=== PATIENT | male | born 1955 | race Caucasian/White ===

== ENCOUNTER → 2016-11-03 | Outpatient (CLI) | payer OTHER ==
--- NOTE | 2016-11-03 10:38 | DIAGNOSTIC IMAGING REPORT ---
MRI OF THE LUMBAR SPINE WITHOUT CONTRAST CLINICAL HISTORY: SPINAL STENOSIS COMPARISON STUDY: MRI of the lumbar spine September 18, 2014. TECHNIQUE: Utilizing a 1.5 Abeba magnet and dedicated coil, multiplanar, multiecho imaging of the lumbar spine was performed without IV contrast. FINDINGS: For purposes of numbering on this exam, the L5-S1 disc space is assigned to axial image 27 of 30. Alignment of the lumbar spine is anatomic. Vertebral body heights are maintained. There is no marrow replacement. There is no intracanalicular mass or fluid collection. Conus terminates at the mid L1 level. The paravertebral soft tissues are unremarkable. L1-2: Central canal and neural foramen are patent. L2-3: The central canal and neural foramen are patent. L3-4: The central canal and neural foramen are patent. L4-5: There is mild facet arthrosis. The central canal and neural foramen are patent. L5-S1: There is mild facet arthrosis. There is minimal disc bulge. Central canal and neural foramen are patent. IMPRESSION: 1. Unremarkable MRI of the lumbar spine for age. 2. Minimal multilevel degenerative disc disease and facet arthrosis. No disc herniation. Patent central canal and neural foramen. Electronically signed by: Pedro Kahn M.D. 11/03/2016 10:37 AM Dictated Date/Time: 11/03/2016 10:33 AM
== END | disposition home or self-care (01) ==
LOC: C.MRI 08:48
PROVIDERS: ATTEND Orthopaedic Surgery Orthopaedic Surgery of the Spine
DX: M48.06 Spinal stenosis, lumbar region (principal)

== ENCOUNTER → 2016-11-17 | Outpatient (CLI) | payer OTHER ==
--- NOTE | 2016-11-17 14:17 | DIAGNOSTIC IMAGING REPORT ---
ANKLE BRACHIAL INDEX COMPLETE CLINICAL HISTORY: BILATERAL CLAUDICATION COMPARISON STUDY: None. FINDINGS: The right ankle-brachial index measured with the posterior tibial artery was 1.4 and the dorsalis pedis artery was 1.29. The left ankle-brachial index measured with the posterior tibial artery was 1.35 and the dorsalis pedis artery was 1.14. IMPRESSION: Normal bilateral ankle brachial indices. Electronically signed by: Kike Freeman M.D. 11/17/2016 2:16 PM Dictated Date/Time: 11/17/2016 2:15 PM
== END | disposition home or self-care (01) ==
LOC: C.ULTR 12:50
PROVIDERS: ATTEND Physician Assistant
DX: I70.213 Atherosclerosis of native arteries of extremities with intermittent claudication, bilateral legs (principal)

== ENCOUNTER 2021-02-15 12:59 | Inpatient (IN) ==
[2021-02-15] MEDS ORDERED: ONDANSETRON INJ 2 MG/ML 2 ML VIAL IV STA (14:04)
[2021-02-15] MEDS ORDERED: SODIUM CHLORIDE 0.9% 1000ML 1,000 ML IV STA (14:04)
[2021-02-15] MEDS ORDERED: OPTIRAY 320 100ml IV ONE (14:11)
[2021-02-15] MEDS: MoRPHine SULFATE 4 MG/ML 1 ML CARP\\VIAL IV PRN ×4 (14:16→17:22)
--- NOTE | 2021-02-15 14:24 | Emergency Department Note ---
Impression & Plan Mesenteric vein thrombosis, Esophageal cancer, Ascites, Abdominal pain ED Provider Note NAME: MAXIMUS AGUILAR AGE: 65 SEX: M : 1955 ARRIVES VIA: Walk-In INFORMANT: Patient, ED PROVIDER(S): Isaiah Weldon DO CHIEF COMPLAINT: Abdominal pain HPI: The patient is a 65-year-old male who presented to the emergency department for an evaluation of abdominal pain. The patient has had abdominal pain ongoing for approximately 1 week. He states his symptoms have slowly been worsening. He was recently diagnosed with esophageal cancer. He does have a history of an esophageal stent. He is never had a bowel obstruction. He called his primary oncologist today and was referred to the emergency department for the possibility of a bowel obstruction. The patient has had nausea but no vomiting. He is noticed abdominal distention. He denies having any fever. He denies having any cough or chest pain. The patient has not had any recent traveling. The patient presented to the emergency department with his significant other. He denies having any black or bloody bowel movements. He tried an enema without relief. He has noticed some decreased urine output. He tried an enema because he thought he was just constipated without relief. He is also been trying [id number] stool softeners. ROS: See above HPI for pertinent positives & negatives. A total of 10 systems reviewed and were otherwise negative. PAST MEDICAL HISTORY: See Below PAST SURGICAL HISTORY: See Below FAMILY HISTORY: See Below SOCIAL HISTORY: See Below HOME MEDICATIONS: See Below ALLERGIES: See Below VITALS: See Below PHYSICAL EXAMINATION: GENERAL: Patient is awake and alert. The patient is somewhat anxious appearing. EYES: The conjunctivae are clear. The pupils are round and reactive. EARS, NOSE, MOUTH AND THROAT: The nose is without any evidence of any deformity. NECK: The neck is nontender and supple. RESPIRATORY: Normal respiratory effort is noted there is no evidence of wheezing rhonchi or rales CARDIOVASCULAR: Regular rate and rhythm noted there no murmurs rubs or gallops normal S1 normal S2. GASTROINTESTINAL: The abdomen was moderately distended and diffusely tender. There is guarding in the left side of the abdomen. MUSCULOSKELETAL/EXTREMITIES: There is no evidence of gross deformity full range of motion is noted in the hips and shoulders. SKIN: There is no obvious evidence of any rash. Pedal edema was noted bilaterally. NEUROLOGIC: Patient is awake alert and oriented x3. MEDICAL DECISION MAKING: The patient is a 65-year-old male who presented to the emergency department for an evaluation of abdominal pain. The patient has a history of esophageal cancer. He has a recent esophageal stent and recently started chemotherapy. The patient presented to the emergency department with abdominal pain abdominal distention and decreased bowel movements. It was felt that he may be in small bowel obstruction but CT revealed signs of ascites metastatic disease as well as mesenteric vein thrombosis. I discussed the patient's laboratory and r adiographic studies with him. He was treated with IV pain medication IV fluids and IV antiemetics. He was also given IV antibiotics and IV heparin. He was reevaluated multiple times. His symptoms significantly improved. I discussed his case with the on-call [facility] hospitalist. They have agreed to evaluate the patient in the emergency department for further management and disposition. Triage Nursing notes reviewed. Prior medical records reviewed Vital Signs: reviewed and remarkable for hypertension and tachycardia. Differential diagnosis: Etiologies such as appendicitis, diverticulitis, obstruction, inflammatory bowel disease, renal colic, PUD, biliary pathology, pancreatitis, mesenteric ischemia, aortic pathology, infections, genitourinary, UTI, perforated viscus, as well as others were entertained. ER treatment provided: See below Diagnostics interpreted by me: ECG: none Cardiac Monitoring: An order was placed for continuous cardiac monitoring. The monitor shows a rate of 96 bpm with sinus rhythm. Laboratory studies: As stated above and show below. Imaging studies: See below Consultation(s): I discussed this case with Dr. Carlin. He is agreed to evaluate the patient in the emergency department for further management and disposition. ED COURSE: Procedures: none PDMP:reviewed and no issues Critical Care: I have personally spent greater than 45 minutes of critical care time in the direct management of this patient. This includes bedside care, interpretation of diagnostic studies, and testing, discussion with consultants, patient, and family members, and other required patient management activities. This 45 minutes is in excess of all separately billable procedures. Past Med/Surg History Medical History (Updated 02/15/21 @ 19:52 by Isaiah Weldon DO) BPH (benign prostatic hyperplasia) Degenerative disc disease Depression Esophageal cancer (~12/2020) GERD (gastroesophageal reflux disease) Surgical History H/O hand surgery FINGER TENDON REPAIR History of esophagogastroduodenoscopy (EGD) History of esophagogastroduodenoscopy (EGD) (~12/2020) Upper Endoscopic Ultrasonography + esophageal stent [place] teeth removed Family History Mother Breast cancer Family history of diabetes mellitus Other Cancer Diabetes No family history of adverse response to anesthesia Parkinson disease TIA (transient ischemic attack) Social History Smoking Status: Never smoker Second Hand Exposure: Yes (hx); Hx Alcohol Use: Yes Alcohol type: beer Hx Substance Use: No Preferred Language: Chinese Communication Ability: Effective [employer] Required: No Beliefs That Will Affect Care: None Current Living Situation: Family Feels Safe at Home: Yes Assistive Devices: Glasses Allergies Allergies Allergy/AdvReac Type Severity Reaction Status Date / Time No Known Allergies Allergy Verified 02/15/21 15:15 Home Meds Home Medications Medication Instructions Recorded Confirmed bupropion HCl 150 mg 24 hr tablet, 150 mg PO QAM 12/23/20 02/15/21 extended release esomeprazole magnesium 40 mg 40 mg PO BID 02/06/21 02/15/21 capsule,delayed release (Nexium) famotidine 20 mg tablet (Pepcid AC) 20 mg PO HS 02/06/21 02/15/21 finasteride 5 mg tablet 5 mg PO HS 02/06/21 02/15/21 docusate sodium 100 mg capsule 200 mg PO BID PRN 02/15/21 02/15/21 (Dulcolax Stool Softener (docusate)) fluorouracil 50 mg/mL intravenous 0 mg IV Q14D 02/15/21 02/15/21 solution magnesium citrate 75 ml PO DAILY PRN 02/15/21 02/15/21 nivolumab 100 mg/10 mL intravenous 0 mg IV Q14D 02/15/21 02/15/21 solution (Opdivo) ondansetron HCl 8 mg tablet 8 mg PO Q8H 02/15/21 02/15/21 oxaliplatin 200 mg/40 mL 0 mg IV Q14D 02/15/21 02/15/21 intravenous solution prochlorperazine maleate 10 mg 10 mg PO Q6 PRN 02/15/21 02/15/21 tablet Previous Rx's Medication Instructions Recorded oxycodone-acetaminophen 5 mg-325 1 tab PO Q6H PRN #14 tab 02/10/21 mg tablet (Percocet) Results & Data (ED) Vital Signs Vital Signs - 24 hr 02/15/21 13:18 02/15/21 14:54 02/15/21 14:55 Temperature 35.7 C L Temperature Source Temporal Artery Scan Pulse Rate 97 H 85 97 H Pulse Rate from SpO2 Sensor 86 Pulse Rhythm Regular Respiratory Rate 22 21 22 Respiratory Effort / Characteristics Non-Labored Spontaneous Respiratory Depth Normal Respiratory Pattern Regular Blood Pressure 144/88 H 134/73 Blood Pressure Mean 106 93 Pulse Oximetry 97 97 97 Oxygen Delivery Method Room Air Room Air Sepsis Recent Fever Within 48 Hours No Sepsis New/Unexplained Change in Mental Status No Sepsis Action Taken by Nursing No Action Required 02/15/21 15:00 02/15/21 15:30 02/15/21 16:00 Temperature Temperature Source Pulse Rate 83 87 92 H Pulse Rate from SpO2 Sensor 84 87 93 H Pulse Rhythm Respiratory Rate 26 H 11 L 34 H Respiratory Effort / Characteristics Respiratory Depth Respiratory Pattern Blood Pressure 142/90 H 121/77 156/94 H Blood Pressure Mean 107 91 114 Pulse Oximetry 97 91 93 Oxygen Delivery Method Sepsis Recent Fever Within 48 Hours Sepsis New/Unexplained Change in Mental Status Sepsis Action Taken by Nursing 02/15/21 16:30 Temperature Temperature Source Pulse Rate 94 H Pulse Rate from SpO2 Sensor Pulse Rhythm Respiratory Rate 23 Respiratory Effort / Characteristics Respiratory Depth Respiratory Pattern Blood Pressure 119/79 Blood Pressure Mean 92 Pulse Oximetry Oxygen Delivery Method Sepsis Recent Fever Within 48 Hours Sepsis New/Unexplained Change in Mental Status Sepsis Action Taken by [place] Medications Current Medication List: was personally reviewed by me Laboratory Data Attestation: I reviewed the patient's lab results. Result diagrams: 02/15/21 14:00 02/15/21 14:00 Lab Results 02/15/21 02/15/21 02/15/21 Range/Units 14:00 14:00 14:00 WBC 11.09 H (4.8-10.8) K/uL RBC 4.60 L (4.7-6.1) M/uL Hgb 14.4 (14.0-18.0) g/dL POC Hgb (14.0-18.0) g/dl Hct 42.6 (42-52) % POC Hct (42-52) % MCV 92.6 (80-100) fL MCH 31.3 (25-34) pg MCHC 33.8 (32-36) g/dL RDW Std Deviation 49.7 H (36.4-46.3) fL RDW Coeff of Macario 14.7 H (11.5-14.5) % Plt Count 152 (130-400) K/uL MPV 11.3 H (7.4-10.4) fL Immature Gran % (Auto) 0.3 % Neut % (Auto) 90.9 % Lymph % (Auto) 7.1 % Brown % (Auto) 1.1 % Eos % (Auto) 0.5 % Baso % (Auto) 0.1 % Neut # (Auto) 10.08 H (1.4-6.5) K/uL Lymph # (Auto) 0.79 L (1.2-3.4) K/uL Brown # (Auto) 0.12 (0.11-0.59) K/uL Eos # (Auto) 0.06 (0-0.5) K/uL Baso # (Auto) 0.01 (0-0.2) K/uL Immature Gran # (Auto) 0.03 H (0.00-0.02) K/uL PT 13.1 H (9.0-12.0) Seconds INR 1.3 H (0.9-1.1) APTT 27.8 (21.0-31.0) Seconds PTT Ratio 1.1 POC Sodium (135-144) mmol/L Sodium 136 (136-145) mmol/L POC Potassium (3.3-5.0) mmol/L Potassium 3.9 (3.5-5.1) mmol/L POC Chloride (101-112) mmol/L Chloride 103 (98-107) mmol/L Carbon Dioxide 25 (21-32) mmol/L POC Total CO2 (24-31) mmol/L Anion Gap 8.0 (3-11) POC Anion Gap (16-25) mmol/L POC BUN (7-18) mg/dl BUN 26 H (7-18) mg/dl Creatinine 0.94 (0.6-1.4) mg/dl POC Creatinine (0.6-1.3) mg/dl Est Cr Clr Drug Dosing 96.2 ml/min Est GFR ( Amer) 98.9 ml/min Est GFR (Non-Af Amer) 85.3 ml/min BUN/Creatinine Ratio 27.6 H (10-20) Glucose 111 H (70-99) mg/dl POC Glucose (other) (70-99) mg/dl Calcium 7.7 L (8.5-10.1) mg/dl POC Ioniz Calcium Anabel (1.12-1.32) mmol/l Total Bilirubin 1.4 H (0.2-1) mg/dl AST 48 H (15-37) U/L ALT 56 (12-78) U/L Alkaline Phosphatase 131 H (45-117) U/L Total Protein 7.6 (6.4-8.2) gm/dl Albumin 2.2 L (3.4-5.0) gm/dl Globulin 5.4 H (2.5-4.0) gm/dl Albumin/Globulin Ratio 0.4 L (0.9-2) Lipase 234 (73-393) U/L COVID-19 Eval Order SARS-CoV-2 (PCR) (Negative) 02/15/21 02/15/21 02/15/21 Range/Units 14:13 15:14 15:14 WBC (4.8-10.8) K/uL RBC (4.7-6.1) M/uL Hgb (14.0-18.0) g/dL POC Hgb 14.6 (14.0-18.0) g/dl Hct (42-52) % POC Hct 43 (42-52) % MCV (80-100) fL MCH (25-34) pg MCHC (32-36) g/dL RDW Std Deviation (36.4-46.3) fL RDW Coeff of Macario (11.5-14.5) % Plt Count (130-400) K/uL MPV (7.4-10.4) fL Immature Gran % (Auto) % Neut % (Auto) % Lymph % (Auto) % Brown % (Auto) % Eos % (Auto) % Baso % (Auto) % Neut # (Auto) (1.4-6.5) K/uL Lymph # (Auto) (1.2-3.4) K/uL Brown # (Auto) (0.11-0.59) K/uL Eos # (Auto) (0-0.5) K/uL Baso # (Auto) (0-0.2) K/uL Immature Gran # (Auto) (0.00-0.02) K/uL PT (9.0-12.0) Seconds INR (0.9-1.1) APTT (21.0-31.0) Seconds PTT Ratio POC Sodium 137 (135-144) mmol/L Sodium (136-145) mmol/L POC Potassium 4.0 (3.3-5.0) mmol/L Potassium (3.5-5.1) mmol/L POC Chloride 98 L (101-112) mmol/L Chloride (98-107) mmol/L Carbon Dioxide (21-32) mmol/L POC Total CO2 21 L (24-31) mmol/L Anion Gap (3-11) POC Anion Gap 23.0 (16-25) mmol/L POC BUN 27 H (7-18) mg/dl BUN (7-18) mg/dl Creatinine (0.6-1.4) mg/dl POC Creatinine 0.8 (0.6-1.3) mg/dl Est Cr Clr Drug Dosing ml/min Est GFR ( Amer) ml/min Est GFR (Non-Af Amer) ml/min BUN/Creatinine Ratio (10-20) Glucose (70-99) mg/dl POC Glucose (other) 118 H (70-99) mg/dl Calcium (8.5-10.1) mg/dl POC Ioniz Calcium Anabel 1.10 L (1.12-1.32) mmol/l Total Bilirubin (0.2-1) mg/dl AST (15-37) U/L ALT (12-78) U/L Alkaline Phosphatase (45-117) U/L Total Protein (6.4-8.2) gm/dl Albumin (3.4-5.0) gm/dl Globulin (2.5-4.0) gm/dl Albumin/Globulin Ratio (0.9-2) Lipase (73-393) U/L COVID-19 Eval Order Covid19 at [facility] SARS-CoV-2 (PCR) NEGATIVE (Negative) Administered Medications Heparin Sodium/Dextrose (Heparin Sodium/Dextrose) 25,000 units in 500 mls @ 31 mls/hr IV .Q16H8M SISSY; Protocol Stop: 03/17/21 16:14 Last Titration: 02/15/21 18:53 Dose: 1,550 units/hr, 31 mls/hr Documented by: [id number] Cosigned by: [id number] Admin: 02/15/21 16:37 Dose: 1,550 units/hr, 31 mls/hr Documented by: [id number] Cosigned by: [id number] Lactated Ringer's (Lr) 1,000 mls @ 90 mls/hr IV .Q11H7M SISSY Stop: 03/17/21 16:59 Last Admin: 02/15/21 19:23 Dose: 90 mls/hr Documented by: [id number] Morphine Sulfate (Morphine Sulfate 2 Mg/Ml Carp) 2 mg IV Q4 PRN PRN Reason: severe Pain Stop: 03/01/21 18:54 Last Admin: 02/15/21 19:29 Dose: 2 mg Documented by: [id number] Discontinued Medications Furosemide (Furosemide 40 Mg/4 Ml Vial) 20 mg IV NOW STA Stop: 02/15/21 16:52 Last Admin: 02/15/21 17:48 Dose: 20 mg Documented by: [id number] Sodium Chloride (Nss 1000ml) 1,000 mls @ 999 mls/hr IV .Q1H1M STA Stop: 02/15/21 15:04 Last Infusion: 02/15/21 15:21 Dose: 0 mls/hr Documented by: [id number] Admin: 02/15/21 14:16 Dose: 999 mls/hr Documented by: [id number] Ceftriaxone Sodium (Rocephin) 1,000 mg in 50 mls @ 100 mls/hr IV NOW STA Stop: 02/15/21 16:32 Last Infusion: 02/15/21 16:59 Dose: 0 mls/hr Documented by: [id number] Admin: 02/15/21 16:37 Dose: 100 mls/hr Documented by: [id number] Piperacillin Sod/Tazobactam (Sod 3.375 gm/ Dextrose) 115 mls @ 230 mls/hr IV NOW ONE; Protocol Stop: 02/15/21 16:47 Last Infusion: 02/15/21 19:07 Dose: 0 mls/hr Documented by: [id number] Admin: 02/15/21 17:48 Dose: 230 mls/hr Documented by: [id number] Calcium Gluconate () 1,000 mg in 60 mls @ 240 mls/hr IV ONE STA Stop: 02/15/21 17:22 Last Infusion: 02/15/21 17:40 Dose: 0 mls/hr Documented by: [id number] Admin: 02/15/21 17:15 Dose: 240 mls/hr Documented by: [id number] Ioversol (Optiray 320 100ml) 93 ml IV ONCE ONE Stop: 02/15/21 14:12 Last Admin: 02/15/21 14:11 Dose: 93 ml Documented by: [id number] Morphine Sulfate (Morphine Sulfate 4 Mg/Ml 1 Ml Carp\Vial) 4 mg IV Q15M PRN PRN Reason: Pain Stop: 03/01/21 14:03 Last Admin: 02/15/21 17:22 Dose: 4 mg Documented by: [id number] Admin: 02/15/21 15:21 Dose: 4 mg Documented by: [id number] Admin: 02/15/21 14:50 Dose: 4 mg Documented by: [id number] Admin: 02/15/21 14:16 Dose: 4 mg Documented by: [id number] Ondansetron HCl (Ondansetron Inj 2 Mg/Ml 2 Ml Vial) 4 mg IV NOW STA Stop: 02/15/21 14:05 Last Admin: 02/15/21 14:16 Dose: 4 mg Documented by: [id number] Imaging Data Radiologist's Impression: Abdomen/Pelvis CT 02/15/21 14:[address] WITH IV CONTRAST CT DOSE: 1659.06 mGy.cm HISTORY: Left lower quadrant abdominal pain. TECHNIQUE: Multiaxial CT images of the abdomen and pelvis were performed following the use of intravenous contrast. A dose lowering technique was utilized adhering to the principles of ALARA. COMPARISON STUDY: Abdomen and pelvis CT 12/24/2020. FINDINGS: Mild dependent changes seen at the lung bases. Trace bilateral pleural effusions. Circumferential thickening at the distal esophagus with an indwelling stent. The stent appears in good position. Retrocrural, distal paraesophageal, and upper abdominal lymphadenopathy persists. Dominant periportal lymph node continues to measure 4.2 x 3.0 cm. Near occlusive thrombus at the portosplenic confluence and extending into the superior mesenteric vein. This is new compared the prior study. There is a punctate stone within the left kidney. Normal right kidney. No hydronephrosis. Numerous ill-defined low-attenuation nodules again seen throughout the liver. Mild nodular contour to the liver consistent with cirrhosis. Adrenal glands are unremarkable. The pancreas enhances normally. Small to moderate amount of ascites has developed in the interval. The bladder is unremarkable. The spleen is mildly enlarged measuring 13 cm in length. Normal caliber abdominal aorta. There are a few thickened loops of small bowel within the mid to lower abdomen. IMPRESSION: 1. Circumferential thickening of the distal esophagus with an indwelling distal esophageal stent. This appears in good position. The thickened esophagus likely corresponds the patient's known esophageal mass. 2. Interval development of trace bilateral pleural effusions and a small to moderate amount of ascites. 3. There is near occlusive thrombus within the portosplenic confluence and extending to the superior mesenteric vein. This is also new compared to the prior study. 4. A few mildly thickened loops of small bowel within the mid to lower abdomen. This may be reactive to the ascites or represent a nonspecific enteritis. This could be due to an infectious, inflammatory, or ischemic process. 5. Small to moderate amount of ascites. 6. Cirrhotic liver containing multiple ill-defined low-attenuation small nodules. Metastatic disease would be the diagnosis of exclusion. 7. No significant change in the lymphadenopathy within the upper abdomen and lower chest likely representing metastatic disease. ACT 112: Negative or not required by law. Electronically signed by: Kike Freeman M.D. 02/15/2021 2:52 PM Discharge Plan Visit Data Chief Complaint: Abdominal Pain Stated Complaint: ABDOMINAL PAIN, CONSTIPATION ED Provider: Isaiah Weldon Discharge Problem: Mesenteric vein thrombosis, Esophageal cancer, Ascites, Abdominal pain Patient Disposition: Admitted As Inpatient Condition: Good Discharge Instructions Interventions: ED Discharge Assessment Last Done: 02/15/21 18:08 Discharge Problem: Esophageal cancer Qualifiers: Malignant neoplasm of esophagus location: unspecified location Qualified Code(s): C15.9 - Malignant neoplasm of esophagus, unspecified Ascites Qualifiers: Ascites type: other type Qualified Code(s): R18.8 - Other ascites Abdominal pain Qualifiers: Abdominal location: generalized Qualified Code(s): R10.84 - Generalized abdominal pain
[2021-02-15 14:26] LABS: iSTAT Creatinine 0.8 mg/dl (0.6-1.3); iSTAT Hemoglobin 14.6 g/dl (14.0-18.0); iSTAT Ionized Calcium 1.1 mmol/l (1.12-1.32)
[2021-02-15 14:26] LABS: Basophils # (auto) 0.01 K/uL (0-0.2); Basophils % (auto) 0.1 %; Eosinophils # (auto) 0.06 K/uL (0-0.5); Eosinophils % (auto) 0.5 %; Hematocrit (blood only) 42.6 % (42-52); Hemoglobin 14.4 g/dL (14.0-18.0); Immature Granulocytes # (auto) 0.03 K/uL (0.00-0.02); Immature Granulocytes % (auto) 0.3 %; Lymphocytes # (auto) 0.79 K/uL (1.2-3.4); Lymphocytes % (auto) 7.1 %; Mean Corpuscular Hemoglobin 31.3 pg (25-34); Mean Corpuscular Hgb Conc 33.8 g/dL (32-36); Mean Corpuscular Volume 92.6 fL (80-100); Mean Platelet Volume 11.3 fL (7.4-10.4); Monocytes # (auto) 0.12 K/uL (0.11-0.59); Monocytes % (auto) 1.1 %; Neutrophils # (auto) 10.08 K/uL (1.4-6.5); Neutrophils % (auto) 90.9 %; Platelet Count 152 K/uL (130-400); RDW Coefficient of Variation 14.7 % (11.5-14.5); RDW Standard Deviation 49.7 fL (36.4-46.3); White Blood Count 11.09 K/uL (4.8-10.8)
[2021-02-15 14:49] LABS: Albumin Level 2.2 gm/dl (3.4-5.0); BUN Creatinine Ratio 27.6 (10-20); Calcium 7.7 mg/dl (8.5-10.1); Creatinine Clr Calc Pharmacy 96.2 ml/min; Est GFR (African American) 98.9 ml/min; Est GFR (Non-African American) 85.3 ml/min; Potassium 3.9 mmol/L (3.5-5.1)
[2021-02-15 14:52] LABS: Albumin Globulin Ratio 0.4 (0.9-2); Bilirubin,Total 1.4 mg/dl (0.2-1); Globulin 5.4 gm/dl (2.5-4.0); Total Protein 7.6 gm/dl (6.4-8.2)
--- NOTE | 2021-02-15 14:53 | CT Scan Report ---
ABDOMEN AND PELVIS CT WITH IV CONTRAST CT DOSE: 1659.06 mGy.cm HISTORY: Left lower quadrant abdominal pain. TECHNIQUE: Multiaxial CT images of the abdomen and pelvis were performed following the use of intrave nous contrast. A dose lowering technique was utilized adhering to the principles of ALARA. COMPARISON STUDY: Abdomen and pelvis CT 12/24/2020. FINDINGS: Mild dependent changes seen at the lung bases. Trace bilateral pleural effusions. Circumfer ential thickening at the distal esophagus with an indwelling stent. The stent appears in good positio n. Retrocrural, distal paraesophageal, and upper abdominal lymphadenopathy persists. Dominant peripor annalise lymph node continues to measure 4.2 x 3.0 cm. Near occlusive thrombus at the portosplenic conflue nce and extending into the superior mesenteric vein. This is new compared the prior study. There is a punctate stone within the left kidney. Normal right kidney. No hydronephrosis. Numerous ill-defined low-attenuation nodules again seen throughout the liver. Mild nodular contour to the liver consistent with cirrhosis. Adrenal glands are unremarkable. The pancreas enhances normally. Small to moderate a mount of ascites has developed in the interval. The bladder is unremarkable. The spleen is mildly enl arged measuring 13 cm in length. Normal caliber abdominal aorta. There are a few thickened loops of s mall bowel within the mid to lower abdomen. IMPRESSION: 1. Circumferential thickening of the distal esophagus with an indwelling distal esophageal stent. Thi s appears in good position. The thickened esophagus likely corresponds the patient's known esophageal mass. 2. Interval development of trace bilateral pleural effusions and a small to moderate amount of ascite s. 3. There is near occlusive thrombus within the portosplenic confluence and extending to the superior mesenteric vein. This is also new compared to the prior study. 4. A few mildly thickened loops of small bowel within the mid to lower abdomen. This may be reactive to the ascites or represent a nonspecific enteritis. This could be due to an infectious, inflammatory , or ischemic process. 5. Small to moderate amount of ascites. 6. Cirrhotic liver containing multiple ill-defined low-attenuation small nodules. Metastatic disease would be the diagnosis of exclusion. 7. No significant change in the lymphadenopathy within the upper abdomen and lower chest likely repre senting metastatic disease. ACT 112: Negative or not required by law. Electronically signed by: Kike Freeman M.D. 02/15/2021 2:52 PM
[2021-02-15 15:57] LABS: INR 1.3 (0.9-1.1); Partial Thromboplastin Ratio 1.1; Partial Thromboplastin Time 27.8 Seconds (21.0-31.0); Prothrombin Time 13.1 Seconds (9.0-12.0)
[2021-02-15] MEDS ORDERED: Heparin IV Adult Wt-Based Standard *NO* Bolus Protocol ONE (16:00)
[2021-02-15] MEDS ORDERED: cefTRIAXone SODIUM 1,000 MG/50 ML BAG IV STA (16:03)
[2021-02-15] MEDS ORDERED: PIPERACILL/TAZOBAC CONSULT ACTIVE PRN ×2 (16:18→18:55)
[2021-02-15] MEDS ORDERED: PIPERACILLIN/TAZOBACTAM 3.375 GM in DEXTROSE 5% 100 ML IV ONE (16:18)
[2021-02-15] MEDS: HEPARIN SODIUM/DEXTROSE 25,000 UNITS/500 ML BAG IV SCH (16:37)
[2021-02-15] MEDS ORDERED: FUROSEMIDE 40 MG/4 ML VIAL IV STA (16:51)
[2021-02-15] MEDS ORDERED: CALCIUM GLUCONATE 10% 1,000 MG in SODIUM CHLORIDE 0.9% 50 ML IV ONE (16:54)
[2021-02-15] MEDS ORDERED: CALCIUM GLUCONATE 1,000 MG/60 ML BAG IV STA (17:08)
--- NOTE | 2021-02-15 17:24 | History & Physical Report ---
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 metastatic disease - GI consult appreciated (3) Ascites: Plan: Likely secondary to acute thrombus - 20 mg IV lasix now (4) GERD (gastroesophageal reflux disease): Plan: Continue Nexium 40 mg PO BID or equivalent (5) Esophageal cancer: Plan: Patient undergoing fluorouracil, Oxaliplatin and Opdivo every 14 days- received 1 treatment - Oxycondone and Morphine for moderate to severe pain (6) BPH (benign prostatic hyperplasia): Plan: Continue finasteride (7) Enteritis: Plan: Reactive vs. non-specific finding associated with dilated loops of bowel - Zosyn 3.375 gm IV q 8 empiric coverage as well with mesenteric thrombus History of Present Illness Primary Care Provider: Bandar Carrion 65 YOM with past medical history: HOFFMAN, GERD, Esophageal cancer with stent placed, BPH. Patient was recently diagnosed with esophageal cancer and recently started chemotherapy. He came in today for complaints of sharp stabbing abdominal pain yesterday that progressively gotten worse. The pain is in the center of his abdomen and waxes and wanes, it was associated with a sense of fullness and nausea without vomiting. He has also noticed that his abdomen has been getting more swollen and his weight at his last visit prior to chemotherapy was increased 20lbs(this was a different scale than he used at home though). In the EMD the patient had routine labs drawn and CT scan of the abdomen and pelvis. His abdomen and pelvis scan reviewed Near occlusive thrombus of the portosplenic confluence extending to the superior mesenteric vein. Also noting c irrhotic liver and small lymph nodes, as well as mildly thickened loops of small bowels and new evolvement of ascites. Patient will be admitted and started on a Heparin drip for his thrombus, will place empirically on Zosyn, keep NPO, IVF and pain control. Will give 20 mg of Lasix now for ascites. Patient has reveived his COVID vaccine and his COVID test is NEGATIVE on admission. Allergies Allergy/AdvReac Type Severity Reaction Status Date / Time No Known Allergies Allergy Verified 02/15/21 15:15 Home Medications Medication Instructions Recorded Confirmed Type bupropion HCl 150 mg 24 hr tablet, 150 mg PO QAM 12/23/20 02/15/21 History extended release esomeprazole magnesium 40 mg 40 mg PO BID 02/06/21 02/15/21 History capsule,delayed release (Nexium) famotidine 20 mg tablet (Pepcid AC) 20 mg PO HS 02/06/21 02/15/21 History finasteride 5 mg tablet 5 mg PO HS 02/06/21 02/15/21 History oxycodone-acetaminophen 5 mg-325 1 tab PO Q6H PRN #14 tab 02/10/21 02/15/21 Rx mg tablet (Percocet) docusate sodium 100 mg capsule 200 mg PO BID PRN 02/15/21 02/15/21 History (Dulcolax Stool Softener (docusate)) fluorouracil 50 mg/mL intravenous 0 mg IV Q14D 02/15/21 02/15/21 History solution magnesium citrate 75 ml PO DAILY PRN 02/15/21 02/15/21 History nivolumab 100 mg/10 mL intravenous 0 mg IV Q14D 02/15/21 02/15/21 History solution (Opdivo) ondansetron HCl 8 mg tablet 8 mg PO Q8H 02/15/21 02/15/21 History oxaliplatin 200 mg/40 mL 0 mg IV Q14D 02/15/21 02/15/21 History intravenous solution prochlorperazine maleate 10 mg 10 mg PO Q6 PRN 02/15/21 02/15/21 History tablet Past Med/Surg History Medical History BPH (benign prostatic hyperplasia) Degenerative disc disease Depression Esophageal cancer (~12/2020) GERD (gastroesophageal reflux disease) Surgical History H/O hand surgery FINGER TENDON REPAIR History of esophagogastroduodenoscopy (EGD) History of esophagogastroduodenoscopy (EGD) (~12/2020) Upper Endoscopic Ultrasonography + esophageal stent [place] teeth removed Family History Mother Breast cancer Family history of diabetes mellitus Other Cancer Diabetes No family history of adverse response to anesthesia Parkinson disease TIA (transient ischemic attack) Social History Smoking Status: Former smoker Second Hand Exposure: No; Do You Dip or Chew Tobacco: No; Tobacco Cessation Education Requested by Patient: No Hx Alcohol Use: No Hx Substance Use: No Preferred Language: Telugu Communication Ability: Effective Er Manager Required: No Beliefs That Will Affect Care: None Current Living Situation: Spouse Feels Safe at Home: Yes Safety Concerns: Feels Safe At This Time Assistive Devices: Glasses Review of Systems Review of Systems: REVIEW OF SYSTEMS: Constitutional: No fever, sweats or chills Eyes: No diplopia, no worsening or blurred vision ENT: normal hearing, no trouble swallowing Respiratory: No cough, sputum, dyspnea at rest or on exertion Cardiovascular: No chest pain, tightness or palpitations Abdomen: (+) pain, nausea, loss of appetitie, NO vomiting, diarrhea or constipation Musculoskeletal: No joint pain, calf pain, swelling Neurologic: No weakness, numbness/tingling, or balance problems Psychiatric: No anxiety or depression Skin: No rash or itch Physical Exam Physical Exam: PHYSICAL EXAM: General: awake, alert, no apparent distress Head: Normocephalic, atraumatic ENT: PERRL, EOMI, no pharyngeal exudate, mucous membranes moist Neuro: AAO x 3, speech clear and appropriate, strength intact bilaterally 5/5, sensation intact and equal all extremities and dermatomes, no pronator drift Chest: equal rise and fall of the chest, no accessory muscle use, no heaves or thrills, Clear to auscultation, on room air, Cardiac: Regular rate and rhythm, telemetry reviewed-NSR no ectopy, skin warm dry, cap refill <3 seconds, peripheral pulses +2 no JVD, no murmur, no edema in upper or lower extremities GI: NABS x 4 quadrants, softly distended, tender with deep palpation, no rebound, guarding : Spontaneously voiding, no pain, no CVA tenderness, Extremities: Normal inspection, no peripheral edema or erythema, calfs nontender to palpation Psych: Normal mood and affect Skin: no rash or erythema Results & Data Results & Data ([facility]) Vital Signs (Past 12 Hours) Vital Signs Temp Pulse Resp BP Pulse Ox 02/15/21 16:30 94 H 23 119/79 02/15/21 16:00 92 H 34 H 156/94 H 93 02/15/21 15:30 87 11 L 121/77 91 02/15/21 15:00 83 26 H 142/90 H 97 02/15/21 14:55 97 H 22 97 02/15/21 14:54 85 21 134/73 97 02/15/21 13:18 35.7 C L 97 H 22 144/88 H 97 Laboratory Results Abnormal lab results 02/15/21 02/15/21 02/15/21 Range/Units 14:00 14:00 14:00 WBC 11.09 H (4.8-10.8) K/uL RBC 4.60 L (4.7-6.1) M/uL RDW Std Deviation 49.7 H (36.4-46.3) fL RDW Coeff of Macario 14.7 H (11.5-14.5) % MPV 11.3 H (7.4-10.4) fL Neut # (Auto) 10.08 H (1.4-6.5) K/uL Lymph # (Auto) 0.79 L (1.2-3.4) K/uL Immature Gran # (Auto) 0.03 H (0.00-0.02) K/uL PT 13.1 H (9.0-12.0) Seconds INR 1.3 H (0.9-1.1) POC Chloride (101-112) mmol/L POC Total CO2 (24-31) mmol/L POC BUN (7-18) mg/dl BUN 26 H (7-18) mg/dl BUN/Creatinine Ratio 27.6 H (10-20) Glucose 111 H (70-99) mg/dl POC Glucose (other) (70-99) mg/dl Calcium 7.7 L (8.5-10.1) mg/dl POC Ioniz Calcium Anabel (1.12-1.32) mmol/l Total Bilirubin 1.4 H (0.2-1) mg/dl AST 48 H (15-37) U/L Alkaline Phosphatase 131 H (45-117) U/L Albumin 2.2 L (3.4-5.0) gm/dl Globulin 5.4 H (2.5-4.0) gm/dl Albumin/Globulin Ratio 0.4 L (0.9-2) 02/15/21 Range/Units 14:13 WBC (4.8-10.8) K/uL RBC (4.7-6.1) M/uL RDW Std Deviation (36.4-46.3) fL RDW Coeff of Macario (11.5-14.5) % MPV (7.4-10.4) fL Neut # (Auto) (1.4-6.5) K/uL Lymph # (Auto) (1.2-3.4) K/uL Immature Gran # (Auto) (0.00-0.02) K/uL PT (9.0-12.0) Seconds INR (0.9-1.1) POC Chloride 98 L (101-112) mmol/L POC Total CO2 21 L (24-31) mmol/L POC BUN 27 H (7-18) mg/dl BUN (7-18) mg/dl BUN/Creatinine Ratio (10-20) Glucose (70-99) mg/dl POC Glucose (other) 118 H (70-99) mg/dl Calcium (8.5-10.1) mg/dl POC Ioniz Calcium Anabel 1.10 L (1.12-1.32) mmol/l Total Bilirubin (0.2-1) mg/dl AST (15-37) U/L Alkaline Phosphatase (45-117) U/L Albumin (3.4-5.0) gm/dl Globulin (2.5-4.0) gm/dl Albumin/Globulin Ratio (0.9-2) Diagnostic Findings Abdomen/Pelvis CT 02/15/21 14:[address] WITH IV CONTRAST CT DOSE: 1659.06 mGy.cm HISTORY: Left lower quadrant abdominal pain. TECHNIQUE: Multiaxial CT images of the abdomen and pelvis were performed following the use of intravenous contrast. A dose lowering technique was utilized adhering to the principles of ALARA. COMPARISON STUDY: Abdomen and pelvis CT 12/24/2020. FINDINGS: Mild dependent changes seen at the lung bases. Trace bilateral pleural effusions. Circumferential thickening at the distal esophagus with an indwelling stent. The stent appears in good position. Retrocrural, distal paraesophageal, and upper abdominal lymphadenopathy persists. Dominant periportal lymph node continues to measure 4.2 x 3.0 cm. Near occlusive thrombus at the portosplenic confluence and extending into the superior mesenteric vein. This is new compared the prior study. There is a punctate stone within the left kidney. Normal right kidney. No hydronephrosis. Numerous ill-defined low-attenuation nodules again seen throughout the liver. Mild nodular contour to the liver consistent with cirrhosis. Adrenal glands are unremarkable. The pancreas enhances normally. Small to moderate amount of ascites has developed in the interval. The bladder is unremarkable. The spleen is mildly enlarged measuring 13 cm in length. Normal caliber abdominal aorta. There are a few thickened loops of small bowel within the mid to lower abdomen. IMPRESSION: 1. Circumferential thickening of the distal esophagus with an indwelling distal esophageal stent. This appears in good position. The thickened esophagus likely corresponds the patient's known esophageal mass. 2. Interval development of trace bilateral pleural effusions and a small to moderate amount of ascites. 3. There is near occlusive thrombus within the portosplenic confluence and extending to the superior mesenteric vein. This is also new compared to the prior study. 4. A few mildly thickened loops of small bowel within the mid to lower abdomen. This may be reactive to the ascites or represent a nonspecific enteritis. This could be due to an infectious, inflammatory, or ischemic process. 5. Small to moderate amount of ascites. 6. Cirrhotic liver containing multiple ill-defined low-attenuation small nodules. Metastatic disease would be the diagnosis of exclusion. 7. No significant change in the lymphadenopathy within the upper abdomen and lower chest likely representing metastatic disease. ACT 112: Negative or not required by law. Electronically signed by: Kike Freeman M.D. 02/15/2021 2:52 PM Medications Administered Home Medications bupropion HCl 150 mg 24 hr tablet, extended release 150 mg PO QAM 12/23/20 [History Confirmed 02/15/21] esomeprazole magnesium 40 mg capsule,delayed release (Nexium) 40 mg PO BID 02/06/21 [History Confirmed 02/15/21] famotidine 20 mg tablet (Pepcid AC) 20 mg PO HS 02/06/21 [History Confirmed 02/15/21] finasteride 5 mg tablet 5 mg PO HS 02/06/21 [History Confirmed 02/15/21] oxycodone-acetaminophen 5 mg-325 mg tablet (Percocet) 1 tab PO Q6H PRN #14 tab 02/10/21 [Rx Confirmed 02/15/21] docusate sodium 100 mg capsule (Dulcolax Stool Softener (docusate)) 200 mg PO BID PRN 02/15/21 [History Confirmed 02/15/21] fluorouracil 50 mg/mL intravenous solution 0 mg IV Q14D 02/15/21 [History Confirmed 02/15/21] magnesium citrate 75 ml PO DAILY PRN 02/15/21 [History Confirmed 02/15/21] nivolumab 100 mg/10 mL intravenous solution (Opdivo) 0 mg IV Q14D 02/15/21 [History Confirmed 02/15/21] ondansetron HCl 8 mg tablet 8 mg PO Q8H 02/15/21 [History Confirmed 02/15/21] oxaliplatin 200 mg/40 mL intravenous solution 0 mg IV Q14D 02/15/21 [History Confirmed 02/15/21] prochlorperazine maleate 10 mg tablet 10 mg PO Q6 PRN 02/15/21 [History Confirmed 02/15/21] Active Medications Heparin Sodium/Dextrose (Heparin Sodium/Dextrose) 25,000 units in 500 mls @ 31 mls/hr IV .Q16H8M SISSY; Protocol Stop: 03/17/21 16:14 Last Admin: 02/15/21 16:37 Dose: 1,550 units/hr, 31 mls/hr Documented by: Lactated Ringer's (Lr) 1,000 mls @ 90 mls/hr IV .Q11H7M SISSY Stop: 03/17/21 16:59 Calcium Gluconate () 1,000 mg in 60 mls @ 240 mls/hr IV ONE STA Stop: 02/15/21 17:22 Miscellaneous Information (Piperacill/Tazobac Consult Active) 1 ea N/A UD PRN PRN Reason: Consult Stop: 03/17/21 16:17 Morphine Sulfate (Morphine Sulfate 4 Mg/Ml 1 Ml Carp\Vial) 4 mg IV Q15M PRN PRN Reason: Pain Stop: 03/01/21 14:03 Last Admin: 02/15/21 15:21 Dose: 4 mg Documented by: Heparin Sodium/Dextrose (Heparin Sodium/Dextrose) 25,000 units in 500 mls @ 31 mls/hr IV .Q16H8M [facility]; Protocol Stop: 03/17/21 16:14 Last Admin: 02/15/21 16:37 Dose: 1,550 units/hr, 31 mls/hr Documented by: [id number] Cosigned by: [id number] Morphine Sulfate (Morphine Sulfate 4 Mg/Ml 1 Ml Carp\Vial) 4 mg IV Q15M PRN PRN Reason: Pain Stop: 03/01/21 14:03 Last Admin: 02/15/21 15:21 Dose: 4 mg Documented by: [id number] Admin: 02/15/21 14:50 Dose: 4 mg Documented by: [id number] Admin: 02/15/21 14:16 Dose: 4 mg Documented by: [id number] Discontinued Medications Sodium Chloride (Nss 1000ml) 1,000 mls @ 999 mls/hr IV .Q1H1M STA Stop: 02/15/21 15:04 Last Infusion: 02/15/21 15:21 Dose: 0 mls/hr Documented by: [id number] Admin: 02/15/21 14:16 Dose: 999 mls/hr Documented by: [id number] Ceftriaxone Sodium (Rocephin) 1,000 mg in 50 mls @ 100 mls/hr IV NOW STA Stop: 02/15/21 16:32 Last Infusion: 02/15/21 16:59 Dose: 0 mls/hr Documented by: [id number] Admin: 02/15/21 16:37 Dose: 100 mls/hr Documented by: [id number] Ioversol (Optiray 320 100ml) 93 ml IV ONCE ONE Stop: 02/15/21 14:12 Last Admin: 02/15/21 14:11 Dose: 93 ml Documented by: [id number] Ondansetron HCl (Ondansetron Inj 2 Mg/Ml 2 Ml Vial) 4 mg IV NOW STA Stop: 02/15/21 14:05 Last Admin: 02/15/21 14:16 Dose: 4 mg Documented by: [id number] ECG Additional Comments: Pending on admisson Code Status & VTE Plan Code Status CODE: FULL VTE: SCDs, Heparin GTT VTE Prophylaxis Plan VTE Prophylaxis will be ordered: Yes Supervising Physician Co-Signing Physician Notes Attending addendum: I have physically seen this patient, have supervised the DAVID's activities, and agree with the H&P unless as otherwise noted. Assessment and Plan: Mesenteric vein thrombosis/ascites- Start heparin drip low-dose without bolus Due to history of cancer, may best be treated with Lovenox subcu therapeutically, but will leave to oncology Trial of Lasix 20 mg IV x1 now Esophageal cancer/abdominal lymphadenopathy/GERD- Nexium/pantoprazole 40 mg p.o. twice daily Presently receiving IV fluorouracil, oxaliplatin and Opdivo Pain control with oxycodone and morphine as noted Enteritis- Antibiotic coverage with Zosyn IV as noted, and for mesenteric thrombus Remaining orders and notations as noted PG Care Time/CCT Total # of Minutes Spent Total Time Spent with Patient: Total time spent is greater than 50% in coordination of care (as documented) at patient's floor/unit and/or counseling patient: Coding Level of Care Code 66114 Initial Inpt Care Lvl 3 Diagnoses Mesenteric vein thrombosis K55.069 Abdominal lymphadenopathy R59.0 Ascites R18.8 GERD (gastroesophageal reflux disease) K21.9 Esophageal cancer C15.9 BPH (benign prostatic hyperplasia) N40.0 Enteritis K52.9
[2021-02-15] MEDS ORDERED: MAGNESIUM CITRATE 296 ML/BTL PO PRN (18:55)
[2021-02-15] MEDS ORDERED: PIPERACILLIN/TAZOBACTAM 3.375 GM in DEXTROSE 5% 100 ML IV SCH (18:55)
[2021-02-15] MEDS ORDERED: POLYETHYLENE (MIRALAX) 17 GM PACK PO PRN (18:55)
[2021-02-15] MEDS ORDERED: PROCHLORPERAZINE MALEATE 10 MG TAB PO PRN (18:55)
[2021-02-15] MEDS ORDERED: DOCUSATE SODIUM 100 MG CAP PO PRN (18:55)
[2021-02-15] MEDS ORDERED: ACETAMINOPHEN 325 MG TAB PO PRN (18:55)
[2021-02-15] MEDS: LACTATED RINGER'S 1,000 ML IV SCH (19:23)
[2021-02-15] MEDS: MoRPHine SULFATE 2 MG/ML CARP IV PRN (19:29)
[2021-02-15] MEDS: FINASTERIDE 5 MG TAB PO SCH (20:31)
[2021-02-15] MEDS: PANTOprazole 40 MG TAB PO SCH (20:31)
[2021-02-15] MEDS: FAMOTIDINE 20 MG TAB PO SCH (20:31)
[2021-02-15] MEDS: oxyCODONE/ACETAMINOPHEN 5mg/325mg TAB PO PRN (21:19)
[2021-02-15] MEDS ORDERED: ONDANSETRON 8MG OD TAB PO SCH (22:00)
[2021-02-15] MEDS: PIPERACILLIN/TAZOBACTAM 4.5 GM in DEXTROSE 5% 100 ML IV SCH (23:17)
[2021-02-15 23:26] LABS: Partial Thromboplastin Ratio 3.5
[2021-02-15 23:45] LABS: Partial Thromboplastin Time 91.2 Seconds (21.0-31.0)
[2021-02-16] MEDS: MoRPHine SULFATE 2 MG/ML CARP IV PRN (02:22)
[2021-02-16] MEDS: LACTATED RINGER'S 1,000 ML IV SCH ×2 (05:26→16:15)
[2021-02-16 07:04] LABS: Basophils # (auto) 0.02 K/uL (0-0.2); Basophils % (auto) 0.2 %; Eosinophils # (auto) 0.09 K/uL (0-0.5); Eosinophils % (auto) 0.9 %; Hematocrit (blood only) 40.1 % (42-52); Hemoglobin 13.6 g/dL (14.0-18.0); Immature Granulocytes # (auto) 0.01 K/uL (0.00-0.02); Immature Granulocytes % (auto) 0.1 %; Lymphocytes # (auto) 0.96 K/uL (1.2-3.4); Lymphocytes % (auto) 9.9 %; Mean Corpuscular Hemoglobin 31.6 pg (25-34); Mean Corpuscular Hgb Conc 33.9 g/dL (32-36); Mean Platelet Volume 10.7 fL (7.4-10.4); Monocytes # (auto) 0.21 K/uL (0.11-0.59); Monocytes % (auto) 2.2 %; Neutrophils # (auto) 8.45 K/uL (1.4-6.5); Neutrophils % (auto) 86.7 %; Platelet Count 135 K/uL (130-400); RDW Coefficient of Variation 14.8 % (11.5-14.5); RDW Standard Deviation 50.3 fL (36.4-46.3); Red Blood Count 4.31 M/uL (4.7-6.1); White Blood Count 9.74 K/uL (4.8-10.8)
[2021-02-16] MEDS: oxyCODONE/ACETAMINOPHEN 5mg/325mg TAB PO PRN ×3 (07:05→19:47)
[2021-02-16 07:24] LABS: Partial Thromboplastin Ratio 3.5
[2021-02-16 07:39] LABS: Partial Thromboplastin Time 90.8 Seconds (21.0-31.0)
[2021-02-16 07:40] LABS: Albumin Level 1.8 gm/dl (3.4-5.0); Calcium 7.2 mg/dl (8.5-10.1); Creatinine Clr Calc Pharmacy 101.5 ml/min; Est GFR (African American) 104.7 ml/min; Est GFR (Non-African American) 90.4 ml/min; Magnesium 2.1 mg/dl (1.8-2.4)
[2021-02-16 07:43] LABS: Albumin Globulin Ratio 0.4 (0.9-2); Bilirubin,Total 1.3 mg/dl (0.2-1); Globulin 4.7 gm/dl (2.5-4.0); Total Protein 6.5 gm/dl (6.4-8.2)
[2021-02-16] MEDS: PIPERACILLIN/TAZOBACTAM 4.5 GM in DEXTROSE 5% 100 ML IV SCH ×3 (08:36→23:56)
[2021-02-16] MEDS: buPROPion XL 150 MG TABCR PO SCH (08:36)
[2021-02-16] MEDS: PANTOprazole 40 MG TAB PO SCH ×2 (08:36→19:48)
--- NOTE | 2021-02-16 10:10 | Hospitalist Progress Note ---
Date of Service February 16, 2021 Assessment & Plan (1) Mesenteric vein thrombosis: Plan: - Appears acute likely in the setting of oncological history - CT - circumferential thickening of the distal esophagus with stent; small/moderate amount of ascites; occlusive thrombus within portosplenic confluence and extending to superior mesenteric vein; reactive vs non-specific enteritis; cirrhotic liver with small nodules - Continue heparin gtt - likely can convert to NOAC on D/C - will need to coordinate with his oncologist given esophageal CA/bleeding risk -- Will likely need 3-6 months coverage of AC - may need longer given underlying oncological process - Pain is improving - LFTs acceptable at this time; monitor coags and Hgb - NPO for bowel rest - LR at 90 mL/hr - GI consultation - appreciate input (2) Abdominal lymphadenopathy: Plan: - Reactive vs. metastatic disease (3) Ascites: Plan: - Likely secondary to acute thrombus - Lasix x 1 given on admission - will monitor for any additional needs (4) GERD (gastroesophageal reflux disease): Plan: - Continue Pantoprazole 40 mg PO BID (5) Esophageal cancer: Plan: - Patient undergoing Fluorouracil, Oxaliplatin and Opdivo Q2W - received one treatment so far - Oxycondone and Morphine for moderate to severe pain - Follows with [facility] Onc (6) BPH (benign prostatic hyperplasia): Plan: - Continue finasteride (7) Enteritis: Plan: - Reactive vs. non-specific finding associated with dilated loops of bowel - Zosyn 3.375 gm IV q 8 empiric coverage as well with mesenteric thrombus given risk of infectious translocation Plan: - Maintain anticoagulation with oral conversion; appreciate GI consultation Admission and Anticipated Discharge Date Admission Date: February 15, 2021 Subjective Reports his abdominal pain is much better today. He has just a vague ache in the abdomen. He maintains on a heparin gtt. Having some hematuria currently. He follows with [facility] oncology. He verbalizes no other complaints at this time. Review of Systems Review of Systems: REVIEW OF SYSTEMS General/Constitutional: Denies fever/chills ENT: Denies nasal drainage, sore throat, trouble swallowing Cardiovascular: Denies chest pain, palpitations, edema Respiratory: Denies cough, sputum, SOB, wheezing, orthopnea GI: + minimal achy abdominal pain (much improved since arrival); Denies nausea, vomiting, constipation, diarrhea, melena/hematochezia : + hematuria; Denies dysuria Musculoskeletal: Denies joint/muscle aches Neurologic: Denies dizziness/lightheadedness Skin: Denies rash, itch, new skin changes, easy bruising Physical Exam Physical Exam: PHYSICAL EXAM General Appearance: WDWN in NAD who is A&O x 3 HEENT: Head is normocephalic/atraumatic; Hearing grossly intact; Mucous membranes dry Neck: Supple; Trachea midline; Neg JVD Heart: RRR with no M/G/R Lungs: CTA in all lung whitehead bilaterally; Respirations unlabored; Neg accessory muscle use Abdomen: +Distended but Soft, non-tender; Positive BS x 4 quadrants Extremities: Capillary refill < 2 seconds; Neg cyanosis or edema Neurological: Speech clear; Gross motor/sensory function intact; Neg focal neurologic deficits Psychiatric: Appropriate mood/affect Skin: Normal Color; Warm/Dry Results & Data Results & Data ([facility]) Vital Signs (Past 12 Hours) Vital Signs Temp Pulse Resp BP Pulse Ox 02/16/21 07:33 36.9 C 86 16 108/71 93 02/15/21 23:21 36.7 C 100 H 16 125/86 92 PG Care Time/CCT Total # of Minutes Spent Total Time Spent with Patient: Total time spent is greater than 50% in coordination of care (as documented) at patient's floor/unit and/or counseling patient: Coding Level of Care Code 91408 Subseq Hosp Care Lvl 3 Diagnoses Mesenteric vein thrombosis K55.069 Abdominal lymphadenopathy R59.0 Ascites R18.8 Ascites type: other type GERD (gastroesophageal reflux disease) K21.9 Esophageal cancer C15.9 Malignant neoplasm of esophagus location: unspecified location BPH (benign prostatic hyperplasia) N40.0 Enteritis K52.9 (1) Ascites Ascites type: other type Qualified Code(s): R18.8 - Other ascites (2) Esophageal cancer Malignant neoplasm of esophagus location: unspecified location Qualified Code(s): C15.9 - Malignant neoplasm of esophagus, unspecified
--- NOTE | 2021-02-16 10:43 | Gastrointestinal Consultation ---
Date of Consultation February 16, 2021 Assessment & Plan (1) Ascites: (2) Mesenteric vein thrombosis: (3) Esophageal cancer: (4) Mesenteric vein thrombosis: (5) Abdominal pain: Patient is a 65 y.o. male with recently diagnosed esophageal CA s/p therapeutic stent placement and recently started on chemotherapy by Dr. Carrasquillo admitted with abdominal pain and imaging findings of acute mesenteric vein thrombosis, ascites, lymphadenopathy and hepatic nodularity consistent with metastatic disease. Suspect ascites related to both hepatic tumor burden and mesenteric vein thrombosis. 1. Abdominal pain and distention has reduced with initiation of both Heparin ggt and IV diuretics. 2. Continue heparin ggt. 3. Could consider diagnostic/therapeutic paracentesis if abdominal distention worsens. 4. Recommend consultation of oncology for further recommendations. 5. Can continue IV antibiotics as prescribed to cover for enteric pathogens given questionable enteritis. 6. Continue supportive care. Thank you for allowing us to participate in the care of this patient. If you have any questions or concerns, please do not hesitate to contact us. Supervising Physician Co-Signing Physician Notes I personally evaluated the patient and agree with the findings as documented by DIXON Jarrett Exam: abd: soft, nt, obese History of Present Illness Reason for Consultation: Ascites, lymphadenopathy Requesting Physician: DIXON Giles Attending Physician: Simba Armas DO History of Present Illness Patient is a 65 y.o. male with a history of esophageal cancer diagnosed by Dr. Guzman in December of this year. He did undergo a second EGD by Dr. Flores for placement of esophageal stent. Pathology was sent for expert evaluation and returned poorly differentiated squamous cell carcinoma. Since placement of the stent, he reports tolerating his diet. No chest pain. He has received one chemotherapy treatment. He was admitted to the hospital with severe abdominal pain and distention. He was found to have a mesenteric vein thrombus as well as mild to moderate ascites. CT imaging also suggestive of nodularity felt reflective of mets as well as lymphadenopathy. GI has been consulted in this regard. Today, the patient reports improved abdominal pain since being initiated on a Heparin ggt and given IV Lasix. States his abdomen has "gone down quite a bit". No jaundice, pruritus, or acholic stools. Urine is dark. Other than slight TB elevation of 1.3, liver panel is unremarkable. States he is following with Dr. Carrasquillo for his oncology care. Allergies Allergy/AdvReac Type Severity Reaction Status Date / Time No Known Allergies Allergy Verified 02/15/21 15:15 Home Medications Medication Instructions Recorded Confirmed Type bupropion HCl 150 mg 24 hr tablet, 150 mg PO QAM 12/23/20 02/15/21 History extended release esomeprazole magnesium 40 mg 40 mg PO BID 02/06/21 02/15/21 History capsule,delayed release (Nexium) famotidine 20 mg tablet (Pepcid AC) 20 mg PO HS 02/06/21 02/15/21 History finasteride 5 mg tablet 5 mg PO HS 02/06/21 02/15/21 History oxycodone-acetaminophen 5 mg-325 1 tab PO Q6H PRN #14 tab 02/10/21 02/15/21 Rx mg tablet (Percocet) docusate sodium 100 mg capsule 200 mg PO BID PRN 02/15/21 02/15/21 History (Dulcolax Stool Softener (docusate)) fluorouracil 50 mg/mL intravenous 0 mg IV Q14D 02/15/21 02/15/21 History solution magnesium citrate 75 ml PO DAILY PRN 02/15/21 02/15/21 History nivolumab 100 mg/10 mL intravenous 0 mg IV Q14D 02/15/21 02/15/21 History solution (Opdivo) ondansetron HCl 8 mg tablet 8 mg PO Q8H 02/15/21 02/15/21 History oxaliplatin 200 mg/40 mL 0 mg IV Q14D 02/15/21 02/15/21 History intravenous solution prochlorperazine maleate 10 mg 10 mg PO Q6 PRN 02/15/21 02/15/21 History tablet Patient History Medical History BPH (benign prostatic hyperplasia) Degenerative disc disease Depression Esophageal cancer (~12/2020) GERD (gastroesophageal reflux disease) Surgical History H/O hand surgery FINGER TENDON REPAIR History of esophagogastroduodenoscopy (EGD) History of esophagogastroduodenoscopy (EGD) (~12/2020) Upper Endoscopic Ultrasonography + esophageal stent [place] teeth removed Family History Mother Breast cancer Family history of diabetes mellitus Other Cancer Diabetes No family history of adverse response to anesthesia Parkinson disease TIA (transient ischemic attack) Social History Smoking Status: Former smoker Second Hand Exposure: No; Do You Dip or Chew Tobacco: No; Tobacco Cessation Education Requested by Patient: No Hx Alcohol Use: No Hx Substance Use: No Preferred Language: Kinyarwanda Communication Ability: Effective Fire Lieutenant Required: No Beliefs That Will Affect Care: None Current Living Situation: Spouse Feels Safe at Home: Yes Safety Concerns: Feels Safe At This Time Assistive Devices: Glasses Review of Systems Constitutional: + weight gain; no fever and no chills Respiratory: no cough and no dyspnea Cardiovascular: no chest pain and no palpitations Gastrointestinal: as per Subjective / HPI; no nausea, no vomiting, no diarrhea/loose stools, no blood in stools and no melena Neurologic: no confusion Physical Exam Constitutional: WD/WN, vitals as above Eyes: EOM intact bilaterally Neck: normal visual inspection Respiratory: normal respiratory effort, lungs clear to auscultation Cardiovascular: Rate/Rhythm: regular rate and regular rhythm Gastrointestinal (Abdomen): Inspection/Auscultation: + abdomen distended and normal bowel sounds Percussion/Palpation: abdomen nontender Skin: no jaundice Psychiatric: A+Ox3, euthymic affect Results & Data ([facility]) Vital Signs (Past 12 Hours) Vital Signs Temp Pulse Resp BP Pulse Ox 02/16/21 07:33 36.9 C 86 16 108/71 93 02/15/21 23:21 36.7 C 100 H 16 125/86 92 Laboratory Results Abnormal lab results 02/15/21 02/15/21 02/15/21 Range/Units 14:00 14:00 14:00 WBC 11.09 H (4.8-10.8) K/uL RBC 4.60 L (4.7-6.1) M/uL Hgb (14.0-18.0) g/dL Hct (42-52) % RDW Std Deviation 49.7 H (36.4-46.3) fL RDW Coeff of Macario 14.7 H (11.5-14.5) % MPV 11.3 H (7.4-10.4) fL Neut # (Auto) 10.08 H (1.4-6.5) K/uL Lymph # (Auto) 0.79 L (1.2-3.4) K/uL Immature Gran # (Auto) 0.03 H (0.00-0.02) K/uL PT 13.1 H (9.0-12.0) Seconds INR 1.3 H (0.9-1.1) APTT (21.0-31.0) Seconds POC Chloride (101-112) mmol/L POC Total CO2 (24-31) mmol/L POC BUN (7-18) mg/dl BUN 26 H (7-18) mg/dl BUN/Creatinine Ratio 27.6 H (10-20) Glucose 111 H (70-99) mg/dl POC Glucose (other) (70-99) mg/dl Calcium 7.7 L (8.5-10.1) mg/dl POC Ioniz Calcium Anabel (1.12-1.32) mmol/l Ionized Calcium (1.12-1.32) mmol/L Total Bilirubin 1.4 H (0.2-1) mg/dl AST 48 H (15-37) U/L Alkaline Phosphatase 131 H (45-117) U/L Albumin 2.2 L (3.4-5.0) gm/dl Globulin 5.4 H (2.5-4.0) gm/dl Albumin/Globulin Ratio 0.4 L (0.9-2) 02/15/21 02/15/21 02/16/21 Range/Units 14:13 22:45 06:49 WBC (4.8-10.8) K/uL RBC 4.31 L (4.7-6.1) M/uL Hgb 13.6 L (14.0-18.0) g/dL Hct 40.1 L (42-52) % RDW Std Deviation 50.3 H (36.4-46.3) fL RDW Coeff of Macario 14.8 H (11.5-14.5) % MPV 10.7 H (7.4-10.4) fL Neut # (Auto) 8.45 H (1.4-6.5) K/uL Lymph # (Auto) 0.96 L (1.2-3.4) K/uL Immature Gran # (Auto) (0.00-0.02) K/uL PT (9.0-12.0) Seconds INR (0.9-1.1) APTT 91.2 H* (21.0-31.0) Seconds POC Chloride 98 L (101-112) mmol/L POC Total CO2 21 L (24-31) mmol/L POC BUN 27 H (7-18) mg/dl BUN (7-18) mg/dl BUN/Creatinine Ratio (10-20) Glucose (70-99) mg/dl POC Glucose (other) 118 H (70-99) mg/dl Calcium (8.5-10.1) mg/dl POC Ioniz Calcium Anabel 1.10 L (1.12-1.32) mmol/l Ionized Calcium (1.12-1.32) mmol/L Total Bilirubin (0.2-1) mg/dl AST (15-37) U/L Alkaline Phosphatase (45-117) U/L Albumin (3.4-5.0) gm/dl Globulin (2.5-4.0) gm/dl Albumin/Globulin Ratio (0.9-2) 02/16/21 02/16/21 02/16/21 Range/Units 06:49 06:49 06:49 WBC (4.8-10.8) K/uL RBC (4.7-6.1) M/uL Hgb (14.0-18.0) g/dL Hct (42-52) % RDW Std Deviation (36.4-46.3) fL RDW Coeff of Macario (11.5-14.5) % MPV (7.4-10.4) fL Neut # (Auto) (1.4-6.5) K/uL Lymph # (Auto) (1.2-3.4) K/uL Immature Gran # (Auto) (0.00-0.02) K/uL PT (9.0-12.0) Seconds INR (0.9-1.1) APTT 90.8 H* (21.0-31.0) Seconds POC Chloride (101-112) mmol/L POC Total CO2 (24-31) mmol/L POC BUN (7-18) mg/dl BUN 23 H (7-18) mg/dl BUN/Creatinine Ratio 26.0 H (10-20) Glucose 110 H (70-99) mg/dl POC Glucose (other) (70-99) mg/dl Calcium 7.2 L (8.5-10.1) mg/dl POC Ioniz Calcium Anabel (1.12-1.32) mmol/l Ionized Calcium 1.07 L (1.12-1.32) mmol/L Total Bilirubin 1.3 H (0.2-1) mg/dl AST (15-37) U/L Alkaline Phosphatase (45-117) U/L Albumin 1.8 L (3.4-5.0) gm/dl Globulin 4.7 H (2.5-4.0) gm/dl Albumin/Globulin Ratio 0.4 L (0.9-2) PG Care Time/CCT Total # of Minutes Spent Total Time Spent with Patient: Total time spent is greater than 50% in coordination of care (as documented) at patient's floor/unit and/or counseling patient: Coding Level of Care Code 39388 Inpt Consult Level 4 Diagnoses Ascites R18.8 Ascites type: other type Mesenteric vein thrombosis K55.069 Esophageal cancer C15.9 Malignant neoplasm of esophagus location: unspecified location Mesenteric vein thrombosis K55.069 Abdominal pain R10.84 Abdominal location: generalized (1) Ascites Ascites type: other type Qualified Code(s): R18.8 - Other ascites (2) Esophageal cancer Malignant neoplasm of esophagus location: unspecified location Qualified Code(s): C15.9 - Malignant neoplasm of esophagus, unspecified (3) Abdominal pain Abdominal location: generalized Qualified Code(s): R10.84 - Generalized abdominal pain
[2021-02-16] MEDS: HEPARIN SODIUM/DEXTROSE 25,000 UNITS/500 ML BAG IV SCH ×2 (12:01→16:18)
[2021-02-16 12:41] LABS: Appearance Urine Clear (Clear); Bacteria Urine Automated Negative (Negative); Blood Urine Negative (Negative); Color Urine Orange; Glucose Urine UA Negative (Negative); Ketones Urine Negative (Negative); Leukocyte Esterase Urine Negative (Negative); Nitrite Urine Positive (Negative); Protein Urine Negative (Negative); Specific Gravity Urine 1.044 (1.000-1.030); Urobilinogen Urine Negative (Negative); pH Urine 5.5 (4.5-7.5)
[2021-02-16 12:42] LABS: Bilirubin Urine 1+ (Negative)
[2021-02-16 14:22] LABS: Partial Thromboplastin Ratio 2.9
--- NOTE | 2021-02-16 15:31 | Electrocardiogram Report ---
Test Reason : Blood Pressure : / mmHG Vent. Rate : 088 BPM Atrial Rate : 088 BPM P-R Int : 162 ms QRS Dur : 088 ms QT Int : 410 ms P-R-T Axes : -06 -03 -01 degrees QTc Int : 496 ms Normal sinus rhythm Prolonged QT Abnormal ECG When compared with ECG of 25-DEC-2020 08:25, No significant change was found Confirmed by Isaiah Dewitt ([id number]) on 02/16/2021 3:30:55 PM Referred By: REFERRED SELF Confirmed By:Isaiah Dewitt
[2021-02-16] MEDS: FINASTERIDE 5 MG TAB PO SCH (19:48)
[2021-02-16] MEDS: FAMOTIDINE 20 MG TAB PO SCH (19:48)
[2021-02-16 21:06] LABS: Partial Thromboplastin Ratio 2.7
[2021-02-17] MEDS: oxyCODONE/ACETAMINOPHEN 5mg/325mg TAB PO PRN ×4 (02:11→23:55)
[2021-02-17] MEDS: ONDANSETRON INJ 2 MG/ML 2 ML VIAL IV PRN ×3 (02:12→18:21)
[2021-02-17] MEDS: LACTATED RINGER'S 1,000 ML IV SCH ×3 (02:17→23:55)
[2021-02-17 03:41] LABS: Basophils # (auto) 0.03 K/uL (0-0.2); Basophils % (auto) 0.5 %; Eosinophils # (auto) 0.11 K/uL (0-0.5); Eosinophils % (auto) 1.9 %; Hematocrit (blood only) 36.2 % (42-52); Immature Granulocytes # (auto) 0.01 K/uL (0.00-0.02); Immature Granulocytes % (auto) 0.2 %; Lymphocytes # (auto) 0.92 K/uL (1.2-3.4); Lymphocytes % (auto) 16.1 %; Mean Corpuscular Hemoglobin 31.2 pg (25-34); Mean Corpuscular Hgb Conc 33.1 g/dL (32-36); Mean Platelet Volume 10.7 fL (7.4-10.4); Monocytes % (auto) 5.2 %; Neutrophils # (auto) 4.36 K/uL (1.4-6.5); Neutrophils % (auto) 76.1 %; Platelet Count 106 K/uL (130-400); RDW Standard Deviation 51.2 fL (36.4-46.3); Red Blood Count 3.85 M/uL (4.7-6.1); White Blood Count 5.73 K/uL (4.8-10.8)
[2021-02-17 04:07] LABS: Albumin Level 1.6 gm/dl (3.4-5.0); BUN Creatinine Ratio 25.8 (10-20); Calcium 7.1 mg/dl (8.5-10.1); Creatinine Clr Calc Pharmacy 99.3 ml/min; Est GFR (African American) 102.9 ml/min; Est GFR (Non-African American) 88.8 ml/min; Magnesium 2.1 mg/dl (1.8-2.4); Potassium 3.7 mmol/L (3.5-5.1)
[2021-02-17 04:09] LABS: Albumin Globulin Ratio 0.4 (0.9-2); Bilirubin,Total 1.4 mg/dl (0.2-1); Globulin 4.2 gm/dl (2.5-4.0); Total Protein 5.8 gm/dl (6.4-8.2)
[2021-02-17 04:15] LABS: Partial Thromboplastin Ratio 2.8
[2021-02-17 04:42] LABS: Partial Thromboplastin Time 74.7 Seconds (21.0-31.0)
[2021-02-17] MEDS: PIPERACILLIN/TAZOBACTAM 4.5 GM in DEXTROSE 5% 100 ML IV SCH ×3 (08:17→23:56)
[2021-02-17] MEDS: PANTOprazole 40 MG TAB PO SCH ×2 (08:17→20:19)
[2021-02-17] MEDS: buPROPion XL 150 MG TABCR PO SCH (09:33)
[2021-02-17] MEDS: HEPARIN SODIUM/DEXTROSE 25,000 UNITS/500 ML BAG IV SCH (11:07)
[2021-02-17 12:11] LABS: Partial Thromboplastin Time 53.8 Seconds (21.0-31.0)
--- NOTE | 2021-02-17 14:27 | Hospitalist Progress Note ---
Date of Service February 17, 2021 Assessment & Plan (1) Mesenteric vein thrombosis: Plan: Acute likley secondary to oncological history - heparin drip low dose no bolus - Transition to oral agent when appropriate, likely tomorrow will reach out to Keith Carrasquillo, his oncologist with [facility] - Follow LFTs - clear liquids, advance to low fiber, told him to eat small amounts - LR at 90ml/hour for now, if eating better then stop (2) Abdominal lymphadenopathy: Plan: Reactive vs. metastatic disease - GI consult appreciated (3) Ascites: Plan: Likely secondary to acute thrombus abdomen is not tense at all monitor for increased pain, distension and would perform paracentesis if this happens hold on oral anticoagulation until sure he won't need paracentesis (4) GERD (gastroesophageal reflux disease): Plan: Continue Nexium 40 mg PO BID or equivalent (5) Esophageal cancer: Plan: Patient undergoing fluorouracil, Oxaliplatin and Opdivo every 14 days- received 1 treatment - Oxycondone and Morphine for moderate to severe pain (6) BPH (benign prostatic hyperplasia): Plan: Continue finasteride (7) Enteritis: Plan: Reactive vs. non-specific finding associated with dilated loops of bowel - Zosyn 3.375 gm IV q 8 empiric coverage as well with mesenteric thrombus Admission and Anticipated Discharge Date Admission Date: February 15, 2021 Subjective overall patient feeling better, main complaint is that the liquids don't agree with him he says the beef broth makes him feel nauseated, mild discomfort no BM today, no vomiting, no fever his abdomen is mildly distended but no where close to being tense he says that his oncologist is Dr. Keith Carrasquillo with [facility] reviewed labs and chart Review of Systems Review of Systems: All systems reviewed & are unremarkable except as noted in Subjective Constitutional: no fever, no chills, no sweats, no fatigue and no weakness Respiratory: no cough and no dyspnea Cardiovascular: no chest pain and no edema Gastrointestinal: + abdominal pain, + early satiety, + heartburn and + nausea; no vomiting, no constipation and no diarrhea/loose stools Physical Exam Physical Exam: General: well developed, well nourished, no acute distress, comfortable Neck: supple, trachea midline, normal thyroid Lungs: clear to auscultation bilaterally, normal respiratory effort, no accessory muscle use, no distress Heart: regular S1 and S2, no murmur, peripheral pulses normal, capillary refill normal, no edema Abdomen: distended, dull to percussion, mild tenderness epigastric region, + bowel sounds, no fluid wave Extremities: normal in appearance, no cyanosis, no petechiae, strength is 5/5 bilaterally Neuro: awake, cooperative, moves all extremities, no focal motor deficits, CN II-XII intact, sensation in extremities intact, normal speech Skin: warm, dry, no rash, normal turgor Psych: Awake, alert oriented x 3, euthymic affect Results & Data Results & Data ([facility]) Vital Signs (Past 12 Hours) Vital Signs Temp Pulse Resp BP Pulse Ox 02/17/21 07:30 36.3 C L 78 16 118/75 97 Laboratory Results Laboratory Results - last 24 hr 02/16/21 02/17/21 02/17/21 20:26 03:27 03:27 WBC 5.73 RBC 3.85 L Hgb 12.0 L Hct 36.2 L MCV 94.0 MCH 31.2 MCHC 33.1 RDW Std Deviation 51.2 H RDW Coeff of Macario 15.0 H Plt Count 106 L MPV 10.7 H Immature Gran % (Auto) 0.2 Neut % (Auto) 76.1 Lymph % (Auto) 16.1 [place] % (Auto) 5.2 Eos % (Auto) 1.9 Baso % (Auto) 0.5 Neut # (Auto) 4.36 Lymph # (Auto) 0.92 L [place] # (Auto) 0.30 Eos # (Auto) 0.11 Baso # (Auto) 0.03 Immature Gran # (Auto) 0.01 APTT 71.0 H* PTT Ratio 2.7 Sodium 135 L Potassium 3.7 Chloride 104 Carbon Dioxide 30 Anion Gap 1.0 L BUN 24 H Creatinine 0.91 Est Cr Clr Drug Dosing 99.3 Est GFR ( Amer) 102.9 Est GFR (Non-Af Amer) 88.8 BUN/Creatinine Ratio 25.8 H Glucose 101 H Calcium 7.1 L Magnesium 2.1 Total Bilirubin 1.4 H AST 38 H ALT 42 Alkaline Phosphatase 92 Total Protein 5.8 L Albumin 1.6 L Globulin 4.2 H Albumin/Globulin Ratio 0.4 L 02/17/21 02/17/21 03:27 11:19 WBC RBC Hgb Hct MCV MCH MCHC RDW Std Deviation RDW Coeff of Macario Plt Count MPV Immature Gran % (Auto) Neut % (Auto) Lymph % (Auto) [place] % (Auto) Eos % (Auto) Baso % (Auto) Neut # (Auto) Lymph # (Auto) [place] # (Auto) Eos # (Auto) Baso # (Auto) Immature Gran # (Auto) APTT 74.7 H* 53.8 H* PTT Ratio 2.8 2.0 Sodium Potassium Chloride Carbon Dioxide Anion Gap BUN Creatinine Est Cr Clr Drug Dosing Est GFR ( Amer) Est GFR (Non-Af Amer) BUN/Creatinine Ratio Glucose Calcium Magnesium Total Bilirubin AST ALT Alkaline Phosphatase Total Protein Albumin Globulin Albumin/Globulin Ratio Medications Administered Current Inpatient Medications Acetaminophen (Acetaminophen 325 Mg Tab) 650 mg PO Q4H PRN PRN Reason: pain/fever Stop: 03/17/21 18:54 Bupropion HCl (Bupropion Xl 150 Mg Tabcr) 150 mg PO QAM [facility] Stop: 03/18/21 08:59 Last Admin: 02/17/21 09:33 Dose: 150 mg Documented by: Docusate Sodium (Docusate Sodium 100 Mg Cap) 200 mg PO BID PRN PRN Reason: Constipation Stop: 03/17/21 18:54 Famotidine (Famotidine 20 Mg Tab) 20 mg PO HS [facility] Stop: 03/17/21 20:59 Last Admin: 02/16/21 19:48 Dose: 20 mg Documented by: Finasteride (Finasteride 5 Mg Tab) 5 mg PO HS [facility] Stop: 03/17/21 20:59 Last Admin: 02/16/21 19:48 Dose: 5 mg Documented by: Heparin Sodium/Dextrose (Heparin Sodium/Dextrose) 25,000 units in 500 mls @ 19 mls/hr IV .Q24H SISSY; Protocol Stop: 03/17/21 16:14 Last Admin: 02/17/21 11:07 Dose: 950 units/hr, 19 mls/hr Documented by: Lactated Ringer's (Lr) 1,000 mls @ 90 mls/hr IV .Q11H7M SISSY Stop: 03/17/21 16:59 Last Admin: 02/17/21 12:36 Dose: 90 mls/hr Documented by: Piperacillin Sod/Tazobactam (Sod 4.5 gm/ Dextrose) 120 mls @ 30 mls/hr IV Q8H SISSY; Protocol Stop: 02/26/21 00:00 Last Infusion: 02/17/21 12:10 Dose: Infused Documented by: Magnesium Citrate (Magnesium Citrate 296 Ml/Btl) 75 ml PO DAILY PRN PRN Reason: Constipation Stop: 03/17/21 18:54 Miscellaneous Information (Piperacill/Tazobac Consult Active) 1 ea N/A UD PRN PRN Reason: Consult Stop: 03/17/21 18:54 Morphine Sulfate (Morphine Sulfate 2 Mg/Ml Carp) 2 mg IV Q4 PRN PRN Reason: severe Pain Stop: 03/01/21 18:54 Last Admin: 02/16/21 02:22 Dose: 2 mg Documented by: Ondansetron HCl (Ondansetron Inj 2 Mg/Ml 2 Ml Vial) 4 mg IV Q6H PRN PRN Reason: Nausea Stop: 03/17/21 18:54 Last Admin: 02/17/21 10:34 Dose: 4 mg Documented by: Oxycodone/Acetaminophen (Oxycodone/Acetaminophen 5mg/325mg Tab) 1 tab PO Q6H PRN PRN Reason: pain Stop: 03/01/21 18:54 Last Admin: 02/17/21 10:34 Dose: 1 tab Documented by: Pantoprazole Sodium (Pantoprazole 40 Mg Tab) 40 mg PO BID SISSY Stop: 03/17/21 20:59 Last Admin: 02/17/21 08:17 Dose: 40 mg Documented by: Polyethylene Glycol (Polyethylene (Miralax) 17 Gm Pack) 17 gm PO DAILY PRN PRN Reason: Constipation Stop: 03/17/21 18:54 Prochlorperazine (Prochlorperazine Maleate 10 Mg Tab) 10 mg PO Q6 PRN PRN Reason: Nausea Stop: 03/17/21 18:54 PG Care Time/CCT Total # of Minutes Spent Total Time Spent with Patient: Total time spent is greater than 50% in coordination of care (as documented) at patient's floor/unit and/or counseling patient: Coding Level of Care Code 72576 Subseq Hosp Care Lvl 2 Diagnoses Mesenteric vein thrombosis K55.069 Abdominal lymphadenopathy R59.0 Ascites R18.8 Ascites type: other type GERD (gastroesophageal reflux disease) K21.9 Esophageal cancer C15.9 Malignant neoplasm of esophagus location: unspecified location BPH (benign prostatic hyperplasia) N40.0 Enteritis K52.9 (1) Ascites Ascites type: other type Qualified Code(s): R18.8 - Other ascites (2) Esophageal cancer Malignant neoplasm of esophagus location: unspecified location Qualified Code(s): C15.9 - Malignant neoplasm of esophagus, unspecified
[2021-02-17] MEDS: MoRPHine SULFATE 2 MG/ML CARP IV PRN (20:18)
[2021-02-17] MEDS: FINASTERIDE 5 MG TAB PO SCH (20:19)
[2021-02-17] MEDS: FAMOTIDINE 20 MG TAB PO SCH (20:19)
[2021-02-18] MEDS: oxyCODONE/ACETAMINOPHEN 5mg/325mg TAB PO PRN ×3 (05:55→19:25)
[2021-02-18 06:57] LABS: Basophils # (auto) 0.03 K/uL (0-0.2); Basophils % (auto) 0.5 %; Eosinophils # (auto) 0.16 K/uL (0-0.5); Eosinophils % (auto) 2.5 %; Hematocrit (blood only) 36.3 % (42-52); Hemoglobin 12.1 g/dL (14.0-18.0); Immature Granulocytes # (auto) 0.03 K/uL (0.00-0.02); Immature Granulocytes % (auto) 0.5 %; Lymphocytes # (auto) 0.94 K/uL (1.2-3.4); Lymphocytes % (auto) 14.9 %; Mean Corpuscular Hemoglobin 30.7 pg (25-34); Mean Corpuscular Hgb Conc 33.3 g/dL (32-36); Mean Corpuscular Volume 92.1 fL (80-100); Mean Platelet Volume 11.1 fL (7.4-10.4); Monocytes % (auto) 7.9 %; Neutrophils # (auto) 4.65 K/uL (1.4-6.5); Neutrophils % (auto) 73.7 %; Platelet Count 141 K/uL (130-400); RDW Coefficient of Variation 14.7 % (11.5-14.5); RDW Standard Deviation 49.9 fL (36.4-46.3); Red Blood Count 3.94 M/uL (4.7-6.1); White Blood Count 6.31 K/uL (4.8-10.8)
[2021-02-18 07:14] LABS: Partial Thromboplastin Ratio 2.1
[2021-02-18 07:18] LABS: Partial Thromboplastin Time 55.5 Seconds (21.0-31.0)
[2021-02-18 07:25] LABS: Albumin Level 1.7 gm/dl (3.4-5.0); BUN Creatinine Ratio 20.6 (10-20); Calcium 7.4 mg/dl (8.5-10.1); Creatinine Clr Calc Pharmacy 89.5 ml/min; Est GFR (African American) 90.7 ml/min; Est GFR (Non-African American) 78.2 ml/min; Magnesium 2.1 mg/dl (1.8-2.4); Potassium 3.7 mmol/L (3.5-5.1)
[2021-02-18 07:27] LABS: Albumin Globulin Ratio 0.4 (0.9-2); Bilirubin,Total 1.4 mg/dl (0.2-1); Globulin 4.3 gm/dl (2.5-4.0)
[2021-02-18] MEDS: buPROPion XL 150 MG TABCR PO SCH (08:24)
[2021-02-18] MEDS: PIPERACILLIN/TAZOBACTAM 4.5 GM in DEXTROSE 5% 100 ML IV SCH ×2 (08:24→15:45)
[2021-02-18] MEDS: PANTOprazole 40 MG TAB PO SCH ×2 (08:24→21:04)
[2021-02-18] MEDS: ONDANSETRON INJ 2 MG/ML 2 ML VIAL IV PRN ×2 (09:33→17:31)
[2021-02-18] MEDS: LACTATED RINGER'S 1,000 ML IV SCH (10:59)
[2021-02-18] MEDS: HEPARIN SODIUM/DEXTROSE 25,000 UNITS/500 ML BAG IV SCH (13:22)
--- NOTE | 2021-02-18 17:09 | Hospitalist Progress Note ---
Date of Service February 18, 2021 Assessment & Plan (1) Mesenteric vein thrombosis: Plan: - Acute likely secondary to oncological history - heparin drip low dose no bolus - Transition to oral agent - discussed with Dr. Carrasquillo (pt's oncologist) -- Recommendation would be for Lovenox with consideration for Xarelto pending patient preference; patient does not like needles but did discuss with his with patient's permission who is a nurse and can administer it and will discuss with patient - Follow LFTs; add Lactic in AM and repeat labs -- Low threshold for repeat imaging however currently afebrile, no leukocytosis, and pain is improved from initial presentation - will have to be cognizant of ischemic bowel - Had some increased pain with advanced diet - will use full liquid diet and monitor - Will stop further IVF at this time as he is tolerating liquids (2) Abdominal lymphadenopathy: Plan: Reactive vs. metastatic disease vs both - GI consult appreciated (3) Ascites: Plan: - Likely secondary to acute thrombus but can also be due to tumor - Abdomen is not tense at all but distended - discussed paracentesis with patient but he would like to hold off at this time but will think about it - Will keep on Heparin gtt while considering paracentesis (4) GERD (gastroesophageal reflux disease): Plan: Continue Nexium 40 mg PO BID or equivalent (5) Esophageal cancer: Plan: - Patient undergoing fluorouracil, Oxaliplatin and Opdivo -- every 14 days- received 1 treatment - Oxycondone and Morphine for moderate to severe pain (6) BPH (benign prostatic hyperplasia): Plan: - Continue finasteride (7) Enteritis: Plan: Reactive vs. non-specific finding associated with dilated loops of bowel - Zosyn 3.375 gm IV q 8 empiric coverage as well with mesenteric thrombus risk for translocation of infection - As mentioned above - low threshold for reimaging given enteritis findings - any fever, elevated WBC, or worsening pain for concern of ischemia Plan: - Reduced diet today - would expect some abdominal pain with eating for a bit of time; will try to advance diet tomorrow - Consider paracentesis; to talk with about Lovenox vs Xarelto Admission and Anticipated Discharge Date Admission Date: February 15, 2021 Subjective Had some increased pain this AM with solid foods but tolerated a full liquid diet for lung. Pain and nausea is better controlled this afternoon. Review of Systems Review of Systems: REVIEW OF SYSTEMS General/Constitutional: Denies fever/chills ENT: Denies nasal drainage, sore throat, trouble swallowing Cardiovascular: Denies chest pain, palpitations, edema Respiratory: Denies cough, sputum, SOB, wheezing, orthopnea GI: + minimal achy abdominal pain (much improved since arrival but intermittent with meals); Denies nausea, vomiting, constipation, diarrhea, melena/hematochezia : Denies dysuria Musculoskeletal: Denies joint/muscle aches Neurologic: Denies dizziness/lightheadedness Skin: Denies rash, itch, new skin changes, easy bruising Physical Exam Physical Exam: PHYSICAL EXAM General Appearance: WDWN in NAD who is A&O x 3 HEENT: Head is normocephalic/atraumatic; Hearing grossly intact; Mucous membranes dry Neck: Supple; Trachea midline; Neg JVD Heart: RRR with no M/G/R Lungs: CTA in all lung whitehead bilaterally; Respirations unlabored; Neg accessory muscle use Abdomen: +Distended but Soft, non-tender; Positive BS x 4 quadrants Extremities: Capillary refill < 2 seconds; Neg cyanosis or edema Neurological: Speech clear; Gross motor/sensory function intact; Neg focal neurologic deficits Psychiatric: Appropriate mood/affect Skin: Normal Color; Warm/Dry Results & Data Results & Data ([facility]) Vital Signs (Past 12 Hours) Vital Signs Temp Pulse Resp BP Pulse Ox 02/18/21 15:06 36.6 C 89 16 123/85 94 02/18/21 07:37 36.4 C L 83 16 98/62 L 95 PG Care Time/CCT Total # of Minutes Spent Total Time Spent with Patient: Total time spent is greater than 50% in coordination of care (as documented) at patient's floor/unit and/or counseling patient: Coding Level of Care Code 03158 Subseq Hosp Care Lvl 3 Diagnoses Mesenteric vein thrombosis K55.069 Abdominal lymphadenopathy R59.0 Ascites R18.8 Ascites type: other type GERD (gastroesophageal reflux disease) K21.9 Esophageal cancer C15.9 Malignant neoplasm of esophagus location: unspecified location BPH (benign prostatic hyperplasia) N40.0 Enteritis K52.9 (1) Ascites Ascites type: other type Qualified Code(s): R18.8 - Other ascites (2) Esophageal cancer Malignant neoplasm of esophagus location: unspecified location Qualified Code(s): C15.9 - Malignant neoplasm of esophagus, unspecified
[2021-02-18] MEDS: MoRPHine SULFATE 2 MG/ML CARP IV PRN (17:31)
[2021-02-18] MEDS ORDERED: DOCUSATE SODIUM/SENNA 50/8.6MG TAB PO STA (20:02)
[2021-02-18] MEDS: FINASTERIDE 5 MG TAB PO SCH (21:04)
[2021-02-18] MEDS: FAMOTIDINE 20 MG TAB PO SCH (21:04)
[2021-02-19] MEDS: PIPERACILLIN/TAZOBACTAM 4.5 GM in DEXTROSE 5% 100 ML IV SCH ×3 (00:07→16:32)
[2021-02-19] MEDS: oxyCODONE/ACETAMINOPHEN 5mg/325mg TAB PO PRN ×3 (00:07→11:59)
[2021-02-19] MEDS: ONDANSETRON INJ 2 MG/ML 2 ML VIAL IV PRN ×2 (00:09→06:01)
[2021-02-19 06:50] LABS: Hematocrit (blood only) 37.3 % (42-52); Hemoglobin 12.6 g/dL (14.0-18.0); Mean Corpuscular Hemoglobin 30.9 pg (25-34); Mean Corpuscular Hgb Conc 33.8 g/dL (32-36); Mean Corpuscular Volume 91.4 fL (80-100); Mean Platelet Volume 10.7 fL (7.4-10.4); Platelet Count 153 K/uL (130-400); RDW Coefficient of Variation 14.8 % (11.5-14.5); RDW Standard Deviation 49.1 fL (36.4-46.3); Red Blood Count 4.08 M/uL (4.7-6.1)
[2021-02-19 07:16] LABS: Partial Thromboplastin Ratio 2.2
[2021-02-19 07:17] LABS: Albumin Level 1.7 gm/dl (3.4-5.0); BUN Creatinine Ratio 17.7 (10-20); Calcium 7.5 mg/dl (8.5-10.1); Creatinine Clr Calc Pharmacy 92.2 ml/min; Est GFR (African American) 94.1 ml/min; Est GFR (Non-African American) 81.2 ml/min; Potassium 3.5 mmol/L (3.5-5.1)
[2021-02-19 07:20] LABS: Albumin Globulin Ratio 0.4 (0.9-2); Bilirubin,Total 1.1 mg/dl (0.2-1); Globulin 4.5 gm/dl (2.5-4.0); Total Protein 6.2 gm/dl (6.4-8.2)
[2021-02-19 07:21] LABS: Partial Thromboplastin Time 58.9 Seconds (21.0-31.0)
[2021-02-19] MEDS: PANTOprazole 40 MG TAB PO SCH (09:22)
[2021-02-19] MEDS: buPROPion XL 150 MG TABCR PO SCH (09:22)
[2021-02-19] MEDS ORDERED: FUROSEMIDE 20 MG in SYRINGE 0 ML IV ONE (13:30)
[2021-02-19] MEDS: HEPARIN SODIUM/DEXTROSE 25,000 UNITS/500 ML BAG IV SCH (15:25)
[2021-02-19] MEDS ORDERED: RIVAROXABAN 15 MG TAB PO SCH ×2 (16:00→18:00)
--- NOTE | 2021-02-19 18:49 | Discharge Summary ---
Date of Service February 19, 2021 Admission HPI Per Admitting Provider 65 YOM with past medical history: HOFFMAN, GERD, Esophageal cancer with stent placed, BPH. Patient was recently diagnosed with esophageal cancer and recently started chemotherapy. He came in today for complaints of sharp stabbing abdominal pain yesterday that progressively gotten worse. The pain is in the center of his abdomen and waxes and wanes, it was associated with a sense of fullness and nausea without vomiting. He has also noticed that his abdomen has been getting more swollen and his weight at his last visit prior to chemotherapy was increased 20lbs(this was a different scale than he used at home though). In the EMD the patient had routine labs drawn and CT scan of the abdomen and pelvis. His abdomen and pelvis scan reviewed Near occlusive thrombus of the portosplenic confluence extending to the superior mesenteric vein. Also noting cirrhotic liver and small lymph nodes, as well as mildly thickened loops of small bowels and new evolvement of ascites. Patient will be admitted and started on a Heparin drip for his thrombus, will place empirically on Zosyn, keep NPO, IVF and pain control. Will give 20 mg of Lasix now for ascites. Patient has reveived his COVID vaccine and his COVID test is NEGATIVE on admission. Principal Diagnosis Mesenteric Vein Thrombosis Discharge Exam PHYSICAL EXAM General Appearance: WDWN in NAD who is A&O x 3 HEENT: Head is normocephalic/atraumatic; Hearing grossly intact; Mucous membranes moist Neck: Supple; Trachea midline; Neg JVD Heart: RRR with no M/G/R Lungs: CTA in all lung whitehead bilaterally; Respirations unlabored; Neg accessory muscle use Abdomen: Distended but softer at the top of the abdomen; No tenderness to palp; Positive BS x 4 quadrants Extremities: Capillary refill < 2 seconds; Neg cyanosis or edema Neurological: Speech clear; Gross motor/sensory function intact; Neg focal neurologic deficits Psychiatric: Appropriate mood/affect Skin: Normal Color; Warm/Dry; Neg rashes, ecchymosis, lacerations/ulcerations Discharge Data Allergies Allergy/AdvReac Type Severity Reaction Status Date / Time No Known Allergies Allergy Verified 02/15/21 15:15 Consultations 02/15/21 18:55 Consult Gastroenterology Routine Ordered Studies Abdomen/Pelvis CT 02/15/21 14:[address] WITH IV CONTRAST CT DOSE: 1659.06 mGy.cm HISTORY: Left lower quadrant abdominal pain. TECHNIQUE: Multiaxial CT images of the abdomen and pelvis were performed following the use of intravenous contrast. A dose lowering technique was utilized adhering to the principles of ALARA. COMPARISON STUDY: Abdomen and pelvis CT 12/24/2020. FINDINGS: Mild dependent changes seen at the lung bases. Trace bilateral pleural effusions. Circumferential thickening at the distal esophagus with an indwelling stent. The stent appears in good position. Retrocrural, distal paraesophageal, and upper abdominal lymphadenopathy persists. Dominant periportal lymph node continues to measure 4.2 x 3.0 cm. Near occlusive thrombus at the portosplenic confluence and extending into the superior mesenteric vein. This is new compared the prior study. There is a punctate stone within the left kidney. Normal right kidney. No hydronephrosis. Numerous ill-defined low-attenuation nodules again seen throughout the liver. Mild nodular contour to the liver consistent with cirrhosis. Adrenal glands are unremarkable. The pancreas enhances normally. Small to moderate amount of ascites has developed in the interval. The bladder is unremarkable. The spleen is mildly enlarged measuring 13 cm in length. Normal caliber abdominal aorta. There are a few thickened loops of small bowel within the mid to lower abdomen. IMPRESSION: 1. Circumferential thickening of the distal esophagus with an indwelling distal esophageal stent. This appears in good position. The thickened esophagus likely corresponds the patient's known esophageal mass. 2. Interval development of trace bilateral pleural effusions and a small to moderate amount of ascites. 3. There is near occlusive thrombus within the portosplenic confluence and extending to the superior mesenteric vein. This is also new compared to the prior study. 4. A few mildly thickened loops of small bowel within the mid to lower abdomen. This may be reactive to the ascites or represent a nonspecific enteritis. This could be due to an infectious, inflammatory, or ischemic process. 5. Small to moderate amount of ascites. 6. Cirrhotic liver containing multiple ill-defined low-attenuation small nodules. Metastatic disease would be the diagnosis of exclusion. 7. No significant change in the lymphadenopathy within the upper abdomen and lower chest likely representing metastatic disease. ACT 112: Negative or not required by law. Electronically signed by: Kike Freeman M.D. 02/15/2021 2:52 PM Hospital Course (1) Mesenteric vein thrombosis: - Acute likely secondary to oncological history - heparin drip initiated during admission - Transition to oral agent - discussed with Dr. Carrasquillo (pt's oncologist) -- Recommendation would be for Lovenox with consideration for Xarelto pending patient preference; patient does not like needles and would like to avoid Lovenox at this time - Lactic acid obtained and negative -- Low threshold for repeat imaging should he become febrile, pain worsening, or general illness - was discussed with patient and - Recommend a low fiber bland diet for a couple weeks (2) Abdominal lymphadenopathy: Reactive vs. metastatic disease vs both - GI consult appreciated (3) Ascites: - Likely secondary to acute thrombus but can also be due to tumor - Abdomen is not tense at all but distended - discussed paracentesis with patient but he would like to hold off at this time but may benefit from this in the future - Did respond positvely to Lasix - will do Lasix 20 mg daily x 7 days and recommend BMP with PCP for electrolyte monitoring -- May help some with the ascites but does have some lower extremity edema (4) GERD (gastroesophageal reflux disease): Continue Nexium 40 mg (5) Esophageal cancer: - Patient undergoing fluorouracil, Oxaliplatin and Opdivo -- every 14 days- received 1 treatment - Pt to F/U with oncologist (6) BPH (benign prostatic hyperplasia): - Continue finasteride (7) Enteritis: Reactive vs. non-specific finding associated with dilated loops of bowel; lactic acid normal - Zosyn 3.375 gm IV q 8 empiric coverage as well with mesenteric thrombus risk for translocation of infection - will complete course with Augmentin - As mentioned above - low threshold for reimaging given enteritis findings however clinically seems to be doing well - Start on Xarelto - F/U with PCP and Oncologist - Recommend repeat BMP in one week given Lasix Total Time Total Time Spent Total Time Spent (In Minutes): Spent greater than 30 minutes preparing patient for discharge. This includes discussion with patient/family, assessment, intervention, medication reconciliation, and coordination of care. Discharge Plan Discharge Items Patient Disposition: Home - Self-Care Reason For Visit: ABDOMINAL PAIN, MESSENTERIC THROMBUS Discharge Diagnosis: Mesenteric Vein Thrombus Condition on Discharge: Good Activity: Resume your previous activity Non-emergency contact: Primary Care Provider Call non-emergency contact if: you have any medication questions, your symptoms worsen and you have a fever Follow-up/Referrals: Bandar Carrion [Primary Care Provider] - (Please make a follow up appointment with your PCP in 7-10 days. (Patient wishes to schedule his follow up appt on his own.)) Diet: Low Fiber Addtl Attending Provider Instructions: Mesenteric Vein Thrombosis: - Your CAT scan shows a clot in the portosplenic confluence that extends to the superior mesenteric vein - The treatment for this is using anticoagulants to thin the blood to get past the clot that is in there. Anticoagulants do not dissolve the clot just allows better blood flow around it - You may experience ongoing pain for some time but should get better. It seems like it has improved each day. - You will be given pain medication and nausea medicine to take as needed - Your oncologist does recommend Lovenox which is an injectable blood thinner but since you do not like needles the option will be to use Xarelto -- A starter pack was sent to the pharmacy which will lay out how you dose this medication -- You will take Xarelto 15 mg twice a day for 21 days then you will use 20 mg daily -- Since your pharmacy wont have the starter pack until tomorrow after 1100. We will send a dose of Xarelto to take home. -- Take one dose (15 mg) this evening - you will get this before leaving here. Then take one dose tomorrow morning then follow the dose pack from your pharmacy - You will need to be on blood thinners at least 3 months but possibly longer and you should talk with your oncologist. Given your cancer, it does put you at risk for future blood clots and may have been a contributing factor for this current clot. Enteritis (Inflammation of the Intestine) - This may have been reactive due to the clot as well. Did place on antibiotics in case of any bacterial cause. Will complete a course with Augmentin twice a day for 2 more days. Start this tomorrow on 02/20. Ascites (Fluid in the Abdomen): - There is some ascites on CAT scan. This could be from the clot vs the cancer causing some accumulation of fluid - If this continues you may need a paracentesis which is where a needle is put into the abdomen and the fluid is drained out. - We can use some Lasix (water pills) to help pull some fluid. Take Lasix 20 mg daily x 7 days. Recommend seeing your family doctor and having your labs checked to make sure your electrolytes and kidneys look good as they can be affected by water pills Esophageal Cancer: - Please follow-up with your oncologist to see when he would like to resume your treatment REASONS TO SEEK CARE: - IF YOU DEVELOP WORSENING ABDOMINAL PAIN OR DEVELOP A FEVER. GET EVALUATED IMMEDIATELY. -- WITH CLOTS IN THE ABDOMINAL VESSELS IT CAN IMPACT ADEQUATE BLOOD FLOW TO THE INTESTINES WHICH CAN RESULT IN ISCHEMIA (LACK OF BLOOD SUPPLY) THAT CAN CAUSE THE BOWELS TO GET NECROTIC - SINCE YOU ARE ON A BLOOD THINNER - BE MINDFUL OF FALLS AND RECOMMEND TO USE ELECTRIC RAZORS TO AVOID CUTS IN THE SKIN -- IF YOU HAVE A BLEED, APPLY FIRM PRESSURE FOR AT LEAST 5 MINUTES - YOU STILL CLOT WITH BLOOD THINNERS IT JUST MAY TAKE A LITTLE LONGER THAN NORMAL - WITH ESOPHAGEAL CANCER, WE MUST ALWAYS BE MINDFUL OF BLEEDING FROM GI CANCERS AND BLOOD THINNERS. -- IF YOU COUGH OR SPIT UP BLOOD GET CHECKED OUT -- IF YOU FEEL VERY TIRED, DIZZY, OR FEEL LIKE YOUR HEART IS RACING GET CHECKED OUT IT COULD BE A SIGN OF ANEMIA (LOW BLOOD COUNTS) -- KEEP AN EYE ON YOUR STOOL, IF YOU DEVELOP BLACK TARRY STOOLS GET CHECKED OUT Pending Studies at Discharge: No Stand-Alone Forms: My [employer], Opioid Pain Management, Smoking Cessation Medications and DC Order Prescriptions: New oxycodone 5 mg tablet 5 - 10 mg PO Q6H PRN (Reason: pain) Qty: 40 RF: 0 Xarelto DVT-PE Treat 30d Start 15 mg (42)- 20 mg (9) tablets,dose pack See Rx Instructions .ROUTE .COMPLEX Qty: 51 RF: 0 furosemide [Lasix] 20 mg tablet 20 mg PO DAILY 7 Days Qty: 7 RF: 0 amoxicillin-pot clavulanate [Augmentin] 875-125 mg tablet 1 tab PO BID Qty: 4 RF: 0 Continued bupropion HCl 150 mg Tablet Extended Release 24 Hr 150 mg PO QAM RF: 0 prochlorperazine maleate 10 mg tablet 10 mg PO Q6 PRN (Reason: Nausea) RF: 0 fluorouracil 50 mg/mL Solution 0 mg IV Q14D RF: 0 docusate sodium [Dulcolax Stool Softener (dss)] 100 mg Capsule 200 mg PO BID PRN (Reason: Constipation) RF: 0 magnesium citrate Solution 75 ml PO DAILY PRN (Reason: Constipation) RF: 0 oxaliplatin 200 mg/40 mL Solution 0 mg IV Q14D RF: 0 Opdivo 100 mg/10 mL Solution 0 mg IV Q14D RF: 0 famotidine [Pepcid AC] 20 mg Tablet 20 mg PO HS RF: 0 esomeprazole magnesium [Nexium] 40 mg Capsule,Delayed Release(Dr/Ec) 40 mg PO BID RF: 0 finasteride 5 mg Tablet 5 mg PO HS RF: 0 Changed ondansetron HCl 8 mg tablet 8 mg PO Q8H PRN (Reason: Nausea) 14 Days Qty: 42 RF: 0 Discontinued oxycodone-acetaminophen [Percocet] 5-325 mg tablet 1 tab PO Q6H PRN (Reason: pain) Qty: 14 RF: 0 Discharge Orders: Discharge Order (Routine); Ordered 02/19/21 Ordered By: Tayler Martin/Other Patient Handouts: ED Ascites Admission Data Admit Date/Time: 02/15/21 16:54 Attending Provider: Simba Armas Admit Provider: Miquel Rebolledo Primary Care Provider: Bandar Carrion Other Providers: Alek Guzman ; Rain Blanco ; Izabela Argueta ; Fracisco Prajapati Other Interventions: Discharge Summary Assessment (RN) Last Done: 02/19/21 17:07 Coding Level of Care Code D/C DAY MANAGEMENT >30 MINS Diagnoses Mesenteric vein thrombosis K55.069 Abdominal lymphadenopathy R59.0 Ascites R18.8 Ascites type: other type GERD (gastroesophageal reflux disease) K21.9 Esophageal cancer C15.9 Malignant neoplasm of esophagus location: unspecified location BPH (benign prostatic hyperplasia) N40.0 Enteritis K52.9
[2021-02-20] MEDS ORDERED: RIVAROXABAN 15 MG TAB PO SCH (09:00)
== END 2021-02-19 18:00 | disposition home or self-care (01) | DRG 394 ==
LOC: ED 12:59 → 3N 16:54 → SUATTDRO 16:54 → 3N 18:08
DX: N40.0 Benign prostatic hyperplasia without lower urinary tract symptoms; F32.9 Major depressive disorder, single episode, unspecified; K74.60 Unspecified cirrhosis of liver; R18.8 Other ascites; R59.0 Localized enlarged lymph nodes; K21.9 Gastro-esophageal reflux disease without esophagitis; K75.81 Nonalcoholic steatohepatitis (NASH); Z87.891 Personal history of nicotine dependence; Z98.890 Other specified postprocedural states; Z80.3 Family history of malignant neoplasm of breast; Z79.899 Other long term (current) drug therapy; C15.9 Malignant neoplasm of esophagus, unspecified; K52.9 Noninfective gastroenteritis and colitis, unspecified; K55.069 Acute infarction of intestine, part and extent unspecified; Z96.89 Presence of other specified functional implants

== ENCOUNTER 2021-06-26 10:23 | Inpatient (IN) ==
[2021-06-26 11:43] LABS: Basophils # (auto) 0.02 K/uL (0-0.2); Basophils % (auto) 0.1 %; Eosinophils # (auto) 0.03 K/uL (0-0.5); Eosinophils % (auto) 0.2 %; Hematocrit (blood only) 41.2 % (42-52); Hemoglobin 13.9 g/dL (14.0-18.0); Immature Granulocytes # (auto) 0.07 K/uL (0.00-0.02); Immature Granulocytes % (auto) 0.5 %; Lymphocytes # (auto) 0.83 K/uL (1.2-3.4); Lymphocytes % (auto) 5.8 %; Mean Corpuscular Hemoglobin 33.6 pg (25-34); Mean Corpuscular Hgb Conc 33.7 g/dL (32-36); Mean Corpuscular Volume 99.5 fL (80-100); Mean Platelet Volume 10.7 fL (7.4-10.4); Monocytes # (auto) 1.76 K/uL (0.11-0.59); Monocytes % (auto) 12.4 %; Neutrophils # (auto) 11.53 K/uL (1.4-6.5); Platelet Count 171 K/uL (130-400); RDW Coefficient of Variation 19.1 % (11.5-14.5); RDW Standard Deviation 68.5 fL (36.4-46.3); Red Blood Count 4.14 M/uL (4.7-6.1); White Blood Count 14.24 K/uL (4.8-10.8)
[2021-06-26 12:04] LABS: Alanine Aminotransferase 15 U/L (7-52); Albumin Globulin Ratio 0.5 (0.9-2); Albumin Level 2.1 gm/dl (3.4-5.0); Alkaline Phosphatase 86 U/L (34-104); Anion Gap 7 (3-11); Aspartate Aminotransferase 19 U/L (13-39); BUN Creatinine Ratio 23.8 (10-20); Blood Urea Nitrogen 41 mg/dl (6-23); Calcium 7.7 mg/dl (8.5-10.1); Carbon Dioxide 24 mmol/L (21-32); Chloride 99 mmol/L (98-107); Est GFR (African American) 47.3 ml/min; Est GFR (Non-African American) 40.8 ml/min; Globulin 4.1 gm/dl (2.5-4.0); Glucose 86 mg/dl (70-99(Fasting)); Potassium 4.5 mmol/L (3.5-5.1); Sodium 130 mmol/L (136-145); Total Protein 6.2 gm/dl (6.0-8.3)
--- NOTE | 2021-06-26 13:56 | XRay Report ---
XR chest 1V not portable CLINICAL HISTORY: SOB. Nonsmoker COMPARISON STUDY: 06/22/2021 TECHNIQUE: 1 view of the chest FINDINGS: Single frontal view of the chest demonstrates the cardiomediastinal silhouette to be within normal li mits. A Port-A-Cath is in place. Compared to previous examination, the patient is in a more upright p osition with layering of pleural fluid at both lung bases, left greater than right. The lungs are randy ar of confluent alveolar opacities. There is no evidence for vascular congestion. There is no acute o sseous pathology. IMPRESSION: Bilateral pleural effusions, left greater than right. No definite vascular congestion on the current study. ACT 112: Negative or not required by law. Electronically signed by: Alfred Simons M.D. 06/26/2021 1:54 PM
--- NOTE | 2021-06-26 14:40 | Emergency Department Note ---
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 States over the past approximately month he has gained 30 to 35 pounds. Has been increased on diuretics recently and used a week of 40 mg of Lasix and 100 mg of spironolactone doubled his dose. Seen here several days ago in the ER and given some IV fluid and decreased his diuretics at that time and increase his fluid intake as was advised this. Followed up with a GI 2 days ago and was in discussion with possible further outpatient GI paracentesis but the patient was questioning this. He denies any fevers but states he is always cold. Last chemotherapy about 2 weeks ago. States a little bit of lower abdominal and lower back pain developing over the last several hours waiting in the waiting room. Denies significant chest pain. Patient reports he has had ongoing prostate issues at times. No recent steroids reported. Was on antibiotics for possible UTI several weeks ago. REVIEW OF SYSTEMS: A total of 10 review of systems was obtained and negative except as stated above in the HPI. PAST MEDICAL HISTORY: As noted above MEDICATIONS: Reviewed home medication list, last took Xarelto at 8 PM last night SOCIAL HISTORY: Lives at home with PHYSICAL EXAM: GENERAL: alert and oriented in no acute distress on stretcher but fatigued appearing Head: normocephalic and atraumatic EYES: No injection, discharge or icterus. NECK: Trachea midline LUNGS: Airway patent. No retractions. Breath sounds clear with good air entry bilaterally. HEART: Regular rate and rhythm. No chest wall tenderness with right upper chest port ABDOMEN: Moderately distended without significant tenderness. Not peritoneal. SKIN: Acyanotic, warm, dry EXTREMITIES: Without significant obvious deformity with 2-3+ lower extremity edema. NEUROLOGICAL: No focal deficits. No aphasia. No facial droop or slurred speech. EK bpm normal sinus rhythm. No PVC or PAC. No acute ST segment elevation or depression with a QTC of 456. CONTINUOUS CARDIAC MONITORING: was ordered and showed a heart rate of 70s-80s bpm in NSR Patient's laboratory studies and imaging reviewed. Differential includes Infection, dehydration, metabolic abnormality, hypo /hyperglycemia, electrolyte disturbance, anemia, hypoxia, cardiac sources, intracerebral event, toxicologic, neurologic, as well as other pathologies. IMPRESSION/MEDICAL DECISION MAKING: Patient's known esophageal cancer on therapy with worsening pedal as well as abdominal swelling. Is on Xarelto, lower suspicion for VTE/PE. No fevers reported but a slight leukocytosis today. Procalcitonin was sent. Not febrile here however cultures and lactate will be ordered. We will send for diagnosti c/therapeutic abdominal paracentesis and discussion with the patient and at bedside as well as Dr. Kahn from radiology. Patient does have some evidence on labs today also some slightly worsened renal function. Question for this from hepatorenal syndrome from the ascites. Patient has some mild hyponatremia and very minimal anemia. We will give a dose of albumin with hypoalbuminemia noted to help with fluid shifting. 5 L of fluid removed by radiology on the abdominal paracentesis. Patient tolerated this well. Sent for cytology, culture, and cell counts. Patient on return was having significant improvement and states he no longer had any abdominal pain or back pain. Was feeling much better. Blood work without significant lactate elevation or severe procalcitonin elevation. Negative COVID test. To have some concerns for possible SBP given his chemotherapy and leukocytosis today. Although his pain is improved at this point cell count and cultures were sent. Empirically given dose of ceftriaxone. Cell count returns not severely elevated. Discussed with the patient and his at bedside findings including the ADELSO today. Hopefully this was related to the abdominal ascites as he has decreased his diuretics for the last several days. DIAGNOSIS: Abdominal ascites, shortness of breath, hypoalbuminemia, ADELSO DISPOSITION: Hospitalist will evaluate Patient was agreeable with this plan. Past Med/Surg History Medical History BPH (benign prostatic hyperplasia) Degenerative disc disease Depression Esophageal cancer (~12/2020) GERD (gastroesophageal reflux disease) Surgical History H/O hand surgery FINGER TENDON REPAIR History of esophagogastroduodenoscopy (EGD) History of esophagogastroduodenoscopy (EGD) (~12/2020) Upper Endoscopic Ultrasonography + esophageal stent Rillito teeth removed Family History Mother Breast cancer Family history of diabetes mellitus Other Cancer Diabetes No family history of adverse response to anesthesia Parkinson disease TIA (transient ischemic attack) Social History Smoking Status: Former smoker Cigarettes Per Day: 20; Second Hand Exposure: No; Do You Dip or Chew Tobacco: Yes (Quit at 1997.); Tobacco Cessation Education Requested by Patient: No Hx Alcohol Use: No Hx Substance Use: No Preferred Language: Amharic Communication Ability: Effective Linux System Engineer Required: No Beliefs That Will Affect Care: None Current Living Situation: Spouse and Family Current Living Situation Comment: 2 Grandsons live with patient. Other Information That Helps Us Care for You: No Feels Safe at Home: Yes Safety Concerns: Feels Safe At This Time Assistive Devices: Glasses Assistive Devices Comment: Reading glasses. Allergies Allergies Allergy/AdvReac Type Severity Reaction Status Date / Time No Known Allergies Allergy Verified 06/26/21 15:19 Home Meds Home Medications Medication Instructions Recorded Confirmed bupropion HCl 150 mg 24 hr tablet, 150 mg PO QAM 12/23/20 06/26/21 extended release esomeprazole magnesium 40 mg 40 mg PO BID 02/06/21 06/26/21 capsule,delayed release (Nexium) famotidine 20 mg tablet (Pepcid AC) 40 mg PO HS 02/06/21 06/26/21 docusate sodium 100 mg capsule 100 mg PO DAILY 02/15/21 06/26/21 (Dulcolax Stool Softener (docusate)) fluorouracil 50 mg/mL intravenous 0 mg IV Q14D 02/15/21 06/26/21 solution nivolumab 100 mg/10 mL intravenous 0 mg IV Q14D 02/15/21 06/26/21 solution (Opdivo) prochlorperazine maleate 10 mg 10 mg PO Q6 PRN 02/15/21 06/26/21 tablet Leucovorin Chemo 1 dose IV .Q14 DAYS 06/22/21 06/26/21 Lidoc/Child/Antac 15 ml QID PRN 06/22/21 06/26/21 codeine 10 mg-guaifenesin 100 mg/5 5 ml PO TID PRN 06/22/21 06/26/21 mL oral liquid dutasteride 0.5 mg capsule 0.5 mg PO DAILY 06/22/21 06/26/21 ferrous sulfate 325 mg (65 mg 325 mg PO DAILY 06/22/21 06/26/21 iron) tablet (iron) furosemide 20 mg tablet 20 - 40 mg PO DAILY 06/22/21 06/26/21 rivaroxaban 20 mg tablet (Xarelto) 20 mg PO DAILY 06/22/21 06/26/21 spironolactone 50 mg tablet 50 - 100 mg PO DAILY 06/22/21 06/26/21 tamsulosin 0.4 mg capsule (Flomax) 0.8 mg PO DAILY 06/22/21 06/26/21 Previous Rx's Medication Instructions Recorded ondansetron HCl 8 mg tablet 8 mg PO Q8H PRN 14 Days #42 tab 02/19/21 oxycodone 5 mg tablet 5 - 10 mg PO Q6H PRN #40 tab 02/19/21 Results & Data (ED) Vital Signs Vital Signs - 24 hr 06/26/21 10:41 06/26/21 10:46 06/26/21 14:29 Temperature 36.6 C Temperature Source Temporal Artery Scan Pulse Rate 84 Pulse Rate [Apical] 85 Pulse Rhythm Regular Pulse Rhythm [Apical] Pulse Strength Normal Respiratory Rate 20 24 Respiratory Effort / Characteristics Non-Labored Spontaneous Non-Labored Spontaneous SOB on Exertion Respiratory Depth Normal Normal Respiratory Pattern Regular Blood Pressure 99/72 L Blood Pressure [Right Arm] 114/78 Blood Pressure Mean 81 Blood Pressure Mean [Right Arm] 90 Blood Pressure Position Sitting Pulse Oximetry 98 97 Oxygen Delivery Method Room Air Room Air Room Air Sepsis Recent Fever Within 48 Hours No Sepsis New/Unexplained Change in Mental Status N/A Sepsis Action Taken by Nursing No Action Required 06/26/21 16:00 06/26/21 17:47 06/26/21 18:04 Temperature Temperature Source Pulse Rate Pulse Rate [Apical] 85 84 82 Pulse Rhythm Pulse Rhythm [Apical] Regular Pulse Strength Respiratory Rate 17 15 17 Respiratory Effort / Characteristics Non-Labored Non-Labored Respiratory Depth Respiratory Pattern Blood Pressure Blood Pressure [Right Arm] 112/63 99/64 L 96/55 L Blood Pressure Mean Blood Pressure Mean [Right Arm] 79 75 68 Blood Pressure Position Pulse Oximetry 97 96 96 Oxygen Delivery Method Room Air Room Air Room Air Sepsis Recent Fever Within 48 Hours Sepsis New/Unexplained Change in Mental Status Sepsis Action Taken by Nursing Laboratory Data Result diagrams: 06/26/21 11:32 06/26/21 11:32 Lab Results 06/26/21 06/26/21 06/26/21 Range/Units 11:32 11:32 11:32 WBC 14.24 H (4.8-10.8) K/uL RBC 4.14 L (4.7-6.1) M/uL Hgb 13.9 L (14.0-18.0) g/dL Hct 41.2 L (42-52) % MCV 99.5 (80-100) fL MCH 33.6 (25-34) pg MCHC 33.7 (32-36) g/dL RDW Std Deviation 68.5 H (36.4-46.3) fL RDW Coeff of Macario 19.1 H (11.5-14.5) % Plt Count 171 (130-400) K/uL MPV 10.7 H (7.4-10.4) fL Immature Gran % (Auto) 0.5 % Neut % (Auto) 81.0 % Lymph % (Auto) 5.8 % Gordon % (Auto) 12.4 % Eos % (Auto) 0.2 % Baso % (Auto) 0.1 % Neut # (Auto) 11.53 H (1.4-6.5) K/uL Lymph # (Auto) 0.83 L (1.2-3.4) K/uL Gordon # (Auto) 1.76 H (0.11-0.59) K/uL Eos # (Auto) 0.03 (0-0.5) K/uL Baso # (Auto) 0.02 (0-0.2) K/uL Immature Gran # (Auto) 0.07 H (0.00-0.02) K/uL PT (9.0-12.0) Seconds INR (0.9-1.1) APTT (21.0-31.0) Seconds PTT Ratio Sodium 130 L (136-145) mmol/L Potassium 4.5 (3.5-5.1) mmol/L Chloride 99 (98-107) mmol/L Carbon Dioxide 24 (21-32) mmol/L Anion Gap 7 (3-11) BUN 41 H (6-23) mg/dl Creatinine 1.72 H (0.6-1.4) mg/dl Est Cr Clr Drug Dosing Not Reportable Est GFR ( Amer) 47.3 ml/min Est GFR (Non-Af Amer) 40.8 ml/min BUN/Creatinine Ratio 23.8 H (10-20) Glucose 86 (70-99(Fasting)) mg/dl Lactate (0.4-2.0) mmol/L Calcium 7.7 L (8.5-10.1) mg/dl Magnesium (1.7-2.4) mg/dl Total Bilirubin 1.0 (0.2-1.0) mg/dl AST 19 (13-39) U/L ALT 15 (7-52) U/L Alkaline Phosphatase 86 (34-104) U/L Troponin I < 0.03 (0-0.04) ng/ml Total Protein 6.2 (6.0-8.3) gm/dl Albumin 2.1 L (3.4-5.0) gm/dl Globulin 4.1 H (2.5-4.0) gm/dl Albumin/Globulin Ratio 0.5 L (0.9-2) Lipase (11-82) U/L Procalcitonin (0-0.5) ng/ml Fluid Neutrophils % % Fluid Lymphocytes % % Fluid Eosinophils % % Fluid Basophils % % Fluid Meso/Macro/Gordon % % Fluid Comment Peritoneal Color Peritoneal Appearance Peritoneal WBC (0-300) /ul Peritoneal RBC /uL Peritoneal Other Cells % Peritoneal Tot Protein g/dl Peritoneal Albumin g/dl Peritoneal LDH U/L Peritoneal Glucose mg/dl SARS-CoV-2, RNA, NAAT (NEGATIVE) 06/26/21 06/26/21 06/26/21 Range/Units 11:32 11:32 11:32 WBC (4.8-10.8) K/uL RBC (4.7-6.1) M/uL Hgb (14.0-18.0) g/dL Hct (42-52) % MCV (80-100) fL MCH (25-34) pg MCHC (32-36) g/dL RDW Std Deviation (36.4-46.3) fL RDW Coeff of Macario (11.5-14.5) % Plt Count (130-400) K/uL MPV (7.4-10.4) fL Immature Gran % (Auto) % Neut % (Auto) % Lymph % (Auto) % Gordon % (Auto) % Eos % (Auto) % Baso % (Auto) % Neut # (Auto) (1.4-6.5) K/uL Lymph # (Auto) (1.2-3.4) K/uL Gordon # (Auto) (0.11-0.59) K/uL Eos # (Auto) (0-0.5) K/uL Baso # (Auto) (0-0.2) K/uL Immature Gran # (Auto) (0.00-0.02) K/uL PT 14.3 H (9.0-12.0) Seconds INR 1.5 H (0.9-1.1) APTT 44.1 H (21.0-31.0) Seconds PTT Ratio 1.7 Sodium (136-145) mmol/L Potassium (3.5-5.1) mmol/L Chloride (98-107) mmol/L Carbon Dioxide (21-32) mmol/L Anion Gap (3-11) BUN (6-23) mg/dl Creatinine (0.6-1.4) mg/dl Est Cr Clr Drug Dosing Est GFR ( Amer) ml/min Est GFR (Non-Af Amer) ml/min BUN/Creatinine Ratio (10-20) Glucose (70-99(Fasting)) mg/dl Lactate (0.4-2.0) mmol/L Calcium (8.5-10.1) mg/dl Magnesium 2.1 (1.7-2.4) mg/dl Total Bilirubin (0.2-1.0) mg/dl AST (13-39) U/L ALT (7-52) U/L Alkaline Phosphatase (34-104) U/L Troponin I (0-0.04) ng/ml Total Protein (6.0-8.3) gm/dl Albumin (3.4-5.0) gm/dl Globulin (2.5-4.0) gm/dl Albumin/Globulin Ratio (0.9-2) Lipase 81 (11-82) U/L Procalcitonin 0.43 (0-0.5) ng/ml Fluid Neutrophils % % Fluid Lymphocytes % % Fluid Eosinophils % % Fluid Basophils % % Fluid Meso/Macro/Gordon % % Fluid Comment Peritoneal Color Peritoneal Appearance Peritoneal WBC (0-300) /ul Peritoneal RBC /uL Peritoneal Other Cells % Peritoneal Tot Protein g/dl Peritoneal Albumin g/dl Peritoneal LDH U/L Peritoneal Glucose mg/dl SARS-CoV-2, RNA, NAAT (NEGATIVE) 06/26/21 06/26/21 06/26/21 Range/Units 14:40 14:45 15:45 WBC (4.8-10.8) K/uL RBC (4.7-6.1) M/uL Hgb (14.0-18.0) g/dL Hct (42-52) % MCV (80-100) fL MCH (25-34) pg MCHC (32-36) g/dL RDW Std Deviation (36.4-46.3) fL RDW Coeff of Macario (11.5-14.5) % Plt Count (130-400) K/uL MPV (7.4-10.4) fL Immature Gran % (Auto) % Neut % (Auto) % Lymph % (Auto) % Gordon % (Auto) % Eos % (Auto) % Baso % (Auto) % Neut # (Auto) (1.4-6.5) K/uL Lymph # (Auto) (1.2-3.4) K/uL Gordon # (Auto) (0.11-0.59) K/uL Eos # (Auto) (0-0.5) K/uL Baso # (Auto) (0-0.2) K/uL Immature Gran # (Auto) (0.00-0.02) K/uL PT (9.0-12.0) Seconds INR (0.9-1.1) APTT (21.0-31.0) Seconds PTT Ratio Sodium (136-145) mmol/L Potassium (3.5-5.1) mmol/L Chloride (98-107) mmol/L Carbon Dioxide (21-32) mmol/L Anion Gap (3-11) BUN (6-23) mg/dl Creatinine (0.6-1.4) mg/dl Est Cr Clr Drug Dosing Est GFR ( Amer) ml/min Est GFR (Non-Af Amer) ml/min BUN/Creatinine Ratio (10-20) Glucose (70-99(Fasting)) mg/dl Lactate 1.3 (0.4-2.0) mmol/L Calcium (8.5-10.1) mg/dl Magnesium (1.7-2.4) mg/dl Total Bilirubin (0.2-1.0) mg/dl AST (13-39) U/L ALT (7-52) U/L Alkaline Phosphatase (34-104) U/L Troponin I (0-0.04) ng/ml Total Protein (6.0-8.3) gm/dl Albumin (3.4-5.0) gm/dl Globulin (2.5-4.0) gm/dl Albumin/Globulin Ratio (0.9-2) Lipase (11-82) U/L Procalcitonin (0-0.5) ng/ml Fluid Neutrophils % 13 % Fluid Lymphocytes % 53 % Fluid Eosinophils % 12 % Fluid Basophils % 0 % Fluid Meso/Macro/Gordon % 22 % Fluid Comment Peritoneal Color PALE YELLOW Peritoneal Appearance CLOUDY Peritoneal WBC 212 (0-300) /ul Peritoneal RBC < 3000 /uL Peritoneal Other Cells 0.0 % Peritoneal Tot Protein g/dl Peritoneal Albumin g/dl Peritoneal LDH U/L Peritoneal Glucose mg/dl SARS-CoV-2, RNA, NAAT NEGATIVE (NEGATIVE) 06/26/21 06/26/21 Range/Units 15:45 15:45 WBC (4.8-10.8) K/uL RBC (4.7-6.1) M/uL Hgb (14.0-18.0) g/dL Hct (42-52) % MCV (80-100) fL MCH (25-34) pg MCHC (32-36) g/dL RDW Std Deviation (36.4-46.3) fL RDW Coeff of Macario (11.5-14.5) % Plt Count (130-400) K/uL MPV (7.4-10.4) fL Immature Gran % (Auto) % Neut % (Auto) % Lymph % (Auto) % Gordon % (Auto) % Eos % (Auto) % Baso % (Auto) % Neut # (Auto) (1.4-6.5) K/uL Lymph # (Auto) (1.2-3.4) K/uL Gordon # (Auto) (0.11-0.59) K/uL Eos # (Auto) (0-0.5) K/uL Baso # (Auto) (0-0.2) K/uL Immature Gran # (Auto) (0.00-0.02) K/uL PT (9.0-12.0) Seconds INR (0.9-1.1) APTT (21.0-31.0) Seconds PTT Ratio Sodium (136-145) mmol/L Potassium (3.5-5.1) mmol/L Chloride (98-107) mmol/L Carbon Dioxide (21-32) mmol/L Anion Gap (3-11) BUN (6-23) mg/dl Creatinine (0.6-1.4) mg/dl Est Cr Clr Drug Dosing Est GFR ( Amer) ml/min Est GFR (Non-Af Amer) ml/min BUN/Creatinine Ratio (10-20) Glucose (70-99(Fasting)) mg/dl Lactate (0.4-2.0) mmol/L Calcium (8.5-10.1) mg/dl Magnesium (1.7-2.4) mg/dl Total Bilirubin (0.2-1.0) mg/dl AST (13-39) U/L ALT (7-52) U/L Alkaline Phosphatase (34-104) U/L Troponin I (0-0.04) ng/ml Total Protein (6.0-8.3) gm/dl Albumin (3.4-5.0) gm/dl Globulin (2.5-4.0) gm/dl Albumin/Globulin Ratio (0.9-2) Lipase (11-82) U/L Procalcitonin (0-0.5) ng/ml Fluid Neutrophils % % Fluid Lymphocytes % % Fluid Eosinophils % % Fluid Basophils % % Fluid Meso/Macro/Gordon % % Fluid Comment Peritoneal Color Peritoneal Appearance Peritoneal WBC (0-300) /ul Peritoneal RBC /uL Peritoneal Other Cells % Peritoneal Tot Protein 1.0 g/dl Peritoneal Albumin < 0.6 g/dl Peritoneal LDH 65 U/L Peritoneal Glucose 103 mg/dl SARS-CoV-2, RNA, NAAT (NEGATIVE) Administered Medications Famotidine (Famotidine 40 Mg Tablet) 40 mg PO HS SISSY Stop: 07/26/21 20:59 Last Admin: 06/26/21 22:17 Dose: 40 mg Documented by: [id number] Pantoprazole Sodium (Pantoprazole 40 Mg Tab) 40 mg PO BID SISSY Stop: 07/26/21 20:59 Last Admin: 06/26/21 22:17 Dose: 40 mg Documented by: [id number] Discontinued Medications Albumin Human (Albumin 25% 100 Ml) 25 gm in 100 mls @ 50 mls/hr IV ONE ONE Stop: 06/26/21 16:42 Last Infusion: 06/26/21 18:20 Dose: 0 mls/hr Documented by: [id number] Admin: 06/26/21 16:18 Dose: 50 mls/hr Documented by: [id number] Ceftriaxone Sodium (Rocephin) 2,000 mg in 70 mls @ 140 mls/hr IV NOW STA Stop: 06/26/21 17:37 Last Infusion: 06/26/21 19:01 Dose: 0 mls/hr Documented by: [id number] Admin: 06/26/21 18:19 Dose: 140 mls/hr Documented by: [id number] Imaging Data Radiologist's Impression: Chest X-Ray 06/26/21 12:53 XR chest 1V not portable CLINICAL HISTORY: SOB. Nonsmoker COMPARISON STUDY: 06/22/2021 TECHNIQUE: 1 view of the chest FINDINGS: Single frontal view of the chest demonstrates the cardiomediastinal silhouette to be within normal limits. A Port-A-Cath is in place. Compared to previous examination, the patient is in a more upright position with layering of pleural fluid at both lung bases, left greater than right. The lungs are clear of confluent alveolar opacities. There is no evidence for vascular congestion. There is no acute osseous pathology. IMPRESSION: Bilateral pleural effusions, left greater than right. No definite vascular congestion on the current study. ACT 112: Negative or not required by law. Electronically signed by: Alfred Simons M.D. 06/26/2021 1:54 PM Paracentesis Ultrasound 06/26/21 14:43 ULTRASOUND GUIDED DIAGNOSTIC AND THERAPEUTIC PARACENTESIS CLINICAL HISTORY: Abdominal distention COMPARISON STUDY: CT of the abdomen pelvis April 28, 2021. PROCEDURE: The risks, benefits, and alternatives to the procedure were discussed with the patient including the risk of bleeding, infection and injury to adjacent structures. The patient agreed to the procedure and informed written consent was obtained. Following real-time ultrasound localization, the skin of the left lower quadrant was prepped and draped. Following local anesthesia with Xylocaine, the sheath paracentesis needle was inserted and approximately 5 liters of straw-colored fluid was removed by vacuum suction. The patient tolerated the procedure well and no immediate complications were evident. IMPRESSION: Ultrasound-guided paracentesis with removal of 5 liters of ascites. 1 L of ascites was sent to the laboratory for analysis as ordered. ACT 112: Negative or not required by law. Electronically signed by: Pedro Kahn M.D. 06/26/2021 3:56 PM Discharge Plan Visit Data Chief Complaint: Shortness of Breath/Dyspnea Stated Complaint: SOB,DIZZINESS,HERE 06-22-21,FEELS LIKE ABD BLOATED ED Provider: Neri Garg Discharge Problem: Ascites, Esophageal cancer, ADELSO (acute kidney injury), Hypoalbuminemia Patient Disposition: Admitted As Inpatient Discharge Instructions Interventions: ED Discharge Assessment Last Done: 06/26/21 20:20 Discharge Problem: Ascites Qualifiers: Ascites type: other type Qualified Code(s): R18.8 - Other ascites Esophageal cancer Qualifiers: Malignant neoplasm of esophagus location: unspecified location Qualified Code(s): C15.9 - Malignant neoplasm of esophagus, unspecified
[2021-06-26] MEDS ORDERED: ALBUMIN 25% 100 mL 25 GM/100 ML VIAL IV ONE (14:43)
[2021-06-26 15:48] LABS: INR 1.5 (0.9-1.1); Partial Thromboplastin Ratio 1.7; Partial Thromboplastin Time 44.1 Seconds (21.0-31.0); Prothrombin Time 14.3 Seconds (9.0-12.0)
--- NOTE | 2021-06-26 15:57 | Ultrasound Report ---
ULTRASOUND GUIDED DIAGNOSTIC AND THERAPEUTIC PARACENTESIS CLINICAL HISTORY: Abdominal distention COMPARISON STUDY: CT of the abdomen pelvis April 28, 2021. PROCEDURE: The risks, benefits, and alternatives to the procedure were discussed with the patient inc luding the risk of bleeding, infection and injury to adjacent structures. The patient agreed to the procedure and informed written consent was obtained. Following real-time ultrasound localization, the skin of the left lower quadrant was prepped and draped. Following local anesthesia with Xylocaine, t he sheath paracentesis needle was inserted and approximately 5 liters of straw-colored fluid was filiberto irving by vacuum suction. The patient tolerated the procedure well and no immediate complications were evident. IMPRESSION: Ultrasound-guided paracentesis with removal of 5 liters of ascites. 1 L of ascites was s ent to the laboratory for analysis as ordered. ACT 112: Negative or not required by law. Electronically signed by: Pedro Kahn M.D. 06/26/2021 3:56 PM
[2021-06-26 16:05] LABS: Magnesium 2.1 mg/dl (1.7-2.4)
[2021-06-26 16:31] LABS: Albumin Peritoneal Fluid < 0.6 g/dl; Glucose Peritoneal Fluid 103 mg/dl
[2021-06-26] MEDS ORDERED: cefTRIAXone SODIUM 2,000 MG/70 ML BAG IV STA (17:08)
[2021-06-26 17:34] LABS: Basophils, Fluid 0 %; Eosinophils, Fluid 12 %; Lymphocytes, Fluid 53 %; Mono,Macrophage,Mesothelial 22 %; Neutrophils, Fluid 13 %
[2021-06-26 17:37] LABS: Appearance Peritoneal Fluid CLOUDY; Color Peritoneal Fluid PALE YELLOW; RBC Peritoneal Fluid (A) < 3000 /uL; WBC Peritoneal Fluid (A) 212 /ul (0-300)
--- NOTE | 2021-06-26 18:21 | History & Physical Report ---
Date of Service June 26, 2021 Assessment & Plan (1) Abdominal ascites: Plan: 5L from paracentesis does not appear infected therefore will discontinue further antibiotics Goal would be to maximize diuretics as much as possible while avoiding ADELSO and dizziness. Despite overal hypervolemia he appears intravascular deplete currently therefore will continue lower dose of spironolactone 50mg PO daily and Lasix 20mg PO daily to avoid intravascular depletion and dizziness. Will likely need recurrent paracentesis (2) Acute dehydration: Plan: No IV fluids. Use albumin for hypotension overnight. Continue on reduced dose of diuretics as above Low Na fluid restricted diet (3) Leucocytosis: Plan: No symptoms signs of infective etiology at the present time. Discontinue further antibiotics. Repeat CBC in AM (4) Elevated serum creatinine: Plan: Appears intravascularly dry. Continue on reduced dose of diuretics as above. 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 daily (7) BPH (benign prostatic hyperplasia): Plan: Continue dutasteride 0.5mg PO daily (8) GERD (gastroesophageal reflux disease): Plan: Continue esomeprazole or hospital formulary equivalent (9) Esophageal cancer: Plan: Minced and moist diet Plan: VTE Prophylaxis - given likely discharge tomorrow will defer chemical prophylaxis on admission Diet - Low Na, fluid restrict 1500ml, minced and moist diet Disposition - observation status to med/surg Admission and Anticipated Discharge Date Admission Date: June 26, 2021 History of Present Illness Chief Complaint: Abdominal ascites Primary Care Provider: Bandar Carrion Everardo Muse is a 66 year old male with esophageal cancer on chemotherapy, mesenteric vein 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 ER provider arranged to have 5L fluid removed from abdomen today via radiology US guided paracentesis. The patient is doing well however the patient has been dizzy with low normal blood pressure, mild increase in Cr and WBC and this is the patient's first paracentesis therefore he was referred to medicine for admission and ongoing management of his ascites mainly for observation overnight. Spontaneous bacterial peritonitis is not suspected at this time. Allergies Allergy/AdvReac Type Severity Reaction Status Date / Time No Known Allergies Allergy Verified 06/26/21 15:19 Home Medications Medication Instructions Recorded Confirmed Type bupropion HCl 150 mg 24 hr tablet, 150 mg PO QAM 12/23/20 06/26/21 History extended release esomeprazole magnesium 40 mg 40 mg PO BID 02/06/21 06/26/21 History capsule,delayed release (Nexium) famotidine 20 mg tablet (Pepcid AC) 40 mg PO HS 02/06/21 06/26/21 History docusate sodium 100 mg capsule 100 mg PO DAILY 02/15/21 06/26/21 History (Dulcolax Stool Softener (docusate)) fluorouracil 50 mg/mL intravenous 0 mg IV Q14D 02/15/21 06/26/21 History solution nivolumab 100 mg/10 mL intravenous 0 mg IV Q14D 02/15/21 06/26/21 History solution (Opdivo) prochlorperazine maleate 10 mg 10 mg PO Q6 PRN 02/15/21 06/26/21 History tablet ondansetron HCl 8 mg tablet 8 mg PO Q8H PRN 14 Days #42 tab 02/19/21 06/26/21 Rx oxycodone 5 mg tablet 5 - 10 mg PO Q6H PRN #40 tab 02/19/21 06/26/21 Rx Leucovorin Chemo 1 dose IV .Q14 DAYS 06/22/21 06/26/21 History Lidoc/Child/Antac 15 ml QID PRN 06/22/21 06/26/21 History codeine 10 mg-guaifenesin 100 mg/5 5 ml PO TID PRN 06/22/21 06/26/21 History mL oral liquid dutasteride 0.5 mg capsule 0.5 mg PO DAILY 06/22/21 06/26/21 History ferrous sulfate 325 mg (65 mg 325 mg PO DAILY 06/22/21 06/26/21 History iron) tablet (iron) furosemide 20 mg tablet 20 - 40 mg PO DAILY 06/22/21 06/26/21 History rivaroxaban 20 mg tablet (Xarelto) 20 mg PO DAILY 06/22/21 06/26/21 History spironolactone 50 mg tablet 50 - 100 mg PO DAILY 06/22/21 06/26/21 History tamsulosin 0.4 mg capsule (Flomax) 0.8 mg PO DAILY 06/22/21 06/26/21 History Past Med/Surg History Medical History BPH (benign prostatic hyperplasia) Degenerative disc disease Depression Esophageal cancer (~12/2020) GERD (gastroesophageal reflux disease) Surgical History H/O hand surgery FINGER TENDON REPAIR History of esophagogastroduodenoscopy (EGD) History of esophagogastroduodenoscopy (EGD) (~12/2020) Upper Endoscopic Ultrasonography + esophageal stent [place] teeth removed Family History Mother Breast cancer Family history of diabetes mellitus Other Cancer Diabetes No family history of adverse response to anesthesia Parkinson disease TIA (transient ischemic attack) Social History Smoking Status: Former smoker Cigarettes Per Day: 20; Second Hand Exposure: No; Do You Dip or Chew Tobacco: Yes (Quit at 1997.); Tobacco Cessation Education Requested by Patient: No Hx Alcohol Use: No Hx Substance Use: No Preferred Language: Wolof Communication Ability: Effective Access Rep Required: No Beliefs That Will Affect Care: None Current Living Situation: Spouse and Family Current Living Situation Comment: 2 Grandsons live with patient. Other Information That Helps Us Care for You: No Feels Safe at Home: Yes Safety Concerns: Feels Safe At This Time Assistive Devices: Glasses Assistive Devices Comment: Reading glasses. Review of Systems Review of Systems: All systems reviewed & are unremarkable except as noted in HPI & below Physical Exam 2 Constitutional: WD/WN, vitals as above Eyes: + anicteric sclerae; normal pupil size ENMT: Mouth: + dry oral mucous membranes Respiratory: Auscultation: + diminished lung sounds Cardiovascular: Rate/Rhythm: regular rate and regular rhythm Extremities: normal capillary refill and + pedal edema (3+) Gastrointestinal (Abdomen): Inspection/Auscultation: + abdomen distended (improved since pre-paracentesis per patient) Percussion/Palpation: abdomen soft Skin: no rashes, warm and dry Neurologic: moves all extremities and awake; not confused Psychiatric: A+Ox3, euthymic affect Results & Data Results & Data ([facility]) Vital Signs (Past 12 Hours) Vital Signs Temp Pulse Pulse Resp BP BP Pulse Ox 06/26/21 17:47 84 15 99/64 L 96 06/26/21 16:00 85 17 112/63 97 06/26/21 14:29 85 24 114/78 97 06/26/21 10:41 36.6 C 84 20 99/72 L 98 Laboratory Results Abnormal lab results 06/26/21 06/26/21 06/26/21 Range/Units 11:32 11:32 11:32 WBC 14.24 H (4.8-10.8) K/uL RBC 4.14 L (4.7-6.1) M/uL Hgb 13.9 L (14.0-18.0) g/dL Hct 41.2 L (42-52) % RDW Std Deviation 68.5 H (36.4-46.3) fL RDW Coeff of Macario 19.1 H (11.5-14.5) % MPV 10.7 H (7.4-10.4) fL Neut # (Auto) 11.53 H (1.4-6.5) K/uL Lymph # (Auto) 0.83 L (1.2-3.4) K/uL Gove # (Auto) 1.76 H (0.11-0.59) K/uL Immature Gran # (Auto) 0.07 H (0.00-0.02) K/uL PT 14.3 H (9.0-12.0) Seconds INR 1.5 H (0.9-1.1) APTT 44.1 H (21.0-31.0) Seconds Sodium 130 L (136-145) mmol/L BUN 41 H (6-23) mg/dl Creatinine 1.72 H (0.6-1.4) mg/dl BUN/Creatinine Ratio 23.8 H (10-20) Calcium 7.7 L (8.5-10.1) mg/dl Albumin 2.1 L (3.4-5.0) gm/dl Globulin 4.1 H (2.5-4.0) gm/dl Albumin/Globulin Ratio 0.5 L (0.9-2) Diagnostic Findings XR chest 1V not portable CLINICAL HISTORY: SOB. Nonsmoker COMPARISON STUDY: 06/22/2021 TECHNIQUE: 1 view of the chest FINDINGS: Single frontal view of the chest demonstrates the cardiomediastinal silhouette to be within normal limits. A Port-A-Cath is in place. Compared to previous examination, the patient is in a more upright position with layering of pleural fluid at both lung bases, left greater than right. The lungs are clear of confluent alveolar opacities. There is no evidence for vascular congestion. There is no acute osseous pathology. IMPRESSION: Bilateral pleural effusions, left greater than right. No definite vascular congestion on the current study. ULTRASOUND GUIDED DIAGNOSTIC AND THERAPEUTIC PARACENTESIS CLINICAL HISTORY: Abdominal distention COMPARISON STUDY: CT of the abdomen pelvis April 28, 2021. PROCEDURE: The risks, benefits, and alternatives to the procedure were discussed with the patient including the risk of bleeding, infection and injury to adjacent structures. The patient agreed to the procedure and informed written consent was obtained. Following real-time ultrasound localization, the skin of the left lower quadrant was prepped and draped. Following local anesthesia with Xylocaine, the sheath paracentesis needle was inserted and approximately 5 liters of straw-colored fluid was removed by vacuum suction. The patient tolerated the procedure well and no immediate complications were evident. IMPRESSION: Ultrasound-guided paracentesis with removal of 5 liters of ascites. 1 L of ascites was sent to the laboratory for analysis as ordered. Medications Administered ER Medications Given: Albumin 25% 25g Ceftriaxone 2000mg IV Code Status & VTE Plan Code Status Full - discussed with patient and his at bedside VTE Prophylaxis Plan VTE Prophylaxis will be ordered: No PG Care Time/CCT Total # of Minutes Spent Total Time Spent with Patient: Total time spent is greater than 50% in coordination of care (as documented) at patient's floor/unit and/or counseling patient: Coding Level of Care Code INT OBSERVATION CARE 50M LVL 2 Diagnoses Abdominal ascites R18.8 Ascites type: other type Acute dehydration E86.0 Edema R60.9 Mesenteric vein thrombosis K55.069 BPH (benign prostatic hyperplasia) N40.0 GERD (gastroesophageal reflux disease) K21.9 Esophageal cancer C15.9 Malignant neoplasm of esophagus location: unspecified location Elevated serum creatinine R79.89 Leucocytosis D72.829 (1) Abdominal ascites Ascites type: other type Qualified Code(s): R18.8 - Other ascites (2) Esophageal cancer Malignant neoplasm of esophagus location: unspecified location Qualified Code(s): C15.9 - Malignant neoplasm of esophagus, unspecified
[2021-06-26 19:16] LABS: Appearance Urine Clear (Clear); Bilirubin Urine Negative (Negative); Blood Urine Negative (Negative); Color Urine Dark Yellow; Glucose Urine UA Negative (Negative); Ketones Urine Trace (Negative); Leukocyte Esterase Urine Negative (Negative); Nitrite Urine Negative (Negative); Protein Urine Negative (Negative); Specific Gravity Urine 1.029 (1.000-1.030); Urobilinogen Urine Negative (Negative)
[2021-06-26] MEDS ORDERED: NIVOLUMAB 100 MG/10 ML IV SCH (20:39)
[2021-06-26] MEDS ORDERED: LEUCOVORIN IV SCH (20:39)
[2021-06-26] MEDS ORDERED: PROCHLORPERAZINE MALEATE 10 MG TAB PO PRN (20:39)
[2021-06-26] MEDS ORDERED: FLUOROURACIL IV SCH (20:39)
[2021-06-26] MEDS ORDERED: ONDANSETRON 4 MG OD TAB PO PRN (20:54)
--- NOTE | 2021-06-26 21:34 | Electrocardiogram Report ---
Test Reason : Blood Pressure : / mmHG Vent. Rate : 084 BPM Atrial Rate : 084 BPM P-R Int : 168 ms QRS Dur : 066 ms QT Int : 386 ms P-R-T Axes : 060 -06 028 degrees QTc Int : 456 ms Normal sinus rhythm Low voltage QRS Possible Septal infarct (cited on or before 22-JUN-2021) Abnormal ECG When compared with ECG of 22-JUN-2021 14:52, QRS duration has decreased Questionable change in initial forces of Anterior leads QT has shortened Confirmed by Femi Wise ([id number]) on 06/26/2021 9:33:54 PM Referred By: Confirmed By:Femi Wise
[2021-06-26] MEDS: FAMOTIDINE 40 MG TABLET PO SCH (22:17)
[2021-06-26] MEDS: PANTOprazole 40 MG TAB PO SCH (22:17)
[2021-06-27 08:54] LABS: Basophils # (auto) 0.01 K/uL (0-0.2); Basophils % (auto) 0.1 %; Eosinophils # (auto) 0.05 K/uL (0-0.5); Eosinophils % (auto) 0.6 %; Hematocrit (blood only) 36.8 % (42-52); Hemoglobin 12.3 g/dL (14.0-18.0); Immature Granulocytes # (auto) 0.04 K/uL (0.00-0.02); Immature Granulocytes % (auto) 0.5 %; Lymphocytes # (auto) 0.64 K/uL (1.2-3.4); Lymphocytes % (auto) 7.4 %; Mean Corpuscular Hemoglobin 33.2 pg (25-34); Mean Corpuscular Hgb Conc 33.4 g/dL (32-36); Mean Corpuscular Volume 99.2 fL (80-100); Mean Platelet Volume 10.8 fL (7.4-10.4); Monocytes # (auto) 1.26 K/uL (0.11-0.59); Monocytes % (auto) 14.5 %; Neutrophils # (auto) 6.66 K/uL (1.4-6.5); Neutrophils % (auto) 76.9 %; Platelet Count 132 K/uL (130-400); RDW Coefficient of Variation 19.2 % (11.5-14.5); RDW Standard Deviation 68.7 fL (36.4-46.3); Red Blood Count 3.71 M/uL (4.7-6.1); White Blood Count 8.66 K/uL (4.8-10.8)
[2021-06-27 09:24] LABS: Albumin Globulin Ratio 0.6 (0.9-2); Albumin Level 1.9 gm/dl (3.4-5.0); BUN Creatinine Ratio 24.7 (10-20); Bilirubin,Total 0.9 mg/dl (0.2-1.0); Calcium 7.2 mg/dl (8.5-10.1); Creatinine Clr Calc Pharmacy 56.2 ml/min; Est GFR (African American) 52.4 ml/min; Est GFR (Non-African American) 45.2 ml/min; Globulin 3.3 gm/dl (2.5-4.0); Potassium 4.3 mmol/L (3.5-5.1); Total Protein 5.2 gm/dl (6.0-8.3)
[2021-06-27] MEDS: SPIRONOLACTONE 25 MG TAB PO SCH (10:02)
[2021-06-27] MEDS: FUROSEMIDE 20 MG TAB PO SCH (10:02)
[2021-06-27] MEDS: PANTOprazole 40 MG TAB PO SCH ×2 (10:03→22:01)
[2021-06-27] MEDS: FERROUS SULFATE 325 MG TAB PO SCH (10:03)
[2021-06-27] MEDS: TAMSULOSIN HCL 0.4 MG CAP PO SCH (10:04)
[2021-06-27] MEDS: buPROPion XL 150 MG TABCR PO SCH (10:05)
[2021-06-27] MEDS: DOCUSATE SODIUM 100 MG CAP PO SCH (10:05)
[2021-06-27] MEDS: RIVAROXABAN 20 MG TAB PO SCH (10:05)
[2021-06-27] MEDS ORDERED: LIDOCAINE 1% MPF 5 ML VIAL IV ONE (13:30)
[2021-06-27] MEDS: guaiFENesin/CODEINE 100MG/10MG 5ML UDC PO PRN (14:27)
--- NOTE | 2021-06-27 15:23 | Hospitalist Progress Note ---
Date of Service June 27, 2021 Assessment & Plan (1) Abdominal ascites: Plan: Has known fatty liver, suspect based on recent CT abd/pelvis ? metastatic disease from esophageal ca to liver - 5L from paracentesis does not appear infected therefore will discontinue fur ther antibiotics, 1L of fluid sent for analysis - Goal would be to maximize diuretics as much as possible while avoiding ADELSO and dizziness. Despite overall hypervolemia he appears intravascular deplete currently therefore will continue lower dose of spironolactone 50mg PO daily and Lasix 20mg PO daily to avoid intravascular depletion and dizziness. - Will require additional fluid to be taken off this week - Continuous leaking at paracentesis at site, spoke with radiology who advised placement of either a stitch or dermabond and monitoring - I performed placement of single interrupted stitch at bedside, still with scant leaking of fluid. Numbed with 1mL 1% Lidocaine, cleaned with alcohol. 5-0 nylon used. - Dressing placed by RN - Advised pt will continue to monitor to ensure that leaking stops prior to discharging pt (2) Acute dehydration: Plan: - No IV fluids. Use albumin for hypotension overnight. - Continue on reduced dose of diuretics as above - Low Na fluid restricted diet (3) Leucocytosis: Plan: - No symptoms signs of infective etiology at the present time. - Discontinue further antibiotics (no concern for SBP) - Repeat CBC this morning WNL (4) Elevated serum creatinine: Plan: - Appears intravascularly dry. Continue on reduced dose of diuretics as above. - Repeat BMP noted slightly improvement in renal function - Diuretics held this AM due to marginal BP (5) Edema: Plan: - DOUG freeman (6) Mesenteric vein thrombosis: Plan: - Continue Xarelto 20mg PO daily (7) BPH (benign prostatic hyperplasia): Plan: - Continue dutasteride 0.5mg PO daily (8) GERD (gastroesophageal reflux disease): Plan: - Continue esomeprazole or hospital formulary equivalent (9) Esophageal cancer: Plan: - Minced and moist diet - For chemo this week - with known mets to nodes, ?metastatic disease to liver (10) Hypoalbuminemia: Plan: - Has known fatty liver - ?secondary to metastatic cancer - Ultimately resulting in hypervolemia/third spacing (11) Hyponatremia: Plan: - Hypervolemic - Fluid restrict - Monitor Plan: VTE Prophylaxis - given likely discharge tomorrow will defer chemical prophylaxis on admission Diet - Low Na, fluid restrict 1500ml, minced and moist diet Disposition - home when peritoneal fluid leaking stops Admission and Anticipated Discharge Date Admission Date: June 26, 2021 Subjective Mr. Muse seen on rounds today. He is resting comfortably. Offers no complaints/concerns at this time. He denies abd pain, n/v/d, f/c, headache, or gu symptoms. He is eating/drinking without issue. Pt underwent first paracentesis yesterday with 5L taken off. 1L of fluid sent for analysis. Plans for additional fluid extraction this coming week. RN has reported that pt has had leaking of peritoneal fluid at paracentesis site. He was kept overnight for monitoring d/t complaints of dizziness following the procedure and marginal BP. Pt has had no complaints of dizziness or lightheadedness today. Review of Systems Review of Systems: CONSTITUTIONAL: Denies weight loss/gain, fever and chills, fatigue, malaise, generalized weakness. HEENT: Denies changes in vision and hearing. RESPIRATORY: +Chronic cough. Denies SOB, wheezing. CV: Denies palpitations, CP, lower extremity edema, orthopnea, PND. GI: +Belly distended. Denies abdominal pain, nausea, vomiting and diarrhea. : Denies dysuria and urinary frequency, urgency, hesitancy. MUSCULOSKELETAL: Denies myalgia and joint pain. SKIN: Denies rash and pruritus. NEUROLOGICAL: Denies headache, syncope, focal weakness, numbness, tingling. PSYCHIATRIC: Denies recent changes in mood. Denies anxiety and depression. Physical Exam Physical Exam: GENERAL: 66 yo well-developed, well-nourished WM. NAD. LUNGS: Clear to auscultation bilaterally. No W/R/R. CARDIOVASCULAR: Regular rate and rhythm. No M/G/R. No JVD. ABDOMEN: Soft, moderately distended, nontender, continuous leaking at paracentesis site noted. Still w/ + fluid wave. BS normal x 4 quad. EXTREMITIES: No edema. Non-tender. Peripheral pulses +2/4. NEUROLOGIC: A&O x3. PSYCHIATRIC: Cooperative. Appropriate mood and affect. SKIN: Warm, dry, intact. No rashes or lesions. Results & Data Results & Data ([facility]) Vital Signs (Past 12 Hours) Vital Signs Temp Pulse Resp BP BP Pulse Ox 06/27/21 11:53 36.6 C 69 20 107/77 97 06/27/21 10:08 99/65 L 06/27/21 09:58 92/59 L 06/27/21 07:15 36.5 C 73 14 94/61 L 96 Laboratory Results 06/27/21 08:12 06/27/21 08:12 PG Care Time/CCT Total # of Minutes Spent Total Time Spent with Patient: Total time spent is greater than 50% in coordination of care (as documented) at patient's floor/unit and/or counseling patient: Coding Level of Care Code 76686 Subseq Hosp Care Lvl 3 Diagnoses Abdominal ascites R18.8 Ascites type: other type Acute dehydration E86.0 Leucocytosis D72.829 Elevated serum creatinine R79.89 Edema R60.9 Mesenteric vein thrombosis K55.069 BPH (benign prostatic hyperplasia) N40.0 GERD (gastroesophageal reflux disease) K21.9 Esophageal cancer C15.9 Malignant neoplasm of esophagus location: unspecified location Hypoalbuminemia E88.09 Hyponatremia E87.1 (1) Abdominal ascites Ascites type: other type Qualified Code(s): R18.8 - Other ascites (2) Esophageal cancer Malignant neoplasm of esophagus location: unspecified location Qualified Code(s): C15.9 - Malignant neoplasm of esophagus, unspecified
[2021-06-27] MEDS: oxyCODONE HCL IR 5 MG TAB (IMMEDIATE RELEASE) PO PRN (17:03)
[2021-06-27] MEDS: FAMOTIDINE 40 MG TABLET PO SCH (22:01)
[2021-06-28] MEDS: oxyCODONE HCL IR 5 MG TAB (IMMEDIATE RELEASE) PO PRN ×3 (07:55→20:24)
[2021-06-28] MEDS: DOCUSATE SODIUM 100 MG CAP PO SCH ×2 (09:04→20:25)
[2021-06-28] MEDS: buPROPion XL 150 MG TABCR PO SCH (09:04)
[2021-06-28] MEDS: PANTOprazole 40 MG TAB PO SCH ×2 (09:04→20:26)
[2021-06-28] MEDS: TAMSULOSIN HCL 0.4 MG CAP PO SCH (09:05)
[2021-06-28] MEDS: FUROSEMIDE 20 MG TAB PO SCH ×2 (09:05→15:08)
[2021-06-28] MEDS: RIVAROXABAN 20 MG TAB PO SCH (09:05)
[2021-06-28] MEDS: SPIRONOLACTONE 25 MG TAB PO SCH ×2 (09:05→15:07)
[2021-06-28] MEDS: FERROUS SULFATE 325 MG TAB PO SCH (09:05)
--- NOTE | 2021-06-28 11:14 | Hospitalist Progress Note ---
Date of Service June 28, 2021 Assessment & Plan (1) Abdominal ascites: Plan: Has known fatty liver, suspect based on recent CT abd/pelvis ? metastatic disease from esophageal ca to liver - 5L from paracentesis did not appear infected therefore will discontinue furt her antibiotics, 1L of fluid sent for analysis - Goal would be to maximize diuretics as much as possible while avoiding ADELSO and dizziness. Despite overall hypervolemia he appears intravascularly depleted therefore adjusted doses of spironolactone to 50mg PO daily and Lasix 20mg PO daily. - Will require additional fluid to be taken off this week - Continuous leaking at paracentesis at site, spoke with radiology who advised placement of either a stitch or dermabond and monitoring - I performed placement of single interrupted stitch at bedside on 06/27, still with scant leaking of fluid. Numbed with 1mL 1% Lidocaine, cleaned with alcohol. 5-0 nylon used. - Pressure dressing applied, still having leaking, dressing saturated this AM by RN requiring change - D/w radiologist, Dr. Roberts, will drain remaining fluid (or as much as able) while pt is in house and in safe/controlled environment (rather than outpatient) - U/S guided therapeutic paracentesis ordered, hold Xarelto in AM, obtain PT/INR w/ AM labs - Make full admit (2) Acute dehydration: Plan: - No IV fluids. Use albumin for hypotension overnight. - Continue on reduced dose of diuretics as above - Low Na fluid restricted diet (3) Leucocytosis: Plan: - No symptoms signs of infective etiology at the present time. - Discontinue further antibiotics (no concern for SBP) - Repeat CBC this morning WNL (4) Acute kidney injury: Plan: - Appears intravascularly dry (dehydrated). Continue on reduced dose of diuretics as above. - Repeat chemistry today notes stable creatinine of 1.5 (5) Edema: Plan: - DOUG hose (6) Mesenteric vein thrombosis: Plan: - Continue Xarelto 20mg PO daily - Place on hold for planned procedure tomorrow (7) BPH (benign prostatic hyperplasia): Plan: - Continue dutasteride 0.5mg PO daily (8) GERD (gastroesophageal reflux disease): Plan: - Continue esomeprazole or hospital formulary equivalent (9) Esophageal cancer: Plan: - Minced and moist diet - For chemo this week - with known mets to nodes, ?metastatic disease to liver (10) Hypoalbuminemia: Plan: - Has known fatty liver - ?secondary to metastatic cancer - Ultimately resulting in hypervolemia/third spacing (11) Hyponatremia: Plan: - Hypervolemic - Fluid restrict - Monitor Plan: VTE Prophylaxis - on Xarelto (held tomorrow AM for planned procedure) Diet - Low Na, fluid restrict 1500ml, minced and moist diet Disposition - full admit, for procedure tomorrow Admission and Anticipated Discharge Date Admission Date: June 26, 2021 Subjective Mr. Muse seen on rounds today. He is resting comfortably. Pt underwent first paracentesis 06/26 with 5L taken off. Since procedure, has had issues with peritoneal fluid leaking from site. Stitch placed by me at bedside yesterday and pressure dressing applied by RN. Per RN, dressing stayed dry overnight but was saturated again this morning. Pt denies dizziness, chest pain, n/v/d, abd pain, gu symptoms, or headache. BP has remained 90s to low 100s systolic. Diuretics held yesterday and this morning. Nursing notes that he is c/o having some R shoulder pain from having to lay continuously on his right side. Review of Systems Review of Systems: CONSTITUTIONAL: Denies weight loss/gain, fever and chills, fatigue, malaise, generalized weakness. HEENT: Denies changes in vision and hearing. RESPIRATORY: +Chronic cough. Denies SOB, wheezing. CV: Denies palpitations, CP, lower extremity edema, orthopnea, PND. GI: +Belly distended. Denies abdominal pain, nausea, vomiting and diarrhea. : Denies dysuria and urinary frequency, urgency, hesitancy. MUSCULOSKELETAL: Denies myalgia and joint pain. SKIN: Denies rash and pruritus. NEUROLOGICAL: Denies headache, syncope, focal weakness, numbness, tingling. PSYCHIATRIC: Denies recent changes in mood. Denies anxiety and depression. Physical Exam Physical Exam: GENERAL: 66 yo well-developed, well-nourished WM. NAD. LUNGS: Clear to auscultation bilaterally. No W/R/R. CARDIOVASCULAR: Regular rate and rhythm. No M/G/R. No JVD. ABDOMEN: Soft, moderately distended, nontender, continuous leaking at paracentesis site noted. Still w/ + fluid wave. BS normal x 4 quad. EXTREMITIES: 2+ pitting edema in b/l LE. Non-tender. Peripheral pulses +2/4. NEUROLOGIC: A&O x3. PSYCHIATRIC: Cooperative. Appropriate mood and affect. SKIN: Warm, dry, intact. No rashes or lesions. Results & Data Results & Data ([facility]) Vital Signs (Past 12 Hours) Vital Signs Temp Pulse Resp BP Pulse Ox 06/28/21 07:40 36.3 C L 73 18 99/69 L 95 Laboratory Results 06/27/21 08:12 06/28/21 11:38 Albumin=1.9 PG Care Time/CCT Total # of Minutes Spent Total Time Spent with Patient: Total time spent is greater than 50% in coordination of care (as documented) at patient's floor/unit and/or counseling patient: Coding Level of Care Code 43691 Subseq Hosp Care Lvl 2 Diagnoses Abdominal ascites R18.8 Ascites type: other type Acute dehydration E86.0 Leucocytosis D72.829 Edema R60.9 Mesenteric vein thrombosis K55.069 BPH (benign prostatic hyperplasia) N40.0 GERD (gastroesophageal reflux disease) K21.9 Esophageal cancer C15.9 Malignant neoplasm of esophagus location: unspecified location Hypoalbuminemia E88.09 Hyponatremia E87.1 Acute kidney injury N17.9 (1) Abdominal ascites Ascites type: other type Qualified Code(s): R18.8 - Other ascites (2) Esophageal cancer Malignant neoplasm of esophagus location: unspecified location Qualified Code(s): C15.9 - Malignant neoplasm of esophagus, unspecified
[2021-06-28] MEDS: HEPARIN 100 UNIT/ML 5ML FLUSH FLUSH PRN (11:49)
[2021-06-28 12:17] LABS: Albumin Globulin Ratio 0.5 (0.9-2); Albumin Level 1.9 gm/dl (3.4-5.0); BUN Creatinine Ratio 23.9 (10-20); Bilirubin,Total 0.7 mg/dl (0.2-1.0); Calcium 7.4 mg/dl (8.5-10.1); Creatinine Clr Calc Pharmacy 55.8 ml/min; Est GFR (Non-African American) 44.9 ml/min; Globulin 3.6 gm/dl (2.5-4.0); Potassium 4.3 mmol/L (3.5-5.1); Total Protein 5.5 gm/dl (6.0-8.3)
[2021-06-28] MEDS: FAMOTIDINE 40 MG TABLET PO SCH (20:25)
[2021-06-28] MEDS: guaiFENesin/CODEINE 100MG/10MG 5ML UDC PO PRN (21:44)
[2021-06-29 06:33] LABS: Basophils # (auto) 0.01 K/uL (0-0.2); Basophils % (auto) 0.1 %; Eosinophils # (auto) 0.09 K/uL (0-0.5); Eosinophils % (auto) 0.8 %; Hematocrit (blood only) 40.4 % (42-52); Hemoglobin 13.3 g/dL (14.0-18.0); Immature Granulocytes # (auto) 0.06 K/uL (0.00-0.02); Immature Granulocytes % (auto) 0.5 %; Lymphocytes % (auto) 7.8 %; Mean Corpuscular Hemoglobin 32.8 pg (25-34); Mean Corpuscular Hgb Conc 32.9 g/dL (32-36); Mean Corpuscular Volume 99.8 fL (80-100); Mean Platelet Volume 10.9 fL (7.4-10.4); Monocytes # (auto) 1.87 K/uL (0.11-0.59); Monocytes % (auto) 16.2 %; Neutrophils # (auto) 8.64 K/uL (1.4-6.5); Neutrophils % (auto) 74.6 %; Platelet Count 164 K/uL (130-400); RDW Coefficient of Variation 18.9 % (11.5-14.5); RDW Standard Deviation 68.3 fL (36.4-46.3); Red Blood Count 4.05 M/uL (4.7-6.1); White Blood Count 11.57 K/uL (4.8-10.8)
[2021-06-29 06:55] LABS: Albumin Globulin Ratio 0.5 (0.9-2); Albumin Level 1.9 gm/dl (3.4-5.0); BUN Creatinine Ratio 23.1 (10-20); Bilirubin,Total 0.9 mg/dl (0.2-1.0); Calcium 7.4 mg/dl (8.5-10.1); Creatinine Clr Calc Pharmacy 55.5 ml/min; Est GFR (African American) 51.6 ml/min; Est GFR (Non-African American) 44.5 ml/min; Globulin 3.7 gm/dl (2.5-4.0); Magnesium 1.9 mg/dl (1.7-2.4); Potassium 4.2 mmol/L (3.5-5.1); Total Protein 5.6 gm/dl (6.0-8.3)
[2021-06-29 06:56] LABS: INR 1.4 (0.9-1.1); Prothrombin Time 14.1 Seconds (9.0-12.0)
[2021-06-29] MEDS: PANTOprazole 40 MG TAB PO SCH (08:28)
[2021-06-29] MEDS: buPROPion XL 150 MG TABCR PO SCH (08:28)
[2021-06-29] MEDS: FERROUS SULFATE 325 MG TAB PO SCH (08:28)
[2021-06-29] MEDS: DOCUSATE SODIUM 100 MG CAP PO SCH (08:28)
[2021-06-29] MEDS: TAMSULOSIN HCL 0.4 MG CAP PO SCH (08:29)
[2021-06-29] MEDS: FUROSEMIDE 20 MG TAB PO SCH (08:32)
[2021-06-29] MEDS: SPIRONOLACTONE 25 MG TAB PO SCH (08:33)
[2021-06-29 09:17] LABS: Thyroid Stimulating Hormone 8.255 uIu/ml (0.300-4.500)
[2021-06-29 09:52] LABS: T4 Free Thyroxine 1.09 ng/dl (0.61-1.60)
[2021-06-29] MEDS: guaiFENesin/CODEINE 100MG/10MG 5ML UDC PO PRN (12:16)
--- NOTE | 2021-06-29 13:53 | Ultrasound Report ---
US paracentesis abd w/image CLINICAL HISTORY: 66 years-old Male with acites. Recurrent ascites COMPARISON: CT abdomen and pelvis 04/28/2021 PROCEDURE: The procedure was explained to the patient in the care including the benefits and possible risks/complications. The patient gave verbal understanding and written consent was obtained. A time -out was performed prior to the start of the procedure. The patient was placed on the ultrasound table in the supine position. Using ultrasound guidance, an appropriate procedure site in the left lower abdomen was marked. This area was then prepped and drape d in the usual sterile fashion. Local anesthesia was achieved within 1% lidocaine. An 8-[employer] is catheter was then inserted. Approximately 6.7 liters of yellow/whitish colored fluid was removed f or therapeutic purposes only. The catheter was removed and external pressure was held to achieve hemostasis. A sterile dressing was applied to the procedure site. The patient tolerated the procedure well without immediate complicati ons. IMPRESSION: Successful ultrasound-guided paracentesis with removal of 6.7 L ascitic fluid ACT 112: Negative or not required by law. The above report was generated using voice recognition software. It may contain grammatical, syntax o r spelling errors. Electronically signed by: Hi Herman M.D. 06/29/2021 1:51 PM
--- NOTE | 2021-06-29 14:42 | Discharge Summary ---
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 ER provider arranged to have 5L fluid removed from abdomen today via radiology US guided paracentesis. The patient is doing well however the patient has been dizzy with low normal blood pressure, mild increase in Cr and WBC and this is the patient's first paracentesis therefore he was referred to medicine for admission and ongoing ma nagement of his ascites mainly for observation overnight. Spontaneous bacterial peritonitis is not suspected at this time. Principal Diagnosis Massive Acites Hypoalbuminemia Fatty Liver ?Liver metastasis from Esophageal CA Discharge Exam GENERAL: 66 yo well-developed, well-nourished WM. NAD. LUNGS: Clear to auscultation, diminished in bases b/l. No W/R/R. CARDIOVASCULAR: Regular rate and rhythm. No M/G/R. No JVD. ABDOMEN: Soft, moderately distended, taunt, nontender, continuous leaking at paracentesis site noted. BS normal x 4 quad. EXTREMITIES: 2+ pitting edema in b/l LE. Peripheral pulses +2/4. NEUROLOGIC: A&O x3. PSYCHIATRIC: Cooperative. Appropriate mood and affect. SKIN: Warm, dry, intact. No rashes or lesions. Discharge Data Allergies Allergy/AdvReac Type Severity Reaction Status Date / Time No Known Allergies Allergy Verified 06/26/21 15:19 Consultations None Procedures Performed Paracentesis on 06/29/21--> drained 6.7L acitic fluid Ordered Studies Chest X-Ray 06/26/21 12:53 XR chest 1V not portable CLINICAL HISTORY: SOB. Nonsmoker COMPARISON STUDY: 06/22/2021 TECHNIQUE: 1 view of the chest FINDINGS: Single frontal view of the chest demonstrates the cardiomediastinal silhouette to be within normal limits. A Port-A-Cath is in place. Compared to previous examination, the patient is in a more upright position with layering of pleural fluid at both lung bases, left greater than right. The lungs are clear of confluent alveolar opacities. There is no evidence for vascular congestion. There is no acute osseous pathology. IMPRESSION: Bilateral pleural effusions, left greater than right. No definite vascular congestion on the current study. ACT 112: Negative or not required by law. Electronically signed by: Alfred Simons M.D. 06/26/2021 1:54 PM Paracentesis Ultrasound 06/26/21 14:43 ULTRASOUND GUIDED DIAGNOSTIC AND THERAPEUTIC PARACENTESIS CLINICAL HISTORY: Abdominal distention COMPARISON STUDY: CT of the abdomen pelvis April 28, 2021. PROCEDURE: The risks, benefits, and alternatives to the procedure were discussed with the patient including the risk of bleeding, infection and injury to adjacent structures. The patient agreed to the procedure and informed written consent was obtained. Following real-time ultrasound localization, the skin of the left lower quadrant was prepped and draped. Following local anesthesia with Xylocaine, the sheath paracentesis needle was inserted and approximately 5 liters of straw-colored fluid was removed by vacuum suction. The patient tolerated the procedure well and no immediate complications were evident. IMPRESSION: Ultrasound-guided paracentesis with removal of 5 liters of ascites. 1 L of ascites was sent to the laboratory for analysis as ordered. ACT 112: Negative or not required by law. Electronically signed by: Pedro Kahn M.D. 06/26/2021 3:56 PM Paracentesis Ultrasound 06/29/21 07:00 US paracentesis abd w/image CLINICAL HISTORY: 66 years-old Male with acites. Recurrent ascites COMPARISON: CT abdomen and pelvis 04/28/2021 PROCEDURE: The procedure was explained to the patient in the care including the benefits and possible risks/complications. The patient gave verbal understanding and written consent was obtained. A time-out was performed prior to the start of the procedure. The patient was placed on the ultrasound table in the supine position. Using ultrasound guidance, an appropriate procedure site in the left lower abdomen was marked. This area was then prepped and draped in the usual sterile fashion. Local anesthesia was achieved within 1% lidocaine. An 8-Cymraes centesis catheter was then inserted. Approximately 6.7 liters of yellow/whitish colored fluid was removed for therapeutic purposes only. The catheter was removed and external pressure was held to achieve hemostasis. A sterile dressing was applied to the procedure site. The patient tolerated the procedure well without immediate complications. IMPRESSION: Successful ultrasound-guided paracentesis with removal of 6.7 L ascitic fluid ACT 112: Negative or not required by law. The above report was generated using voice recognition software. It may contain grammatical, syntax or spelling errors. Electronically signed by: Hi Herman M.D. 06/29/2021 1:51 PM Hospital Course (1) Abdominal ascites: Has known fatty liver, suspect based on recent CT abd/pelvis ? metastatic disease from esophageal ca to liver - 5L from paracentesis did not appear infected therefore will discontinue further antibiotics (no concern for SBP), 1L of fluid sent for analysis - Goal would be to maximize diuretics as much as possible while avoiding ADELSO and dizziness. Despite overall hypervolemia he appears intravascularly depleted therefore adjusted doses of spironolactone to 50mg PO daily and Lasix 20mg PO daily. - Continuous leaking at paracentesis at site, spoke with radiology who advised placement of either a stitch or dermabond and monitoring - I performed placement of single interrupted stitch at bedside on 06/27, still with scant leaking of fluid. Numbed with 1mL 1% Lidocaine, cleaned with alcohol. 5-0 nylon used. - Pressure dressing applied, still having leaking, dressing saturated for the past two days - D/w radiologist, Dr. Roberts, will drain remaining fluid (or as much as able) while pt is in house and in safe/controlled environment (rather than outpatient) w/ availability to administer Albumin - U/S guided therapeutic paracentesis performed today 06/29, drained 6.7L of acitic fluid (nothing sent to lab) - Pt tolerated procedure well - Albumin 50g IV will be administered over 4 hours today prior to discharge (2) Acute dehydration: - No IV fluids. Given albumin overnight on day of admit for marginal hypotension. - Continue on reduced dose of diuretics as above - Low Na fluid restricted diet (3) Leucocytosis: - No symptoms signs of infective etiology at the present time. - Discontinued further antibiotics (no concern for SBP) (4) Acute kidney injury: - Appears intravascularly dry (dehydrated). Continue on reduced dose of diuretics as above. - Repeat chemistry today notes stable creatinine of 1.6 (was 1.59 06/28) - Uncertain if this is related to hepatorenal syndrome versus ADELSO in setting of some mild just dehydration, but certainly possible that HRS is the cause (5) Edema: - DOUG freeman (6) Mesenteric vein thrombosis: - Continue Xarelto 20mg PO daily - Held today for procedure but will resume as prescribed at discharge (7) BPH (benign prostatic hyperplasia): - Continue dutasteride 0.5mg PO daily (8) GERD (gastroesophageal reflux disease): - Continue esomeprazole or hospital formulary equivalent (9) Esophageal cancer: - Minced and moist diet - For chemo this week (tomorrow 06/30) - with known mets to nodes, ?metastatic disease to liver (10) Hypoalbuminemia: - Has known fatty liver - ?secondary to metastatic cancer - Ultimately resulting in hypervolemia/third spacing (11) Hyponatremia: - Hypervolemic - Fluid restrict - Monitor At this time, pt is medically stable for discharge. Will plan to administer Albumin 50g IV over 4 hours today prior to discharge due to large amount of acitic fluid removed. Will plan to discharge home this evening. He has scheduled appt tomorrow for chemo at [facility]. Above plan discussed with Dr. Campos who will also see patient prior to discharge. Total Time Total Time Spent Total Time Spent (In Minutes): >30 minutes Discharge Plan Discharge Items Patient Disposition: Home - Home Health Services Reason For Visit: ASCITES Discharge Diagnosis: Fluid in abdomen Activity: Resume your previous activity Non-emergency contact: Primary Care Provider and Oncologist Follow-up/Referrals: Bandar Carrion [Primary Care Provider] - 07/03/21 10:45 am Diet: Regular and Low Sodium (2gm) Fluids: 1500ml (6 cups) Diet Texture: Dental soft (bite-sized) Pending Studies at Discharge: No Stand-Alone Forms: My [facility], Smoking Cessation Medications and DC Order Prescriptions: Continued bupropion HCl 150 mg Tablet Extended Release 24 Hr 150 mg PO QAM RF: 0 prochlorperazine maleate 10 mg tablet 10 mg PO Q6 PRN (Reason: Nausea) RF: 0 fluorouracil 50 mg/mL Solution 0 mg IV Q14D RF: 0 docusate sodium [Dulcolax Stool Softener (dss)] 100 mg Capsule 100 mg PO DAILY RF: 0 Opdivo 100 mg/10 mL Solution 0 mg IV Q14D RF: 0 oxycodone 5 mg tablet 5 - 10 mg PO Q6H PRN (Reason: pain) Qty: 40 RF: 0 ondansetron HCl 8 mg tablet 8 mg PO Q8H PRN (Reason: Nausea) 14 Days Qty: 42 RF: 0 ferrous sulfate [iron] 325 mg (65 mg iron) Tablet 325 mg PO DAILY RF: 0 codeine-guaifenesin 10-100 mg/5 mL liquid 5 ml PO TID PRN (Reason: Cough) RF: 0 dutasteride 0.5 mg Capsule 0.5 mg PO DAILY RF: 0 Xarelto 20 mg tablet 20 mg PO DAILY RF: 0 Leucovorin Chemo 1 dose IV .Q14 DAYS RF: 0 Lidoc/Child/Antac 15 ml QID PRN (Reason: sore mouth) RF: 0 famotidine [Pepcid AC] 20 mg Tablet 40 mg PO HS RF: 0 esomeprazole magnesium [Nexium] 40 mg Capsule,Delayed Release(Dr/Ec) 40 mg PO BID RF: 0 Changed spironolactone 50 mg tablet 50 mg PO DAILY Qty: 0 RF: 0 tamsulosin [Flomax] 0.4 mg Capsule 0.4 mg PO DAILY Qty: 0 RF: 0 furosemide 20 mg tablet 20 mg PO DAILY Qty: 0 RF: 0 Discharge Orders: Discharge Order (Routine); Ordered 06/29/21 Ordered By: Kim Amezcua Admission Data Admit Date/Time: 06/28/21 11:02 Attending Provider: Pawel Campos Admit Provider: Carlos Lester Primary Care Provider: Bandar Carrion Other Providers: Carlos Lester Coding Level of Care Code D/C DAY MANAGEMENT >30 MINS Diagnoses Abdominal ascites R18.8 Ascites type: other type Acute dehydration E86.0 Leucocytosis D72.829 Acute kidney injury N17.9 Edema R60.9 Mesenteric vein thrombosis K55.069 BPH (benign prostatic hyperplasia) N40.0 GERD (gastroesophageal reflux disease) K21.9 Esophageal cancer C15.9 Malignant neoplasm of esophagus location: unspecified location Hypoalbuminemia E88.09 Hyponatremia E87.1
[2021-06-29] MEDS: ALBUMIN 25% 100 mL 25 GM/100 ML VIAL IV SCH ×2 (15:20→17:39)
[2021-06-29] MEDS: HEPARIN 100 UNIT/ML 5ML FLUSH FLUSH PRN (19:58)
[2021-06-29] MEDS ORDERED: DUTASTERIDE PO SCH (21:00)
--- NOTE | 2021-07-19 11:04 | Coding Query ---
CODING QUERY To promote full compliance with coding requirements relating to patient care, provider participation is requested in all cases of road supervisor uncertainty. Please assist us with the question(s) below: Coding Question(s): Please specify below, in your clinical opinion, regarding the most likely cause of the massive ascites. ( ) Possible Liver Metastasis ( ) Esophageal Cancer ( ) Fatty Liver ( ) Other: Please Specify ( xx) Unknown possible source Physician's Response(s): Thank you Tammi Nair Principal Diagnosis: "that condition established after study, to be chiefly responsible for occasioning the admission of the patient to the hospital for care." Co-Existing Principal Diagnosis: "when two or more diagnoses equally meet the criteria for principal diagnosis as determined by the circumstances of admission, diagnostic work up, and/or therapy provided, and the Alphabetic Index, Tabular List, or another coding guideline does not provide sequencing direction, any one of the diagnoses may be sequenced first." "When the physician has documented what appears to be a current diagnosis in the body of the record, but has not included the diagnosis in the final diagnostic statement, the physician should be asked whether the diagnosis should be added." (Source Coding Clinic 2 QTR90. p3-4) RONDA
== END 2021-06-29 20:20 | disposition home or self-care (01) | DRG 947 ==
LOC: ED 10:23 → 3N 10:23 → SUATTDRO 18:40 → 3N 20:20

== ENCOUNTER 2021-08-03 11:38 | Inpatient (IN) ==
[2021-08-03] MEDS ORDERED: SODIUM CHLORIDE 0.9% 1000ML 500 ML IV ONE (11:55)
--- NOTE | 2021-08-03 12:02 | Emergency Department Note ---
History of Present Illness General Chief complaint: Abnormal Labs/Diagnostic Testing Stated complaint: ABNORMAL LABS, SENT BY DR CARRASQUILLO Time Seen by Provider: 08/03/21 11:48 Source: patient Mode of arrival: wheelchair Limitations: no limitations History of Present Illness Provider complaint: abnormal labs outpatient This is a 66-year-old male brought in by his after being directed to come here from Dr. Carrasquillo's office. Patient gets regular blood work done to monitor all of his blood counts as he has a history of esophageal cancer and was being treated with chemotherapy. states the chemotherapy was stopped once he developed Covid the beginning of July. She states he was also getting weekly paracenteses prior to this. After missing 2 weeks with acute COVID when they restarted the paracentesis they have been taking greater amounts off of his abdomen. She states they took 9 L on 1 week and 8 L last week. states at his visit last week his BP was 70/40 in the office. She states since they s tarted taking larger volumes off of him he has felt significantly worse. He states he feels weak and dizzy. She states when they went for the routine blood work today as directed by Dr. Carrasquillo, they were called later stating they needed to come emergently to the emergency room due to an elevation in his creatinine and potassium. Pt seen during a time of high acuity and national emergency pandemic while wearing PPE. Home Medications Medication Instructions Recorded Confirmed Type bupropion HCl 150 mg 24 hr tablet, 150 mg PO QAM 12/23/20 08/03/21 History extended release esomeprazole magnesium 40 mg 40 mg PO BID 02/06/21 08/03/21 History capsule,delayed release (Nexium) famotidine 20 mg tablet (Pepcid AC) 40 mg PO HS 02/06/21 08/03/21 History docusate sodium 100 mg capsule 100 mg PO DAILY 02/15/21 08/03/21 History (Dulcolax Stool Softener (docusate)) fluorouracil 50 mg/mL intravenous 0 mg IV Q14D 02/15/21 08/03/21 History solution nivolumab 100 mg/10 mL intravenous 0 mg IV Q14D 02/15/21 08/03/21 History solution (Opdivo) prochlorperazine maleate 10 mg 10 mg PO Q6 PRN 02/15/21 08/03/21 History tablet ondansetron HCl 8 mg tablet 8 mg PO Q8H PRN 14 Days #42 tab 02/19/21 08/03/21 Rx oxycodone 5 mg tablet 5 - 10 mg PO Q6H PRN #40 tab 02/19/21 08/03/21 Rx Leucovorin Chemo 1 dose IV .Q14 DAYS 06/22/21 08/03/21 History Lidoc/Child/Antac 15 ml QID PRN 06/22/21 08/03/21 History codeine 10 mg-guaifenesin 100 mg/5 5 ml PO TID PRN 06/22/21 08/03/21 History mL oral liquid dutasteride 0.5 mg capsule 0.5 mg PO HS 06/22/21 08/03/21 History ferrous sulfate 325 mg (65 mg 325 mg PO DAILY 06/22/21 08/03/21 History iron) tablet (iron) rivaroxaban 20 mg tablet (Xarelto) 20 mg PO QPM 06/22/21 08/03/21 History calcium carb-ergocalciferol (vit 1 tab PO BID 07/13/21 08/03/21 History D2) 600 mg calcium-200 unit tablet furosemide 20 mg tablet 40 mg PO DAILY 07/13/21 08/03/21 History spironolactone 50 mg tablet 100 mg PO DAILY 07/13/21 08/03/21 History tamsulosin 0.4 mg capsule (Flomax) 0.4 mg PO HS 07/13/21 08/03/21 History Allergies Allergy/AdvReac Type Severity Reaction Status Date / Time No Known Allergies Allergy Verified 08/03/21 12:32 Past Med/Surg History Medical History BPH (benign prostatic hyperplasia) Degenerative disc disease Depression Esophageal cancer (~12/2020) GERD (gastroesophageal reflux disease) Hyperkalemia Hypotension (arterial) Surgical History H/O hand surgery FINGER TENDON REPAIR History of esophagogastroduodenoscopy (EGD) History of esophagogastroduodenoscopy (EGD) (~12/2020) Upper Endoscopic Ultrasonography + esophageal stent [facility] [place] teeth removed Family History Mother Breast cancer Family history of diabetes mellitus Other Cancer Diabetes No family history of adverse response to anesthesia Parkinson disease TIA (transient ischemic attack) Social History Smoking Status: Former smoker Cigarettes Per Day: 20; Second Hand Exposure: No; Hx Alcohol Use: No Hx Substance Use: No Preferred Language: Jordanian Communication Ability: Effective Prop Setter Required: No Beliefs That Will Affect Care: None marital status: Current Living Situation: Spouse Current Living Situation Comment: 2 Grandsons live with patient. Feels Safe at Home: Yes Assistive Devices: Wheelchair Review of Systems A total of 10 systems reviewed and were otherwise negative All systems reviewed & are unremarkable except as noted in HPI & below Physical Exam Vital Signs Vital Signs - 24 hr 08/03/21 16:00 08/03/21 16:15 Pulse Rate 70 70 Pulse Rate from SpO2 Sensor 70 70 Respiratory Rate 20 24 Blood Pressure 82/46 L 84/50 L Blood Pressure Mean 58 61 Pulse Oximetry 98 99 GENERAL: alert, unwell appearing, well nourished, no distress, non-toxic EYE EXAM: normal conjunctiva, PERRL and EOM's grossly intact OROPHARYNX: no exudate, no erythema, lips, buccal mucosa, and tongue normal and mucous membranes are moist NECK: supple, no nuchal rigidity, no adenopathy, non-tender LUNGS: Clear to auscultation. Normal chest wall mechanics, no w/r/r HEART: no murmurs, S1 normal and S2 normal ABDOMEN: abdomen soft, protuberant, non-tender, normo-active bowel sounds, no masses, no rebound or guarding. Healing appearance with Band-Aid intact to right lateral abdomen consistent with recent paracentesis, no surrounding erythema to suggest cellulitis. BACK: Back is symmetrical on inspection and there is no deformity, no midline tenderness, no CVA tenderness. SKIN: no rashes and no bruising UPPER EXTREMITIES: upper extremities are grossly normal. FROM, nml pulses b/l. LOWER EXTREMITIES: 3+ b/l pitting edema. FROM, nml pulses b/l. NEURO EXAM: Normal sensorium, cranial nerves II-XII grossly intact, normal speech, no gross weakness of arms, no gross weakness of legs. Course Course 1212: Outpatient labs obtained with assistance from case management which revealed a BUN of 78, creatinine 3.5, sodium 123, potassium 6.3, chloride 94, CO2 19, albumin 2.3. WBC 16.6, hemoglobin 12.7, hematocrit 36.3, platelets 187. 1220: Discussed with Dr. Smith. 1225: Updated family at bedside. SBP 71. 1340: Pt to CT. 1415: SBP 79. Pt states he does feel improved. Tolerating ice chips. 1530: Discussed with Dr. Smith again. Administered Medications Bupropion HCl (Bupropion Xl 150 Mg Tabcr) 150 mg PO QAM SISSY Stop: 09/03/21 08:59 Last Admin: 08/04/21 08:37 Dose: 150 mg Documented by: [id number] Docusate Sodium (Docusate Sodium 100 Mg Cap) 100 mg PO BID SISSY Stop: 09/02/21 20:59 Last Admin: 08/04/21 08:42 Dose: Not Given Documented by: [id number] Admin: 08/03/21 20:34 Dose: 100 mg Documented by: [id number] Famotidine (Famotidine 40 Mg Tablet) 40 mg PO HS SISSY Stop: 09/02/21 20:59 Last Admin: 08/04/21 20:37 Dose: 40 mg Documented by: [id number] Admin: 08/03/21 20:34 Dose: 40 mg Documented by: [id number] Ferrous Sulfate (Ferrous Sulfate 325 Mg Tab) 325 mg PO DAILY SISSY Stop: 09/03/21 08:59 Last Admin: 08/04/21 08:38 Dose: 325 mg Documented by: [id number] Hydrocortisone Sodium (Succinate 50 mg/ Syringe) 1 mls @ 4 mls/min IV Q6H SIS[facility] Stop: 09/02/21 16:59 Last Admin: 08/05/21 00:07 Dose: 4 mls/min Documented by: [id number] Admin: 08/04/21 16:29 Dose: 4 mls/min Documented by: [id number] Admin: 08/04/21 11:13 Dose: 4 mls/min Documented by: [id number] Admin: 08/04/21 04:26 Dose: 4 mls/min Documented by: [id number] Admin: 08/03/21 22:22 Dose: 4 mls/min Documented by: [id number] Admin: 08/03/21 17:25 Dose: Not Given Documented by: [id number] Norepinephrine Bitartrate (Levophed/D5w) 8 mg in 508 mls @ 0 mls/hr IV .Q0M SISSY; Protocol Stop: 09/02/21 19:14 Last Titration: 08/04/21 19:02 Dose: 0 mcg/kg/min, 0 mls/hr Documented by: [id number] Cosigned by: [id number] Titration: 08/04/21 18:15 Dose: 0 mcg/kg/min, 0 mls/hr Documented by: [id number] Titration: 08/04/21 15:32 Dose: 0.02 mcg/kg/min, 6.5 mls/hr Documented by: [id number] Titration: 08/04/21 14:14 Dose: 0.04 mcg/kg/min, 13 mls/hr Documented by: [id number] Titration: 08/04/21 12:22 Dose: 0.06 mcg/kg/min, 19.5 mls/hr Documented by: [id number] Admin: 08/04/21 10:20 Dose: 0.08 mcg/kg/min, 26 mls/hr Documented by: [id number] Cosigned by: [id number] Titration: 08/04/21 10:20 Dose: 0.08 mcg/kg/min, 26 mls/hr Documented by: [id number] Cosigned by: [id number] Titration: 08/04/21 07:18 Dose: 0.08 mcg/kg/min, 26 mls/hr Documented by: [id number] Cosigned by: [id number] Titration: 08/04/21 05:35 Dose: 0.08 mcg/kg/min, 26 mls/hr Documented by: [id number] Titration: 08/04/21 04:20 Dose: 0.1 mcg/kg/min, 32.5 mls/hr Documented by: [id number] Titration: 08/03/21 20:30 Dose: 0.12 mcg/kg/min, 39 mls/hr Documented by: [id number] Titration: 08/03/21 20:15 Dose: 0.1 mcg/kg/min, 32.5 mls/hr Documented by: [id number] Titration: 08/03/21 20:00 Dose: 0.07 mcg/kg/min, 22.7 mls/hr Documented by: [id number] Admin: 08/03/21 19:43 Dose: 0.05 mcg/kg/min, 16.2 mls/hr Documented by: [id number] Cosigned by: [id number] Heparin Sodium/Dextrose (Heparin Sodium/Dextrose) 25,000 units in 500 mls @ 20 mls/hr IV .Q24H SISSY; Protocol Stop: 09/03/21 08:29 Last Titration: 08/04/21 22:51 Dose: 1,000 units/hr, 20 mls/hr Documented by: [id number] Cosigned by: [id number] Titration: 08/04/21 19:02 Dose: 0 units/hr, 0 mls/hr Documented by: [id number] Cosigned by: [id number] Titration: 08/04/21 17:45 Dose: 0 units/hr, 0 mls/hr Documented by: [id number] Cosigned by: [id number] Titration: 08/04/21 17:44 Dose: 0 units/hr, 0 mls/hr Documented by: [id number] Cosigned by: [id number] Admin: 08/04/21 08:48 Dose: 1,400 units/hr, 28 mls/hr Documented by: [id number] Cosigned by: [id number] Ceftriaxone Sodium 2,000 mg/ (Dextrose) 70 mls @ 140 mls/hr IV DAILY@1600 SISSY; Protocol Stop: 08/14/21 15:59 Last Infusion: 08/04/21 17:30 Dose: 0 mls/hr Documented by: [id number] Admin: 08/04/21 16:29 Dose: 140 mls/hr Documented by: [id number] Albumin Human (Albumin 25% 100 Ml) 25 gm in 100 mls @ 50 mls/hr IV Q6 SISSY Stop: 08/07/21 11:59 Last Admin: 08/05/21 00:07 Dose: 50 mls/hr Documented by: [id number] Infusion: 08/04/21 19:39 Dose: 0 mls/hr Documented by: [id number] Admin: 08/04/21 17:23 Dose: 50 mls/hr Documented by: [id number] Infusion: 08/04/21 13:31 Dose: 0 mls/hr Documented by: [id number] Admin: 08/04/21 11:30 Dose: 50 mls/hr Documented by: [id number] Midodrine (Midodrine Hcl 2.5 Mg Tab) 5 mg PO TID@0800,1200,1700 [facility] Stop: 09/03/21 11:59 Last Admin: 08/04/21 20:14 Dose: 5 mg Documented by: [id number] Admin: 08/04/21 14:03 Dose: 5 mg Documented by: [id number] Multivitamins/Minerals (Calcium 600mg + Vit D 400 Iu Tab) 1 tab PO BID [facility] Stop: 09/02/21 20:59 Last Admin: 08/04/21 20:15 Dose: 1 tab Documented by: [id number] Admin: 08/04/21 08:38 Dose: 1 tab Documented by: [id number] Admin: 08/03/21 20:34 Dose: 1 tab Documented by: [id number] Octreotide Acetate (Octreotide Acetate 100 Mcg/Ml Vial) 100 mcg SQ Q8H [facility] Stop: 09/02/21 19:59 Last Admin: 08/04/21 20:14 Dose: 100 mcg Documented by: [id number] Admin: 08/04/21 11:14 Dose: 100 mcg Documented by: [id number] Admin: 08/04/21 03:08 Dose: 100 mcg Documented by: [id number] Admin: 08/03/21 21:10 Dose: 100 mcg Documented by: [id number] Oxycodone HCl (Oxycodone Hcl Ir 5 Mg Tab (Immediate Release)) 5 mg PO Q6H PRN PRN Reason: Pain Stop: 08/18/21 02:49 Last Admin: 08/05/21 00:16 Dose: 5 mg Documented by: [id number] Admin: 08/04/21 14:08 Dose: 5 mg Documented by: [id number] Admin: 08/04/21 08:39 Dose: 5 mg Documented by: [id number] Admin: 08/04/21 03:07 Dose: 5 mg Documented by: [id number] Patiromer (Patiromer Calcium Sorbitex 8.4 Gm Pack) 8.4 gm PO DAILY@1100 [facility] Stop: 09/03/21 10:59 Last Admin: 08/04/21 17:24 Dose: 8.4 gm Documented by: [id number] Sodium Bicarbonate (Sodium Bicarbonate 650 Mg Tab) 1,300 mg PO BID17 [facility] Stop: 09/03/21 16:59 Last Admin: 08/04/21 20:12 Dose: 1,300 mg Documented by: [id number] Discontinued Medications Acetaminophen (Acetaminophen 325 Mg Tab) Confirm Administered Dose 650 mg .ROUTE .STK-MED ONE Stop: 08/03/21 14:17 Last Admin: 08/03/21 14:19 Dose: 650 mg Documented by: [id number] Dextrose (Dextrose 50% 50 Ml Syringe) 50 ml IV NOW ONE Stop: 08/03/21 16:47 Last Admin: 08/03/21 17:25 Dose: 50 ml Documented by: [id number] Heparin Sodium (Porcine) (Heparin Sod (Porcine) 1000 Unit/Ml) Confirm Administered Dose 1,000 units .ROUTE .STK-MED ONE Stop: 08/04/21 08:48 Last Admin: 08/04/21 08:50 Dose: Not Given Documented by: [id number] Hydrocortisone Sodium Succinate (Hydrocortisone Sod Succinate 100 Mg/2 Ml Vial) 50 mg IV Q8H [facility] Stop: 09/02/21 16:29 Last Admin: 08/03/21 18:13 Dose: Not Given Documented by: [id number] Hydrocortisone Sodium Succinate (Hydrocortisone Sod Succinate 100 Mg/2 Ml Vial) Confirm Administered Dose 100 mg .ROUTE .[facility]-MED ONE Stop: 08/03/21 16:54 Last Admin: 08/03/21 17:25 Dose: 50 mg Documented by: [id number] Sodium Chloride (Nss 1000ml) 500 mls @ 999 mls/hr IV .Q31M ONE Stop: 08/03/21 12:25 Last Infusion: 08/03/21 12:29 Dose: 0 mls/hr Documented by: [id number] Admin: 08/03/21 11:58 Dose: 999 mls/hr Documented by: [id number] Calcium Gluconate () 1,000 mg in 60 mls @ 240 mls/hr IV NOW STA Stop: 08/03/21 12:35 Last Infusion: 08/03/21 12:43 Dose: 0 mls/hr Documented by: [id number] Admin: 08/03/21 12:28 Dose: 240 mls/hr Documented by: [id number] Parenteral Electrolytes (Plasma-Lyte A) 500 mls @ 999 mls/hr IV .Q31M ONE Stop: 08/03/21 12:50 Last Infusion: 08/03/21 14:13 Dose: 0 mls/hr Documented by: [id number] Admin: 08/03/21 13:34 Dose: 999 mls/hr Documented by: [id number] Albumin Human (Albumin 25%) 12.5 gm in 50 mls @ 120 mls/hr IV NOW ONE Stop: 08/03/21 12:54 Last Infusion: 08/03/21 13:14 Dose: 0 mls/hr Documented by: [id number] Admin: 08/03/21 12:48 Dose: 120 mls/hr Documented by: [id number] Cefepime HCl (Maxipime) 2,000 mg in 20 mls @ 5 mls/min IV NOW STA; Protocol Stop: 08/03/21 13:01 Last Admin: 08/03/21 13:18 Dose: 5 mls/min Documented by: [id number] Sodium Bicarbonate 75 meq/ (Sodium Chloride) 1,075 mls @ 100 mls/hr IV .[id number] [facility] Stop: 09/02/21 15:44 Last Infusion: 08/04/21 04:10 Dose: 0 mls/hr Documented by: [id number] Admin: 08/04/21 03:08 Dose: 100 mls/hr Documented by: [id number] Infusion: 08/04/21 02:56 Dose: 100 mls/hr Documented by: [id number] Admin: 08/03/21 16:11 Dose: 100 mls/hr Documented by: [id number] Piperacillin Sod/Tazobactam (Sod 3.375 gm/ Dextrose) 115 mls @ 28.75 mls/hr IV Q8H [facility]; Protocol Stop: 08/04/21 12:00 Last Infusion: 08/04/21 12:45 Dose: 0 mls/hr Documented by: [id number] Admin: 08/04/21 08:35 Dose: 28.8 mls/hr Documented by: [id number] Infusion: 08/04/21 04:10 Dose: 0 mls/hr Documented by: [id number] Admin: 08/04/21 00:02 Dose: 28.8 mls/hr Documented by: [id number] Infusion: 08/03/21 21:13 Dose: 0 mls/hr Documented by: [id number] Admin: 08/03/21 17:11 Dose: 28.8 mls/hr Documented by: [id number] Albumin Human (Albumin 25%) 12.5 gm in 50 mls @ 50 mls/hr IV ONE ONE Stop: 08/03/21 17:29 Last Infusion: 08/03/21 18:11 Dose: 0 mls/hr Documented by: [id number] Admin: 08/03/21 17:12 Dose: 50 mls/hr Documented by: [id number] Albumin Human (Albumin 5%) 250 mls @ 500 mls/hr IV ONE ONE Stop: 08/03/21 17:59 Last Infusion: 08/03/21 19:20 Dose: 0 mls/hr Documented by: [id number] Admin: 08/03/21 18:06 Dose: 500 mls/hr Documented by: [id number] Calcium Gluconate 1,000 mg/ (Dextrose) 60 mls @ 240 mls/hr IV NOW ONE Stop: 08/03/21 17:14 Last Infusion: 08/03/21 18:13 Dose: 0 mls/hr Documented by: [id number] Admin: 08/03/21 17:25 Dose: 240 mls/hr Documented by: [id number] Hydrocortisone Sodium (Succinate 50 mg/ Syringe) 1 mls @ 4 mls/min IV Q6H [facility] Stop: 09/02/21 17:14 Last Admin: 08/03/21 17:51 Dose: Not Given Documented by: [id number] Sodium Chloride (Nss 1000ml) 1,000 mls @ 250 mls/hr IV .Q4H [facility] Stop: 08/04/21 08:14 Last Infusion: 08/04/21 08:31 Dose: 0 mls/hr Documented by: [id number] Admin: 08/04/21 04:26 Dose: 250 mls/hr Documented by: [id number] Sodium Chloride (Nss 1000ml) 1,000 mls @ 125 mls/hr IV .Q8H [facility] Stop: 09/03/21 08:14 Last Infusion: 08/04/21 10:57 Dose: 0 mls/hr Documented by: [id number] Admin: 08/04/21 08:32 Dose: 125 mls/hr Documented by: [id number] Sodium Chloride (Nss 1000ml) 500 mls @ 999 mls/hr IV .Q31M ONE Stop: 08/04/21 04:14 Last Infusion: 08/04/21 04:35 Dose: 0 mls/hr Documented by: [id number] Admin: 08/04/21 03:55 Dose: 999 mls/hr Documented by: [id number] Insulin Human Regular (Novolin-R Insulin Per Unit Charge) 10 units IV NOW STA Stop: 08/03/21 16:53 Last Admin: 08/03/21 17:24 Dose: 10 units Documented by: [id number] Cosigned by: [id number] Miscellaneous ((Dutasteride 0.5 Mg Capsule) ~ Order Awaiting Action) 1 ea N/A QS [facility] Stop: 09/03/21 00:00 Last Admin: 08/04/21 14:15 Dose: Not Given Documented by: [id number] Admin: 08/04/21 08:37 Dose: Not Given Documented by: [id number] Admin: 08/04/21 00:03 Dose: Not Given Documented by: [id number] Patiromer (Patiromer Calcium Sorbitex 8.4 Gm Pack) 8.4 gm PO NOW ONE Stop: 08/03/21 12:31 Last Admin: 08/03/21 13:04 Dose: 8.4 gm Documented by: [id number] Sodium Bicarbonate (Sodium Bicarb 8.4% Inj 50 Meq/50 Ml Syr) 50 meq IV NOW ONE Stop: 08/03/21 12:31 Last Admin: 08/03/21 12:43 Dose: 50 meq Documented by: [id number] Sodium Polystyrene Sulfonate (Sodium Polystyrene Sulfonate 15g/60ml Susp) 30 gm PO NOW STA Stop: 08/03/21 20:21 Last Admin: 08/03/21 20:36 Dose: 30 gm Documented by: [id number] Critical Care Time Critical Care Time: Yes Total Critical Care Time: 65 Critical care of 65 min performed to assess and manage high likelihood of life- threatening hypotension, adelso and hyperkalemia, involving labs and imaging performed with assessment to evaluate hypotension, adelso, and hyperkalemia diagnos is with frequent reassessment. This time includes bedside time, treatment discussions with patient/family/consultants, documentation time and excludes procedure time. Medical Decision Making Differential Diagnosis Differential Diagnosis includes but is not limited to dehydration, stroke, anemia, hypoglycemia, hyponatremia, hypernatremia, urinary tract infection, pneumonia, bronchitis, sepsis, gastroenteritis, additional abdominal pathology, metabolic abnormalities and infections. Medical Records Attestation: I reviewed the patient's medical records. Home Medications Current Medication List: was personally reviewed by me Laboratory Data Attestation: I reviewed the patient's lab results. Result diagrams: 08/04/21 02:24 08/04/21 19:38 Lab Results 0208/03/21 08/03/21 Range/Units 12:00 12:00 12:00 WBC 16.99 H (4.8-10.8) K/uL RBC 3.89 L (4.7-6.1) M/uL Hgb 12.9 L (14.0-18.0) g/dL Hct 38.5 L (42-52) % MCV 99.0 (80-100) fL MCH 33.2 (25-34) pg MCHC 33.5 (32-36) g/dL RDW Std Deviation 62.4 H (36.4-46.3) fL RDW Coeff of Macario 17.5 H (11.5-14.5) % Plt Count 207 (130-400) K/uL MPV 10.7 H (7.4-10.4) fL Immature Gran % (Auto) 1.4 % Neut % (Auto) 82.5 % Lymph % (Auto) 7.4 % Moore % (Auto) 8.2 % Eos % (Auto) 0.4 % Baso % (Auto) 0.1 % Neut # (Auto) 14.01 H (1.4-6.5) K/uL Lymph # (Auto) 1.25 (1.2-3.4) K/uL Moore # (Auto) 1.40 H (0.11-0.59) K/uL Eos # (Auto) 0.07 (0-0.5) K/uL Baso # (Auto) 0.02 (0-0.2) K/uL Immature Gran # (Auto) 0.24 H (0.00-0.02) K/uL Absolute Nucleated RBC 0.06 H (0-0) K/uL Nucleated RBC % (auto) 0.4 % Sodium 123 L (136-145) mmol/L Potassium 6.4 H* (3.5-5.1) mmol/L Chloride 97 L (98-107) mmol/L Carbon Dioxide 19 L (21-32) mmol/L Anion Gap 7 (3-11) BUN 75 H (6-23) mg/dl Creatinine 3.51 H (0.6-1.4) mg/dl Est Cr Clr Drug Dosing 22.7 ml/min Est GFR ( Amer) 20.0 ml/min Est GFR (Non-Af Amer) 17.2 ml/min BUN/Creatinine Ratio 21.4 H (10-20) Glucose 101 H (70-99(Fasting)) mg/dl Osmolality (280-300) mOsm/kg Lactate (0.4-2.0) mmol/L Calcium 8.7 (8.5-10.1) mg/dl Phosphorus 4.0 (2.5-4.9) mg/dl Magnesium 3.1 H (1.7-2.4) mg/dl Total Bilirubin 0.7 (0.2-1.0) mg/dl AST 25 (13-39) U/L ALT 36 (7-52) U/L Alkaline Phosphatase 135 H (34-104) U/L Troponin I < 0.03 (0-0.04) ng/ml Total Protein 5.3 L (6.0-8.3) gm/dl Albumin 2.4 L (3.4-5.0) gm/dl Globulin 2.9 (2.5-4.0) gm/dl Albumin/Globulin Ratio 0.8 L (0.9-2) Procalcitonin 0.38 (0-0.5) ng/ml 08/03/21 08/03/21 08/03/21 Range/Units 12:00 15:42 15:42 WBC (4.8-10.8) K/uL RBC (4.7-6.1) M/uL Hgb (14.0-18.0) g/dL Hct (42-52) % MCV (80-100) fL MCH (25-34) pg MCHC (32-36) g/dL RDW Std Deviation (36.4-46.3) fL RDW Coeff of Macario (11.5-14.5) % Plt Count (130-400) K/uL MPV (7.4-10.4) fL Immature Gran % (Auto) % Neut % (Auto) % Lymph % (Auto) % Moore % (Auto) % Eos % (Auto) % Baso % (Auto) % Neut # (Auto) (1.4-6.5) K/uL Lymph # (Auto) (1.2-3.4) K/uL Moore # (Auto) (0.11-0.59) K/uL Eos # (Auto) (0-0.5) K/uL Baso # (Auto) (0-0.2) K/uL Immature Gran # (Auto) (0.00-0.02) K/uL Absolute Nucleated RBC (0-0) K/uL Nucleated RBC % (auto) % Sodium 125 L (136-145) mmol/L Potassium 6.6 H* (3.5-5.1) mmol/L Chloride 96 L (98-107) mmol/L Carbon Dioxide 21 (21-32) mmol/L Anion Gap 8 (3-11) BUN 74 H (6-23) mg/dl Creatinine 3.44 H (0.6-1.4) mg/dl Est Cr Clr Drug Dosing 23.2 ml/min Est GFR ( Amer) 20.5 ml/min Est GFR (Non-Af Amer) 17.7 ml/min BUN/Creatinine Ratio 21.5 H (10-20) Glucose 92 (70-99(Fasting)) mg/dl Osmolality 301 H (280-300) mOsm/kg Lactate 3.4 H* (0.4-2.0) mmol/L Calcium 8.3 L (8.5-10.1) mg/dl Phosphorus (2.5-4.9) mg/dl Magnesium (1.7-2.4) mg/dl Total Bilirubin (0.2-1.0) mg/dl AST (13-39) U/L ALT (7-52) U/L Alkaline Phosphatase (34-104) U/L Troponin I (0-0.04) ng/ml Total Protein (6.0-8.3) gm/dl Albumin (3.4-5.0) gm/dl Globulin (2.5-4.0) gm/dl Albumin/Globulin Ratio (0.9-2) Procalcitonin (0-0.5) ng/ml Imaging Data Radiologist's Impression: Renal Ultrasound 08/03/21 12:30 US renal/blad retro comp CLINICAL HISTORY: new ADELSO. COMPARISON: None. TECHNIQUE: Multiple grayscale and color images of the kidneys and bladder. FINDINGS: Right kidney: The kidney is normal in size and echogenicity. There is no evidence for renal calculus or hydronephrosis. There is no evidence for solid renal mass. There is no evidence for medical renal disease. The kidney measures 12.2 cm in greatest length. Left kidney: The kidney is normal in size and echogenicity. There is no evidence for renal calculus or hydronephrosis. There is no evidence for solid renal mass. There is no evidence for medical renal disease. The kidney measures 11.4 cm in greatest length. Bladder: The bladder is decompressed with a Jordan catheter in place. Of note is abdominal and pelvic ascites. IMPRESSION: 1. Negative ultrasound of the kidneys. 2. Abdominal and pelvic ascites. ACT 112: Negative or not required by law. Electronically signed by: Alfred Simons M.D. 08/04/2021 6:57 AM ECG Data Attestation: I personally reviewed and interpreted this ECG as follows: Indication: + weakness Rate (beats per minute): 71 Rhythm: + normal sinus ECG Intervals/blocks: + Normal QRS and + Normal QT ECG [place]: + Normal ECG ST segments: + Normal ST segments Additional Comments: low voltage MDM Narrative This is a 66-year-old male who presents after being contacted by Dr. Carrasquillo that his outpatient routine labs were abnormal. Patient states he had not been feeling well for several weeks. He does have a history of metastatic esophageal cancer with ascites that requires recurrent paracentesis. stated that they have had a difficult time keeping him hydrated since having Covid the beginning of the month and she was concerned for possible worsening dehydration as he continued to complain of weakness, fatigue, and dizziness with standing. Patient has had several large-volume paracentesis recently also. Patient admits to poor p.o. intake. Outpatient labs were obtained which did reveal new ADELSO and hyperkalemia. No ectopy or peak T waves on EKG were noted. Patient had no focal complaints at bedside other than feeling tired. A normal saline bolus of 500 mL was initially hung while trying to obtain copies of the outpatient labs. Upon comparing to priors, it appeared patient's creatinine had been slowly elevating over the last 2 weeks. Patient with chronic hyponatremia now worse, no prior history of hyperkalemia. After discussion with the ED pharmacist, we began some hyperkalemia medication and I contacted nephrology, Dr. Smith. Patient then given a Normosol bolus 1L total although there was a delay as this needed to come up from pharmacy as it is slow in stock. Patient not have any abdominal pain or fevers, despite recent cementation I would low suspicion for intra- abdominal infection. Patient was noted to have a leukocytosis, so blood cultures were sent and patient given 2 g of cefepime as a precaution. Albumin was also added. Patient did have some improvement of his blood pressure. Patient was never tachycardic. I did consider possible brash syndrome, however, patient does not use any rate controlling agents at this time. 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 Given risk of bleeding in a patient with hypotension, I did not feel diagnostic paracentesis was appropriate at this time. No significant anemia was noted. Patient continued to report feeling improved and was mentating well throughout despite persistent hypotension. Hypotension was improved, although did not return to what had previously been has documented normal. I suspect patient was likely evolving hepatorenal syndrome. I also suspect this has been evolving over at least 1 week given there reported blood pressure of 70s over 40s during an office visit last week. Case was discussed with nephrology twice, and then discussed with hospitalist for additional evaluation and management. Patient continue to report feeling improved. A head CT was performed as a precaution as patient did complain of a headache and given anticoagulation, I felt this was important to obtain AIDA. Chest x-ray reassuring. Renal ultrasound was ordered as was UA, however these were still pending at the time of discussion with the hospitalist. Eventually a Jordan catheter was placed and urine obtained. Given lack of accompanying abdominal or back pain I do not suspect acute obstructive uropathy. At this time I do not suspect bacteremia/sepsis, cardiac tamponade, dissection, intra-abdominal infection, peritoneal hemorrhage, or AAA. Repeat BMP while patient was still in the emergency room did show mild improvement. Procalcitonin added by the hospitalist was noted to be negative although lactic acid elevated. I suspect this is likely from hypotension and dehydration. An order was placed for continuous cardiac monitoring. The monitor shows a rate of _68_ with normal sinus_ rhythm. Impression & Plan Hypotension, Esophageal cancer, Ascites, Hypoalbuminemia, Hyponatremia, Acute kidney injury, Hyperkalemia Discharge Plan Visit Data Chief Complaint: Abnormal Labs/Diagnostic Testing Stated Complaint: ABNORMAL LABS, SENT BY DR CARRASQUILLO ED Provider: Gayathri Barrera ED Midlevel Provider: Gali Lopez Discharge Problem: Hypotension, Esophageal cancer, Ascites, Hypoalbuminemia, Hyponatremia, Acute kidney injury, Hyperkalemia Patient Disposition: Admitted As Inpatient Discharge Instructions Interventions: ED Discharge Assessment Last Done: 08/03/21 17:55 Discharge Problem: Hypotension Qualifiers: Hypotension type: unspecified hypotension type Qualified Code(s): I95.9 - Hypotension, unspecified Esophageal cancer Qualifiers: Malignant neoplasm of esophagus location: unspecified location Qualified Code(s): C15.9 - Malignant neoplasm of esophagus, unspecified Ascites Qualifiers: Ascites type: other type Qualified Code(s): R18.8 - Other ascites
[2021-08-03 12:14] LABS: Basophils # (auto) 0.02 K/uL (0-0.2); Basophils % (auto) 0.1 %; Eosinophils # (auto) 0.07 K/uL (0-0.5); Eosinophils % (auto) 0.4 %; Hematocrit (blood only) 38.5 % (42-52); Hemoglobin 12.9 g/dL (14.0-18.0); Immature Granulocytes # (auto) 0.24 K/uL (0.00-0.02); Immature Granulocytes % (auto) 1.4 %; Lymphocytes # (auto) 1.25 K/uL (1.2-3.4); Lymphocytes % (auto) 7.4 %; Mean Corpuscular Hemoglobin 33.2 pg (25-34); Mean Corpuscular Hgb Conc 33.5 g/dL (32-36); Mean Platelet Volume 10.7 fL (7.4-10.4); Monocytes % (auto) 8.2 %; Neutrophils # (auto) 14.01 K/uL (1.4-6.5); Neutrophils % (auto) 82.5 %; Nucleated RBC # (auto) 0.06 K/uL (0-0); Nucleated RBC % (auto) 0.4 %; Platelet Count 207 K/uL (130-400); RDW Coefficient of Variation 17.5 % (11.5-14.5); RDW Standard Deviation 62.4 fL (36.4-46.3); Red Blood Count 3.89 M/uL (4.7-6.1); White Blood Count 16.99 K/uL (4.8-10.8)
--- NOTE | 2021-08-03 12:18 | XRay Report ---
XR chest 1V portable CLINICAL HISTORY: dizzy. Evaluate cardiopulmonary status COMPARISON STUDY: 07/13/2021 TECHNIQUE: 1 view of the chest FINDINGS: Single frontal view of the chest demonstrates the cardiomediastinal silhouette to be within normal li mits. A Port-A-Cath is in place. There is a decreased inspiratory effort with elevation of the hemidi aphragms and crowding of the bronchovascular markings at the lung bases and centrally. The lungs are clear of alveolar opacities. There is no evidence for pleural effusion. There is no evidence for vasc ular congestion. There is no acute osseous pathology. IMPRESSION: 1. Compared to the previous examination, there is a decreased inspiratory effort with otherwise no ac walt chest disease. ACT 112: Negative or not required by law. Electronically signed by: Alfred Simons M.D. 08/03/2021 12:16 PM
[2021-08-03] MEDS ORDERED: NORMOSOL-R 500 ML IV ONE (12:20)
[2021-08-03] MEDS ORDERED: CALCIUM GLUCONATE 1,000 MG/60 ML BAG IV STA (12:21)
[2021-08-03] MEDS ORDERED: ALBUMIN 25% 12.5 GM/50 ML VIAL IV ONE ×2 (12:30→16:30)
[2021-08-03] MEDS ORDERED: PATIROMER CALCIUM SORBITEX 8.4 GM PACK PO ONE (12:30)
[2021-08-03] MEDS ORDERED: SODIUM BICARB 8.4% INJ 50 MEQ/50 ML SYR IV ONE (12:30)
[2021-08-03 12:36] LABS: Troponin I < 0.03 ng/ml (0-0.04)
[2021-08-03 12:58] LABS: Alanine Aminotransferase 36 U/L (7-52); Albumin Globulin Ratio 0.8 (0.9-2); Albumin Level 2.4 gm/dl (3.4-5.0); Alkaline Phosphatase 135 U/L (34-104); Anion Gap 7 (3-11); Aspartate Aminotransferase 25 U/L (13-39); BUN Creatinine Ratio 21.4 (10-20); Bilirubin,Total 0.7 mg/dl (0.2-1.0); Blood Urea Nitrogen 75 mg/dl (6-23); Calcium 8.7 mg/dl (8.5-10.1); Carbon Dioxide 19 mmol/L (21-32); Chloride 97 mmol/L (98-107); Creatinine Clr Calc Pharmacy 22.7 ml/min; Est GFR (Non-African American) 17.2 ml/min; Globulin 2.9 gm/dl (2.5-4.0); Glucose 101 mg/dl (70-99(Fasting)); Magnesium 3.1 mg/dl (1.7-2.4); Potassium 6.4 mmol/L (3.5-5.1); Sodium 123 mmol/L (136-145); Total Protein 5.3 gm/dl (6.0-8.3)
[2021-08-03] MEDS ORDERED: CEFEPIME 2,000 MG/20 ML VIAL IV STA (12:58)
[2021-08-03] MEDS ORDERED: ACETAMINOPHEN 325 MG TAB ONE (14:16)
--- NOTE | 2021-08-03 14:18 | CT Scan Report ---
CT head/brain wo con CLINICAL HISTORY: HOUSE, on xarelto Technique: Contiguous axial CT images of the head were acquired from the base of the skull to the agnes la without intravenous contrast administration. Images were viewed in brain, subdural and bone [facility]. Automated dose lowering techniques and/or adjustment according to patient size were utilized for this exam. Comparison: None available at the time of this dictation. Findings: The ventricles, basal cisterns, and cerebral sulci are normal. There is no acute intracranial hemorrh age or evidence of acute territorial infarction. Neither mass effect, shift of the midline structures , nor abnormal extra-axial fluid collections are shown. Falcine calcifications are noted. Imaged portions of the paranasal sinuses and mastoid air cells are clear. The orbits appear normal. There are no acute fractures of the calvaria or scalp swelling. Impression: No acute intracranial hemorrhage, no evidence of acute territorial infarction or other acute intracra nial disease process. ACT 112: Negative or not required by law. Electronically signed by: Simba Roberts M.D. 08/03/2021 2:17 PM
[2021-08-03] MEDS: SODIUM BICARBONATE 8.4% 75 MEQ in SODIUM CHLORIDE 0.45 % 1,000 ML IV SCH (16:11)
[2021-08-03] MEDS ORDERED: PIPERACILL/TAZOBAC CONSULT ACTIVE PRN (16:23)
[2021-08-03 16:29] LABS: BUN Creatinine Ratio 21.5 (10-20); Calcium 8.3 mg/dl (8.5-10.1); Creatinine Clr Calc Pharmacy 23.2 ml/min; Est GFR (African American) 20.5 ml/min; Est GFR (Non-African American) 17.7 ml/min; Potassium 6.6 mmol/L (3.5-5.1)
[2021-08-03] MEDS ORDERED: HYDROCORTISONE SOD SUCCINATE 100 MG/2 ML VIAL IV SCH ×2 (16:30→17:00)
--- NOTE | 2021-08-03 16:34 | History & Physical Report ---
Date of Service August 03, 2021 Assessment & Plan (1) Hypotension (arterial): Plan: Patient's hypotension is persistent despite volume resuscitation. Causes could be excessive volume loss from paracentesis versus infectious etiologies such as sepsis given his recent Covid and ascites. Patient has had blood cultures and urine culture sent was given cefepime in the ER and started on Zosyn will be kept in the intensive care unit for consideration of pressors as his MAP is less than 65 I personally spent time discussing his case with the ICU team decision to give hydrocortisone was made (2) Acute kidney injury: Plan: Patient has acute kidney injury hopefully just ATN from volume loss from paracentesis however with his liver ascites concern for hepatorenal syndrome could be undertaken. Patient does have red and white cell casts seen on his urine analysis and trace blood is also noted nephrology has been consulted and initially were attempting to correct his electrolyte imbalances treating his hyperkalemia with calcium gluconate D50 intravenous insulin and petit room air having amount of sodium bicarbonate drip following frequent laboratory tests. A Jordan catheter will be placed to measure urine output (3) Hyponatremia: Plan: Patient is hyponatremia is evaluated by obtaining osmolalities and urine sodium level. This point time he is getting isotonic solutions, his urinalysis specific gravity is on the higher side suggesting is trying to conserve water likely from intravascular volume depletion volume shifts from his paracentesis. Continue to watch his sodium nephrology consultation (4) Abdominal ascites: Plan: Since etiology of his abdominal ascites is not quite clear. The patient does not have known hepatic metastasis or mental metastasis from his esophageal cancer however we do not have a CT scan in our system since April. Once the patient's blood pressure is stable consideration of CT scan to evaluate these issues would be beneficial. In the meantime nephrology does request a renal ultrasound (5) Mesenteric vein thrombosis: Plan: Patient has a history of mesenteric vein thrombosis which was diagnosed 2020 he was treated with heparin and transition to Xarelto as an outpatient. At this point time his Xarelto is on hold in case invasive procedures are needed and consideration of short-term transition to anticoagulation whether it be parenteral heparin or return to Xarelto once the patient is stabilized over the first 24 hours (6) BPH (benign prostatic hyperplasia): Plan: Patient will be continued on dutasteride having his Flomax being held due to his hypotension and Jordan catheter will be placed (7) Esophageal cancer: Plan: Patient sees Dr. Carrasquillo for his esophageal cancer having home infusions and Opdivo therapy unclear whether steroids are part of his regiment reportedly has an esophageal stent and needs a altered diet such as minced and moist diet. Patient will be given clear liquids at this time until he is more stable to consider having a reliable diet (8) DVT prophylaxis: Plan: Patient is a significantly high risk for DVT however Xarelto was held at this time SCDs will be used in short order we will convert the patient to anticoagulation. Plan: Patient remains to be a full code at this time although this is a relatively new diagnosis is clear that the family has not yet quite embraced the gravity of the situation with his esophageal cancer History of Present Illness Primary Care Provider: Bandar Carrion Everardo Muse is a 66 year old male with esophageal cancer on chemotherapy, mesenteric vein thrombus on Xarelto, GERD, esophageal stent. He was admitted in June after becomming dizzy after paracentesis. Re presents with dizziness and weakness from home, pt feels that he has been weakened since large volume paracenteisis ( did have albumin afterward) Etiology of ascites not defined did have history of previous fatty liver. Was diagnosed with Covid in our ER 07/13/21, was given monoclonal antibodies at that time, also noted to be mildly hyponatremic, but normal renal function. On admission is with persistent hypotension despite volume resuscitation, acute kidney injury although making urine, hyperkalemia treated with calcium gluconate, D50 and insulin plus patiromer in ER and started on IV bicarb gtt after consultation with Nephrology Allergies Allergy/AdvReac Type Severity Reaction Status Date / Time No Known Allergies Allergy Verified 08/03/21 12:32 Home Medications Medication Instructions Recorded Confirmed Type bupropion HCl 150 mg 24 hr tablet, 150 mg PO QAM 12/23/20 08/03/21 History extended release esomeprazole magnesium 40 mg 40 mg PO BID 02/06/21 08/03/21 History capsule,delayed release (Nexium) famotidine 20 mg tablet (Pepcid AC) 40 mg PO HS 02/06/21 08/03/21 History docusate sodium 100 mg capsule 100 mg PO DAILY 02/15/21 08/03/21 History (Dulcolax Stool Softener (docusate)) fluorouracil 50 mg/mL intravenous 0 mg IV Q14D 02/15/21 08/03/21 History solution nivolumab 100 mg/10 mL intravenous 0 mg IV Q14D 02/15/21 08/03/21 History solution (Opdivo) prochlorperazine maleate 10 mg 10 mg PO Q6 PRN 02/15/21 08/03/21 History tablet ondansetron HCl 8 mg tablet 8 mg PO Q8H PRN 14 Days #42 tab 02/19/21 08/03/21 Rx oxycodone 5 mg tablet 5 - 10 mg PO Q6H PRN #40 tab 02/19/21 08/03/21 Rx Leucovorin Chemo 1 dose IV .Q14 DAYS 06/22/21 08/03/21 History Lidoc/Child/Antac 15 ml QID PRN 06/22/21 08/03/21 History codeine 10 mg-guaifenesin 100 mg/5 5 ml PO TID PRN 06/22/21 08/03/21 History mL oral liquid dutasteride 0.5 mg capsule 0.5 mg PO HS 06/22/21 08/03/21 History ferrous sulfate 325 mg (65 mg 325 mg PO DAILY 06/22/21 08/03/21 History iron) tablet (iron) rivaroxaban 20 mg tablet (Xarelto) 20 mg PO QPM 06/22/21 08/03/21 History calcium carb-ergocalciferol (vit 1 tab PO BID 07/13/21 08/03/21 History D2) 600 mg calcium-200 unit tablet furosemide 20 mg tablet 40 mg PO DAILY 07/13/21 08/03/21 History spironolactone 50 mg tablet 100 mg PO DAILY 07/13/21 08/03/21 History tamsulosin 0.4 mg capsule (Flomax) 0.4 mg PO HS 07/13/21 08/03/21 History Past Med/Surg History Medical History (Updated 08/03/21 @ 17:23 by Pawel Campos MD) BPH (benign prostatic hyperplasia) Degenerative disc disease Depression Esophageal cancer (~12/2020) GERD (gastroesophageal reflux disease) Hyperkalemia Hypotension (arterial) Surgical History H/O hand surgery FINGER TENDON REPAIR History of esophagogastroduodenoscopy (EGD) History of esophagogastroduodenoscopy (EGD) (~12/2020) Upper Endoscopic Ultrasonography + esophageal stent [place] teeth removed Family History Mother Breast cancer Family history of diabetes mellitus Other Cancer Diabetes No family history of adverse response to anesthesia Parkinson disease TIA (transient ischemic attack) Social History Smoking Status: Never smoker Cigarettes Per Day: 20; Second Hand Exposure: No; Hx Alcohol Use: No Hx Substance Use: No Preferred Language: [place]er Communication Ability: Effective Machine Operators Required: No Beliefs That Will Affect Care: None Current Living Situation: Spouse and Family Current Living Situation Comment: 2 Grandsons live with patient. Feels Safe at Home: Yes Assistive Devices: Glasses Review of Systems Review of Systems: Moderate distress and fatigue no headache, no visual changes does need special diet no chest pain, pressure or palpitations no shortness of breath, does have boo, daily cough or wheezes no abdominal pain, but does have distension, no nausea or vomiting, poor appetite black stools due to iron supplementation, no dysuria, hematuria, does have bph no focal joint pain or swelling no back pain, CVA tenderness or radicular pain no bruising, bleeding or rashes, does have skin tone no focal signs of weakness or numbness or altered sensation no complaints of anxiety or depression.. Physical Exam Physical Exam: The patient appeared chronically ill temporal wasting Vital signs as documented. Significant persistent hypotension Head exam is normocephalic atraumatic Neck is without JVD, thyromegaly, or carotid bruits. Lungs are clear to auscultation, no focal loss of breath sounds Cardiac exam, Rhythm is regular.. No murmurs, rubs or gallops. Abdominal exam reveals normal bowel sounds, distended fluid wave dull nontender Extremities are trace to 1+ edematous bilaterally and both pedal pulses are weaked Neurologic exam is alert and oriented, no focal loss of strength or sensation Skin is without bruises or rashes does have unusual skin color Psychologically is without concerns for anxiety or depression.. Results & Data Results & Data ([facility]) Vital Signs (Past 12 Hours) Vital Signs Temp Pulse Resp BP Pulse Ox 08/03/21 16:00 70 20 82/46 L 98 08/03/21 15:45 69 20 82/52 L 98 08/03/21 15:30 69 24 80/47 L 98 08/03/21 15:15 71 18 73/45 L 99 08/03/21 14:45 72 22 79/49 L 97 08/03/21 14:40 68 24 77/51 L 100 08/03/21 14:15 73 19 71/47 L 100 08/03/21 14:12 75 27 H 79/48 L 08/03/21 14:10 94 H 16 100 08/03/21 13:31 70 26 H 74/45 L 98 08/03/21 13:30 69 22 97 08/03/21 13:15 70 25 H 72/42 L 98 08/03/21 13:00 67 23 71/44 L 98 08/03/21 12:45 61 20 70/43 L 99 08/03/21 12:30 68 22 70/50 L 98 08/03/21 12:15 70 22 71/47 L 97 08/03/21 12:07 67 21 63/43 L 98 08/03/21 11:51 72 24 60/41 L 98 08/03/21 11:40 98.1 F 72 20 55/38 L 95 Diagnostic Findings Chest X-Ray 08/03/21 11:55 XR chest 1V portable CLINICAL HISTORY: dizzy. Evaluate cardiopulmonary status COMPARISON STUDY: 07/13/2021 TECHNIQUE: 1 view of the chest FINDINGS: Single frontal view of the chest demonstrates the cardiomediastinal silhouette to be within normal limits. A Port-A-Cath is in place. There is a decreased inspiratory effort with elevation of the hemidiaphragms and crowding of the bronchovascular markings at the lung bases and centrally. The lungs are clear of alveolar opacities. There is no evidence for pleural effusion. There is no evidence for vascular congestion. There is no acute osseous pathology. IMPRESSION: 1. Compared to the previous examination, there is a decreased inspiratory effort with otherwise no acute chest disease. ACT 112: Negative or not required by law. Electronically signed by: Alfred Simons M.D. 08/03/2021 12:[address] 08/03/21 12:30 CT head/brain wo con CLINICAL HISTORY: HOUSE, on xarelto Technique: Contiguous axial CT images of the head were acquired from the base of the skull to the vertex without intravenous contrast administration. Images were viewed in brain, subdural and bone windows. Automated dose lowering techniques and/or adjustment according to patient size were utilized for this exam. Comparison: None available at the time of this dictation. Findings: The ventricles, basal cisterns, and cerebral sulci are normal. There is no acute intracranial hemorrhage or evidence of acute territorial infarction. Neither mass effect, shift of the midline structures, nor abnormal extra-axial fluid collections are shown. Falcine calcifications are noted. Imaged portions of the paranasal sinuses and mastoid air cells are clear. The orbits appear normal. There are no acute fractures of the calvaria or scalp swelling. Impression: No acute intracranial hemorrhage, no evidence of acute territorial infarction or other acute intracranial disease process. ACT 112: Negative or not required by law. Electronically signed by: Simba Roberts M.D. 08/03/2021 2:17 PM ECG Additional Comments: EKG shows a bradycardic sinus rhythm there may be some the beginnings of peaked T waves seen in V3 through [id number] for hyperkalemia is given Code Status & VTE Plan VTE Prophylaxis Plan VTE Prophylaxis will be ordered: Yes PG Care Time/CCT Total # of Minutes Spent Total Time Spent with Patient: Total time spent is greater than 50% in coordination of care (as documented) at patient's floor/unit and/or counseling patient: Coding Level of Care Code 41483 Initial Inpt Care Lvl 3 Diagnoses Acute kidney injury N17.9 Hypotension (arterial) I95.9 Hyponatremia E87.1 Abdominal ascites R18.8 Ascites type: other type Mesenteric vein thrombosis K55.069 BPH (benign prostatic hyperplasia) N40.0 Esophageal cancer C15.9 Malignant neoplasm of esophagus location: unspecified location DVT prophylaxis Z29.9 (1) Abdominal ascites Ascites type: other type Qualified Code(s): R18.8 - Other ascites (2) Esophageal cancer Malignant neoplasm of esophagus location: unspecified location Qualified Code(s): C15.9 - Malignant neoplasm of esophagus, unspecified
[2021-08-03] MEDS ORDERED: DEXTROSE 50% 50 ML SYRINGE IV ONE ×2 (16:46→16:53)
[2021-08-03] MEDS ORDERED: STAT IV STA (16:46)
[2021-08-03] MEDS ORDERED: NovoLIN-R INSULIN PER UNIT CHARGE IV STA ×2 (16:52→16:53)
[2021-08-03 16:56] LABS: Appearance Urine Clear (Clear); Bacteria Urine Automated Negative (Negative); Blood Urine Trace (Negative); Color Urine Dark Yellow; Epithelial Cell Urine Auto >30 /lpf (0-5); Glucose Urine UA Negative (Negative); Ketones Urine Trace (Negative); Leukocyte Esterase Urine Negative (Negative); Nitrite Urine Negative (Negative); Protein Urine Negative (Negative); Specific Gravity Urine 1.024 (1.000-1.030); Urobilinogen Urine Negative (Negative)
--- NOTE | 2021-08-03 16:56 | Critical Care Consultation ---
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 Monitor for encephalopathy given his cirrhosis and sepsis. CT head negative for acute process. Pulmonary: No issues at present. Monitor for signs of volume overload and hypoxia. Chest x-ray likely in expiratory film. No obvious infiltrate or effusion. Cardiovascular: Maintain systolic blood pressures above 90. Hold antihypertensives. We will give a 5% 250 cc bolus of albumin. Lactate elevated due to decreased perfusion. Will use patient's port a cath if pressors are needed. Gastrointestinal: Source of ascites unclear. Malignancy versus cirrhosis possible. Ascitic fluid from 06/29/2021 was negative for malignancy. Large volume ascites likely. Will hold off on paracentesis at this time given hypotension. Abdomen is nontender. Will obtain ultrasound of the abdomen. LFTs unremarkable. Esophageal stent in place. Renal: ADELSO possibly due to HRS versus ATN. We will treat hyperkalemia conservatively with insulin, D50 and calcium. Recheck BMP. Continue to monitor urine output closely. Place Jordan catheter. Continue IV fluids. We will give a dose of potassium here 8.4 g. Appreciate nephrology consultation. Infectious disease: Blood cultures and urine cultures obtained. Change cefepime to Zosyn for broader coverage. Hematologic: Hold Xarelto at this time. We will need to consider the initiation of heparin infusion given history of mesenteric thrombosis. Endocrine: We will empirically start stress dose steroids 50 mg every 6 hours hydrocortisone given concerns for possible adrenal insufficiency. VTE prophylaxis: SCDs CODE STATUS: Full code Family at bedside: updated at bedside Disposition: ICU I have personally spent 39 minutes of critical care time in the direct management of this patient. This is a life/limb threatening event. This includes time spent evaluating patient, direct bedside care, chart review, placing orders, interpretation of diagnostic studies, discussion with consultants, patient, and family members, as well as other required patient management activities. This time is exclusive of all separately billable procedures, and teaching time and separate from and in addition to any other critical care service time. Thank you for allowing us to participate in the care of this patient. History of Present Illness Reason for Consultation: Hypotension History of Present Illness 66-year-old male with a past medical history of esophageal cancer status post, Mesenteric vein thrombosis on Xarelto, GERD and esophageal stent who initially presented to the hospital in June due to dizziness from a paracentesis. He currently presents from home for the request of his primary care physician due to abnormal labs. Patient's is present and able to give collateral history. She notes that he has been weak for the past 1 to 2 weeks with dizziness upon standing or sitting up. Recently had 2 large-volume paracentesis procedures completed and since that time she has been feeling ill. It should be noted that he was in the ER on 07/13/2021 and given monoclonal antibodies due to COVID-19. ICU was consulted due to hypotension and acute renal failure. Allergies Allergy/AdvReac Type Severity Reaction Status Date / Time No Known Allergies Allergy Verified 08/03/21 12:32 Home Medications Medication Instructions Recorded Confirmed Type bupropion HCl 150 mg 24 hr tablet, 150 mg PO QAM 12/23/20 08/03/21 History extended release esomeprazole magnesium 40 mg 40 mg PO BID 02/06/21 08/03/21 History capsule,delayed release (Nexium) famotidine 20 mg tablet (Pepcid AC) 40 mg PO HS 02/06/21 08/03/21 History docusate sodium 100 mg capsule 100 mg PO DAILY 02/15/21 08/03/21 History (Dulcolax Stool Softener (docusate)) fluorouracil 50 mg/mL intravenous 0 mg IV Q14D 02/15/21 08/03/21 History solution nivolumab 100 mg/10 mL intravenous 0 mg IV Q14D 02/15/21 08/03/21 History solution (Opdivo) prochlorperazine maleate 10 mg 10 mg PO Q6 PRN 02/15/21 08/03/21 History tablet ondansetron HCl 8 mg tablet 8 mg PO Q8H PRN 14 Days #42 tab 02/19/21 08/03/21 Rx oxycodone 5 mg tablet 5 - 10 mg PO Q6H PRN #40 tab 02/19/21 08/03/21 Rx Leucovorin Chemo 1 dose IV .Q14 DAYS 06/22/21 08/03/21 History Lidoc/Child/Antac 15 ml QID PRN 06/22/21 08/03/21 History codeine 10 mg-guaifenesin 100 mg/5 5 ml PO TID PRN 06/22/21 08/03/21 History mL oral liquid dutasteride 0.5 mg capsule 0.5 mg PO HS 06/22/21 08/03/21 History ferrous sulfate 325 mg (65 mg 325 mg PO DAILY 06/22/21 08/03/21 History iron) tablet (iron) rivaroxaban 20 mg tablet (Xarelto) 20 mg PO QPM 06/22/21 08/03/21 History calcium carb-ergocalciferol (vit 1 tab PO BID 07/13/21 08/03/21 History D2) 600 mg calcium-200 unit tablet furosemide 20 mg tablet 40 mg PO DAILY 07/13/21 08/03/21 History spironolactone 50 mg tablet 100 mg PO DAILY 07/13/21 08/03/21 History tamsulosin 0.4 mg capsule (Flomax) 0.4 mg PO HS 07/13/21 08/03/21 History Patient History Medical History (Updated 08/03/21 @ 16:56 by Delonte Fatima MD) BPH (benign prostatic hyperplasia) Degenerative disc disease Depression Esophageal cancer (~12/2020) GERD (gastroesophageal reflux disease) Hyperkalemia Hypotension (arterial) Surgical History H/O hand surgery FINGER TENDON REPAIR History of esophagogastroduodenoscopy (EGD) History of esophagogastroduodenoscopy (EGD) (~12/2020) Upper Endoscopic Ultrasonography + esophageal stent [place] teeth removed Family History Mother Breast cancer Family history of diabetes mellitus Other Cancer Diabetes No family history of adverse response to anesthesia Parkinson disease TIA (transient ischemic attack) Social History Smoking Status: Never smoker Cigarettes Per Day: 20; Second Hand Exposure: No; Hx Alcohol Use: No Hx Substance Use: No Preferred Language: Slovak Communication Ability: Effective Flight Test Supervisor Required: No Beliefs That Will Affect Care: None Current Living Situation: Spouse and Family Current Living Situation Comment: 2 Grandsons live with patient. Feels Safe at Home: Yes Assistive Devices: Glasses Review of Systems Review of Systems: All systems reviewed & are unremarkable except as noted in HPI & below Physical Exam Physical Exam: Constitutional: Chronically ill-appearing male in no apparent distress. Large carranza. Eyes: Pupils are equal round and reactive to light. Conjunctivae are normal. Anicteric sclera. Ears nose, mouth and throat: Mallampati class 2. Normal posterior oropharynx. Uvula is midline. Neck: Trachea is midline. Visual inspection is normal. Respiratory: Clear to auscultation bilaterally. No use of accessory muscles. No significant clubbing noted. Cardiovascular: Regular rate and rhythm. No murmurs. 1+ pitting edema in the lower extremities.Decreased capillary refill. Gastrointestinal: Positive fluid wave. Diminished bowel sounds. Nontender to palpation. Musculoskeletal: Diffusely weak. Skin: No rashes, warm dry and intact. Neurologic: No obvious focal neurological deficits seen. Psychiatric: Alert and oriented x3 with a euthymic affect. Results & Data Results & Data ([facility]) Vital Signs (Past 12 Hours) Vital Signs Temp Pulse Resp BP Pulse Ox 08/03/21 16:00 70 20 82/46 L 98 08/03/21 15:45 69 20 82/52 L 98 08/03/21 15:30 69 24 80/47 L 98 08/03/21 15:15 71 18 73/45 L 99 08/03/21 14:45 72 22 79/49 L 97 08/03/21 14:40 68 24 77/51 L 100 08/03/21 14:15 73 19 71/47 L 100 08/03/21 14:12 75 27 H 79/48 L 08/03/21 14:10 94 H 16 100 08/03/21 13:31 70 26 H 74/45 L 98 08/03/21 13:30 69 22 97 08/03/21 13:15 70 25 H 72/42 L 98 08/03/21 13:00 67 23 71/44 L 98 08/03/21 12:45 61 20 70/43 L 99 08/03/21 12:30 68 22 70/50 L 98 08/03/21 12:15 70 22 71/47 L 97 08/03/21 12:07 67 21 63/43 L 98 08/03/21 11:51 72 24 60/41 L 98 08/03/21 11:40 36.7 C 72 20 55/38 L 95 Vital signs, labs and imaging personally reviewed Coding Level of Care Code Critical Care 1st 30-74 mins Diagnoses Hypotension (arterial) I95.9 Acute kidney injury N17.9 Abdominal ascites R18.8 Ascites type: other type Esophageal cancer C15.9 Malignant neoplasm of esophagus location: unspecified location Hyperkalemia E87.5 Time Spent (min) 39 (1) Abdominal ascites Ascites type: other type Qualified Code(s): R18.8 - Other ascites (2) Esophageal cancer Malignant neoplasm of esophagus location: unspecified location Qualified Code(s): C15.9 - Malignant neoplasm of esophagus, unspecified
[2021-08-03 16:57] LABS: Bilirubin Urine 1+ (Negative)
[2021-08-03] MEDS ORDERED: HYDROCORTISONE 50 MG *12cc Syringe IV SCH (17:00)
[2021-08-03] MEDS ORDERED: CALCIUM GLUCONATE 10% 1,000 MG in DEXTROSE 5% 50 ML IV ONE (17:00)
[2021-08-03 17:03] LABS: Cast Urine Automated >30 /lpf (0-5)
[2021-08-03] MEDS: PIPERACILLIN/TAZOBACTAM 3.375 GM in DEXTROSE 5% 100 ML IV SCH (17:11)
[2021-08-03] MEDS: HYDROCORTISONE SOD SUCCINATE 100 MG/2 ML VIAL ONE ×2 (17:12→17:25)
[2021-08-03] MEDS ORDERED: HYDROCORTISONE SOD 50 MG in SYRINGE 0 ML IV SCH (17:15)
[2021-08-03] MEDS: HYDROCORTISONE 50 MG *12cc Syringe IV SCH ×2 (17:25→22:22)
[2021-08-03] MEDS ORDERED: ALBUMIN 5% 250 ML IV ONE (17:30)
[2021-08-03] MEDS ORDERED: STAT IV Infusion **Titration per Protocol STA (19:05)
--- NOTE | 2021-08-03 19:06 | Nephrology Consultation ---
Date of Consultation August 03, 2021 Assessment & Plan (1) Acute kidney injury: Relatively oliguric; UOP improving. Clinical presentation consistent with prerenal physiology with possible ATN. Baseline creatinine had been 1.33 mg/dL on 07/20 and 1.74 mg/dL on 07/28. UA/microscopy pending. Random urine sodium requested. Renal US pending. In lieu of US, alternative consideration would be to obtain a non-contrast CT in the ER. Thankfully, there has been some improvement in urine output following Jordan placement. I am concerned for type 1 HRS following recent large volume paracentesis. Primary goals for management include religious of intravascular volume and improvement in blood pressure. Everardo is tolerating IVF well. I would avoid chloride rich IVF and favor balanced IVF or HCO3 replacement. 1/2 NS + 75 mEq NaHCO3 infusing at this time post IV albumin infusion. For BP support. I would suggest midodrine or norepinephrine with a MAP goal of at least 65. Octreotide has also been added. There is no emergent indication for dialysis. Potential role of HD was introduced. Medications are appropriately dosed for kidney dysfunction. (2) Hyperkalemia: Patiromer 8.4 grams provided in the ER. Additional 8.4 grams to be provided this evening. Thankfully, urine output is improving. No acute EKG changes noted. (3) Hypotension (arterial): Midodrine added. ICU consult appreciated. No obvious source of infection. (4) Hyponatremia: Acute on chronic. Relatively asymptomatic. Increased TBW but decreased EAV associated with liver disease and ascites. Oral solute intake has been reduced. Serum sodium did improve with IV hydration. Close monitoring will be required. (5) Abdominal ascites: Consider diagnostic paracentesis to r/o SBP. (6) Hypoalbuminemia: (7) Esophageal cancer: History of Present Illness Reason for Consultation: ADELSO, electrolyte abnormalities Requesting Physician: Gayathri Barrera Attending Physician: Gayathri Barrera History of Present Illness Mr. Everardo Muse was seen and evaluated in the ER at [facility] this evening. He was seen with his at the bedside who provided the majority of the medical history. I discussed the plan of care with Dr. Barrera earlier today and reviewed the patient's history and plan of care with Dr. Campos this evening. Everardo is being admitted to the ICU with hypotension and ADELSO. He was referred to the hospital by his oncologist for evaluation of laboratory abnormalities including ADELSO, hyperkalemia, and hyponatremia. Everardo has been relatively oliguric since presentation but UOP is improving, now with 200 ml in Jordan. Review of systems is notable for generalized malaise. Everardo describes feeling like he was hit by a truck since his most recent large volume paracentesis. He describes notable weakness and associated dyspnea. Activity tolerance has been limited. He notes lightheadedness without syncope or presyncope with standing. He denies significant orthopnea and does not endorse notable platypnea- orthodeoxia. He reports voiding normally at home. No fevers or chills. He denies significant abdominal pain. 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 He subsequently underwent stenting of the esophagus by Dr. Flores. Everardo was initially evaluated at [facility] and subsequently started treatment with FOLFOX + Opdivo locally under the care of Dr. Carrasquillo. Everardo has been tolerating treatment relatively well. In April, oxaliplatin was stopped. Last week, infusions were held. Blood work obtained today prior to intended treatment tomorrow triggered ER evaluation. Everardo was diagnosed with COVID for which he did receive mAb therapy the first week of July. He reports fairly minimal symptoms other than fatigue. Unfortunately, scheduled large volume paracentesis were placed on hold due to the diagnosis. In February, Everardo was admitted to [facility] with severe abdominal pain and distention. Evaluation demonstrated mesenteric venin thrombus and moderate ascites. CT also demonstrating nodularity possibly reflective of mets as well as lymphadenopathy. Eventually fluid analysis demonstrated negative cytology and transudative fluid by Light's criteria. Everardo has required Medical history also notable for HOFFMAN with suspected cirrhosis, BPH, and GERD. Treatment in the ER has included 500 ml of NSS, 500 ml Normosol, 35 g IV albumin, and IV cefepime. Zosyn infusing during my assessment. Allergies Allergy/AdvReac Type Severity Reaction Status Date / Time No Known Allergies Allergy Verified 08/03/21 12:32 Home Medications Medication Instructions Recorded Confirmed Type bupropion HCl 150 mg 24 hr tablet, 150 mg PO QAM 12/23/20 08/03/21 History extended release esomeprazole magnesium 40 mg 40 mg PO BID 02/06/21 08/03/21 History capsule,delayed release (Nexium) famotidine 20 mg tablet (Pepcid AC) 40 mg PO HS 02/06/21 08/03/21 History docusate sodium 100 mg capsule 100 mg PO DAILY 02/15/21 08/03/21 History (Dulcolax Stool Softener (docusate)) fluorouracil 50 mg/mL intravenous 0 mg IV Q14D 02/15/21 08/03/21 History solution nivolumab 100 mg/10 mL intravenous 0 mg IV Q14D 02/15/21 08/03/21 History solution (Opdivo) prochlorperazine maleate 10 mg 10 mg PO Q6 PRN 02/15/21 08/03/21 History tablet ondansetron HCl 8 mg tablet 8 mg PO Q8H PRN 14 Days #42 tab 02/19/21 08/03/21 Rx oxycodone 5 mg tablet 5 - 10 mg PO Q6H PRN #40 tab 02/19/21 08/03/21 Rx Leucovorin Chemo 1 dose IV .Q14 DAYS 06/22/21 08/03/21 History Lidoc/Child/Antac 15 ml QID PRN 06/22/21 08/03/21 History codeine 10 mg-guaifenesin 100 mg/5 5 ml PO TID PRN 06/22/21 08/03/21 History mL oral liquid dutasteride 0.5 mg capsule 0.5 mg PO HS 06/22/21 08/03/21 History ferrous sulfate 325 mg (65 mg 325 mg PO DAILY 06/22/21 08/03/21 History iron) tablet (iron) rivaroxaban 20 mg tablet (Xarelto) 20 mg PO QPM 06/22/21 08/03/21 History calcium carb-ergocalciferol (vit 1 tab PO BID 07/13/21 08/03/21 History D2) 600 mg calcium-200 unit tablet furosemide 20 mg tablet 40 mg PO DAILY 07/13/21 08/03/21 History spironolactone 50 mg tablet 100 mg PO DAILY 07/13/21 08/03/21 History tamsulosin 0.4 mg capsule (Flomax) 0.4 mg PO HS 07/13/21 08/03/21 History Patient History Medical History BPH (benign prostatic hyperplasia) Degenerative disc disease Depression Esophageal cancer (~12/2020) GERD (gastroesophageal reflux disease) Hyperkalemia Hypotension (arterial) Surgical History H/O hand surgery FINGER TENDON REPAIR History of esophagogastroduodenoscopy (EGD) History of esophagogastroduodenoscopy (EGD) (~12/2020) Upper Endoscopic Ultrasonography + esophageal stent [place] teeth removed Family History Mother Breast cancer Family history of diabetes mellitus Other Cancer Diabetes No family history of adverse response to anesthesia Parkinson disease TIA (transient ischemic attack) Social History Smoking Status: Never smoker Cigarettes Per Day: 20; Second Hand Exposure: No; Hx Alcohol Use: No Hx Substance Use: No Preferred Language: [place] Island[place] Communication Ability: Effective Health And Wellness Instructor Required: No Beliefs That Will Affect Care: None Current Living Situation: Spouse and Family Current Living Situation Comment: 2 Grandsons live with patient. Feels Safe at Home: Yes Assistive Devices: Glasses Review of Systems Review of Systems: All systems reviewed & are unremarkable except as noted in HPI & below Constitutional: + weight loss; no anorexia Physical Exam Constitutional: + ill appearing and + frail appearing; no acute distress ENMT: Mouth: + dry oral mucous membranes Neck: normal visual inspection and trachea midline R sided mediport Respiratory: normal respiratory effort Auscultation: lungs clear to auscultation bilaterally Cardiovascular: Rate/Rhythm: + bradycardic Heart Sounds: normal S1 and normal S2 Extremities: + edema Gastrointestinal (Abdomen): Inspection/Auscultation: + abdomen distended Percussion/Palpation: + ascites; abdomen nontender Musculoskeletal: Extremities: no cyanosis and no clubbing Skin: + turgor decreased; no jaundice Neurologic: Motor/Sensory: no tremor and no asterixis Genitourinary: Jordan draining clear yellow urine Results & Data ([facility]) Vital Signs (Past 12 Hours) Vital Signs Temp Pulse Resp BP Pulse Ox 08/03/21 18:15 69 20 67/46 L 98 08/03/21 18:00 72 18 81/46 L 98 08/03/21 17:55 69 20 83/50 L 98 08/03/21 17:45 74 16 77/49 L 98 08/03/21 17:30 76 24 73/49 L 97 08/03/21 17:15 69 22 74/47 L 97 08/03/21 17:00 67 24 68/47 L 99 08/03/21 16:45 71 22 82/43 L 97 08/03/21 16:30 77 18 77/44 L 99 08/03/21 16:15 70 24 84/50 L 99 08/03/21 16:00 70 20 82/46 L 98 08/03/21 15:45 69 20 82/52 L 98 08/03/21 15:30 69 24 80/47 L 98 08/03/21 15:15 71 18 73/45 L 99 08/03/21 14:45 72 22 79/49 L 97 08/03/21 14:40 68 24 77/51 L 100 08/03/21 14:15 73 19 71/47 L 100 08/03/21 14:12 75 27 H 79/48 L 08/03/21 14:10 94 H 16 100 08/03/21 13:31 70 26 H 74/45 L 98 08/03/21 13:30 69 22 97 08/03/21 13:15 70 25 H 72/42 L 98 08/03/21 13:00 67 23 71/44 L 98 08/03/21 12:45 61 20 70/43 L 99 08/03/21 12:30 68 22 70/50 L 98 08/03/21 12:15 70 22 71/47 L 97 08/03/21 12:07 67 21 63/43 L 98 08/03/21 11:51 72 24 60/41 L 98 08/03/21 11:40 36.7 C 72 20 55/38 L 95 Laboratory Results Laboratory Results - last 24 hr 08/03/21 08/03/21 08/03/21 12:00 12:00 12:00 WBC 16.99 H RBC 3.89 L Hgb 12.9 L Hct 38.5 L MCV 99.0 MCH 33.2 MCHC 33.5 RDW Std Deviation 62.4 H RDW Coeff of Macraio 17.5 H Plt Count 207 MPV 10.7 H Immature Gran % (Auto) 1.4 Neut % (Auto) 82.5 Lymph % (Auto) 7.4 [place] % (Auto) 8.2 Eos % (Auto) 0.4 Baso % (Auto) 0.1 Neut # (Auto) 14.01 H Lymph # (Auto) 1.25 [place] # (Auto) 1.40 H Eos # (Auto) 0.07 Baso # (Auto) 0.02 Immature Gran # (Auto) 0.24 H Absolute Nucleated RBC 0.06 H Nucleated RBC % (auto) 0.4 Sodium 123 L Potassium 6.4 H* Chloride 97 L Carbon Dioxide 19 L Anion Gap 7 BUN 75 H Creatinine 3.51 H Est Cr Clr Drug Dosing 22.7 Est GFR ( Amer) 20.0 Est GFR (Non-Af Amer) 17.2 BUN/Creatinine Ratio 21.4 H Glucose 101 H Osmolality Lactate Calcium 8.7 Phosphorus 4.0 Magnesium 3.1 H Total Bilirubin 0.7 AST 25 ALT 36 Alkaline Phosphatase 135 H Troponin I < 0.03 Total Protein 5.3 L Albumin 2.4 L Globulin 2.9 Albumin/Globulin Ratio 0.8 L Procalcitonin 0.38 Urine Color Urine Appearance Urine pH Ur Specific [place] Urine Protein Urine Glucose (UA) Urine Ketones Urine Blood Urine Nitrite Urine Bilirubin Urine Urobilinogen Ur Leukocyte Esterase Urine WBC (Auto) Urine RBC (Auto) U Hyaline Cast (Auto) U Epithel Cells (Auto) Urine Bacteria (Auto) Ur Renal Epithelial Cell 08/03/21 08/03/21 08/03/21 12:00 15:42 15:42 WBC RBC Hgb Hct MCV MCH MCHC RDW Std Deviation RDW Coeff of Macario Plt Count MPV Immature Gran % (Auto) Neut % (Auto) Lymph % (Auto) [place] % (Auto) Eos % (Auto) Baso % (Auto) Neut # (Auto) Lymph # (Auto) [place] # (Auto) Eos # (Auto) Baso # (Auto) Immature Gran # (Auto) Absolute Nucleated RBC Nucleated RBC % (auto) Sodium 125 L Potassium 6.6 H* Chloride 96 L Carbon Dioxide 21 Anion Gap 8 BUN 74 H Creatinine 3.44 H Est Cr Clr Drug Dosing 23.2 Est GFR ( Amer) 20.5 Est GFR (Non-Af Amer) 17.7 BUN/Creatinine Ratio 21.5 H Glucose 92 Osmolality 301 H Lactate 3.4 H* Calcium 8.3 L Phosphorus Magnesium Total Bilirubin AST ALT Alkaline Phosphatase Troponin I Total Protein Albumin Globulin Albumin/Globulin Ratio Procalcitonin Urine Color Urine Appearance Urine pH Ur Specific [place] Urine Protein Urine Glucose (UA) Urine Ketones Urine Blood Urine Nitrite Urine Bilirubin Urine Urobilinogen Ur Leukocyte Esterase Urine WBC (Auto) Urine RBC (Auto) U Hyaline Cast (Auto) U Epithel Cells (Auto) Urine Bacteria (Auto) Ur Renal Epithelial Cell 08/03/21 08/03/21 16:33 17:44 WBC RBC Hgb Hct MCV MCH MCHC RDW Std Deviation RDW Coeff of Macario Plt Count MPV Immature Gran % (Auto) Neut % (Auto) Lymph % (Auto) [place] % (Auto) Eos % (Auto) Baso % (Auto) Neut # (Auto) Lymph # (Auto) [place] # (Auto) Eos # (Auto) Baso # (Auto) Immature Gran # (Auto) Absolute Nucleated RBC Nucleated RBC % (auto) Sodium Potassium Chloride Carbon Dioxide Anion Gap BUN Creatinine Est Cr Clr Drug Dosing Est GFR ( Amer) Est GFR (Non-Af Amer) BUN/Creatinine Ratio Glucose Osmolality Lactate 3.0 H* Calcium Phosphorus Magnesium Total Bilirubin AST ALT Alkaline Phosphatase Troponin I Total Protein Albumin Globulin Albumin/Globulin Ratio Procalcitonin Urine Color Dark Yellow Urine Appearance Clear Urine pH 5.0 Ur Specific [place] 1.024 Urine Protein Negative Urine Glucose (UA) Negative Urine Ketones Trace H Urine Blood Trace H Urine Nitrite Negative Urine Bilirubin 1+ H Urine Urobilinogen Negative Ur Leukocyte Esterase Negative Urine WBC (Auto) 5-10 H Urine RBC (Auto) 10-30 H U Hyaline Cast (Auto) >30 H U Epithel Cells (Auto) >30 H Urine Bacteria (Auto) Negative Ur Renal Epithelial Cell Not Reportable PG Care Time/CCT Total # of Minutes Spent Total Time Spent with Patient: Total time spent is greater than 50% in coordination of care (as documented) at patient's floor/unit and/or counseling patient: Coding Level of Care Code 12597 Inpt Consult Level 5 Diagnoses Hypotension (arterial) I95.9 Hyperkalemia E87.5 Acute kidney injury N17.9 Hyponatremia E87.1 Abdominal ascites R18.8 Ascites type: other type Hypoalbuminemia E88.09 Esophageal cancer C15.9 Malignant neoplasm of esophagus location: unspecified location (1) Abdominal ascites Ascites type: other type Qualified Code(s): R18.8 - Other ascites (2) Esophageal cancer Malignant neoplasm of esophagus location: unspecified location Qualified Code(s): C15.9 - Malignant neoplasm of esophagus, unspecified
[2021-08-03] MEDS ORDERED: ICU PROTOCOL FOR HYPERGLYCEMIA PRN (19:31)
[2021-08-03] MEDS: NOREPINEPHRINE/D5W 8 MG/508 ML BAG IV SCH (19:43)
[2021-08-03] MEDS ORDERED: MIDODRINE HCL 2.5 MG TAB PO SCH (19:50)
[2021-08-03 20:01] LABS: BUN Creatinine Ratio 21.9 (10-20); Calcium 8.8 mg/dl (8.5-10.1); Creatinine Clr Calc Pharmacy 24.2 ml/min; Est GFR (African American) 20.9 ml/min
[2021-08-03] MEDS ORDERED: SODIUM POLYSTYRENE SULFONATE 15G/60ML SUSP PO STA (20:20)
[2021-08-03] MEDS: DOCUSATE SODIUM 100 MG CAP PO SCH (20:34)
[2021-08-03] MEDS: CALCIUM 600MG + VIT D 400 IU TAB PO SCH (20:34)
[2021-08-03] MEDS: FAMOTIDINE 40 MG TABLET PO SCH (20:34)
[2021-08-03] MEDS: OCTREOTIDE ACETATE 100 MCG/ML VIAL SQ SCH (21:10)
[2021-08-04] MEDS: PIPERACILLIN/TAZOBACTAM 3.375 GM in DEXTROSE 5% 100 ML IV SCH ×2 (00:02→08:35)
[2021-08-04] MEDS ORDERED: HEPARIN 100 UNIT/ML 5ML FLUSH FLUSH PRN (02:07)
[2021-08-04 02:36] LABS: Hematocrit (blood only) 34.5 % (42-52); Hemoglobin 11.7 g/dL (14.0-18.0); Mean Corpuscular Hemoglobin 33.1 pg (25-34); Mean Corpuscular Hgb Conc 33.9 g/dL (32-36); Mean Corpuscular Volume 97.7 fL (80-100); Mean Platelet Volume 10.5 fL (7.4-10.4); Platelet Count 202 K/uL (130-400); RDW Coefficient of Variation 17.4 % (11.5-14.5); RDW Standard Deviation 61.4 fL (36.4-46.3); Red Blood Count 3.53 M/uL (4.7-6.1); White Blood Count 15.75 K/uL (4.8-10.8)
[2021-08-04 02:39] LABS: Base Excess VBG -0.2 mEq/L; Oxygen Saturation VBG 74.8 %; pH VBG 7.45 (7.36-7.41)
[2021-08-04 03:02] LABS: Basophils # (auto) 0.01 K/uL (0-0.2); Basophils % (auto) 0.1 %; Immature Granulocytes # (auto) 0.18 K/uL (0.00-0.02); Immature Granulocytes % (auto) 1.1 %; Lymphocytes # (auto) 0.68 K/uL (1.2-3.4); Lymphocytes % (auto) 4.3 %; Monocytes # (auto) 0.47 K/uL (0.11-0.59); Neutrophils # (auto) 14.41 K/uL (1.4-6.5); Neutrophils % (auto) 91.5 %
[2021-08-04 03:03] LABS: Albumin Level 2.6 gm/dl (3.4-5.0); BUN Creatinine Ratio 23.5 (10-20); Bilirubin Direct 0.3 mg/dl (0-0.2); Bilirubin,Total 1.1 mg/dl (0.2-1.0); Calcium 8.6 mg/dl (8.5-10.1); Creatinine Clr Calc Pharmacy 27.4 ml/min; Est GFR (African American) 24.3 ml/min; Magnesium 2.9 mg/dl (1.7-2.4); Phosphorus 4.3 mg/dl (2.5-4.9); Total Protein 5.2 gm/dl (6.0-8.3)
[2021-08-04] MEDS: oxyCODONE HCL IR 5 MG TAB (IMMEDIATE RELEASE) PO PRN ×3 (03:07→14:08)
[2021-08-04] MEDS: OCTREOTIDE ACETATE 100 MCG/ML VIAL SQ SCH ×3 (03:08→20:14)
[2021-08-04] MEDS: SODIUM BICARBONATE 8.4% 75 MEQ in SODIUM CHLORIDE 0.45 % 1,000 ML IV SCH (03:08)
[2021-08-04] MEDS ORDERED: SODIUM CHLORIDE 0.9% 1000ML 500 ML IV ONE (03:44)
[2021-08-04] MEDS ORDERED: SODIUM CHLORIDE 0.9% 1000ML 1,000 ML IV SCH ×2 (04:15→08:15)
[2021-08-04] MEDS: HYDROCORTISONE 50 MG *12cc Syringe IV SCH ×3 (04:26→16:29)
--- NOTE | 2021-08-04 06:58 | Ultrasound Report ---
US renal/blad retro comp CLINICAL HISTORY: new ADELSO. COMPARISON: None. TECHNIQUE: Multiple grayscale and color images of the kidneys and bladder. FINDINGS: Right kidney: The kidney is normal in size and echogenicity. There is no evidence for renal calculus or hydronephrosis. There is no evidence for solid renal mass. There is no evidence for medical renal disease. The kidney measures 12.2 cm in greatest length. Left kidney: The kidney is normal in size and echogenicity. There is no evidence for renal calculus o r hydronephrosis. There is no evidence for solid renal mass. There is no evidence for medical renal d isease. The kidney measures 11.4 cm in greatest length. Bladder: The bladder is decompressed with a Jordan catheter in place. Of note is abdominal and pelvic ascites. IMPRESSION: 1. Negative ultrasound of the kidneys. 2. Abdominal and pelvic ascites. ACT 112: Negative or not required by law. Electronically signed by: Alfred Simons M.D. 08/04/2021 6:57 AM
[2021-08-04] MEDS ORDERED: Heparin IV Adult Wt-Based Standard *NO* Bolus Protocol ONE (08:12)
--- NOTE | 2021-08-04 08:14 | Critical Care Progress Note ---
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 Monitor for encephalopathy given his cirrhosis and sepsis. CT head negative for acute process. Pulmonary: No issues at present. Monitor for signs of volume overload and hypoxia. Chest x-ray likely in expiratory film. No obvious infiltrate or effusion. Cardiovascular: Maintain systolic blood pressures above 90. Hold antihypertensives. Currently on low doses of Levophed. Will start midodrine 5 mg, 3 times daily. History of mesenteric vein thrombosis. Xarelto on hold. Will start heparin drip without bolus. Gastrointestinal: Source of ascites unclear. Malignancy versus cirrhosis possible. Ascitic fluid from 06/29/2021 was negative for malignancy. Large volume ascites likely. Plan for radiology guided paracentesis on a nonurgent basis for symptomatic relief when off vasopressors. Esophageal stent in place. Tolerating PO diet. Renal: ADELSO possibly due to HRS versus ATN, improving. Urine output adequate. Potassium levels downtrending. Continue IV fluids. Abdominal ultrasound with no evidence of obstruction. Ascites seen. Appreciate nephrology consultation. Octreotide 100 mcg every 8 hours per nephrology. Infectious disease: Blood cultures and urine cultures obtained. Continue Zosyn. Hematologic: Hold Xarelto at this time. We will need to consider the initiation of heparin infusion given history of mesenteric thrombosis. Endocrine: Continue stress dose steroids for possible adrenal insufficiency. VTE prophylaxis: SCDs. Heparin gtt CODE STATUS: Full code Family at bedside: Disposition: ICU I have personally spent 35 minutes of critical care time in the direct management of this patient. This is a life/limb threatening event. This includes time spent evaluating patient, direct bedside care, chart review, placing orders, interpretation of diagnostic studies, discussion with consultants, patient, and family members, as well as other required patient management activities. This time is exclusive of all separately billable procedures, and teaching time and separate from and in addition to any other critical care service time. Thank you for allowing us to participate in the care of this patient. Admission and Anticipated Discharge Date Admission Date: August 03, 2021 Subjective Patient required low doses of Levophed via his Port-A-Cath to maintain systolic blood pressures over 90. He is mentating much better today and sitting up in bed. He is eating breakfast. He denies any complaints of pain. Review of Systems Review of Systems: All systems reviewed & are unremarkable except as noted in HPI & below Physical Exam Physical Exam: Constitutional: Chronically ill-appearing male in no apparent distress. Large carranza. Eyes: Pupils are equal round and reactive to light. Conjunctivae are normal. Anicteric sclera. Ears nose, mouth and throat: Mallampati class 2. Normal posterior oropharynx. Uvula is midline. Neck: Trachea is midline. Visual inspection is normal. Respiratory: Clear to auscultation bilaterally. No use of accessory muscles. No significant clubbing noted. Cardiovascular: Regular rate and rhythm. No murmurs. 1+ pitting edema in the lower extremities.Decreased capillary refill. Gastrointestinal: Positive fluid wave. Diminished bowel sounds. Nontender to palpation. Musculoskeletal: Diffusely weak. Skin: No rashes, warm dry and intact. Neurologic: No obvious focal neurological deficits seen. Psychiatric: Alert and oriented x3 with a euthymic affect. Results & Data Results & Data ([facility]) Vital Signs (Past 12 Hours) Vital Signs Temp Pulse Pulse Resp BP BP Pulse Ox 08/04/21 06:00 85 22 98/62 L 97 08/04/21 05:30 86 22 106/74 95 08/04/21 05:00 81 20 101/58 L 97 08/04/21 04:30 82 22 109/67 96 08/04/21 04:00 36.6 C 79 23 107/69 96 08/04/21 03:30 72 21 104/63 95 08/04/21 03:00 74 20 98/60 L 95 08/04/21 02:30 76 22 116/50 L 93 08/04/21 02:00 74 19 88/62 L 95 08/04/21 01:30 71 19 95/59 L 96 08/04/21 01:00 69 20 99/62 L 95 08/04/21 00:30 69 16 93/65 L 95 08/04/21 00:00 36.4 C L 81 18 99/45 L 97 08/03/21 23:30 63 18 101/64 97 08/03/21 23:00 78 15 103/62 97 08/03/21 22:30 59 L 16 88/54 L 94 08/03/21 22:00 70 14 86/58 L 95 08/03/21 21:30 55 L 24 83/55 L 93 08/03/21 21:15 77 17 83/53 L 96 08/03/21 21:00 58 L 20 91/55 L 96 08/03/21 20:45 62 17 89/55 L 95 08/03/21 20:30 62 17 76/47 L 94 08/03/21 20:15 59 L 20 79/50 L 94 Coding Level of Care Code Critical Care 1st 30-74 mins Diagnoses Hypotension (arterial) I95.9 Acute kidney injury N17.9 Abdominal ascites R18.8 Ascites type: other type Esophageal cancer C15.9 Malignant neoplasm of esophagus location: unspecified location Hyperkalemia E87.5 Time Spent (min) 35 (1) Abdominal ascites Ascites type: other type Qualified Code(s): R18.8 - Other ascites (2) Esophageal cancer Malignant neoplasm of esophagus location: unspecified location Qualified Code(s): C15.9 - Malignant neoplasm of esophagus, unspecified
[2021-08-04] MEDS: buPROPion XL 150 MG TABCR PO SCH (08:37)
[2021-08-04] MEDS: FERROUS SULFATE 325 MG TAB PO SCH (08:38)
[2021-08-04] MEDS: CALCIUM 600MG + VIT D 400 IU TAB PO SCH ×2 (08:38→20:15)
[2021-08-04] MEDS: DOCUSATE SODIUM 100 MG CAP PO SCH ×2 (08:38→08:42)
[2021-08-04] MEDS ORDERED: HEPARIN SOD (PORCINE) 1000 UNIT/ML ONE (08:47)
[2021-08-04] MEDS: HEPARIN SODIUM/DEXTROSE 25,000 UNITS/500 ML BAG IV SCH (08:48)
[2021-08-04 08:53] LABS: BUN Creatinine Ratio 24.3 (10-20); Calcium 7.4 mg/dl (8.5-10.1); Creatinine Clr Calc Pharmacy 27.5 ml/min; Est GFR (African American) 24.1 ml/min; Est GFR (Non-African American) 20.8 ml/min; Potassium 5.6 mmol/L (3.5-5.1)
[2021-08-04] MEDS ORDERED: DOCUSATE SODIUM 100 MG CAP PO SCH (09:00)
--- NOTE | 2021-08-04 10:01 | Nephrology Progress Note ---
Date of Service August 04, 2021 Assessment & Plan (1) Acute kidney injury: Plan: Non-oliguric -- improvement in UOP noted. Electrolytes improving. Following NaHCO3 infusion, NSS started overnight with 250 ml bolus followed by infusion at 125 ml/hr. Remains in an hourly positive fluid balance. Clinical presentation consistent with prerenal physiology and a component of possible ATN. Baseline creatinine had been 1.33 mg/dL on 07/20 and 1.74 mg/dL on 07/28. UA/microscopy: 5-10 WBC, 10-30 RBC. >30 hyaline casts. [place] <10. Ultrasound demonstrated normal appearing and unobstructed kidneys. HCO3 starting to trend down this AM. I would suggest transitioning away from NSS infusion this AM. Goal is to continue to encourage slightly positive fluid balance but avoid excess chloride. Obligatory intake is high. As BP improving, consider switching from NSS to IV albumin. I would suggest continued aggressive therapy for HRS. In additional to octreotide started yesterday evening and Levophed (transitioned to midodrine as tolerated), consider IV albumin ~25 grams q 6-8 hours. For BP support, MAP goal remains >65. I would suggest holding midodrine for now while on Levophed gtt, pending an additional dose of Patiromer for hyperkalemia. Thankfully, hyperkalemia is improving and there is no emergent indication for dialysis at this time. Medications are appropriately dosed for kidney dysfunction. (2) Hyperkalemia: Plan: Patiromer 8.4 grams + SPS 30 grams provided overnight. Additional 8.4 grams Veltassa to be provided this morning. Thankfully, urine output is improving. No acute EKG changes noted. (3) Hypotension (arterial): Plan: ICU consult appreciated. No obvious source of infection. Blood and urine cultures pending. Consider diagnostic paracentesis to r/o SBP. (4) Hyponatremia: Plan: Acute on chronic. Relatively asymptomatic. Increased TBW but decreased EAV associated with liver disease and ascites. Oral solute intake has been reduced. Serum sodium did improve with IV hydration. Close monitoring will be required. (5) Abdominal ascites: Plan: Consider diagnostic paracentesis to r/o SBP. MELD 30. (6) Hypoalbuminemia: (7) Esophageal cancer: Admission and Anticipated Discharge Date Admission Date: August 03, 2021 Subjective No acute events overnight. Levophed gtt weaned to 0.08. Urine output 250 ml overnight. Jordan intact. No fevers or chills. Blood cultures pending. Overall, Everardo feels reasonably well this morning. He denies pain. He is breathing comfortably. Appetite fair. No GI symptoms. Obligatory intake approaching 200 ml/hr with IV NSS infusing at 125 ml/hr + heparin gtt + Levophed + antibiotic currently infusing. Review of Systems Review of Systems: All systems reviewed & are unremarkable except as noted in HPI & below Physical Exam Constitutional: + ill appearing and + frail appearing; no acute distress ENMT: Mouth: + dry oral mucous membranes Neck: normal visual inspection and trachea midline Respiratory: normal respiratory effort Auscultation: lungs clear to auscultation bilaterally Cardiovascular: Rate/Rhythm: + bradycardic Heart Sounds: normal S1 and normal S2 Extremities: + edema Gastrointestinal (Abdomen): Inspection/Auscultation: + abdomen distended Percussion/Palpation: + ascites; abdomen nontender Musculoskeletal: Extremities: no cyanosis and no clubbing Skin: + turgor decreased; no jaundice Neurologic: Motor/Sensory: no tremor and no asterixis Results & Data ([facility]) Vital Signs (Past 12 Hours) Vital Signs Temp Pulse Pulse Resp BP BP Pulse Ox 08/04/21 08:00 86 23 08/04/21 07:30 36.5 C 83 25 H 08/04/21 07:00 74 20 97/66 L 96 08/04/21 06:00 85 22 98/62 L 97 08/04/21 05:30 86 22 106/74 95 08/04/21 05:00 81 20 101/58 L 97 08/04/21 04:30 82 22 109/67 96 08/04/21 04:00 36.6 C 79 23 107/69 96 08/04/21 03:30 72 21 104/63 95 08/04/21 03:00 74 20 98/60 L 95 08/04/21 02:30 76 22 116/50 L 93 08/04/21 02:00 74 19 88/62 L 95 08/04/21 01:30 71 19 95/59 L 96 08/04/21 01:00 69 20 99/62 L 95 08/04/21 00:30 69 16 93/65 L 95 08/04/21 00:00 36.4 C L 81 18 99/45 L 97 08/03/21 23:30 63 18 101/64 97 08/03/21 23:00 78 15 103/62 97 08/03/21 22:30 59 L 16 88/54 L 94 08/03/21 22:00 70 14 86/58 L 95 Laboratory Results Laboratory Results - last 24 hr 08/03/21 08/03/21 08/03/21 12:00 12:00 12:00 WBC 16.99 H RBC 3.89 L Hgb 12.9 L Hct 38.5 L MCV 99.0 MCH 33.2 MCHC 33.5 RDW Std Deviation 62.4 H RDW Coeff of Macario 17.5 H Plt Count 207 MPV 10.7 H Immature Gran % (Auto) 1.4 Neut % (Auto) 82.5 Lymph % (Auto) 7.4 [place] % (Auto) 8.2 Eos % (Auto) 0.4 Baso % (Auto) 0.1 Neut # (Auto) 14.01 H Lymph # (Auto) 1.25 [place] # (Auto) 1.40 H Eos # (Auto) 0.07 Baso # (Auto) 0.02 Immature Gran # (Auto) 0.24 H Absolute Nucleated RBC 0.06 H Nucleated RBC % (auto) 0.4 VBG pH VBG pCO2 VBG pO2 VBG HCO3 VBG O2 Saturation VBG Base Excess Barometric Pressure Sodium 123 L Potassium 6.4 H* Chloride 97 L Carbon Dioxide 19 L Anion Gap 7 BUN 75 H Creatinine 3.51 H Est Cr Clr Drug Dosing 22.7 Est GFR ( Amer) 20.0 Est GFR (Non-Af Amer) 17.2 BUN/Creatinine Ratio 21.4 H Glucose 101 H POC Glucose Osmolality Lactate Calcium 8.7 Phosphorus 4.0 Magnesium 3.1 H Total Bilirubin 0.7 Direct Bilirubin AST 25 ALT 36 Alkaline Phosphatase 135 H Troponin I < 0.03 Total Protein 5.3 L Albumin 2.4 L Globulin 2.9 Albumin/Globulin Ratio 0.8 L Procalcitonin 0.38 Random Cortisol Urine Color Urine Appearance Urine pH Ur Specific Broadbent Urine Protein Urine Glucose (UA) Urine Ketones Urine Blood Urine Nitrite Urine Bilirubin Urine Urobilinogen Ur Leukocyte Esterase Urine WBC (Auto) Urine RBC (Auto) U Hyaline Cast (Auto) U Epithel Cells (Auto) Urine Bacteria (Auto) Ur Renal Epithelial Cell Urine Osmolality Ur Random Sodium Nasal Screen MRSA (PCR) 08/03/21 08/03/21 08/03/21 12:00 15:42 15:42 WBC RBC Hgb Hct MCV MCH MCHC RDW Std Deviation RDW Coeff of Macario Plt Count MPV Immature Gran % (Auto) Neut % (Auto) Lymph % (Auto) [place] % (Auto) Eos % (Auto) Baso % (Auto) Neut # (Auto) Lymph # (Auto) [place] # (Auto) Eos # (Auto) Baso # (Auto) Immature Gran # (Auto) Absolute Nucleated RBC Nucleated RBC % (auto) VBG pH VBG pCO2 VBG pO2 VBG HCO3 VBG O2 Saturation VBG Base Excess Barometric Pressure Sodium 125 L Potassium 6.6 H* Chloride 96 L Carbon Dioxide 21 Anion Gap 8 BUN 74 H Creatinine 3.44 H Est Cr Clr Drug Dosing 23.2 Est GFR ( Amer) 20.5 Est GFR (Non-Af Amer) 17.7 BUN/Creatinine Ratio 21.5 H Glucose 92 POC Glucose Osmolality 301 H Lactate 3.4 H* Calcium 8.3 L Phosphorus Magnesium Total Bilirubin Direct Bilirubin AST ALT Alkaline Phosphatase Troponin I Total Protein Albumin Globulin Albumin/Globulin Ratio Procalcitonin Random Cortisol Urine Color Urine Appearance Urine pH Ur Specific Broadbent Urine Protein Urine Glucose (UA) Urine Ketones Urine Blood Urine Nitrite Urine Bilirubin Urine Urobilinogen Ur Leukocyte Esterase Urine WBC (Auto) Urine RBC (Auto) U Hyaline Cast (Auto) U Epithel Cells (Auto) Urine Bacteria (Auto) Ur Renal Epithelial Cell Urine Osmolality Ur Random Sodium Nasal Screen MRSA (PCR) 08/03/21 08/03/21 08/03/21 16:33 17:44 19:32 WBC RBC Hgb Hct MCV MCH MCHC RDW Std Deviation RDW Coeff of Macario Plt Count MPV Immature Gran % (Auto) Neut % (Auto) Lymph % (Auto) [place] % (Auto) Eos % (Auto) Baso % (Auto) Neut # (Auto) Lymph # (Auto) [place] # (Auto) Eos # (Auto) Baso # (Auto) Immature Gran # (Auto) Absolute Nucleated RBC Nucleated RBC % (auto) VBG pH VBG pCO2 VBG pO2 VBG HCO3 VBG O2 Saturation VBG Base Excess Barometric Pressure Sodium Potassium Chloride Carbon Dioxide Anion Gap BUN Creatinine Est Cr Clr Drug Dosing Est GFR ( Amer) Est GFR (Non-Af Amer) BUN/Creatinine Ratio Glucose POC Glucose Osmolality Lactate 3.0 H* Calcium Phosphorus Magnesium Total Bilirubin Direct Bilirubin AST ALT Alkaline Phosphatase Troponin I Total Protein Albumin Globulin Albumin/Globulin Ratio Procalcitonin Random Cortisol > 60.00 Urine Color Dark Yellow Urine Appearance Clear Urine pH 5.0 Ur Specific Broadbent 1.024 Urine Protein Negative Urine Glucose (UA) Negative Urine Ketones Trace H Urine Blood Trace H Urine Nitrite Negative Urine Bilirubin 1+ H Urine Urobilinogen Negative Ur Leukocyte Esterase Negative Urine WBC (Auto) 5-10 H Urine RBC (Auto) 10-30 H U Hyaline Cast (Auto) >30 H U Epithel Cells (Auto) >30 H Urine Bacteria (Auto) Negative Ur Renal Epithelial Cell Not Reportable Urine Osmolality Ur Random Sodium Nasal Screen MRSA (PCR) 08/03/21 08/03/21 08/03/21 19:33 20:00 20:05 WBC RBC Hgb Hct MCV MCH MCHC RDW Std Deviation RDW Coeff of Macario Plt Count MPV Immature Gran % (Auto) Neut % (Auto) Lymph % (Auto) [place] % (Auto) Eos % (Auto) Baso % (Auto) Neut # (Auto) Lymph # (Auto) [place] # (Auto) Eos # (Auto) Baso # (Auto) Immature Gran # (Auto) Absolute Nucleated RBC Nucleated RBC % (auto) VBG pH VBG pCO2 VBG pO2 VBG HCO3 VBG O2 Saturation VBG Base Excess Barometric Pressure Sodium 125 L Potassium 6.0 H Chloride 97 L Carbon Dioxide 21 Anion Gap 7 BUN 74 H Creatinine 3.38 H Est Cr Clr Drug Dosing 24.2 Est GFR ( Amer) 20.9 Est GFR (Non-Af Amer) 18.0 BUN/Creatinine Ratio 21.9 H Glucose 55 L POC Glucose 82 Osmolality Lactate Calcium 8.8 Phosphorus Magnesium Total Bilirubin Direct Bilirubin AST ALT Alkaline Phosphatase Troponin I Total Protein Albumin Globulin Albumin/Globulin Ratio Procalcitonin Random Cortisol Urine Color Urine Appearance Urine pH Ur Specific Broadbent Urine Protein Urine Glucose (UA) Urine Ketones Urine Blood Urine Nitrite Urine Bilirubin Urine Urobilinogen Ur Leukocyte Esterase Urine WBC (Auto) Urine RBC (Auto) U Hyaline Cast (Auto) U Epithel Cells (Auto) Urine Bacteria (Auto) Ur Renal Epithelial Cell Urine Osmolality Ur Random Sodium Nasal Screen MRSA (PCR) Negative 08/03/21 08/03/21 08/04/21 20:15 20:15 02:24 WBC 15.75 H RBC 3.53 L Hgb 11.7 L Hct 34.5 L MCV 97.7 MCH 33.1 MCHC 33.9 RDW Std Deviation 61.4 H RDW Coeff of Macario 17.4 H Plt Count 202 MPV 10.5 H Immature Gran % (Auto) 1.1 Neut % (Auto) 91.5 Lymph % (Auto) 4.3 [place] % (Auto) 3.0 Eos % (Auto) 0.0 Baso % (Auto) 0.1 Neut # (Auto) 14.41 H Lymph # (Auto) 0.68 L [place] # (Auto) 0.47 Eos # (Auto) 0.00 Baso # (Auto) 0.01 Immature Gran # (Auto) 0.18 H Absolute Nucleated RBC Nucleated RBC % (auto) VBG pH VBG pCO2 VBG pO2 VBG HCO3 VBG O2 Saturation VBG Base Excess Barometric Pressure Sodium Potassium Chloride Carbon Dioxide Anion Gap BUN Creatinine Est Cr Clr Drug Dosing Est GFR ( Amer) Est GFR (Non-Af Amer) BUN/Creatinine Ratio Glucose POC Glucose Osmolality Lactate Calcium Phosphorus Magnesium Total Bilirubin Direct Bilirubin AST ALT Alkaline Phosphatase Troponin I Total Protein Albumin Globulin Albumin/Globulin Ratio Procalcitonin Random Cortisol Urine Color Urine Appearance Urine pH Ur Specific Broadbent Urine Protein Urine Glucose (UA) Urine Ketones Urine Blood Urine Nitrite Urine Bilirubin Urine Urobilinogen Ur Leukocyte Esterase Urine WBC (Auto) Urine RBC (Auto) U Hyaline Cast (Auto) U Epithel Cells (Auto) Urine Bacteria (Auto) Ur Renal Epithelial Cell Urine Osmolality 430 L Ur Random Sodium < 10 Nasal Screen MRSA (PCR) 08/04/21 08/04/21 08/04/21 02:24 02:24 02:24 WBC RBC Hgb Hct MCV MCH MCHC RDW Std Deviation RDW Coeff of Macario Plt Count MPV Immature Gran % (Auto) Neut % (Auto) Lymph % (Auto) [place] % (Auto) Eos % (Auto) Baso % (Auto) Neut # (Auto) Lymph # (Auto) [place] # (Auto) Eos # (Auto) Baso # (Auto) Immature Gran # (Auto) Absolute Nucleated RBC Nucleated RBC % (auto) VBG pH 7.45 H VBG pCO2 34 L VBG pO2 40 VBG HCO3 23 VBG O2 Saturation 74.8 VBG Base Excess -0.2 Barometric Pressure 734.8 Sodium 123 L Potassium 6.0 H Chloride 94 L Carbon Dioxide 21 Anion Gap 8 BUN 70 H Creatinine 2.98 H D Est Cr Clr Drug Dosing 27.4 Est GFR ( Amer) 24.3 Est GFR (Non-Af Amer) 21.0 BUN/Creatinine Ratio 23.5 H Glucose 141 H POC Glucose Osmolality Lactate 1.8 Calcium 8.6 Phosphorus 4.3 Magnesium 2.9 H Total Bilirubin 1.1 H D Direct Bilirubin 0.3 H AST 27 ALT 35 Alkaline Phosphatase 112 H Troponin I Total Protein 5.2 L Albumin 2.6 L Globulin Albumin/Globulin Ratio Procalcitonin Random Cortisol Urine Color Urine Appearance Urine pH Ur Specific Broadbent Urine Protein Urine Glucose (UA) Urine Ketones Urine Blood Urine Nitrite Urine Bilirubin Urine Urobilinogen Ur Leukocyte Esterase Urine WBC (Auto) Urine RBC (Auto) U Hyaline Cast (Auto) U Epithel Cells (Auto) Urine Bacteria (Auto) Ur Renal Epithelial Cell Urine Osmolality Ur Random Sodium Nasal Screen MRSA (PCR) 08/04/21 08:25 WBC RBC Hgb Hct MCV MCH MCHC RDW Std Deviation RDW Coeff of Macario Plt Count MPV Immature Gran % (Auto) Neut % (Auto) Lymph % (Auto) [place] % (Auto) Eos % (Auto) Baso % (Auto) Neut # (Auto) Lymph # (Auto) [place] # (Auto) Eos # (Auto) Baso # (Auto) Immature Gran # (Auto) Absolute Nucleated RBC Nucleated RBC % (auto) VBG pH VBG pCO2 VBG pO2 VBG HCO3 VBG O2 Saturation VBG Base Excess Barometric Pressure Sodium 124 L Potassium 5.6 H Chloride 97 L Carbon Dioxide 20 L Anion Gap 7 BUN 73 H Creatinine 3.00 H Est Cr Clr Drug Dosing 27.5 Est GFR ( Amer) 24.1 Est GFR (Non-Af Amer) 20.8 BUN/Creatinine Ratio 24.3 H Glucose 186 H POC Glucose Osmolality Lactate Calcium 7.4 L Phosphorus Magnesium Total Bilirubin Direct Bilirubin AST ALT Alkaline Phosphatase Troponin I Total Protein Albumin Globulin Albumin/Globulin Ratio Procalcitonin Random Cortisol Urine Color Urine Appearance Urine pH Ur Specific Broadbent Urine Protein Urine Glucose (UA) Urine Ketones Urine Blood Urine Nitrite Urine Bilirubin Urine Urobilinogen Ur Leukocyte Esterase Urine WBC (Auto) Urine RBC (Auto) U Hyaline Cast (Auto) U Epithel Cells (Auto) Urine Bacteria (Auto) Ur Renal Epithelial Cell Urine Osmolality Ur Random Sodium Nasal Screen MRSA (PCR) PG Care Time/CCT Total # of Minutes Spent Total Time Spent with Patient: Total time spent is greater than 50% in coordination of care (as documented) at patient's floor/unit and/or counseling patient: Coding Level of Care Code 99354 Subseq Hosp Care Lvl 3 Diagnoses Acute kidney injury N17.9 Hyperkalemia E87.5 Hypotension (arterial) I95.9 Hyponatremia E87.1 Abdominal ascites R18.8 Ascites type: other type Hypoalbuminemia E88.09 Esophageal cancer C15.9 Malignant neoplasm of esophagus location: unspecified location (1) Abdominal ascites Ascites type: other type Qualified Code(s): R18.8 - Other ascites (2) Esophageal cancer Malignant neoplasm of esophagus location: unspecified location Qualified Code(s): C15.9 - Malignant neoplasm of esophagus, unspecified
[2021-08-04] MEDS: NOREPINEPHRINE/D5W 8 MG/508 ML BAG IV SCH (10:20)
[2021-08-04] MEDS ORDERED: PATIROMER CALCIUM SORBITEX 8.4 GM PACK PO SCH (11:00)
[2021-08-04] MEDS: ALBUMIN 25% 100 mL 25 GM/100 ML VIAL IV SCH ×2 (11:30→17:23)
--- NOTE | 2021-08-04 12:52 | Electrocardiogram Report ---
Test Reason : Blood Pressure : / mmHG Vent. Rate : 071 BPM Atrial Rate : 071 BPM P-R Int : 186 ms QRS Dur : 070 ms QT Int : 414 ms P-R-T Axes : 019 008 067 degrees QTc Int : 449 ms Poor data quality, interpretation may be adversely affected Normal sinus rhythm Low voltage QRS Cannot rule out Anteroseptal infarct (cited on or before 22-JUN-2021) Abnormal ECG When compared with ECG of 13-JUL-2021 15:20, No significant change was found Confirmed by Isaiah Dewitt ([id number]) on 08/04/2021 12:52:36 PM Referred By: Keith Carrasquillo Confirmed By:Isaiah Dewitt
--- NOTE | 2021-08-04 13:24 | Electrocardiogram Report ---
Test Reason : Blood Pressure : / mmHG Vent. Rate : 072 BPM Atrial Rate : 072 BPM P-R Int : 172 ms QRS Dur : 084 ms QT Int : 440 ms P-R-T Axes : 008 008 047 degrees QTc Int : 481 ms Normal sinus rhythm Low voltage QRS Septal infarct (cited on or before 22-JUN-2021) Abnormal ECG When compared with ECG of 03-AUG-2021 11:51, (unconfirmed) No significant change Confirmed by Isaiah Dewitt ([id number]) on 08/04/2021 1:23:51 PM Referred By: Keith Carrasquillo Confirmed By:Isaiah Dewitt
[2021-08-04] MEDS: MIDODRINE HCL 2.5 MG TAB PO SCH ×2 (14:03→20:14)
[2021-08-04 15:12] LABS: BUN Creatinine Ratio 23.5 (10-20); Calcium 8.4 mg/dl (8.5-10.1); Creatinine Clr Calc Pharmacy 26.9 ml/min; Est GFR (African American) 23.6 ml/min; Est GFR (Non-African American) 20.3 ml/min; Potassium 5.2 mmol/L (3.5-5.1)
[2021-08-04] MEDS: cefTRIAXone SODIUM 2,000 MG in DEXTROSE 5% 50 ML IV SCH (16:29)
[2021-08-04 17:39] LABS: Partial Thromboplastin Time > 139.0 Seconds (21.0-31.0)
[2021-08-04 17:40] LABS: Partial Thromboplastin Ratio > 5.1
[2021-08-04 19:19] LABS: Partial Thromboplastin Ratio > 5.1
[2021-08-04 19:21] LABS: Partial Thromboplastin Time > 139.0 Seconds (21.0-31.0)
--- NOTE | 2021-08-04 19:44 | Hospitalist Progress Note ---
Date of Service August 04, 2021 Assessment & Plan (1) Hypotension (arterial): Plan: Hypovolemic in the setting of cirrhosis/severe 3rd spacing vs addisonian vs septic. Defer fluid/colloid management to nephrology & buggyman. Remains on IV antibiotics with cultures pending. Remains on stress dose IV hydrocortisone. Remains on low-dose levophed for BP support. Due to concern of possible HRS midodrine & octreotide were initiated today. BPs improved with the above measures. (2) Acute kidney injury: Plan: Pre-renal etiology suspected. Urine Na <10. ATN vs HRS vs other vs combo of factors. Renal u/s without obstruction. Creatinine modestly improved with supportive measures as listed in #1 above. Defer fluid/colloid management to nephrology/buggyman. Serial BMPs. (3) Hyponatremia: Plan: 2nd to #2, decreased solute intake, etc. Serial BMPs. As he has received more & more hydration his Na level has decreased. Thus, isotonic fluids have been d/c and colloid in the form of albumin has been started. If he indeed has HRS hopefully the albumin/octreotide/midodrine will help both his renal function & sodium. (4) Abdominal ascites: Plan: Recent SAAG was calculated in the setting of his last paracentesis. SAAG = 1.3 c/w portal HTN. Cytologies negative for malignant cells. Pt reports he was told years ago he had fatty liver; thus, he may have HOFFMAN. He denies any prolonged, heavy use of etoh. No prior h/o infectious hepatitis. His ascites is worsening with saline administration - this has been stopped. Would benefit from diagnostic/therapeutic paracentesis when safe to do so. In meantime, remains on abx for sepsis coverage/SBP coverage (was on zosyn - changed to rocephin by ICU attending today). Diuretics on hold due to the above issues. (5) Mesenteric vein thrombosis: Plan: Patient has a history of mesenteric vein thrombosis which was diagnosed 2020. Previously treated with xarelto. This is being held. Drone Pilot has placed on heparin infusion in [place] of the xarelto. (6) BPH (benign prostatic hyperplasia): Plan: Use finasteride in [place] of dutasteride. Hold flomax due to #1. Jordan in place. (7) Esophageal cancer: Plan: Patient sees Dr. Yesica Carrasquillo for his esophageal cancer. s/p esophageal stent in the past. Is on Opdivo therapy at home. No evidence of any upper GI bleed at this time. (8) DVT prophylaxis: Plan: Heparin infusion. (9) Cirrhosis: Plan: See abdominal ascites above. (10) Hyperkalemia: Plan: s/p Patiromer multiple doses. s/p Bicarbonate infusion. 2nd to ADELSO. slowly improving. serial BMPs. (11) GERD (gastroesophageal reflux disease): Plan: pepcid daily Admission and Anticipated Discharge Date Admission Date: August 03, 2021 Subjective pt sitting in chair comfortably he states he feels better than when he first was admitted denies any dyspnea denies any chest pain denies abd pain but is bloated and states "I bet the fluid is coming back" fair appetite no dizziness at rest events of last 24 hours noted Review of Systems Review of Systems: gen - no fevers or chills cv - no cp pulm - no cough GI - no nausea or emesis Physical Exam Physical Exam: gen - NAD, pleasant skin - no rash, mild pallor neck - no JVD mouth - no lesions heart - RRR, s1 s2 lungs - decreased BS bases, no wheeze, no increased work of breathing abd - distended with ascites, no HSM, BS+, NT ext - at least 2+ edema b/l, pulses 2+ b/l Results & Data Results & Data ([facility]) Vital Signs (Past 12 Hours) Vital Signs Temp Pulse Resp BP Pulse Ox 08/04/21 17:30 90 28 H 106/73 91 08/04/21 17:00 94 H 15 92 08/04/21 16:30 86 31 H 105/73 98 08/04/21 16:24 36.4 C L 08/04/21 16:01 80 18 93/72 L 96 08/04/21 16:00 76 29 H 99 08/04/21 15:30 81 25 H 106/84 99 08/04/21 15:01 20 106/77 96 08/04/21 15:00 83 21 95 08/04/21 14:30 74 26 H 97/73 L 97 08/04/21 14:00 77 26 H 110/77 99 08/04/21 13:30 82 23 96/70 L 97 08/04/21 13:00 76 24 103/76 97 08/04/21 12:30 81 26 H 97/66 L 100 08/04/21 12:00 75 26 H 99/72 L 99 08/04/21 11:32 79 18 109/77 97 08/04/21 11:30 148 H 17 97 08/04/21 11:24 36.7 C 76 36 H 98/67 L 98 08/04/21 11:05 80 08/04/21 10:00 71 17 100/71 96 08/04/21 09:30 69 25 H 106/69 98 08/04/21 09:00 73 31 H 98/61 L 98 08/04/21 08:30 70 20 96 08/04/21 08:18 76 22 86/55 L 96 08/04/21 08:00 86 23 Laboratory Results Laboratory Results - last 24 hr 08/03/21 08/03/21 08/03/21 19:32 19:33 20:00 WBC RBC Hgb Hct MCV MCH MCHC RDW Std Deviation RDW Coeff of Macario Plt Count MPV Immature Gran % (Auto) Neut % (Auto) Lymph % (Auto) [place] % (Auto) Eos % (Auto) Baso % (Auto) Neut # (Auto) Lymph # (Auto) [place] # (Auto) Eos # (Auto) Baso # (Auto) Immature Gran # (Auto) APTT PTT Ratio VBG pH VBG pCO2 VBG pO2 VBG HCO3 VBG O2 Saturation VBG Base Excess Barometric Pressure Sodium 125 L Potassium 6.0 H Chloride 97 L Carbon Dioxide 21 Anion Gap 7 BUN 74 H Creatinine 3.38 H Est Cr Clr Drug Dosing 24.2 Est GFR ( Amer) 20.9 Est GFR (Non-Af Amer) 18.0 BUN/Creatinine Ratio 21.9 H Glucose 55 L POC Glucose Lactate Calcium 8.8 Phosphorus Magnesium Total Bilirubin Direct Bilirubin AST ALT Alkaline Phosphatase Total Protein Albumin Random Cortisol > 60.00 Urine Osmolality Ur Random Sodium Nasal Screen MRSA (PCR) Negative 08/03/21 08/03/21 08/03/21 20:05 20:15 20:15 WBC RBC Hgb Hct MCV MCH MCHC RDW Std Deviation RDW Coeff of Macario Plt Count MPV Immature Gran % (Auto) Neut % (Auto) Lymph % (Auto) [place] % (Auto) Eos % (Auto) Baso % (Auto) Neut # (Auto) Lymph # (Auto) [place] # (Auto) Eos # (Auto) Baso # (Auto) Immature Gran # (Auto) APTT PTT Ratio VBG pH VBG pCO2 VBG pO2 VBG HCO3 VBG O2 Saturation VBG Base Excess Barometric Pressure Sodium Potassium Chloride Carbon Dioxide Anion Gap BUN Creatinine Est Cr Clr Drug Dosing Est GFR ( Amer) Est GFR (Non-Af Amer) BUN/Creatinine Ratio Glucose POC Glucose 82 Lactate Calcium Phosphorus Magnesium Total Bilirubin Direct Bilirubin AST ALT Alkaline Phosphatase Total Protein Albumin Random Cortisol Urine Osmolality 430 L Ur Random Sodium < 10 Nasal Screen MRSA (PCR) 08/04/21 08/04/21 08/04/21 02:24 02:24 02:24 WBC 15.75 H RBC 3.53 L Hgb 11.7 L Hct 34.5 L MCV 97.7 MCH 33.1 MCHC 33.9 RDW Std Deviation 61.4 H RDW Coeff of Macario 17.4 H Plt Count 202 MPV 10.5 H Immature Gran % (Auto) 1.1 Neut % (Auto) 91.5 Lymph % (Auto) 4.3 [place] % (Auto) 3.0 Eos % (Auto) 0.0 Baso % (Auto) 0.1 Neut # (Auto) 14.41 H Lymph # (Auto) 0.68 L [place] # (Auto) 0.47 Eos # (Auto) 0.00 Baso # (Auto) 0.01 Immature Gran # (Auto) 0.18 H APTT PTT Ratio VBG pH 7.45 H VBG pCO2 34 L VBG pO2 40 VBG HCO3 23 VBG O2 Saturation 74.8 VBG Base Excess -0.2 Barometric Pressure 734.8 Sodium 123 L Potassium 6.0 H Chloride 94 L Carbon Dioxide 21 Anion Gap 8 BUN 70 H Creatinine 2.98 H D Est Cr Clr Drug Dosing 27.4 Est GFR ( Amer) 24.3 Est GFR (Non-Af Amer) 21.0 BUN/Creatinine Ratio 23.5 H Glucose 141 H POC Glucose Lactate Calcium 8.6 Phosphorus 4.3 Magnesium 2.9 H Total Bilirubin 1.1 H D Direct Bilirubin 0.3 H AST 27 ALT 35 Alkaline Phosphatase 112 H Total Protein 5.2 L Albumin 2.6 L Random Cortisol Urine Osmolality Ur Random Sodium Nasal Screen MRSA (PCR) 08/04/21 08/04/21 08/04/21 02:24 08:25 14:31 WBC RBC Hgb Hct MCV MCH MCHC RDW Std Deviation RDW Coeff of Macario Plt Count MPV Immature Gran % (Auto) Neut % (Auto) Lymph % (Auto) [place] % (Auto) Eos % (Auto) Baso % (Auto) Neut # (Auto) Lymph # (Auto) [place] # (Auto) Eos # (Auto) Baso # (Auto) Immature Gran # (Auto) APTT PTT Ratio VBG pH VBG pCO2 VBG pO2 VBG HCO3 VBG O2 Saturation VBG Base Excess Barometric Pressure Sodium 124 L 122 L Potassium 5.6 H 5.2 H Chloride 97 L 94 L Carbon Dioxide 20 L 18 L Anion Gap 7 10 BUN 73 H 72 H Creatinine 3.00 H 3.06 H Est Cr Clr Drug Dosing 27.5 26.9 Est GFR ( Amer) 24.1 23.6 Est GFR (Non-Af Amer) 20.8 20.3 BUN/Creatinine Ratio 24.3 H 23.5 H Glucose 186 H 192 H POC Glucose Lactate 1.8 Calcium 7.4 L 8.4 L Phosphorus Magnesium Total Bilirubin Direct Bilirubin AST ALT Alkaline Phosphatase Total Protein Albumin Random Cortisol Urine Osmolality Ur Random Sodium Nasal Screen MRSA (PCR) 08/04/21 08/04/21 08/04/21 14:31 16:57 18:35 WBC RBC Hgb Hct MCV MCH MCHC RDW Std Deviation RDW Coeff of Macario Plt Count MPV Immature Gran % (Auto) Neut % (Auto) Lymph % (Auto) [place] % (Auto) Eos % (Auto) Baso % (Auto) Neut # (Auto) Lymph # (Auto) [place] # (Auto) Eos # (Auto) Baso # (Auto) Immature Gran # (Auto) APTT Cancelled > 139.0 H* > 139.0 H* PTT Ratio Cancelled > 5.1 > 5.1 VBG pH VBG pCO2 VBG pO2 VBG HCO3 VBG O2 Saturation VBG Base Excess Barometric Pressure Sodium Potassium Chloride Carbon Dioxide Anion Gap BUN Creatinine Est Cr Clr Drug Dosing Est GFR ( Amer) Est GFR (Non-Af Amer) BUN/Creatinine Ratio Glucose POC Glucose Lactate Calcium Phosphorus Magnesium Total Bilirubin Direct Bilirubin AST ALT Alkaline Phosphatase Total Protein Albumin Random Cortisol Urine Osmolality Ur Random Sodium Nasal Screen MRSA (PCR) Diagnostic Findings blood cultures negative to date PG Care Time/CCT Total # of Minutes Spent Total Time Spent with Patient: Total time spent is greater than 50% in coordination of care (as documented) at patient's floor/unit and/or counseling patient: Coding Level of Care Code 95453 Subseq Hosp Care Lvl 1 Diagnoses Hypotension (arterial) I95.9 Acute kidney injury N17.9 Hyponatremia E87.1 Abdominal ascites R18.8 Ascites type: other type Mesenteric vein thrombosis K55.069 BPH (benign prostatic hyperplasia) N40.0 Esophageal cancer C15.9 Malignant neoplasm of esophagus location: unspecified location DVT prophylaxis Z29.9 Cirrhosis K74.60 Hyperkalemia E87.5 GERD (gastroesophageal reflux disease) K21.9 (1) Abdominal ascites Ascites type: other type Qualified Code(s): R18.8 - Other ascites (2) Esophageal cancer Malignant neoplasm of esophagus location: unspecified location Qualified Code(s): C15.9 - Malignant neoplasm of esophagus, unspecified
[2021-08-04 20:12] LABS: BUN Creatinine Ratio 22.8 (10-20); Calcium 8.8 mg/dl (8.5-10.1); Creatinine Clr Calc Pharmacy 26.1 ml/min; Est GFR (African American) 22.7 ml/min; Est GFR (Non-African American) 19.6 ml/min; Potassium 5.1 mmol/L (3.5-5.1)
[2021-08-04] MEDS: SODIUM BICARBONATE 650 MG TAB PO SCH (20:12)
[2021-08-04 20:25] LABS: Partial Thromboplastin Ratio > 5.1
[2021-08-04 20:37] LABS: Partial Thromboplastin Time > 139.0 Seconds (21.0-31.0)
[2021-08-04] MEDS: FAMOTIDINE 40 MG TABLET PO SCH (20:37)
[2021-08-04 22:16] LABS: Partial Thromboplastin Ratio 3.4
[2021-08-04 22:38] LABS: Partial Thromboplastin Time 93.1 Seconds (21.0-31.0)
[2021-08-05] MEDS: HYDROCORTISONE 50 MG *12cc Syringe IV SCH ×2 (00:07→04:52)
[2021-08-05] MEDS: ALBUMIN 25% 100 mL 25 GM/100 ML VIAL IV SCH ×5 (00:07→23:29)
[2021-08-05] MEDS: oxyCODONE HCL IR 5 MG TAB (IMMEDIATE RELEASE) PO PRN ×2 (00:16→14:55)
[2021-08-05] MEDS ORDERED: ALBUMIN 5% 250 ML IV ONE (04:32)
[2021-08-05] MEDS: OCTREOTIDE ACETATE 100 MCG/ML VIAL SQ SCH ×3 (04:48→20:50)
[2021-08-05 05:27] LABS: Hematocrit (blood only) 27.7 % (42-52); Hemoglobin 9.4 g/dL (14.0-18.0); Immature Granulocytes # (auto) 0.04 K/uL (0.00-0.02); Immature Granulocytes % (auto) 0.5 %; Lymphocytes # (auto) 0.55 K/uL (1.2-3.4); Lymphocytes % (auto) 7.3 %; Mean Corpuscular Hemoglobin 33.6 pg (25-34); Mean Corpuscular Hgb Conc 33.9 g/dL (32-36); Mean Corpuscular Volume 98.9 fL (80-100); Mean Platelet Volume 10.4 fL (7.4-10.4); Monocytes # (auto) 0.81 K/uL (0.11-0.59); Monocytes % (auto) 10.7 %; Neutrophils # (auto) 6.15 K/uL (1.4-6.5); Neutrophils % (auto) 81.5 %; Platelet Count 108 K/uL (130-400); RDW Coefficient of Variation 17.3 % (11.5-14.5); RDW Standard Deviation 61.1 fL (36.4-46.3); White Blood Count 7.55 K/uL (4.8-10.8)
[2021-08-05 05:58] LABS: Partial Thromboplastin Ratio > 5.1
[2021-08-05 06:02] LABS: Albumin Level 3.1 gm/dl (3.4-5.0); BUN Creatinine Ratio 27.2 (10-20); Bilirubin Direct 0.2 mg/dl (0-0.2); Bilirubin,Total 0.6 mg/dl (0.2-1.0); Calcium 8.6 mg/dl (8.5-10.1); Creatinine Clr Calc Pharmacy 30.8 ml/min; Est GFR (African American) 27.7 ml/min; Est GFR (Non-African American) 23.9 ml/min; Magnesium 2.8 mg/dl (1.7-2.4); Phosphorus 5.4 mg/dl (2.5-4.9); Potassium 4.9 mmol/L (3.5-5.1); Total Protein 5.1 gm/dl (6.0-8.3)
[2021-08-05 06:24] LABS: Partial Thromboplastin Time > 139.0 Seconds (21.0-31.0)
[2021-08-05] MEDS: MIDODRINE HCL 2.5 MG TAB PO SCH ×3 (07:59→17:01)
[2021-08-05] MEDS: FERROUS SULFATE 325 MG TAB PO SCH (08:00)
[2021-08-05] MEDS: CALCIUM 600MG + VIT D 400 IU TAB PO SCH ×2 (08:00→20:05)
[2021-08-05] MEDS: SODIUM BICARBONATE 650 MG TAB PO SCH ×2 (08:01→17:00)
--- NOTE | 2021-08-05 08:05 | Critical Care Progress Note ---
Date of Service August 05, 2021 Assessment & Plan (1) Hypotension (arterial): (2) Acute kidney injury: (3) Abdominal ascites: (4) Esophageal cancer: (5) Hyperkalemia: Plan: 66-year-old male with a history of esophageal cancer and chemotherapy, mesenteric vein thrombosis on Xarelto, GERD and esophageal stent presenting to the hospital due to hypotension Neurologic: No acute issues. Monitor for encephalopathy given his cirrhosis and sepsis. CT head negative for acute process. Pulmonary: No issues at present. Monitor for signs of volume overload and hypoxia. Chest x-ray likely in expiratory film. No obvious infiltrate or effusion. Cardiovascular: Maintain systolic blood pressures above 90. Hold antihypertensives. Continuemidodrine 5 mg, 3 times daily. History of mesenteric vein thrombosis. Xarelto on hold. Continue heparin drip. Gastrointestinal: Source of ascites unclear. Malignancy versus cirrhosis possible. Ascitic fluid from 06/29/2021 was negative for malignancy. Large volume ascites likely. Plan for radiology guided paracentesis on a nonurgent basis for symptomatic relief when off vasopressors. Esophageal stent in place. Tolerating PO diet. Recommend evaluation at tertiary center for transjugular intrahepatic portosystemic shunt. Renal: ADELSO possibly due to HRS versus ATN, improving. Urine output adequate. Potassium levels downtrending. Continue octreotide and albumin infusions. Infectious disease: Blood cultures and urine cultures obtained and negative thus far Continue Zosyn. Hematologic: Continue heparin infusion. Will defer transition to oral therapy to the hospitalist service. Endocrine: We will start to wean off stress dose steroids to hydrocortisone 50 mg every 8 hours. Can decrease to twice daily tomorrow and then daily the day after. VTE prophylaxis: SCDs. Heparin gtt CODE STATUS: Full code Family at bedside: None at bedside Disposition: Stable for downgrade out of the ICU. Discussed with bedside nurse and hospitalist. Admission and Anticipated Discharge Date Admission Date: August 03, 2021 Subjective Patient seen and examined today. He is sitting up in a chair. Denies any complaints. No nausea, vomiting or chest pain. Appetite good. Off of vasopressors for the last 14 hours. Review of Systems Review of Systems: All systems reviewed & are unremarkable except as noted in Subjective Physical Exam Physical Exam: Constitutional: Chronically ill-appearing male in no apparent distress. Large carranza. Eyes: Pupils are equal round and reactive to light. Conjunctivae are normal. Anicteric sclera. Ears nose, mouth and throat: Mallampati class 2. Normal posterior oropharynx. Uvula is midline. Neck: Trachea is midline. Visual inspection is normal. Respiratory: Clear to auscultation bilaterally. No use of accessory muscles. No significant clubbing noted. Cardiovascular: Regular rate and rhythm. No murmurs. 1+ pitting edema in the lower extremities. Gastrointestinal: Positive fluid wave. Diminished bowel sounds. Nontender to palpation. Musculoskeletal: Diffusely weak. Skin: No rashes, warm dry and intact. Neurologic: No obvious focal neurological deficits seen. Psychiatric: Alert and oriented x3 with a euthymic affect. Results & Data Results & Data ([facility]) Vital Signs (Past 12 Hours) Vital Signs Temp Pulse Pulse Resp BP BP Pulse Ox 08/05/21 07:53 36.3 C L 08/05/21 05:00 76 22 90/61 L 93 08/05/21 04:41 64 14 80/53 L 91 08/05/21 04:30 68 14 76/59 L 87 L 08/05/21 04:03 68 21 81/60 L 87 L 08/05/21 04:00 85 17 71/52 L 83 L 08/05/21 03:30 66 23 84 L 08/05/21 03:28 36.3 C L 62 17 89/62 L 88 L 08/05/21 03:00 66 18 91/61 L 90 08/05/21 02:30 60 14 82/54 L 94 08/05/21 02:00 64 14 86/59 L 96 08/05/21 01:30 15 93/60 L 93 08/05/21 01:00 74 21 106/90 94 08/05/21 00:30 72 31 H 111/64 96 08/05/21 00:00 69 19 89/59 L 94 08/04/21 23:30 70 18 92/58 L 89 L 08/04/21 23:11 36.3 C L 72 74 20 85/63 L 104/66 95 08/04/21 23:00 77 18 104/66 75 L 08/04/21 22:31 73 14 87/60 L 91 08/04/21 22:30 72 24 62/36 L 91 08/04/21 22:01 68 15 92/60 L 96 08/04/21 22:00 70 15 73/44 L 96 08/04/21 21:30 69 14 91/61 L 98 08/04/21 21:00 77 18 95/70 L 100 08/04/21 20:30 73 24 113/78 100 Coding Level of Care Code 12080 Subseq Hosp Care Lvl 3 Diagnoses Hypotension (arterial) I95.9 Acute kidney injury N17.9 Abdominal ascites R18.8 Ascites type: other type Esophageal cancer C15.9 Malignant neoplasm of esophagus location: unspecified location Hyperkalemia E87.5 (1) Abdominal ascites Ascites type: other type Qualified Code(s): R18.8 - Other ascites (2) Esophageal cancer Malignant neoplasm of esophagus location: unspecified location Qualified Code(s): C15.9 - Malignant neoplasm of esophagus, unspecified
[2021-08-05 08:59] LABS: Hematocrit (blood only) 29.4 % (42-52); Hemoglobin 9.9 g/dL (14.0-18.0); Mean Corpuscular Hemoglobin 33.6 pg (25-34); Mean Corpuscular Hgb Conc 33.7 g/dL (32-36); Mean Corpuscular Volume 99.7 fL (80-100); Mean Platelet Volume 10.4 fL (7.4-10.4); Platelet Count 126 K/uL (130-400); RDW Coefficient of Variation 17.4 % (11.5-14.5); RDW Standard Deviation 62.4 fL (36.4-46.3); Red Blood Count 2.95 M/uL (4.7-6.1); White Blood Count 10.46 K/uL (4.8-10.8)
[2021-08-05 09:26] LABS: Partial Thromboplastin Ratio 2.7
[2021-08-05 09:31] LABS: Partial Thromboplastin Time 75.4 Seconds (21.0-31.0)
[2021-08-05] MEDS: buPROPion XL 150 MG TABCR PO SCH (09:31)
[2021-08-05] MEDS: FINASTERIDE 5 MG TAB PO SCH (09:31)
--- NOTE | 2021-08-05 10:41 | Nephrology Progress Note ---
Date of Service August 05, 2021 Assessment & Plan (1) Acute kidney injury: Plan: UOP remains slightly low but improvement noted. Creatinine trending down. Electrolytes improved. Continue IV albumin 25 gm q 6 and SQ octreotide q 8 hrs for an additional 24 hours. Encourage positive fluid balance. Midodrine for BP support. MAP goal remains >65. Continue oral NaHCO3 1300 BID for NAGMA. Thankfully, hyperkalemia is improving and there is no emergent indication for dialysis at this time. Medications are appropriately dosed for kidney dysfunction. (2) Hyperkalemia: Plan: Improved. Hold additional patiromer now. Low potassium diet. (3) Hypotension (arterial): Plan: Continue midodrine titrated as needed. (4) Hyponatremia: Plan: Acute on chronic. Relatively asymptomatic. Increased TBW but decreased EAV associated with liver disease and ascites. Oral solute intake has been reduced. (5) Abdominal ascites: Plan: Avoid large volume paracentesis. MELD 30. I briefly discussed the case with one of [facility]'s outpatient GI physicians today. No additional recommendations at this time. (6) Hypoalbuminemia: (7) Esophageal cancer: Admission and Anticipated Discharge Date Admission Date: August 03, 2021 Subjective No acute events overnight. Out of bed to chair. Overall feels well. Abdominal distention noted but denies pain. No dyspnea. No fevers or chills. Loose stools persist but frequency improving. Remains off Levophed gtt. Review of Systems Review of Systems: All systems reviewed & are unremarkable except as noted in HPI & below Physical Exam Constitutional: + frail appearing; no acute distress ENMT: Mouth: + dry oral mucous membranes Neck: normal visual inspection and trachea midline Respiratory: normal respiratory effort Auscultation: lungs clear to auscultation bilaterally and + diminished lung sounds Cardiovascular: Rate/Rhythm: + tachycardic Heart Sounds: normal S1 and normal S2 Extremities: + edema Gastrointestinal (Abdomen): Inspection/Auscultation: + abdomen distended Percussion/Palpation: + ascites; abdomen nontender Musculoskeletal: Extremities: no cyanosis and no clubbing Skin: + turgor decreased; no jaundice Neurologic: Motor/Sensory: no tremor and no asterixis Results & Data ([facility]) Vital Signs (Past 12 Hours) Vital Signs Temp Pulse Pulse Resp BP BP Pulse Ox 08/05/21 08:31 102 H 18 91/60 L 98 03/02/22 08:30 91 H 30 H 79/59 L 98 08/05/21 08:00 86 17 96/56 L 100 08/05/21 07:53 36.3 C L 08/05/21 07:32 83 16 113/62 98 08/05/21 07:30 92 H 23 97 08/05/21 07:00 76 13 85/67 L 100 08/05/21 05:00 76 22 90/61 L 93 08/05/21 04:41 64 14 80/53 L 91 08/05/21 04:30 68 14 76/59 L 87 L 08/05/21 04:03 68 21 81/60 L 87 L 08/05/21 04:00 85 17 71/52 L 83 L 08/05/21 03:30 66 23 84 L 08/05/21 03:28 36.3 C L 62 17 89/62 L 88 L 08/05/21 03:00 66 18 91/61 L 90 08/05/21 02:30 60 14 82/54 L 94 08/05/21 02:00 64 14 86/59 L 96 08/05/21 01:30 15 93/60 L 93 08/05/21 01:00 74 21 106/90 94 08/05/21 00:30 72 31 H 111/64 96 08/05/21 00:00 69 19 89/59 L 94 08/04/21 23:30 70 18 92/58 L 89 L 08/04/21 23:11 36.3 C L 72 74 20 85/63 L 104/66 95 08/04/21 23:00 77 18 104/66 75 L Laboratory Results Laboratory Results - last 24 hr 08/04/21 08/04/21 08/04/21 14:31 14:31 16:57 WBC RBC Hgb Hct MCV MCH MCHC RDW Std Deviation RDW Coeff of Macario Plt Count MPV Immature Gran % (Auto) Neut % (Auto) Lymph % (Auto) [place] % (Auto) Eos % (Auto) Baso % (Auto) Neut # (Auto) Lymph # (Auto) [place] # (Auto) Eos # (Auto) Baso # (Auto) Immature Gran # (Auto) APTT Cancelled > 139.0 H* PTT Ratio Cancelled > 5.1 Sodium 122 L Potassium 5.2 H Chloride 94 L Carbon Dioxide 18 L Anion Gap 10 BUN 72 H Creatinine 3.06 H Est Cr Clr Drug Dosing 26.9 Est GFR ( Amer) 23.6 Est GFR (Non-Af Amer) 20.3 BUN/Creatinine Ratio 23.5 H Glucose 192 H POC Glucose Calcium 8.4 L Phosphorus Magnesium Total Bilirubin Direct Bilirubin AST ALT Alkaline Phosphatase Total Protein Albumin [facility] 08/04/21 08/04/21 08/04/21 18:35 19:38 19:38 WBC RBC Hgb Hct MCV MCH MCHC RDW Std Deviation RDW Coeff of Macario Plt Count MPV Immature Gran % (Auto) Neut % (Auto) Lymph % (Auto) [place] % (Auto) Eos % (Auto) Baso % (Auto) Neut # (Auto) Lymph # (Auto) [place] # (Auto) Eos # (Auto) Baso # (Auto) Immature Gran # (Auto) APTT > 139.0 H* > 139.0 H* PTT Ratio > 5.1 > 5.1 Sodium 126 L Potassium 5.1 Chloride 95 L Carbon Dioxide 20 L Anion Gap 11 BUN 72 H Creatinine 3.16 H Est Cr Clr Drug Dosing 26.1 Est GFR ( Amer) 22.7 Est GFR (Non-Af Amer) 19.6 BUN/Creatinine Ratio 22.8 H Glucose 135 H POC Glucose Calcium 8.8 Phosphorus Magnesium Total Bilirubin Direct Bilirubin AST ALT Alkaline Phosphatase Total Protein Albumin [facility] 08/04/21 08/04/21 08/05/21 21:40 23:14 04:59 WBC 7.55 RBC 2.80 L Hgb 9.4 L Hct 27.7 L MCV 98.9 MCH 33.6 MCHC 33.9 RDW Std Deviation 61.1 H RDW Coeff of Macario 17.3 H Plt Count 108 L MPV 10.4 Immature Gran % (Auto) 0.5 Neut % (Auto) 81.5 Lymph % (Auto) 7.3 [place] % (Auto) 10.7 Eos % (Auto) 0.0 Baso % (Auto) 0.0 Neut # (Auto) 6.15 Lymph # (Auto) 0.55 L [place] # (Auto) 0.81 H Eos # (Auto) 0.00 Baso # (Auto) 0.00 Immature Gran # (Auto) 0.04 H APTT 93.1 H* PTT Ratio 3.4 Sodium Potassium Chloride Carbon Dioxide Anion Gap BUN Creatinine Est Cr Clr Drug Dosing Est GFR ( Amer) Est GFR (Non-Af Amer) BUN/Creatinine Ratio Glucose POC Glucose 131 H Calcium Phosphorus Magnesium Total Bilirubin Direct Bilirubin AST ALT Alkaline Phosphatase Total Protein Albumin TSH 08/05/21 08/05/21 08/05/21 04:59 04:59 04:59 WBC RBC Hgb Hct MCV MCH MCHC RDW Std Deviation RDW Coeff of Macario Plt Count MPV Immature Gran % (Auto) Neut % (Auto) Lymph % (Auto) [place] % (Auto) Eos % (Auto) Baso % (Auto) Neut # (Auto) Lymph # (Auto) [place] # (Auto) Eos # (Auto) Baso # (Auto) Immature Gran # (Auto) APTT > 139.0 H* PTT Ratio > 5.1 Sodium 126 L Potassium 4.9 Chloride 96 L Carbon Dioxide 22 Anion Gap 8 BUN 73 H Creatinine 2.68 H D Est Cr Clr Drug Dosing 30.8 Est GFR ( Amer) 27.7 Est GFR (Non-Af Amer) 23.9 BUN/Creatinine Ratio 27.2 H Glucose 132 H POC Glucose Calcium 8.6 Phosphorus 5.4 H Magnesium 2.8 H Total Bilirubin 0.6 D Direct Bilirubin 0.2 AST 22 ALT 27 Alkaline Phosphatase 75 Total Protein 5.1 L Albumin 3.1 L TSH 1.068 08/05/21 08/05/21 08:40 08:40 WBC 10.46 RBC 2.95 L Hgb 9.9 L Hct 29.4 L MCV 99.7 MCH 33.6 MCHC 33.7 RDW Std Deviation 62.4 H RDW Coeff of Macario 17.4 H Plt Count 126 L MPV 10.4 Immature Gran % (Auto) Neut % (Auto) Lymph % (Auto) [place] % (Auto) Eos % (Auto) Baso % (Auto) Neut # (Auto) Lymph # (Auto) [place] # (Auto) Eos # (Auto) Baso # (Auto) Immature Gran # (Auto) APTT 75.4 H* PTT Ratio 2.7 Sodium Potassium Chloride Carbon Dioxide Anion Gap BUN Creatinine Est Cr Clr Drug Dosing Est GFR ( Amer) Est GFR (Non-Af Amer) BUN/Creatinine Ratio Glucose POC Glucose Calcium Phosphorus Magnesium Total Bilirubin Direct Bilirubin AST ALT Alkaline Phosphatase Total Protein Albumin TSH PG Care Time/CCT Total # of Minutes Spent Total Time Spent with Patient: Total time spent is greater than 50% in coordination of care (as documented) at patient's floor/unit and/or counseling patient: Coding Level of Care Code 22797 Subseq Hosp Care Lvl 3 Diagnoses Acute kidney injury N17.9 Hyperkalemia E87.5 Hypotension (arterial) I95.9 Hyponatremia E87.1 Abdominal ascites R18.8 Ascites type: other type Hypoalbuminemia E88.09 Esophageal cancer C15.9 Malignant neoplasm of esophagus location: unspecified location (1) Abdominal ascites Ascites type: other type Qualified Code(s): R18.8 - Other ascites (2) Esophageal cancer Malignant neoplasm of esophagus location: unspecified location Qualified Code(s): C15.9 - Malignant neoplasm of esophagus, unspecified
--- NOTE | 2021-08-05 10:46 | Hospitalist Progress Note ---
Date of Service August 05, 2021 Assessment & Plan (1) Anemia: Plan: Patient has had a near 2 gm drop in hemoglobin overnight (was 9.4; I repeated such - 9.9). This is concerning for GI bleeding. Send stool for fecal occult. Place heparin drip on hold. Serial H/H's. Place on protonix 40mg IV BID. Cont pepcid HS as previous. Asked Jun GI to see in consult - ? need for EGD. Defer to GI. Last EGD by report did not show esophageal varices but [id number] is already on octreotide for concern for HRS. Appreciate GI consultation & recs. (2) C. difficile enteritis: Plan: Testing returned +. Start vancomycin 125mg QID. Start lactinex 2 cap daily. Contact precautions. (3) Hypotension (arterial): Plan: Hypovolemic in the setting of cirrhosis/severe 3rd spacing vs addisonian vs septic vs combo of factors. His recent paracentesis was 07/28/21 - he presented on 08/03/21 - thus, I do not think his hypotension was directly due to the recent paracentesis itself. Levophed now off. remains on colloid administration with IV albumin q6h. remains on TID midodrine - increasing to 10mg each dose. Remains on IV antibiotics with cultures pending. I cannot rule out SBP. Remains on stress dose IV hydrocortisone. Dosing decreased from q6h to q8h dosing today. Echo ordered by GI but cardiogenic causes less likely. I do agree with echo for completeness, however. (4) Acute kidney injury: Plan: Pre-renal etiology suspected. Urine Na <10. ATN vs HRS vs other vs combo of factors. Renal u/s without obstruction. Creatinine continues to modestly improve with supportive measures as listed in #3 above. Cont albumin, midodrine, octreotide in the event he had HRS. Appreciate nephro consult & recs. (5) Hyponatremia: Plan: 2nd to #4, decreased solute intake, etc. Serial BMPs. Lowest Na was 122, now 126. Isotonic fluids have been d/c. Appreciate nephrology assistance. (6) Abdominal ascites: Plan: Recent SAAG was calculated in the setting of his last paracentesis. SAAG = 1.3 c/w portal HTN. Cytologies negative for malignant cells. Pt reports he was told years ago he had fatty liver; thus, he may have HOFFMAN. He denies any prolonged, heavy use of etoh. No prior h/o infectious hepatitis. His ascites has worsened once again. Would benefit from diagnostic/therapeutic paracentesis when safe to do so. In meantime, remains on abx for sepsis coverage/SBP coverage (was on zosyn - changed to rocephin). Diuretics on hold due to the above issues. Portal vein dopplers pending as ordered by GI. If patient ever elects to transition care to hospice could consider a palliative intra-peritoneal pleurX catheter. (7) Mesenteric vein thrombosis: Plan: Patient has a history of mesenteric vein thrombosis which was diagnosed 2020. Previously treated with xarelto. This is being held. Salvage Determiner had placed on heparin infusion in [place] of the xarelto. Heparin now stopped due to ?GI bleeding/acute anemia as noted above. (8) BPH (benign prostatic hyperplasia): Plan: Use finasteride in [place] of dutasteride. Hold flomax due to #1. Jordan in place. (9) Esophageal cancer: Plan: Patient sees Dr. Yesica Carrasquillo for his esophageal cancer. s/p esophageal stent in the past. Is on Opdivo therapy at home. Initial cancer dx in 2020. (10) DVT prophylaxis: Plan: Heparin infusion placed on hold due to concerns for #1 above (11) Cirrhosis: Plan: See above (12) Hyperkalemia: Plan: s/p Patiromer multiple doses. s/p Bicarbonate infusion. 2nd to ADELSO. resolved. serial BMPs. (13) GERD (gastroesophageal reflux disease): Plan: pepcid + PPI Plan: left message for on her voicemail this evening Admission and Anticipated Discharge Date Admission Date: August 03, 2021 Subjective patient sitting in chair taking a nap upon my arrival levophed has been off for 10+ hours by this am patient states he has had copious amounts of liquid stool overnight states he "got something" to move my bowels (??) denies abd pain denies that the stools have melena or bright red blood is requiring NC o2 - was on 5 L during the visit I turned him down to 3 L and sats were upper 90s on such he does feel very distended in his abdomen able to eat some breakfast this am tele normal by report Review of Systems Review of Systems: gen - no fever cv - no chest pain pulm - no cough GI - no abd pain or vomiting or hematemesis Physical Exam Physical Exam: gen - NAD, pleasant, sitting in chair skin - no rash, mild pallor neck - no obvious JVD mouth - no lesions, MMM heart - RRR, s1 s2 lungs - decreased BS bases, no wheeze, no rales abd - severely distended with ascites, dullness to percussion, no HSM, BS+, NT ext - 2-3+ edema b/l, pulses 2+ b/l Results & Data Results & Data ([facility]) Vital Signs (Past 12 Hours) Vital Signs Temp Pulse Pulse Resp BP BP Pulse Ox 08/05/21 08:31 102 H 18 91/60 L 98 08/05/21 08:30 91 H 30 H 79/59 L 98 08/05/21 08:00 86 17 96/56 L 100 08/05/21 07:53 36.3 C L 08/05/21 07:32 83 16 113/62 98 08/05/21 07:30 92 H 23 97 08/05/21 07:00 76 13 85/67 L 100 08/05/21 05:00 76 22 90/61 L 93 08/05/21 04:41 64 14 80/53 L 91 08/05/21 04:30 68 14 76/59 L 87 L 08/05/21 04:03 68 21 81/60 L 87 L 08/05/21 04:00 85 17 71/52 L 83 L 08/05/21 03:30 66 23 84 L 08/05/21 03:28 36.3 C L 62 17 89/62 L 88 L 08/05/21 03:00 66 18 91/61 L 90 08/05/21 02:30 60 14 82/54 L 94 08/05/21 02:00 64 14 86/59 L 96 08/05/21 01:30 15 93/60 L 93 08/05/21 01:00 74 21 106/90 94 08/05/21 00:30 72 31 H 111/64 96 08/05/21 00:00 69 19 89/59 L 94 08/04/21 23:30 70 18 92/58 L 89 L 08/04/21 23:11 36.3 C L 72 74 20 85/63 L 104/66 95 08/04/21 23:00 77 18 104/66 75 L Laboratory Results Laboratory Results - last 24 hr 08/04/21 08/04/21 08/04/21 14:31 14:31 16:57 WBC RBC Hgb Hct MCV MCH MCHC RDW Std Deviation RDW Coeff of Macario Plt Count MPV Immature Gran % (Auto) Neut % (Auto) Lymph % (Auto) [place] % (Auto) Eos % (Auto) Baso % (Auto) Neut # (Auto) Lymph # (Auto) [place] # (Auto) Eos # (Auto) Baso # (Auto) Immature Gran # (Auto) APTT Cancelled > 139.0 H* PTT Ratio Cancelled > 5.1 Sodium 122 L Potassium 5.2 H Chloride 94 L Carbon Dioxide 18 L Anion Gap 10 BUN 72 H Creatinine 3.06 H Est Cr Clr Drug Dosing 26.9 Est GFR ( Amer) 23.6 Est GFR (Non-Af Amer) 20.3 BUN/Creatinine Ratio 23.5 H Glucose 192 H POC Glucose Calcium 8.4 L Phosphorus Magnesium Total Bilirubin Direct Bilirubin AST ALT Alkaline Phosphatase Total Protein Albumin [facility] 08/04/21 08/04/21 08/04/21 18:35 19:38 19:38 WBC RBC Hgb Hct MCV MCH MCHC RDW Std Deviation RDW Coeff of Macario Plt Count MPV Immature Gran % (Auto) Neut % (Auto) Lymph % (Auto) [place] % (Auto) Eos % (Auto) Baso % (Auto) Neut # (Auto) Lymph # (Auto) [place] # (Auto) Eos # (Auto) Baso # (Auto) Immature Gran # (Auto) APTT > 139.0 H* > 139.0 H* PTT Ratio > 5.1 > 5.1 Sodium 126 L Potassium 5.1 Chloride 95 L Carbon Dioxide 20 L Anion Gap 11 BUN 72 H Creatinine 3.16 H Est Cr Clr Drug Dosing 26.1 Est GFR ( Amer) 22.7 Est GFR (Non-Af Amer) 19.6 BUN/Creatinine Ratio 22.8 H Glucose 135 H POC Glucose Calcium 8.8 Phosphorus Magnesium Total Bilirubin Direct Bilirubin AST ALT Alkaline Phosphatase Total Protein Albumin [facility] 08/04/21 08/04/21 08/05/21 21:40 23:14 04:59 WBC 7.55 RBC 2.80 L Hgb 9.4 L Hct 27.7 L MCV 98.9 MCH 33.6 MCHC 33.9 RDW Std Deviation 61.1 H RDW Coeff of Macario 17.3 H Plt Count 108 L MPV 10.4 Immature Gran % (Auto) 0.5 Neut % (Auto) 81.5 Lymph % (Auto) 7.3 [place] % (Auto) 10.7 Eos % (Auto) 0.0 Baso % (Auto) 0.0 Neut # (Auto) 6.15 Lymph # (Auto) 0.55 L [place] # (Auto) 0.81 H Eos # (Auto) 0.00 Baso # (Auto) 0.00 Immature Gran # (Auto) 0.04 H APTT 93.1 H* PTT Ratio 3.4 Sodium Potassium Chloride Carbon Dioxide Anion Gap BUN Creatinine Est Cr Clr Drug Dosing Est GFR ( Amer) Est GFR (Non-Af Amer) BUN/Creatinine Ratio Glucose POC Glucose 131 H Calcium Phosphorus Magnesium Total Bilirubin Direct Bilirubin AST ALT Alkaline Phosphatase Total Protein Albumin TSH 08/05/21 08/05/21 08/05/21 04:59 04:59 04:59 WBC RBC Hgb Hct MCV MCH MCHC RDW Std Deviation RDW Coeff of Macario Plt Count MPV Immature Gran % (Auto) Neut % (Auto) Lymph % (Auto) [place] % (Auto) Eos % (Auto) Baso % (Auto) Neut # (Auto) Lymph # (Auto) [place] # (Auto) Eos # (Auto) Baso # (Auto) Immature Gran # (Auto) APTT > 139.0 H* PTT Ratio > 5.1 Sodium 126 L Potassium 4.9 Chloride 96 L Carbon Dioxide 22 Anion Gap 8 BUN 73 H Creatinine 2.68 H D Est Cr Clr Drug Dosing 30.8 Est GFR ( Amer) 27.7 Est GFR (Non-Af Amer) 23.9 BUN/Creatinine Ratio 27.2 H Glucose 132 H POC Glucose Calcium 8.6 Phosphorus 5.4 H Magnesium 2.8 H Total Bilirubin 0.6 D Direct Bilirubin 0.2 AST 22 ALT 27 Alkaline Phosphatase 75 Total Protein 5.1 L Albumin 3.1 L TSH 1.068 08/05/21 08/05/21 08:40 08:40 WBC 10.46 RBC 2.95 L Hgb 9.9 L Hct 29.4 L MCV 99.7 MCH 33.6 MCHC 33.7 RDW Std Deviation 62.4 H RDW Coeff of Macario 17.4 H Plt Count 126 L MPV 10.4 Immature Gran % (Auto) Neut % (Auto) Lymph % (Auto) [place] % (Auto) Eos % (Auto) Baso % (Auto) Neut # (Auto) Lymph # (Auto) [place] # (Auto) Eos # (Auto) Baso # (Auto) Immature Gran # (Auto) APTT 75.4 H* PTT Ratio 2.7 Sodium Potassium Chloride Carbon Dioxide Anion Gap BUN Creatinine Est Cr Clr Drug Dosing Est GFR ( Amer) Est GFR (Non-Af Amer) BUN/Creatinine Ratio Glucose POC Glucose Calcium Phosphorus Magnesium Total Bilirubin Direct Bilirubin AST ALT Alkaline Phosphatase Total Protein Albumin TSH PG Care Time/CCT Total # of Minutes Spent Total Time Spent with Patient: Total time spent is greater than 50% in coordination of care (as documented) at patient's floor/unit and/or counseling patient: Coding Level of Care Code 14971 Subseq Hosp Care Lvl 3 Diagnoses Hypotension (arterial) I95.9 Acute kidney injury N17.9 Hyponatremia E87.1 Abdominal ascites R18.8 Ascites type: other type Mesenteric vein thrombosis K55.069 BPH (benign prostatic hyperplasia) N40.0 Esophageal cancer C15.9 Malignant neoplasm of esophagus location: unspecified location DVT prophylaxis Z29.9 Cirrhosis K74.60 Hyperkalemia E87.5 GERD (gastroesophageal reflux disease) K21.9 C. difficile enteritis A04.72 Anemia D64.9 (1) Abdominal ascites Ascites type: other type Qualified Code(s): R18.8 - Other ascites (2) Esophageal cancer Malignant neoplasm of esophagus location: unspecified location Qualified Code(s): C15.9 - Malignant neoplasm of esophagus, unspecified
[2021-08-05] MEDS: PANTOprazole 40 MG in SYRINGE 0 ML IV SCH ×2 (11:26→20:06)
--- NOTE | 2021-08-05 12:15 | Gastrointestinal Consultation ---
Date of Consultation August 05, 2021 Assessment & Plan (1) Cirrhosis: (2) COVID-19: (3) Mesenteric vein thrombosis: (4) Esophageal cancer: (5) Acute kidney injury: Everardo Segura is 65 year old male, w hx of HOFFMAN cirrhosis, metastatic esophageal ca (SCC), s/p esophageal stent placement on FOLFOX chemo, SMV clot currently on Xarelto -> Heparin IV, recent COVID 19 dx earlier this month. He has refractory ascites despite diuretic use with last large volume paracentesis done 07/20 (9L), 07/28 (8L). Admitted with weakness, fatigue, hypotension, noted to have ADELSO. There was a concern for possible GI bleeding as his blood ct dropped today though he denies symptoms of melena or BRBPR. FOBT pending. - Monitor H/H and transfuse prn - F/U FOBT - NPO at midnight, will re-eval if EGD is indicated tomorrow - Nephrology is following, appreciate recs. Continue Albumin, Midodrine, Octreotide support - Poor prognosis overall and Palliative care should be considered, though he is not ready to have end of life discussion Supervising Physician Co-Signing Physician Notes Attg add: I interviewed and examined pt, reviewed chart and labs. Pt with esophageal cancer on 5 FU + Opdivio, s/p recent COVID, SMV clot on heparin, seen as outpt with increase tap frequency. S/p LVP x5 since mid jun, although unclear if received albumin. Admit 08/03 with hypotension attrib to LVP. Continued hypotension although has been weaned off IV levophed. x 8 hrs. No overt GIB but drop in hgb from baseline 12--> 10 without rise in BUN. Admit with ADELSO, baselinecreat 1's, peaked at 3, 2.6 today; on midodrine/octreotide/albumin infusions; u NA < 10, uop remains low. Albumin 1.7 --> 3 with albumin infusions. Na 120's. On empiric Rocephin, also oral Vanco C diff. A/P: ? GI bleed - Pt is without evidence of overt GI bleeding, and it is possible that drop in hgb may be dilutional. Also, his stent appears in good place, which presumably would treat tumor/variceal bleed. Follow for now; agree with IV bolus PPI, octreotide may also have some benefit here. Hold heparin. If hgb cont to fall or if pt develops gross GI bleeding, will consider scope. Refractory ascites - His paracentesis requirement has dramatically increased recently. Pt should have liver imaging r/o mass lesion, PVT. Rx portal HTN -- cont midodrine, octreotide. Poor candidate for PleurX as he has portal HTN, not malignant ascites, and there is a high risk of renal failure; however, would consider this if pt elects palliative care. ADELSO/HRS 1, hypoNA, hypotension - Agree with octreotide, albumin. Titrate midodrine daily to try to achieve MAP > 55 -- will increase from 5 TID to 10 TID. OK to wean albumin if albumin remains > 3. Esophageal cancer - Stent is in good position by imaging, pt denies dysphagia. History of Present Illness Reason for Consultation: Esophageal ca s/p stent, ascites,? GI bleed Requesting Physician: Dr. Carlos Gonzalez Attending Physician: Dr. Tara Carlos History of Present Illness Everardo Segura is 65 year old male, w hx of HOFFMAN, cirrhosis (+ ASHLEY, but AMA, anti smooth muscle antibody normal), esophageal ca (SCC), s/p esophageal stent placement, mets to paraesophageal, mediastinal, upper abd, retroperitoneal lymph nodes, on FOLFOX chemo, SMV clot currently on Xarelto. Dx with COVID 19 earlier this month. He has refractory ascites despite diuretic use with last large vol ume paracentesis done 07/20 (9L), 07/28 (8L). He was admitted due to progressive weakness and fatigue after his last paracentesis. Found to be in ADELSO, and having issues with hypotension despite Albumin, Octreotide and Midodrine support. He appears to be accumulating ascites again. His blood ct dropped (Hgb 11 ->9) today and there was a concern for possible GI bleeding. Pt however denies any s/s of GI bleeding such as no melena, BRBPR. FOBT pending. He denies any SOB though appears dypsneic, no CT, abd pain, n/v. Allergies Allergy/AdvReac Type Severity Reaction Status Date / Time No Known Allergies Allergy Verified 08/03/21 12:32 Home Medications Medication Instructions Recorded Confirmed Type bupropion HCl 150 mg 24 hr tablet, 150 mg PO QAM 12/23/20 08/03/21 History extended release esomeprazole magnesium 40 mg 40 mg PO BID 02/06/21 08/03/21 History capsule,delayed release (Nexium) famotidine 20 mg tablet (Pepcid AC) 40 mg PO HS 02/06/21 08/03/21 History docusate sodium 100 mg capsule 100 mg PO DAILY 02/15/21 08/03/21 History (Dulcolax Stool Softener (docusate)) fluorouracil 50 mg/mL intravenous 0 mg IV Q14D 02/15/21 08/03/21 History solution nivolumab 100 mg/10 mL intravenous 0 mg IV Q14D 02/15/21 08/03/21 History solution (Opdivo) prochlorperazine maleate 10 mg 10 mg PO Q6 PRN 02/15/21 08/03/21 History tablet ondansetron HCl 8 mg tablet 8 mg PO Q8H PRN 14 Days #42 tab 02/19/21 08/03/21 Rx oxycodone 5 mg tablet 5 - 10 mg PO Q6H PRN #40 tab 02/19/21 08/03/21 Rx Leucovorin Chemo 1 dose IV .Q14 DAYS 06/22/21 08/03/21 History Lidoc/Child/Antac 15 ml QID PRN 06/22/21 08/03/21 History codeine 10 mg-guaifenesin 100 mg/5 5 ml PO TID PRN 06/22/21 08/03/21 History mL oral liquid dutasteride 0.5 mg capsule 0.5 mg PO HS 06/22/21 08/03/21 History ferrous sulfate 325 mg (65 mg 325 mg PO DAILY 06/22/21 08/03/21 History iron) tablet (iron) rivaroxaban 20 mg tablet (Xarelto) 20 mg PO QPM 06/22/21 08/03/21 History calcium carb-ergocalciferol (vit 1 tab PO BID 07/13/21 08/03/21 History D2) 600 mg calcium-200 unit tablet furosemide 20 mg tablet 40 mg PO DAILY 07/13/21 08/03/21 History spironolactone 50 mg tablet 100 mg PO DAILY 07/13/21 08/03/21 History tamsulosin 0.4 mg capsule (Flomax) 0.4 mg PO HS 07/13/21 08/03/21 History Patient History Medical History BPH (benign prostatic hyperplasia) Degenerative disc disease Depression Esophageal cancer (~12/2020) GERD (gastroesophageal reflux disease) Hyperkalemia Hypotension (arterial) Surgical History H/O hand surgery FINGER TENDON REPAIR History of esophagogastroduodenoscopy (EGD) History of esophagogastroduodenoscopy (EGD) (~12/2020) Upper Endoscopic Ultrasonography + esophageal stent [place] teeth removed Family History Mother Breast cancer Family history of diabetes mellitus Other Cancer Diabetes No family history of adverse response to anesthesia Parkinson disease TIA (transient ischemic attack) Social History Smoking Status: Former smoker Cigarettes Per Day: 20; Second Hand Exposure: No; Hx Alcohol Use: No Hx Substance Use: No Preferred Language: [place] Communication Ability: Effective Box Turner Required: No Beliefs That Will Affect Care: None marital status: Current Living Situation: Spouse Current Living Situation Comment: 2 Grandsons live with patient. Feels Safe at Home: Yes Assistive Devices: Wheelchair Review of Systems Review of Systems: All systems reviewed & are unremarkable except as noted in HPI & below Physical Exam Constitutional: + ill appearing, + cachectic and cooperative Eyes: PERRL, conjunctivae normal, anicteric sclerae ENMT: external ear and nose normal, oropharynx normal Respiratory: Appears dyspneic, on O2 3L NC Cardiovascular: RRR, no murmur, no edema Gastrointestinal (Abdomen): Mild distension, non tender, BS hypoactive Skin: no rashes, warm and dry no jaundice Neurologic: Motor/Sensory: no asterixis Psychiatric: A+Ox3, euthymic affect Lymphatic: + lymphedema Results & Data ([facility]) Vital Signs (Past 12 Hours) Vital Signs Temp Pulse Resp BP Pulse Ox 08/05/21 11:45 37.0 C 08/05/21 08:31 102 H 18 91/60 L 98 08/05/21 08:30 91 H 30 H 79/59 L 98 08/05/21 08:00 86 17 96/56 L 100 08/05/21 07:53 36.3 C L 08/05/21 07:32 83 16 113/62 98 08/05/21 07:30 92 H 23 97 08/05/21 07:00 76 13 85/67 L 100 08/05/21 05:00 76 22 90/61 L 93 08/05/21 04:41 64 14 80/53 L 91 08/05/21 04:30 68 14 76/59 L 87 L 08/05/21 04:03 68 21 81/60 L 87 L 08/05/21 04:00 85 17 71/52 L 83 L 08/05/21 03:30 66 23 84 L 08/05/21 03:28 36.3 C L 62 17 89/62 L 88 L 08/05/21 03:00 66 18 91/61 L 90 08/05/21 02:30 60 14 82/54 L 94 08/05/21 02:00 64 14 86/59 L 96 08/05/21 01:30 15 93/60 L 93 08/05/21 01:00 74 21 106/90 94 08/05/21 00:30 72 31 H 111/64 96 (1) Esophageal cancer Malignant neoplasm of esophagus location: unspecified location Qualified Code(s): C15.9 - Malignant neoplasm of esophagus, unspecified
[2021-08-05 14:11] LABS: Cdiff Antigen Positive
[2021-08-05 14:12] LABS: Cdiff Toxin A+B Positive Cdiff Toxin (Negative)
[2021-08-05] MEDS: HYDROCORTISONE SOD 50 MG in SYRINGE 0 ML IV SCH ×2 (14:56→21:25)
[2021-08-05] MEDS: cefTRIAXone SODIUM 2,000 MG in DEXTROSE 5% 50 ML IV SCH (14:57)
[2021-08-05] MEDS: ADVANCED PROBIOTIC 1250 MG CAPSULE PO SCH (17:00)
[2021-08-05] MEDS: VANCOMYCIN HCL 125 MG/2.5ML SOLN PO SCH ×3 (17:04→23:29)
[2021-08-05] MEDS: RASPBERRY SYRUP 5 ML UDP PO SCH ×2 (17:04→23:28)
[2021-08-05] MEDS ORDERED: CALCIUM CARBONATE 500 MG CHEWABLE TAB PO PRN (18:20)
[2021-08-05] MEDS ORDERED: MIDODRINE HCL 2.5 MG TAB PO ONE (18:45)
[2021-08-05] MEDS: FAMOTIDINE 40 MG TABLET PO SCH (20:05)
[2021-08-06] MEDS: OCTREOTIDE ACETATE 100 MCG/ML VIAL SQ SCH (03:27)
[2021-08-06 05:28] LABS: Hematocrit (blood only) 25.1 % (42-52); Hemoglobin 8.6 g/dL (14.0-18.0); Mean Corpuscular Hemoglobin 33.9 pg (25-34); Mean Corpuscular Hgb Conc 34.3 g/dL (32-36); Mean Corpuscular Volume 98.8 fL (80-100); RDW Coefficient of Variation 16.9 % (11.5-14.5); RDW Standard Deviation 60.9 fL (36.4-46.3); Red Blood Count 2.54 M/uL (4.7-6.1); White Blood Count 8.24 K/uL (4.8-10.8)
[2021-08-06 05:58] LABS: Mean Platelet Volume 10.3 fL (7.4-10.4); Platelet Count 87 K/uL (130-400)
[2021-08-06 05:59] LABS: Immature Granulocytes # (auto) 0.03 K/uL (0.00-0.02); Immature Granulocytes % (auto) 0.4 %; Lymphocytes # (auto) 0.45 K/uL (1.2-3.4); Lymphocytes % (auto) 5.5 %; Monocytes # (auto) 0.47 K/uL (0.11-0.59); Monocytes % (auto) 5.7 %; Neutrophils # (auto) 7.29 K/uL (1.4-6.5); Neutrophils % (auto) 88.4 %; Platelet Estimate Decreased (Normal)
[2021-08-06 06:08] LABS: Albumin Level 3.7 gm/dl (3.4-5.0); BUN Creatinine Ratio 24.7 (10-20); Bilirubin Direct 0.2 mg/dl (0-0.2); Bilirubin,Total 0.6 mg/dl (0.2-1.0); Calcium 8.9 mg/dl (8.5-10.1); Creatinine Clr Calc Pharmacy 28.7 ml/min; Est GFR (African American) 25.5 ml/min; Magnesium 2.9 mg/dl (1.7-2.4); Phosphorus 4.6 mg/dl (2.5-4.9); Potassium 4.3 mmol/L (3.5-5.1); Total Protein 5.4 gm/dl (6.0-8.3)
[2021-08-06] MEDS: ALBUMIN 25% 100 mL 25 GM/100 ML VIAL IV SCH ×3 (06:23→21:12)
[2021-08-06] MEDS: VANCOMYCIN HCL 125 MG/2.5ML SOLN PO SCH ×4 (06:24→23:03)
[2021-08-06] MEDS: RASPBERRY SYRUP 5 ML UDP PO SCH ×4 (06:24→23:03)
[2021-08-06] MEDS: HYDROCORTISONE SOD 50 MG in SYRINGE 0 ML IV SCH (06:24)
--- NOTE | 2021-08-06 08:33 | Ultrasound Report ---
US duplex portal hepatic veins CLINICAL HISTORY: hx of mesenteric clot; r/o portal vein thrombosis. History of mesenteric clot. COMPARISON STUDY: Abdomen and pelvis CT 02/15/2021. FINDINGS: Nodular contour to the liver consistent with cirrhosis. Perihepatic ascites is again noted. The main portal veins and hepatic veins appear patent. There is to and fro flow within the left port al vein suggesting early changes of portal hypertension. The superior mesenteric vein is obscured by overlying bowel. IMPRESSION: 1. The portal and hepatic veins are patent. 2. The superior mesenteric vein is obscured by overlying bowel. 3. Cirrhosis and ascites again noted. 4. There is to and fro flow within the left portal vein suggesting early changes of portal hypertensi on. ACT 112: Negative or not required by law. Electronically signed by: Kike Freeman M.D. 08/06/2021 8:32 AM
[2021-08-06] MEDS: buPROPion XL 150 MG TABCR PO SCH ×2 (08:35→10:34)
[2021-08-06] MEDS: MIDODRINE HCL 10 MG TAB PO SCH ×4 (08:35→17:21)
[2021-08-06] MEDS: CALCIUM 600MG + VIT D 400 IU TAB PO SCH ×2 (08:35→19:48)
[2021-08-06] MEDS: FERROUS SULFATE 325 MG TAB PO SCH ×2 (08:35→10:34)
[2021-08-06] MEDS: FINASTERIDE 5 MG TAB PO SCH ×2 (08:35→10:32)
[2021-08-06] MEDS: ADVANCED PROBIOTIC 1250 MG CAPSULE PO SCH ×2 (08:36→10:33)
[2021-08-06] MEDS: PANTOprazole 40 MG in SYRINGE 0 ML IV SCH ×2 (08:36→19:48)
[2021-08-06] MEDS: SODIUM BICARBONATE 650 MG TAB PO SCH ×3 (08:36→17:21)
--- NOTE | 2021-08-06 10:32 | Nephrology Progress Note ---
Date of Service August 06, 2021 Assessment & Plan (1) Acute kidney injury: Plan: Some continued improvement in urine output. Creatinine 2.68-->2.87 mg/dL. Electrolytes acceptable. Appreciate GI consultation. Portal and hepatic duplex results pending this AM but no obvious portal vein thrombosis. For now, I would continue IV albumin and octreotide. Avoid large volume fluid shifts. I will discuss the plan of care with GI. Midodrine for BP support. MAP goal remains >65. Continue oral NaHCO3 1300 BID for NAGMA. Medications are appropriately dosed for kidney dysfunction. (2) Hypotension (arterial): Plan: Continue midodrine titrated as needed. (3) Hyponatremia: Plan: Chronic, stable. Increased TBW but decreased EAV associated with liver disease and ascites. (4) Abdominal ascites: Plan: Appreciate GI consultation. Will review plan of care this AM. (5) Hypoalbuminemia: (6) Esophageal cancer: Admission and Anticipated Discharge Date Admission Date: August 03, 2021 Subjective No acute events overnight. Sleeping comfortably in bed when I entered the room. Overall, Everardo notes that he feels well but continues to endorse weakness. Abdomen distended. No tenderness. Breathing comfortable with some noted restriction. One soft bowel movement this AM which was more formed than yesterday. No melena or hematochezia reported. Review of Systems Review of Systems: All systems reviewed & are unremarkable except as noted in HPI & below Physical Exam Constitutional: + frail appearing; no acute distress ENMT: Mouth: + dry oral mucous membranes Neck: normal visual inspection and trachea midline Respiratory: normal respiratory effort Auscultation: lungs clear to auscultation bilaterally and + diminished lung sounds Cardiovascular: Rate/Rhythm: regular rhythm Heart Sounds: normal S1 and normal S2 Extremities: + edema Gastrointestinal (Abdomen): Inspection/Auscultation: + abdomen distended Percussion/Palpation: + ascites; abdomen nontender Musculoskeletal: Extremities: no cyanosis and no clubbing Skin: + turgor decreased; no jaundice Neurologic: Motor/Sensory: no tremor and no asterixis Results & Data ([facility]) Vital Signs (Past 12 Hours) Vital Signs Temp Pulse Resp BP BP Pulse Ox 08/06/21 08:50 87/55 L 08/06/21 08:45 36.3 C L 65 18 73/41 L 82/51 L 95 08/06/21 03:36 36.4 C L 60 14 103/62 94 08/05/21 23:59 36.4 C L 65 16 90/51 L 98 Laboratory Results Laboratory Results - last 24 hr 08/05/21 08/05/21 08/05/21 11:30 11:30 14:15 WBC RBC Hgb Hct MCV MCH MCHC RDW Std Deviation RDW Coeff of Macario Plt Count MPV Immature Gran % (Auto) Neut % (Auto) Lymph % (Auto) [place] % (Auto) Eos % (Auto) Baso % (Auto) Neut # (Auto) Lymph # (Auto) [place] # (Auto) Eos # (Auto) Baso # (Auto) Immature Gran # (Auto) Platelet Estimate Sodium Potassium Chloride Carbon Dioxide Anion Gap BUN Creatinine Est Cr Clr Drug Dosing Est GFR ( Amer) Est GFR (Non-Af Amer) BUN/Creatinine Ratio Glucose Calcium Phosphorus Magnesium Total Bilirubin Direct Bilirubin AST ALT Alkaline Phosphatase Total Protein Albumin Stool Occult Bld Scrn Negative Stl C. diff Tox B Gene Positive Cdiff Gene H Stl C.difficile Tox A&B Positive Cdiff Toxin A* SARS-CoV-2, RNA, NAAT NEGATIVE 08/06/21 08/06/21 05:09 05:09 WBC 8.24 RBC 2.54 L Hgb 8.6 L Hct 25.1 L MCV 98.8 MCH 33.9 MCHC 34.3 RDW Std Deviation 60.9 H RDW Coeff of Macario 16.9 H Plt Count 87 L MPV 10.3 Immature Gran % (Auto) 0.4 Neut % (Auto) 88.4 Lymph % (Auto) 5.5 [place] % (Auto) 5.7 Eos % (Auto) 0.0 Baso % (Auto) 0.0 Neut # (Auto) 7.29 H Lymph # (Auto) 0.45 L [place] # (Auto) 0.47 Eos # (Auto) 0.00 Baso # (Auto) 0.00 Immature Gran # (Auto) 0.03 H Platelet Estimate Decreased L Sodium 124 L Potassium 4.3 Chloride 94 L Carbon Dioxide 21 Anion Gap 9 BUN 71 H Creatinine 2.87 H Est Cr Clr Drug Dosing 28.7 Est GFR ( Amer) 25.5 Est GFR (Non-Af Amer) 22.0 BUN/Creatinine Ratio 24.7 H Glucose 116 H Calcium 8.9 Phosphorus 4.6 Magnesium 2.9 H Total Bilirubin 0.6 Direct Bilirubin 0.2 AST 20 ALT 23 Alkaline Phosphatase 61 Total Protein 5.4 L Albumin 3.7 Stool Occult Bld Scrn Stl C. diff Tox B Gene Stl C.difficile Tox A&B SARS-CoV-2, RNA, NAAT PG Care Time/CCT Total # of Minutes Spent Total Time Spent with Patient: Total time spent is greater than 50% in coordination of care (as documented) at patient's floor/unit and/or counseling patient: Coding Level of Care Code 88371 Subseq Hosp Care Lvl 3 Diagnoses Acute kidney injury N17.9 Hypotension (arterial) I95.9 Hyponatremia E87.1 Abdominal ascites R18.8 Ascites type: other type Hypoalbuminemia E88.09 Esophageal cancer C15.9 Malignant neoplasm of esophagus location: unspecified location (1) Abdominal ascites Ascites type: other type Qualified Code(s): R18.8 - Other ascites (2) Esophageal cancer Malignant neoplasm of esophagus location: unspecified location Qualified Code(s): C15.9 - Malignant neoplasm of esophagus, unspecified
[2021-08-06] MEDS: MIDODRINE HCL 2.5 MG TAB PO SCH ×3 (10:34→17:21)
[2021-08-06] MEDS ORDERED: STAT IV STA (11:11)
[2021-08-06] MEDS: OCTREOTIDE ACETATE 500 MCG in DEXTROSE 5% 100 ML IV SCH ×2 (11:59→20:57)
--- NOTE | 2021-08-06 12:29 | Gastroenterology Progress Note ---
Date of Service August 06, 2021 Assessment & Plan (1) Cirrhosis: (2) COVID-19: (3) Mesenteric vein thrombosis: (4) Esophageal cancer: (5) Acute kidney injury: Plan: Everardo Segura is 65 year old male, w hx of HOFFMAN cirrhosis, metastatic esophageal ca (SCC), s/p esophageal stent placement on FOLFOX chemo, SMV clot currently on Xarelto -> Heparin IV, recent COVID 19 dx earlier this month. He has refractory ascites despite diuretic use with last large volume paracentesis done 07/20 (9L), 07/28 (8L). Admitted with weakness, fatigue, hypotension, noted to have ADELSO. There was a concern for possible GI bleeding as his blood ct dropped though he denies symptoms of melena or BRBPR. FOBT negative. Cdiff +. - Monitor H/H and transfuse prn - CL diet today; NPO at midnight, will re-eval if EGD is indicated tomorrow - Continue Albumin IV; titrating Midodrine dose; changed Octreotide to gtt. Monitor UOP, renal function and BP closely - Nephrology is following, appreciate recs. - Ascites: No PVT, SMV not clearly seen. Repeat US paracentesis w 5L ascites fluid removal today. F/U Echocardiogram done today. ? TIPS candidate for ascites control , poor candidate for PleureX catheter due to portal HTN - Cdiff: continue Vancomycin - Poor prognosis overall and Palliative care should be considered, though he is not ready to have end of life discussion. Will plan to have family discussion together with tomorrow after 4:30p to discuss goals of care and options Admission and Anticipated Discharge Date Admission Date: August 03, 2021 Supervising Physician Co-Signing Physician Notes Attg add: No acute events. His stool is brown. Hgb drifting down. Uop remains poor 10-15 cc/hr. Creat remains in high 2's. Serum Na 126, albumin 4. Uls shows no PVT, but apparently was not done to eval for liver mass. S/p 5 liter tap today. Regarding decreased Hgb -- No gross GIB, it is possible that his decreased hgb is related to GI blood loss, most likely from portal gastropathy or possibly from esophageal tumor. It may be possible that his hgb decrease is dilutional, related to ascites. No plans for endoscopy; would consider transfusion if hgb continues to fall. Cont IV BID PPI, also on octreotide. Regarding ascites, hyponatremia, hypotension, oliguric renal failure -- Likely HRS. His albumin can be weaned, as his serum albumin is near 4; midodrine dose increased this morning. Wll plan for repat tap tomorrow, although volume removed is limited by hypotension/renal failure. watermaster management remains difficult. H/o mesenteric venous thrombosis -- Resolved by uls today. Cont hold heparin. Subjective Pt reports light brown semi formed stools this AM; no blood in stools. Denies any abd pain,n/v. UOP 650mL, Cr up, still hypotensive. Review of Systems Review of Systems: All systems reviewed & are unremarkable except as noted in HPI & below Physical Exam Constitutional: + cachectic, cooperative and comfortable Eyes: PERRL, conjunctivae normal, anicteric sclerae ENMT: external ear and nose normal, oropharynx normal Respiratory: normal respiratory effort, lungs clear to auscultation Slight dyspneic on mild exertion Cardiovascular: RRR, no murmur, no edema Gastrointestinal (Abdomen): Mildly distended, BS hypoactive, no tender Skin: no rashes, warm and dry no jaundice Neurologic: Motor/Sensory: no asterixis Psychiatric: A+Ox3, euthymic affect Lymphatic: + lymphedema (non pitting edema on legs ) Results & Data ([facility]) Vital Signs (Past 12 Hours) Vital Signs Temp Pulse Resp BP BP Pulse Ox 08/06/21 08:50 87/55 L 08/06/21 08:45 36.3 C L 65 18 73/41 L 82/51 L 95 08/06/21 03:36 36.4 C L 60 14 103/62 94 (1) Esophageal cancer Malignant neoplasm of esophagus location: unspecified location Qualified Code(s): C15.9 - Malignant neoplasm of esophagus, unspecified
--- NOTE | 2021-08-06 14:35 | Ultrasound Report ---
ULTRASOUND-GUIDED DIAGNOSTIC AND THERAPEUTIC PARACENTESIS: HISTORY: Ascites Procedure: The procedure and its risks, benefits and alternatives were discussed with the patient and written informed consent was obtained. Preliminary ultrasound of the abdomen was performed to determ ine a safe needle entry site. The left lower quadrant was prepped and draped in the usual sterile fashion. 1% Lidocaine was used fo r local anesthesia. A paracentesis needle-sheath was inserted into the peritoneal space using ultraso und guidance. The needle was removed and the sheath was connected to tubing and a vacuum suction robby ce. A total of 4 liters of yellow ascites was aspirated. The sheath was removed and a sterile dressin g applied. The patient tolerated the procedure well and there were no immediate complications. IMPRESSION: Ultrasound-guided diagnostic and therapeutic paracentesis with aspiration of 4 liters of ascites. 1 L was sent to the laboratory at the request of the referring physician. ACT 112: Negative or not required by law. Electronically signed by: Kike Freeman M.D. 08/06/2021 2:33 PM
[2021-08-06 14:49] LABS: Appearance Peritoneal Fluid CLOUDY; Basophils, Fluid 1 %; Color Peritoneal Fluid PALE YELLOW; Eosinophils, Fluid 0 %; Lymphocytes, Fluid 51 %; Mono,Macrophage,Mesothelial 37 %; Neutrophils, Fluid 11 %; RBC Peritoneal Fluid (A) < 3000 /uL; WBC Peritoneal Fluid (A) 153 /ul (0-300)
[2021-08-06 15:21] LABS: Hematocrit (blood only) 24.1 % (42-52); Hemoglobin 8.2 g/dL (14.0-18.0); Mean Corpuscular Hemoglobin 33.6 pg (25-34); Mean Corpuscular Volume 98.8 fL (80-100); RDW Coefficient of Variation 17.1 % (11.5-14.5); RDW Standard Deviation 60.8 fL (36.4-46.3); Red Blood Count 2.44 M/uL (4.7-6.1); White Blood Count 5.75 K/uL (4.8-10.8)
[2021-08-06 15:29] LABS: Mean Platelet Volume 10.1 fL (7.4-10.4); Platelet Count 77 K/uL (130-400)
[2021-08-06 15:42] LABS: Albumin Level 3.9 gm/dl (3.4-5.0); BUN Creatinine Ratio 25.1 (10-20); Creatinine Clr Calc Pharmacy 31.1 ml/min; Est GFR (African American) 27.3 ml/min; Est GFR (Non-African American) 23.6 ml/min
[2021-08-06 15:57] LABS: Immature Granulocytes # (auto) 0.01 K/uL (0.00-0.02); Immature Granulocytes % (auto) 0.2 %; Lymphocytes # (auto) 0.35 K/uL (1.2-3.4); Lymphocytes % (auto) 6.1 %; Monocytes # (auto) 0.41 K/uL (0.11-0.59); Monocytes % (auto) 7.1 %; Neutrophils # (auto) 4.98 K/uL (1.4-6.5); Neutrophils % (auto) 86.6 %
[2021-08-06] MEDS: cefTRIAXone SODIUM 2,000 MG in DEXTROSE 5% 50 ML IV SCH (17:20)
--- NOTE | 2021-08-06 19:28 | XCELERA ---
[id number] \\[id number]
[2021-08-06] MEDS: FAMOTIDINE 40 MG TABLET PO SCH (19:48)
[2021-08-06] MEDS: HYDROCORTISONE SOD 25 MG in SYRINGE 0 ML IV SCH (19:49)
--- NOTE | 2021-08-06 20:03 | Hospitalist Progress Note ---
Date of Service August 06, 2021 Assessment & Plan (1) Abdominal ascites: Plan: Recent SAAG was calculated in the setting of his last paracentesis in July. SAAG = 1.3 c/w portal HTN. Cytologies negative for malignant cells. Pt reports he was told years ago he had fatty liver; thus, he may have HOFFMAN. He denies any prolonged, heavy use of etoh. No prior h/o infectious hepatitis. s/p paracentesis today - 4 L removed. Cell counts not suggestive of SBP. Gram stain/cx pending. He remains on scheduled albumin. GI following - for refractory ascites - TIPS? other? Either way very poor prognosis given his cirrhosis & esophageal cancer. Family meeting tomorrow afternoon to discuss goals of care. (2) Anemia: Plan: Continues with downward trend in H/H. Ascites fluid was not bloody by report during the paracentesis. Stool not overtly melanotic or bloody. Recent stool heme negative as well. Source? Remains on protonix 40mg IV BID. Cont pepcid HS as previous. [facility] following - EGD tomorrow? Defer to GI. Last EGD by report did not show esophageal varices but [id number] is already on octreotide for concern for HRS. Appreciate GI consultation & recs. CBC am. (3) C. difficile enteritis: Plan: Day #2 vancomycin 125mg QID. Continue lactinex 2 cap daily. Contact precautions. (4) Hypotension (arterial): Plan: Hypovolemic in the setting of cirrhosis/severe 3rd spacing vs addisonian vs septic vs combo of factors. Likely the former. His recent paracentesis was 07/28/21 - he presented on 08/03/21 - thus, I do not think his hypotension was directly due to the recent paracentesis itself. Levophed now off. remains on colloid administration with IV albumin q12h. remains on TID midodrine 10mg. Remains on IV antibiotics with cultures pending. However, cell counts from paracentesis today not suggestive of SBP. Remains on stress dose IV hydrocortisone. Decreased to 25mg BID today. Echo with preserved EF. (5) Acute kidney injury: Plan: Pre-renal etiology suspected. Urine Na <10. ATN vs HRS vs other vs combo of factors. Renal u/s without obstruction. Creatinine continues to modestly improve each day with supportive measures as listed in #3 above. But, [id number], has severe hypervolemia from his cirrhosis. Cont albumin, midodrine, octreotide in the event he has HRS. Appreciate nephro consult & recs. Cont sodium bicarbonate. (6) Hyponatremia: Plan: 2nd to #4, decreased solute intake, etc. Serial BMPs. Lowest Na was 122. Na settling in the mid 120s. Appreciate nephrology assistance. (7) Mesenteric vein thrombosis: Plan: Patient has a history of mesenteric vein thrombosis which was diagnosed 2020. Previously treated with xarelto. This is being held. Scrap Handler had placed on heparin infusion in [place] of the xarelto. Heparin now stopped due to ?GI bleeding/acute anemia as noted above. Repeat portal vein doppler without PVT or mesenteric thrombosis. (8) BPH (benign prostatic hyperplasia): Plan: Use finasteride in [place] of dutasteride. Hold flomax due to #1. Jordan in place. (9) Esophageal cancer: Plan: Patient sees Dr. Yesica Carrasquillo for his esophageal cancer. s/p esophageal stent in the past. Is on Opdivo therapy at home. Initial cancer dx in 2020. Very poor prognosis given this plus his advanced cirrhosis. (10) DVT prophylaxis: Plan: SCDs chemical means stopped due to concerns of GI bleeding and downtrending H/H (11) Cirrhosis: Plan: See above (12) Hyperkalemia: Plan: s/p Patiromer multiple doses. s/p Bicarbonate infusion. 2nd to ADELSO. resolved. (13) GERD (gastroesophageal reflux disease): Plan: pepcid + PPI Plan: tin did meet the pt's at bedside today brief update given plan adriániiy meeting tomorrow afternoon to discuss goals of care Admission and Anticipated Discharge Date Admission Date: August 03, 2021 Subjective pt reports that his diarrhea has improved only 1 loose stool since this am underwent paracentesis in radiology - 4 L removed his abdomen does feel better - not as distended during my visit he was sitting in the chair upright reading his Bible he denied any new complaints per staff no overt melena or BRBPR eating fair Review of Systems Review of Systems: gen - no fevers cv - no chest pain; +orthopnea pulm - dyspnea at times GI - distension, no pain/nausea/emesis Physical Exam Physical Exam: gen - NAD, sitting in chair skin - no rash, mild pallor neck - no obvious JVD mouth - no lesions, MMM heart - RRR, s1 s2, no murmur lungs - decreased BS bases, no wheeze, no rales abd - still distended but less so than previous; BS+, NT ext - 2-3+ edema b/l, pulses 2+ b/l Results & Data Results & Data ([facility]) Vital Signs (Past 12 Hours) Vital Signs Temp Pulse Pulse Resp BP BP BP 08/06/21 16:00 59 L 20 95/61 L 08/06/21 15:30 58 L 20 91/60 L 08/06/21 15:15 58 L 19 96/60 L 08/06/21 15:00 56 L 16 97/65 L 08/06/21 14:45 92/58 L 08/06/21 14:30 58 L 22 90/63 L 08/06/21 14:16 90/59 L 08/06/21 14:00 59 L 17 92/60 L 08/06/21 13:54 59 L 17 93/57 L 08/06/21 12:17 56 L 22 92/60 L 08/06/21 08:50 87/55 L 08/06/21 08:45 36.3 C L 65 18 73/41 L 82/51 L Pulse Ox 08/06/21 16:00 94 08/06/21 15:30 94 08/06/21 15:15 94 08/06/21 15:00 91 08/06/21 14:45 08/06/21 14:30 94 08/06/21 14:16 08/06/21 14:00 97 08/06/21 13:54 96 08/06/21 12:17 98 08/06/21 08:50 08/06/21 08:45 95 Laboratory Results Laboratory Results - last 24 hr 08/06/21 08/06/21 08/06/21 05:09 05:09 15:10 WBC 8.24 5.75 RBC 2.54 L 2.44 L Hgb 8.6 L 8.2 L Hct 25.1 L 24.1 L MCV 98.8 98.8 MCH 33.9 33.6 MCHC 34.3 34.0 RDW Std Deviation 60.9 H 60.8 H RDW Coeff of Macario 16.9 H 17.1 H Plt Count 87 L 77 L MPV 10.3 10.1 Immature Gran % (Auto) 0.4 0.2 Neut % (Auto) 88.4 86.6 Lymph % (Auto) 5.5 6.1 [place] % (Auto) 5.7 7.1 Eos % (Auto) 0.0 0.0 Baso % (Auto) 0.0 0.0 Neut # (Auto) 7.29 H 4.98 Lymph # (Auto) 0.45 L 0.35 L [place] # (Auto) 0.47 0.41 Eos # (Auto) 0.00 0.00 Baso # (Auto) 0.00 0.00 Immature Gran # (Auto) 0.03 H 0.01 Platelet Estimate Decreased L Sodium 124 L Potassium 4.3 Chloride 94 L Carbon Dioxide 21 Anion Gap 9 BUN 71 H Creatinine 2.87 H Est Cr Clr Drug Dosing 28.7 Est GFR ( Amer) 25.5 Est GFR (Non-Af Amer) 22.0 BUN/Creatinine Ratio 24.7 H Glucose 116 H Calcium 8.9 Phosphorus 4.6 Magnesium 2.9 H Total Bilirubin 0.6 Direct Bilirubin 0.2 AST 20 ALT 23 Alkaline Phosphatase 61 Total Protein 5.4 L Albumin 3.7 Fluid Neutrophils % Fluid Lymphocytes % Fluid Eosinophils % Fluid Basophils % Fluid [place] % Fluid Comment Peritoneal Color Peritoneal Appearance Peritoneal WBC Peritoneal RBC 08/06/21 08/06/21 15:10 Unknown WBC RBC Hgb Hct MCV MCH MCHC RDW Std Deviation RDW Coeff of Macario Plt Count MPV Immature Gran % (Auto) Neut % (Auto) Lymph % (Auto) [place] % (Auto) Eos % (Auto) Baso % (Auto) Neut # (Auto) Lymph # (Auto) [place] # (Auto) Eos # (Auto) Baso # (Auto) Immature Gran # (Auto) Platelet Estimate Sodium 126 L Potassium 4.0 Chloride 94 L Carbon Dioxide 24 Anion Gap 8 BUN 68 H Creatinine 2.71 H Est Cr Clr Drug Dosing 31.1 Est GFR ( Amer) 27.3 Est GFR (Non-Af Amer) 23.6 BUN/Creatinine Ratio 25.1 H Glucose 135 H Calcium 9.0 Phosphorus 4.0 Magnesium Total Bilirubin Direct Bilirubin AST ALT Alkaline Phosphatase Total Protein Albumin 3.9 Fluid Neutrophils % 11 Fluid Lymphocytes % 51 Fluid Eosinophils % 0 Fluid Basophils % 1 Fluid [place] % 37 Fluid Comment Peritoneal Color PALE YELLOW Peritoneal Appearance CLOUDY Peritoneal WBC 153 Peritoneal RBC < 3000 PG Care Time/CCT Total # of Minutes Spent Total Time Spent with Patient: Total time spent is greater than 50% in coordination of care (as documented) at patient's floor/unit and/or counseling patient: Coding Level of Care Code 00486 Subseq Hosp Care Lvl 2 Diagnoses Anemia D64.9 C. difficile enteritis A04.72 Hypotension (arterial) I95.9 Acute kidney injury N17.9 Hyponatremia E87.1 Abdominal ascites R18.8 Ascites type: other type Mesenteric vein thrombosis K55.069 BPH (benign prostatic hyperplasia) N40.0 Esophageal cancer C15.9 Malignant neoplasm of esophagus location: unspecified location DVT prophylaxis Z29.9 Cirrhosis K74.60 Hyperkalemia E87.5 GERD (gastroesophageal reflux disease) K21.9 (1) Abdominal ascites Ascites type: other type Qualified Code(s): R18.8 - Other ascites (2) Esophageal cancer Malignant neoplasm of esophagus location: unspecified location Qualified Code(s): C15.9 - Malignant neoplasm of esophagus, unspecified
[2021-08-07] MEDS: oxyCODONE HCL IR 5 MG TAB (IMMEDIATE RELEASE) PO PRN ×2 (03:32→21:39)
[2021-08-07] MEDS: VANCOMYCIN HCL 125 MG/2.5ML SOLN PO SCH ×3 (05:06→17:54)
[2021-08-07] MEDS: RASPBERRY SYRUP 5 ML UDP PO SCH ×3 (05:06→17:54)
[2021-08-07] MEDS: OCTREOTIDE ACETATE 500 MCG in DEXTROSE 5% 100 ML IV SCH ×2 (06:01→18:40)
[2021-08-07] MEDS: SODIUM BICARBONATE 650 MG TAB PO SCH ×2 (08:09→17:53)
[2021-08-07] MEDS: MIDODRINE HCL 10 MG TAB PO SCH ×4 (08:10→17:52)
[2021-08-07] MEDS: CALCIUM 600MG + VIT D 400 IU TAB PO SCH ×2 (08:10→20:17)
[2021-08-07] MEDS: ADVANCED PROBIOTIC 1250 MG CAPSULE PO SCH (08:10)
[2021-08-07] MEDS: ALBUMIN 25% 100 mL 25 GM/100 ML VIAL IV SCH ×2 (08:10→20:18)
[2021-08-07] MEDS: FERROUS SULFATE 325 MG TAB PO SCH (08:10)
[2021-08-07] MEDS: buPROPion XL 150 MG TABCR PO SCH (08:10)
[2021-08-07] MEDS: FINASTERIDE 5 MG TAB PO SCH (08:10)
[2021-08-07] MEDS: MIDODRINE HCL 2.5 MG TAB PO SCH ×3 (08:10→17:53)
[2021-08-07] MEDS: HYDROCORTISONE SOD 25 MG in SYRINGE 0 ML IV SCH ×2 (08:12→21:39)
[2021-08-07] MEDS: PANTOprazole 40 MG in SYRINGE 0 ML IV SCH ×2 (08:12→21:39)
[2021-08-07 09:18] LABS: Hematocrit (blood only) 25.4 % (42-52); Hemoglobin 8.9 g/dL (14.0-18.0); Mean Corpuscular Volume 96.9 fL (80-100); Red Blood Count 2.62 M/uL (4.7-6.1); White Blood Count 6.51 K/uL (4.8-10.8)
[2021-08-07 09:28] LABS: Platelet Count 87 K/uL (130-400)
[2021-08-07 09:29] LABS: INR 1.5 (0.9-1.1); Prothrombin Time 16.1 Seconds (9.0-12.0)
[2021-08-07 09:39] LABS: Albumin Globulin Ratio 1.9 (0.9-2); Albumin Level 3.8 gm/dl (3.4-5.0); BUN Creatinine Ratio 26.8 (10-20); Bilirubin,Total 0.6 mg/dl (0.2-1.0); Calcium 8.2 mg/dl (8.5-10.1); Creatinine Clr Calc Pharmacy 34.7 ml/min; Est GFR (African American) 31.8 ml/min; Est GFR (Non-African American) 27.4 ml/min; Potassium 3.6 mmol/L (3.5-5.1); Total Protein 5.8 gm/dl (6.0-8.3)
--- NOTE | 2021-08-07 10:24 | Nephrology Progress Note ---
Date of Service August 07, 2021 Assessment & Plan (1) Acute kidney injury: Plan: Some continued improvement in urine output. Creatinine improving slightly with therapy. Electrolytes acceptable. Clinical presentation remains concerning for HRS physiology. Pending parac entesis today, I would suggest that octreotide and IV albumin be continued. We can start to wean post procedure. Continue midodrine as Rx. Continue oral NaHCO3 1300 BID for NAGMA. Medications are appropriately dosed for kidney dysfunction. (2) Hypotension (arterial): Plan: Continue midodrine as Rx. (3) Hyponatremia: Plan: Chronic, stable. Increased TBW but decreased EAV associated with liver disease and ascites. (4) Abdominal ascites: Plan: GI has discussed possible TIPS procedure. Notable risks associated with procedure but unfortunately treatment options are very limit. Coordinated meeting to discuss management moving forward planned for this afternoon. Paracentesis scheduled for later today. (5) Hypoalbuminemia: (6) Esophageal cancer: Admission and Anticipated Discharge Date Admission Date: August 03, 2021 Subjective No acute events overnight. Everardo was sitting comfortably in bedside chair this AM. He tolerated paracentesis for 4 L well yesterday. Some improvement in abdominal distention reported. Planning additional fluid removal today. Continues to try to remain optimistic. We discussed expectations and overall goals this AM. Planning a coordinated meeting with all members of care team this afternoon. PO iron is nauseating and constipating. Bowels are more formed but Everardo would like to avoid the need for a stool softener. He is interested in holding PO iron. No melena or hematochezia. I discussed the plan of care with GI and the hospitalist this AM. Review of Systems Review of Systems: All systems reviewed & are unremarkable except as noted in HPI & below Physical Exam Constitutional: + frail appearing; no acute distress ENMT: Mouth: + dry oral mucous membranes Neck: normal visual inspection and trachea midline Respiratory: normal respiratory effort Auscultation: lungs clear to auscultation bilaterally and + diminished lung sounds Cardiovascular: Rate/Rhythm: regular rhythm Heart Sounds: normal S1 and normal S2 Extremities: + edema Gastrointestinal (Abdomen): Inspection/Auscultation: + abdomen distended Percussion/Palpation: + ascites; abdomen nontender Musculoskeletal: Extremities: no cyanosis and no clubbing Skin: + turgor decreased; no jaundice Neurologic: Motor/Sensory: no tremor and no asterixis Results & Data ([facility]) Vital Signs (Past 12 Hours) Vital Signs Temp Pulse Resp BP BP Pulse Ox 08/07/21 07:24 36.3 C L 63 18 82/44 L 95 08/07/21 04:00 36.4 C L 62 18 85/55 L 94 08/07/21 00:00 36.3 C L 53 L 14 99/52 L 96 Laboratory Results Laboratory Results - last 24 hr 08/06/21 08/06/21 08/06/21 15:10 15:10 Unknown WBC 5.75 RBC 2.44 L Hgb 8.2 L Hct 24.1 L MCV 98.8 MCH 33.6 MCHC 34.0 RDW Std Deviation 60.8 H RDW Coeff of Macario 17.1 H Plt Count 77 L MPV 10.1 Immature Gran % (Auto) 0.2 Neut % (Auto) 86.6 Lymph % (Auto) 6.1 Preble % (Auto) 7.1 Eos % (Auto) 0.0 Baso % (Auto) 0.0 Neut # (Auto) 4.98 Lymph # (Auto) 0.35 L Preble # (Auto) 0.41 Eos # (Auto) 0.00 Baso # (Auto) 0.00 Immature Gran # (Auto) 0.01 PT INR Sodium 126 L Potassium 4.0 Chloride 94 L Carbon Dioxide 24 Anion Gap 8 BUN 68 H Creatinine 2.71 H Est Cr Clr Drug Dosing 31.1 Est GFR ( Amer) 27.3 Est GFR (Non-Af Amer) 23.6 BUN/Creatinine Ratio 25.1 H Glucose 135 H Calcium 9.0 Phosphorus 4.0 Total Bilirubin AST ALT Alkaline Phosphatase Total Protein Albumin 3.9 Globulin Albumin/Globulin Ratio Fluid Neutrophils % 11 Fluid Lymphocytes % 51 Fluid Eosinophils % 0 Fluid Basophils % 1 Fluid Meso/Macro/Preble % 37 Fluid Comment Peritoneal Color PALE YELLOW Peritoneal Appearance CLOUDY Peritoneal WBC 153 Peritoneal RBC < 3000 08/07/21 08/07/21 08/07/21 09:07 09:07 09:07 WBC 6.51 RBC 2.62 L Hgb 8.9 L Hct 25.4 L MCV 96.9 MCH 34.0 MCHC 35.0 RDW Std Deviation 60.0 H RDW Coeff of Macario 17.0 H Plt Count 87 L MPV 10.0 Immature Gran % (Auto) Neut % (Auto) Lymph % (Auto) Preble % (Auto) Eos % (Auto) Baso % (Auto) Neut # (Auto) Lymph # (Auto) Preble # (Auto) Eos # (Auto) Baso # (Auto) Immature Gran # (Auto) PT 16.1 H INR 1.5 H Sodium 127 L Potassium 3.6 Chloride 96 L Carbon Dioxide 23 Anion Gap 8 BUN 64 H Creatinine 2.39 H D Est Cr Clr Drug Dosing 34.7 Est GFR ( Amer) 31.8 Est GFR (Non-Af Amer) 27.4 BUN/Creatinine Ratio 26.8 H Glucose 112 H Calcium 8.2 L Phosphorus Total Bilirubin 0.6 AST 17 ALT 19 Alkaline Phosphatase 56 Total Protein 5.8 L Albumin 3.8 Globulin 2.0 L Albumin/Globulin Ratio 1.9 Fluid Neutrophils % Fluid Lymphocytes % Fluid Eosinophils % Fluid Basophils % Fluid Meso/Macro/Preble % Fluid Comment Peritoneal Color Peritoneal Appearance Peritoneal WBC Peritoneal RBC PG Care Time/CCT Total # of Minutes Spent Total Time Spent with Patient: Total time spent is greater than 50% in coordination of care (as documented) at patient's floor/unit and/or counseling patient: Coding Level of Care Code 99543 Subseq Hosp Care Lvl 3 Diagnoses Acute kidney injury N17.9 Hypotension (arterial) I95.9 Hyponatremia E87.1 Abdominal ascites R18.8 Ascites type: other type Hypoalbuminemia E88.09 Esophageal cancer C15.9 Malignant neoplasm of esophagus location: unspecified location (1) Abdominal ascites Ascites type: other type Qualified Code(s): R18.8 - Other ascites (2) Esophageal cancer Malignant neoplasm of esophagus location: unspecified location Qualified Code(s): C15.9 - Malignant neoplasm of esophagus, unspecified
[2021-08-07] MEDS ORDERED: EPOETIN ALFA 4,000 UNIT/ML VIAL SQ ONE (10:45)
--- NOTE | 2021-08-07 11:32 | Gastroenterology Progress Note ---
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 He has refractory ascites despite diuretic use with last large volume paracentesis done 07/20 (9L), 07/28 (8L). Admitted with weakness, fatigue, hypotension, noted to have ADELSO. There was a concern for possible GI bleeding as his blood ct dropped though he denies symptoms of melena or BRBPR. FOBT negative. Cdiff +. Concern for HRS. BP still hypotensive, a bit improved, UOP up and Cr down, HGB up; no melena, BRBPR. On exam soft abd. - Monitor H/H and transfuse prn - Will defer EGD for now as labs have improved; no overt GIB - Continue IV BID PPI - Continue Albumin IV; He is getting Midodrine @ 15 mg TID, Octreotide gtt. Monitor UOP, renal function and BP closely - Nephrology is following, appreciate recs. - Ascites: No PVT, SMV not clearly seen. S/p 5 L tap yesterday. Repeat tap today; limited in how much volume can be taken off d/t hypotension/renal failure. Echocardiogram w/ 70% LVEF, normal RV fxn. ? TIPS candidate for ascites control , poor candidate for PleureX catheter due to portal HTN - Cdiff: continue Vancomycin - Poor prognosis overall and Palliative care should be considered, though he is not ready to have end of life discussion. Plan was to have family discussion together with today after 4:30p to discuss goals of care and options Admission and Anticipated Discharge Date Admission Date: August 03, 2021 Supervising Physician Co-Signing Physician Notes Attg add: I interviewed and examined pt, reviewed chart and labs. Pt s/p small volume tap today. Uop, creat improved today. Case d/w [place] IR -- he is not a candidate for TIPS, as refractory ascites is poorly responsive to TIPS in the setting of HRS. On exam, he is comfortable, with abd distention. I had d/w pt about life expectancy and goals of care. RECS: Cont supportive care. WOuld consider continuing albumin, octreotide infusions over the weekend, until creat is close to prior baseline -- but will defer to nephro service. Plan for management of ascites as outpt with weekly taps; would also consider weekly albumin infusions for cirrhosis. Would continue midodrine at same dose for now, and plan for d/c on tmidodrine 7.5 TID -- please note that this med may cause urinary retention at high , and has relative contraindication in a patient taking Flomax. COnt Fluid restrict 2 liters, and plan for d/c on this. Please call with questions over the weekend. Subjective Patient seen and examined, chart reviewed. Overnight BP still hypotensive, improved w/ midodrine, this AM 89/63->102/63. UOP 900 mL overnight. Cr down to 2.39. HGB up to 8.9. Had small dark BM this AM; pt states no change from his typical color. Denies abd pain, n/v, CP, SOB. Review of Systems Review of Systems: All systems reviewed & are unremarkable except as noted in HPI & below Physical Exam Constitutional: + cachectic, chronically ill; no acute distress. Sitting upright in bedside chair reading. Eyes: PERRL, conjunctivae normal, anicteric sclerae Respiratory: normal respiratory effort, lungs clear to auscultation Cardiovascular: Rate/Rhythm: regular rate and regular rhythm + bilateral leg edema (pt states chronic) Gastrointestinal (Abdomen): Mild distention, BS x 4 quadrants, nontender Skin: no rashes, warm and dry Psychiatric: A+Ox3, euthymic affect No asterixis Results & Data ([facility]) Vital Signs (Past 12 Hours) Vital Signs Temp Pulse Pulse Resp BP BP BP 08/07/21 10:30 60 15 100/62 08/07/21 10:15 56 L 25 H 85/54 L 08/07/21 10:00 58 L 27 H 89/63 L 08/07/21 09:45 63 20 96/56 L 08/07/21 09:30 61 19 90/64 L 08/07/21 09:15 67 18 94/55 L 08/07/21 09:06 57 L 20 89/52 L 08/07/21 09:05 63 22 79/50 L 08/07/21 09:04 58 L 23 66/42 L 08/07/21 09:00 57 L 22 08/07/21 07:24 36.3 C L 63 18 82/44 L 08/07/21 04:00 36.4 C L 62 18 85/55 L 08/07/21 00:00 36.3 C L 53 L 14 99/52 L Pulse Ox 08/07/21 10:30 97 08/07/21 10:15 08/07/21 10:00 08/07/21 09:45 08/07/21 09:30 94 08/07/21 09:15 98 08/07/21 09:06 93 08/07/21 09:05 99 08/07/21 09:04 97 08/07/21 09:00 97 08/07/21 07:24 95 08/07/21 04:00 94 08/07/21 00:00 96 Laboratory Results 08/07/21 08/07/21 08/07/21 Range/Units 09:07 09:07 09:07 WBC 6.51 (4.8-10.8) K/uL RBC 2.62 L (4.7-6.1) M/uL Hgb 8.9 L (14.0-18.0) g/dL Hct 25.4 L (42-52) % MCV 96.9 (80-100) fL MCH 34.0 (25-34) pg MCHC 35.0 (32-36) g/dL RDW Std Deviation 60.0 H (36.4-46.3) fL RDW Coeff of Macario 17.0 H (11.5-14.5) % Plt Count 87 L (130-400) K/uL MPV 10.0 (7.4-10.4) fL Immature Gran % (Auto) % Neut % (Auto) % Lymph % (Auto) % Tift % (Auto) % Eos % (Auto) % Baso % (Auto) % Neut # (Auto) (1.4-6.5) K/uL Lymph # (Auto) (1.2-3.4) K/uL Tift # (Auto) (0.11-0.59) K/uL Eos # (Auto) (0-0.5) K/uL Baso # (Auto) (0-0.2) K/uL Immature Gran # (Auto) (0.00-0.02) K/uL PT 16.1 H (9.0-12.0) Seconds INR 1.5 H (0.9-1.1) Sodium 127 L (136-145) mmol/L Potassium 3.6 (3.5-5.1) mmol/L Chloride 96 L (98-107) mmol/L Carbon Dioxide 23 (21-32) mmol/L Anion Gap 8 (3-11) BUN 64 H (6-23) mg/dl Creatinine 2.39 H D (0.6-1.4) mg/dl Est Cr Clr Drug Dosing 34.7 ml/min Est GFR ( Amer) 31.8 ml/min Est GFR (Non-Af Amer) 27.4 ml/min BUN/Creatinine Ratio 26.8 H (10-20) Glucose 112 H (70-99(Fasting)) mg/dl Calcium 8.2 L (8.5-10.1) mg/dl Phosphorus (2.5-4.9) mg/dl Total Bilirubin 0.6 (0.2-1.0) mg/dl AST 17 (13-39) U/L ALT 19 (7-52) U/L Alkaline Phosphatase 56 (34-104) U/L Total Protein 5.8 L (6.0-8.3) gm/dl Albumin 3.8 (3.4-5.0) gm/dl Globulin 2.0 L (2.5-4.0) gm/dl Albumin/Globulin Ratio 1.9 (0.9-2) Fluid Neutrophils % % Fluid Lymphocytes % % Fluid Eosinophils % % Fluid Basophils % % Fluid Meso/Macro/Tift % % Fluid Comment Peritoneal Color Peritoneal Appearance Peritoneal WBC (0-300) /ul Peritoneal RBC /uL 08/06/21 08/06/21 08/06/21 Range/Units Unknown 15:10 15:10 WBC 5.75 (4.8-10.8) K/uL RBC 2.44 L (4.7-6.1) M/uL Hgb 8.2 L (14.0-18.0) g/dL Hct 24.1 L (42-52) % MCV 98.8 (80-100) fL MCH 33.6 (25-34) pg MCHC 34.0 (32-36) g/dL RDW Std Deviation 60.8 H (36.4-46.3) fL RDW Coeff of Macario 17.1 H (11.5-14.5) % Plt Count 77 L (130-400) K/uL MPV 10.1 (7.4-10.4) fL Immature Gran % (Auto) 0.2 % Neut % (Auto) 86.6 % Lymph % (Auto) 6.1 % Tift % (Auto) 7.1 % Eos % (Auto) 0.0 % Baso % (Auto) 0.0 % Neut # (Auto) 4.98 (1.4-6.5) K/uL Lymph # (Auto) 0.35 L (1.2-3.4) K/uL Tift # (Auto) 0.41 (0.11-0.59) K/uL Eos # (Auto) 0.00 (0-0.5) K/uL Baso # (Auto) 0.00 (0-0.2) K/uL Immature Gran # (Auto) 0.01 (0.00-0.02) K/uL PT (9.0-12.0) Seconds INR (0.9-1.1) Sodium 126 L (136-145) mmol/L Potassium 4.0 (3.5-5.1) mmol/L Chloride 94 L (98-107) mmol/L Carbon Dioxide 24 (21-32) mmol/L Anion Gap 8 (3-11) BUN 68 H (6-23) mg/dl Creatinine 2.71 H (0.6-1.4) mg/dl Est Cr Clr Drug Dosing 31.1 ml/min Est GFR ( Amer) 27.3 ml/min Est GFR (Non-Af Amer) 23.6 ml/min BUN/Creatinine Ratio 25.1 H (10-20) Glucose 135 H (70-99(Fasting)) mg/dl Calcium 9.0 (8.5-10.1) mg/dl Phosphorus 4.0 (2.5-4.9) mg/dl Total Bilirubin (0.2-1.0) mg/dl AST (13-39) U/L ALT (7-52) U/L Alkaline Phosphatase (34-104) U/L Total Protein (6.0-8.3) gm/dl Albumin 3.9 (3.4-5.0) gm/dl Globulin (2.5-4.0) gm/dl Albumin/Globulin Ratio (0.9-2) Fluid Neutrophils % 11 % Fluid Lymphocytes % 51 % Fluid Eosinophils % 0 % Fluid Basophils % 1 % Fluid Meso/Macro/Tift % 37 % Fluid Comment Peritoneal Color PALE YELLOW Peritoneal Appearance CLOUDY Peritoneal WBC 153 (0-300) /ul Peritoneal RBC < 3000 /uL (1) Esophageal cancer Malignant neoplasm of esophagus location: unspecified location Qualified Code(s): C15.9 - Malignant neoplasm of esophagus, unspecified
--- NOTE | 2021-08-07 12:54 | Ultrasound Report ---
ULTRASOUND-GUIDED THERAPEUTIC PARACENTESIS: HISTORY: Ascites. Procedure: The procedure and its risks, benefits and alternatives were discussed with the patient and written informed consent was obtained. Preliminary ultrasound of the abdomen was performed to determ ine a safe needle entry site. The left lower quadrant was prepped and draped in the usual sterile fashion. 1% Lidocaine was used fo r local anesthesia. A paracentesis needle-sheath was inserted into the peritoneal space using ultraso und guidance. The needle was removed and the sheath was connected to tubing and a vacuum suction robby ce. A total of 4 liters of yellow ascites was aspirated. The sheath was removed and a sterile dressin g applied. The patient tolerated the procedure well and there were no immediate complications. IMPRESSION: Ultrasound-guided therapeutic paracentesis with aspiration of 4 liters of ascites. ACT 112: Negative or not required by law. Electronically signed by: Kike Freeman M.D. 08/07/2021 12:53 PM
[2021-08-07] MEDS: cefTRIAXone SODIUM 2,000 MG in DEXTROSE 5% 50 ML IV SCH (16:55)
[2021-08-07] MEDS: FAMOTIDINE 40 MG TABLET PO SCH (20:17)
--- NOTE | 2021-08-07 20:52 | Hospitalist Progress Note ---
Date of Service August 07, 2021 Assessment & Plan (1) Abdominal ascites: Plan: 2nd to cirrhosis. Recent SAAG was calculated in the setting of his last paracentesis in July. SAAG = 1.3 c/w portal HTN. Cytologies negative for malignant cells. Pt reports he was told years ago he had fatty liver; thus, he may have HOFFMAN. He denies any prolonged, heavy use of etoh. No prior h/o infectious hepatitis. s/p paracentesis 08/07/21 - 4 L removed. Cell counts not suggestive of SBP. Gram stain/cx pending but negative to date. 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 [facility] GI following. To help with refractory ascites - TIPS? Weekly paracentesis? Dr Carlos and his team did speak with IR at [facility] - uncertain if patient is truly a TIPS candidate. He is not a candidate for a palliative pleurX catheter due to portal HTN per GI. Diuretics on hold due to HRS. (2) Hepatorenal syndrome: Plan: Type 1 suspected. Remains on midodrine 15mg TID. Remains on albumin 25%, 25gm BID. Remains on octreotide drip. Was started on stress dose hydrocortisone in ICU as well - now BID dosing. All diuretics on hold. Flomax on hold. Appreciate GI and nephro assistance. Likely to start weaning the above meds this weekend. Per Dr Carlos - at time of discharge should go home on max of 7.5mg TID of midodrine. BMP am. Very poor prognosis. (3) Anemia: Plan: Continues with downward trend in H/H although hemoglobin today was stable. Ascites fluid was not bloody by report during the paracentesis. Stool not overtly melanotic or bloody. Recent stool heme negative as well. Source? Remains on protonix 40mg IV BID. Cont pepcid HS as previous. [facility] GI following - EGD deferred for now. Last EGD by report did not show esophageal varices but [id number] is already on octreotide for concern for HRS. Appreciate GI consultation & recs. CBC am. (4) C. difficile enteritis: Plan: Day #3 vancomycin 125mg QID. Continue lactinex 2 cap daily. Contact precautions. (5) Hypotension (arterial): Plan: Hypovolemic in the setting of cirrhosis/severe 3rd spacing vs addisonian vs septic vs combo of factors. Likely the former. His recent outpatient paracentesis was 07/28/21 - he presented on 08/03/21 - thus, I do not think his hypotension was directly due to the recent paracentesis itself but can't rule it out. Levophed now off. remains on colloid administration with IV albumin q12h. remains on TID midodrine 15mg. Remains on IV antibiotics with cultures pending. However, cell counts from paracentesis 08/06/21 not suggestive of SBP. Remains on stress dose IV hydrocortisone 25mg BID. Echo with preserved EF. Try weaning IV steroids to PO steroids tomorrow. Defer weaning of midodrine/albumin/octreotide to GI & nephrology. (6) Acute kidney injury: Plan: Urine Na <10. ATN vs HRS vs other vs combo of factors. HRS suspected. Renal u/s without obstruction. Creatinine continues to modestly improve each day with supportive measures as listed above. Continues with severe hypervolemia from his cirrhosis. Cont albumin, midodrine, octreotide as above. Appreciate nephro consult & recs. Cont sodium bicarbonate. BMP am. (7) Hyponatremia: Plan: 2nd to #4, decreased solute intake, etc. Serial BMPs. Lowest Na was 122. Na settling in the mid 120s. Appreciate nephrology assistance. (8) Mesenteric vein thrombosis: Plan: Patient has a history of mesenteric vein thrombosis which was diagnosed 2020. Previously treated with xarelto. This is being held. [employer] had placed on heparin infusion in [place] of the xarelto. Heparin now stopped due to ?GI bleeding/acute anemia as noted above. Repeat portal vein doppler without PVT or mesenteric thrombosis. (9) BPH (benign prostatic hyperplasia): Plan: Use finasteride in [place] of dutasteride. Hold flomax. Jordan in place. (10) Esophageal cancer: Plan: Patient sees Dr. Yesica Carrasquillo for his esophageal cancer. s/p esophageal stent in the past. Is on Opdivo therapy at home. Initial cancer dx in 2020. Very poor prognosis given this plus his advanced cirrhosis. (11) DVT prophylaxis: Plan: SCDs chemical means stopped due to concerns of GI bleeding and downtrending H/H (12) Cirrhosis: Plan: See above (13) Hyperkalemia: Plan: s/p Patiromer multiple doses. s/p Bicarbonate infusion. 2nd to ADELSO. resolved. (14) GERD (gastroesophageal reflux disease): Plan: pepcid + PPI Plan: family meeting took place today patient wishes to continue current care plan full code he is not ready to transition to hospice/palliative care appreciate GI & nephrology support extensively updated today Admission and Anticipated Discharge Date Admission Date: August 03, 2021 Subjective I met with the patient, his , and Dr Smith to discuss plan of care, options, goals for care patient very agitated - angry at times - wants to continue forward with routine care he stated several times that he "wants to get a little more time" so that the can spend more opportunities with his grandchildren, go to [place], etc we counseled him that the cirrhosis is the biggest culprit in his current state right now he didn't have any new complaints today tele overnight stable diarrhea is improved Review of Systems Review of Systems: gen - no fever cv - no chest pain; does have orthopnea pulm - dyspneic mainly when he tries to sleep; none while awake and upright in the chair or bed GI - distension remains, diarrhea improved; no vomiting Physical Exam Physical Exam: gen - NAD, sitting in chair, agitated/a bit angry about current status skin - no rash, mild pallor neck - no obvious JVD mouth - no lesions, MMM heart - RRR, s1 s2, no murmur lungs - decreased BS bases, no wheeze, no rales, no increased work of breathing abd - distended with ascites; BS+, NT ext - 3+ edema b/l, pulses 2+ b/l Results & Data Results & Data ([facility]) Vital Signs (Past 12 Hours) Vital Signs Temp Pulse Pulse Resp BP BP Pulse Ox 08/07/21 19:36 36.6 C 55 L 16 100/49 L 99 08/07/21 16:00 53 L 08/07/21 15:11 36.5 C 51 L 18 80/54 L 100 08/07/21 14:30 56 L 20 77/53 L 78 L 08/07/21 14:00 50 L 17 85/53 L 99 08/07/21 13:30 60 24 80/53 L 96 08/07/21 13:05 73 23 79/54 L 95 08/07/21 13:01 69 28 H 71/49 L 97 08/07/21 13:00 79 20 95 08/07/21 12:30 62 29 H 81/50 L 98 08/07/21 10:30 60 15 100/62 97 08/07/21 10:15 56 L 25 H 85/54 L 08/07/21 10:00 58 L 27 H 89/63 L 08/07/21 09:45 63 20 96/56 L 08/07/21 09:30 61 19 90/64 L 94 08/07/21 09:15 67 18 94/55 L 98 08/07/21 09:06 57 L 20 89/52 L 93 08/07/21 09:05 63 22 79/50 L 99 08/07/21 09:04 58 L 23 66/42 L 97 08/07/21 09:00 57 L 22 97 Laboratory Results Laboratory Results - last 24 hr 08/07/21 08/07/21 08/07/21 09:07 09:07 09:07 WBC 6.51 RBC 2.62 L Hgb 8.9 L Hct 25.4 L MCV 96.9 MCH 34.0 MCHC 35.0 RDW Std Deviation 60.0 H RDW Coeff of Macario 17.0 H Plt Count 87 L MPV 10.0 PT 16.1 H INR 1.5 H Sodium 127 L Potassium 3.6 Chloride 96 L Carbon Dioxide 23 Anion Gap 8 BUN 64 H Creatinine 2.39 H D Est Cr Clr Drug Dosing 34.7 Est GFR ( Amer) 31.8 Est GFR (Non-Af Amer) 27.4 BUN/Creatinine Ratio 26.8 H Glucose 112 H Calcium 8.2 L Total Bilirubin 0.6 AST 17 ALT 19 Alkaline Phosphatase 56 Total Protein 5.8 L Albumin 3.8 Globulin 2.0 L Albumin/Globulin Ratio 1.9 PG Care Time/CCT Total # of Minutes Spent Total Time Spent with Patient: Total time spent is greater than 50% in coordination of care (as documented) at patient's floor/unit and/or counseling patient: Coding Level of Care Code 88393 Subseq Hosp Care Lvl 3 Diagnoses Abdominal ascites R18.8 Ascites type: other type Anemia D64.9 C. difficile enteritis A04.72 Hypotension (arterial) I95.9 Acute kidney injury N17.9 Hyponatremia E87.1 Mesenteric vein thrombosis K55.069 BPH (benign prostatic hyperplasia) N40.0 Esophageal cancer C15.9 Malignant neoplasm of esophagus location: unspecified location DVT prophylaxis Z29.9 Cirrhosis K74.60 Hyperkalemia E87.5 GERD (gastroesophageal reflux disease) K21.9 Hepatorenal syndrome K76.7 (1) Abdominal ascites Ascites type: other type Qualified Code(s): R18.8 - Other ascites (2) Esophageal cancer Malignant neoplasm of esophagus location: unspecified location Qualified Code(s): C15.9 - Malignant neoplasm of esophagus, unspecified
[2021-08-08] MEDS: RASPBERRY SYRUP 5 ML UDP PO SCH ×5 (00:55→23:27)
[2021-08-08] MEDS: VANCOMYCIN HCL 125 MG/2.5ML SOLN PO SCH ×5 (00:55→23:26)
[2021-08-08] MEDS: OCTREOTIDE ACETATE 500 MCG in DEXTROSE 5% 100 ML IV SCH ×3 (03:35→23:25)
[2021-08-08] MEDS: oxyCODONE HCL IR 5 MG TAB (IMMEDIATE RELEASE) PO PRN ×3 (03:37→17:56)
[2021-08-08] MEDS: HEPARIN SODIUM/DEXTROSE 25,000 UNITS/500 ML BAG IV SCH (07:16)
[2021-08-08] MEDS: buPROPion XL 150 MG TABCR PO SCH (07:53)
[2021-08-08] MEDS: ADVANCED PROBIOTIC 1250 MG CAPSULE PO SCH (07:53)
[2021-08-08] MEDS: MIDODRINE HCL 10 MG TAB PO SCH ×3 (07:53→17:23)
[2021-08-08] MEDS: SODIUM BICARBONATE 650 MG TAB PO SCH ×2 (07:53→17:22)
[2021-08-08] MEDS: FINASTERIDE 5 MG TAB PO SCH (07:53)
[2021-08-08] MEDS: CALCIUM 600MG + VIT D 400 IU TAB PO SCH ×2 (07:53→20:49)
[2021-08-08] MEDS: MIDODRINE HCL 2.5 MG TAB PO SCH ×3 (07:54→17:22)
[2021-08-08] MEDS: PANTOprazole 40 MG in SYRINGE 0 ML IV SCH ×2 (08:33→20:48)
--- NOTE | 2021-08-08 08:43 | Nephrology Progress Note ---
Date of Service August 08, 2021 Assessment & Plan (1) Acute kidney injury: Plan: * ADELSO following large volume paracentesis in the setting of cirrhosis and metastatic esophageal CA * Patient is responding to IV Albumin, oral Midodrine and IV Octreotide therapy as per GI * He remains on NaHCO3 1300mg BID for NAGMA * Continue current management. Consider weaning therapy tomorrow if kidney function continues to improve (baseline Cr 1.3) (2) Hypotension (arterial): Plan: * SBP 70 - 90 while on Midodrine therapy (3) Hyponatremia: Plan: * Chronic, stable. Increased TBW but decreased EAV associated with liver disease and ascites (4) Abdominal ascites: Plan: * GI has discussed possible TIPS procedure. Await further input (5) Esophageal cancer: Plan: * Recent therapy w/ FOLFOX and Opdivo as per Dr. Keith Carrasquillo * Possible mets to liver Admission and Anticipated Discharge Date Admission Date: August 03, 2021 Subjective Mr. Muse was evaluated in his hospital room this morning. He reports brisk UO but notes that he is again developing ascites Review of Systems Constitutional: + weakness; no fever Eyes: no problem reported Ear, Nose, Mouth, Throat: no problem reported Respiratory: no cough and no dyspnea Cardiovascular: + edema; no chest pain and no palpitations Gastrointestinal: + diarrhea/loose stools; no abdominal pain and no vomiting Genitourinary: no dysuria, no urinary hesitancy or no hematuria Musculoskeletal: no back pain Integumentary: no rash Neurologic: no confusion Physical Exam Constitutional: + ill appearing Eyes: PERRL, conjunctivae normal, anicteric sclerae ENMT: external ear and nose normal, oropharynx normal Neck: trachea midline, no thyromegaly Respiratory: normal respiratory effort, lungs clear to auscultation Cardiovascular: Rate/Rhythm: regular rate and regular rhythm Extremities: + edema (3+ pretibial pitting edema) Gastrointestinal (Abdomen): normal bowel sounds, soft, nontender, no hepatosplenomegaly Skin: no rashes, warm and dry Neurologic: awake; not confused Results & Data ([facility]) Vital Signs (Past 12 Hours) Vital Signs Temp Pulse Pulse Resp BP BP Pulse Ox 08/08/21 07:36 36.4 C L 58 L 18 91/51 L 98 08/08/21 03:55 36.4 C L 59 L 16 99/31 L 96 08/08/21 00:00 64 08/07/21 23:01 36.4 C L 60 16 76/33 L 75/39 L 99 08/07/21 22:15 57 L 75/43 L Laboratory Results Laboratory Tests 08/07/21 08/07/21 09:07 09:07 WBC 6.51 Hgb 8.9 L Hct 25.4 L Plt Count 87 L Sodium 127 L Potassium 3.6 Chloride 96 L Carbon Dioxide 23 BUN 64 H Creatinine 2.39 H D Glucose 112 H Calcium 8.2 L Albumin 3.8 Laboratory Tests 08/08/21 08:38 Sodium 128 L Potassium 3.8 Chloride 97 L Carbon Dioxide 24 BUN 53 H Creatinine 1.98 H D Glucose 132 H PG Care Time/CCT Total # of Minutes Spent Total Time Spent with Patient: Total time spent is greater than 50% in coordination of care (as documented) at patient's floor/unit and/or counseling patient: Coding Level of Care Code 29257 Subseq Hosp Care Lvl 3 Diagnoses Acute kidney injury N17.9 Hypotension (arterial) I95.9 Hyponatremia E87.1 Abdominal ascites R18.8 Ascites type: other type Esophageal cancer C15.9 Malignant neoplasm of esophagus location: unspecified location (1) Abdominal ascites Ascites type: other type Qualified Code(s): R18.8 - Other ascites (2) Esophageal cancer Malignant neoplasm of esophagus location: unspecified location Qualified Code(s): C15.9 - Malignant neoplasm of esophagus, unspecified
[2021-08-08 09:07] LABS: Hematocrit (blood only) 29.6 % (42-52); Mean Corpuscular Hemoglobin 33.8 pg (25-34); Mean Corpuscular Hgb Conc 33.8 g/dL (32-36); Mean Platelet Volume 10.7 fL (7.4-10.4); Platelet Count 122 K/uL (130-400); RDW Coefficient of Variation 17.2 % (11.5-14.5); RDW Standard Deviation 62.5 fL (36.4-46.3); Red Blood Count 2.96 M/uL (4.7-6.1)
[2021-08-08] MEDS: HYDROCORTISONE SOD 25 MG in SYRINGE 0 ML IV SCH ×2 (09:14→20:49)
[2021-08-08] MEDS: ALBUMIN 25% 100 mL 25 GM/100 ML VIAL IV SCH ×2 (09:22→20:50)
[2021-08-08 09:30] LABS: BUN Creatinine Ratio 26.8 (10-20); Calcium 7.9 mg/dl (8.5-10.1); Creatinine Clr Calc Pharmacy 41.4 ml/min; Est GFR (African American) 39.9 ml/min; Est GFR (Non-African American) 34.4 ml/min; Potassium 3.8 mmol/L (3.5-5.1)
--- NOTE | 2021-08-08 13:37 | Hospitalist Progress Note ---
Date of Service August 08, 2021 Assessment & Plan (1) Abdominal ascites: Plan: 2nd to cirrhosis. Recent SAAG was calculated in the setting of his last paracentesis in July. SAAG = 1.3 c/w portal HTN. Cytologies negative for malignant cells. Pt reports he was told years ago he had fatty liver; thus, he may have HOFFMAN. He denies any prolonged, heavy use of etoh. No prior h/o infectious hepatitis. s/p paracentesis 08/07/21 - 4 L removed. Cell counts not suggestive of SBP. Gram stain/cx pending but negative to date -we will discontinue ceftriaxone. 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 [facility] GI following. To help with refractory ascites - TIPS? Weekly paracentesis? Dr Carlos and his team did speak with IR at [facility] - uncertain if patient is truly a TIPS candidate. He is not a candidate for a palliative pleurX catheter due to portal HTN per GI. Diuretics on hold due to hypotension. (2) Hepatorenal syndrome: Plan: Type 1 suspected. Remains on midodrine 15mg TID. Remains on albumin 25%, 25gm BID. Remains on octreotide drip. Was started on stress dose hydrocortisone in ICU as well - now BID dosing. All diuretics on hold. Flomax on hold. Appreciate GI and nephro assistance. Likely to start weaning the above meds this weekend. Per Dr Carlos - at time of discharge should go home on max of 7.5mg TID of midodrine. BMP am. Very poor prognosis. (3) Anemia: Plan: Continues with downward trend in H/H although hemoglobin today was stable. Ascites fluid was not bloody by report during the paracentesis. Stool not overtly melanotic or bloody. Recent stool heme negative as well. Source? Remains on protonix 40mg IV BID. Cont pepcid HS as previous. [facility] GI following - EGD deferred for now. Last EGD by report did not show esophageal varices but [id number] is already on octreotide for concern for HRS. Appreciate GI consultation & recs. CBC am. (4) C. difficile enteritis: Plan: Day #4 vancomycin 125mg QID. Continue Lactinex 2 cap daily. Contact precautions. (5) Hypotension (arterial): Plan: Hypovolemic in the setting of cirrhosis/severe 3rd spacing vs addisonian vs septic vs combo of factors. Likely the former. His recent outpatient paracentesis was 07/28/21 - he presented on 08/03/21 - thus, I do not think his hypotension was directly due to the recent paracentesis itself but can't rule it out. Levophed now off. remains on colloid administration with IV albumin q12h. remains on TID midodrine 15mg. Remains on IV antibiotics with cultures pending. However, cell counts from paracentesis 08/06/21 not suggestive of SBP. Remains on stress dose IV hydrocortisone 25mg BID. Echo with preserved EF. Defer weaning of midodrine/albumin/octreotide to GI & nephrology. (6) Acute kidney injury: Plan: Resolving Cr 1.98 (baseline 1.3) Urine Na <10. ATN vs HRS vs other vs combo of factors. HRS suspected. Renal u/s without obstruction. Creatinine continues to modestly improve each day with supportive measures as listed above. Continues with severe hypervolemia from his cirrhosis. Cont albumin, midodrine, octreotide as above. Appreciate nephro consult & recs. Cont sodium bicarbonate. BMP am. (7) Hyponatremia: Plan: 2nd to #4, decreased solute intake, etc. Serial BMPs. Lowest Na was 122. Na settling in the mid 120s. Appreciate nephrology assistance. (8) Mesenteric vein thrombosis: Plan: Patient has a history of mesenteric vein thrombosis which was diagnosed 2020. Previously treated with xarelto. This is being held. [employer] had placed on heparin infusion in [place] of the xarelto. Heparin now stopped due to ?GI bleeding/acute anemia as noted above. Repeat portal vein doppler without PVT or mesenteric thrombosis. (9) BPH (benign prostatic hyperplasia): Plan: Use finasteride in [place] of dutasteride. Hold flomax. Jordan in place. (10) Esophageal cancer: Plan: Patient sees Dr. Yesica Carrasquillo for his esophageal cancer. s/p esophageal stent in the past. Is on Opdivo therapy at home. Initial cancer dx in 2020. Very poor prognosis given this plus his advanced cirrhosis. (11) DVT prophylaxis: Plan: SCDs chemical means stopped due to concerns of GI bleeding and downtrending H/H (12) Cirrhosis: Plan: See above (13) Hyperkalemia: Plan: s/p Patiromer multiple doses. s/p Bicarbonate infusion. 2nd to ADELSO. resolved. (14) GERD (gastroesophageal reflux disease): Plan: pepcid + PPI Plan: family meeting took place today patient wishes to continue current care plan full code he is not ready to transition to hospice/palliative care appreciate GI & nephrology support extensively updated today Admission and Anticipated Discharge Date Admission Date: August 03, 2021 Subjective Feels depressed about his diagnoses and seriousness of situation but feels he is doing well under the circumstances. Abdomen is getting larger but he reports much softer than prior to paraventesis. Watery bowel movements have mostly resolved at this time. Review of Systems Review of Systems: All systems reviewed & are unremarkable except as noted in Subjective Physical Exam Constitutional: + frail appearing; no acute distress Respiratory: normal respiratory effort, lungs clear to auscultation Cardiovascular: Rate/Rhythm: regular rate and regular rhythm Extremities: + edema (3+ b/l equal pretibial pitting edema) Gastrointestinal (Abdomen): normal bowel sounds, soft, nontender, no hepatosplenomegaly Skin: no rashes, warm and dry Neurologic: awake; not confused Results & Data Results & Data ([facility]) Vital Signs (Past 12 Hours) Vital Signs Temp Pulse Pulse Resp BP BP Pulse Ox 08/08/21 11:36 36.4 C L 92 H 20 80/55 L 94 08/08/21 08:00 86 08/08/21 07:36 36.4 C L 58 L 18 91/51 L 98 08/08/21 03:55 36.4 C L 59 L 16 99/31 L 96 PG Care Time/CCT Total # of Minutes Spent Total Time Spent with Patient: Total time spent is greater than 50% in coordination of care (as documented) at patient's floor/unit and/or counseling patient: Coding Level of Care Code 14075 Subseq Hosp Care Lvl 2 Diagnoses Abdominal ascites R18.8 Ascites type: other type Hepatorenal syndrome K76.7 Anemia D64.9 C. difficile enteritis A04.72 Hypotension (arterial) I95.9 Acute kidney injury N17.9 Hyponatremia E87.1 Mesenteric vein thrombosis K55.069 BPH (benign prostatic hyperplasia) N40.0 Esophageal cancer C15.9 Malignant neoplasm of esophagus location: unspecified location DVT prophylaxis Z29.9 Cirrhosis K74.60 Hyperkalemia E87.5 GERD (gastroesophageal reflux disease) K21.9 (1) Abdominal ascites Ascites type: other type Qualified Code(s): R18.8 - Other ascites (2) Esophageal cancer Malignant neoplasm of esophagus location: unspecified location Qualified Code(s): C15.9 - Malignant neoplasm of esophagus, unspecified
[2021-08-08] MEDS: FAMOTIDINE 40 MG TABLET PO SCH (20:49)
[2021-08-09 04:34] LABS: Hematocrit (blood only) 24.3 % (42-52); Hemoglobin 8.4 g/dL (14.0-18.0); Mean Corpuscular Hemoglobin 33.9 pg (25-34); Mean Corpuscular Hgb Conc 34.6 g/dL (32-36); Mean Platelet Volume 10.3 fL (7.4-10.4); Platelet Count 78 K/uL (130-400); RDW Standard Deviation 60.8 fL (36.4-46.3); Red Blood Count 2.48 M/uL (4.7-6.1); White Blood Count 4.66 K/uL (4.8-10.8)
[2021-08-09 04:54] LABS: Albumin Level 3.6 gm/dl (3.4-5.0); BUN Creatinine Ratio 25.7 (10-20); Bilirubin,Total 0.6 mg/dl (0.2-1.0); Calcium 8.5 mg/dl (8.5-10.1); Creatinine Clr Calc Pharmacy 49.1 ml/min; Est GFR (Non-African American) 42.3 ml/min; Globulin 0.9 gm/dl (2.5-4.0); Potassium 3.4 mmol/L (3.5-5.1); Total Protein 4.5 gm/dl (6.0-8.3)
[2021-08-09] MEDS: RASPBERRY SYRUP 5 ML UDP PO SCH ×4 (05:00→23:18)
[2021-08-09] MEDS: VANCOMYCIN HCL 125 MG/2.5ML SOLN PO SCH ×4 (05:00→23:18)
[2021-08-09] MEDS: MIDODRINE HCL 10 MG TAB PO SCH ×3 (07:56→16:48)
[2021-08-09] MEDS: MIDODRINE HCL 2.5 MG TAB PO SCH ×3 (07:57→16:48)
[2021-08-09] MEDS: ALBUMIN 25% 100 mL 25 GM/100 ML VIAL IV SCH ×2 (07:58→21:09)
[2021-08-09] MEDS: buPROPion XL 150 MG TABCR PO SCH (07:58)
[2021-08-09] MEDS: HYDROCORTISONE SOD 25 MG in SYRINGE 0 ML IV SCH ×2 (07:59→21:06)
[2021-08-09] MEDS: FINASTERIDE 5 MG TAB PO SCH (07:59)
[2021-08-09] MEDS: CALCIUM 600MG + VIT D 400 IU TAB PO SCH ×2 (07:59→21:06)
[2021-08-09] MEDS: ADVANCED PROBIOTIC 1250 MG CAPSULE PO SCH (08:00)
[2021-08-09] MEDS: PANTOprazole 40 MG in SYRINGE 0 ML IV SCH ×2 (08:00→21:06)
[2021-08-09] MEDS: oxyCODONE HCL IR 5 MG TAB (IMMEDIATE RELEASE) PO PRN (08:01)
[2021-08-09] MEDS: SODIUM BICARBONATE 650 MG TAB PO SCH (08:01)
--- NOTE | 2021-08-09 08:46 | Nephrology Progress Note ---
Date of Service August 09, 2021 Assessment & Plan (1) Acute kidney injury: Plan: * ADELSO following large volume paracentesis in the setting of cirrhosis and metastatic esophageal CA * Patient is responding to IV Albumin, oral Midodrine and IV Octreotide therapy as per GI * Will stop NaHCO3 * Will stop Dutasteride and Flomax since patient requires Midodrine therapy * Continue current management. Consider albumin and Octreotide tomorrow if kidney function continues to improve (baseline Cr 1.3) (2) Hypotension (arterial): Plan: * SBP 70 - 90 while on Midodrine therapy * Will stop Dutasteride and Flomax since patient requires Midodrine therapy (3) Hyponatremia: Plan: * Chronic, stable. Increased TBW but decreased EAV associated with liver disease and ascites (4) Abdominal ascites: Plan: * GI has discussed possible TIPS procedure. Await further input (5) Esophageal cancer: Plan: * Recent therapy w/ FOLFOX and Opdivo as per Dr. Keith Carrasquillo * Possible mets to liver Admission and Anticipated Discharge Date Admission Date: August 03, 2021 Subjective Mr. Muse was evaluated in his hospital room this morning. He understands that his prognosis is poor but hopes to be discharged to home early next week. Review of Systems Constitutional: + weakness; no fever Eyes: no problem reported Ear, Nose, Mouth, Throat: no problem reported Respiratory: no cough and no dyspnea Cardiovascular: + edema; no chest pain and no palpitations Gastrointestinal: + diarrhea/loose stools; no abdominal pain and no vomiting Genitourinary: no dysuria, no urinary hesitancy or no hematuria Musculoskeletal: no back pain Integumentary: no rash Neurologic: no confusion Physical Exam Constitutional: + ill appearing Eyes: PERRL, conjunctivae normal, anicteric sclerae ENMT: external ear and nose normal, oropharynx normal Neck: trachea midline, no thyromegaly Respiratory: normal respiratory effort, lungs clear to auscultation Cardiovascular: Rate/Rhythm: regular rate and regular rhythm Extremities: + edema (3+ pretibial pitting edema) Gastrointestinal (Abdomen): normal bowel sounds, soft, nontender, no hepatosplenomegaly Skin: no rashes, warm and dry Neurologic: awake; not confused Results & Data ([facility]) Vital Signs (Past 12 Hours) Vital Signs Temp Pulse Pulse Resp BP BP Pulse Ox 08/09/21 07:37 36.3 C L 49 L 18 84/55 L 94 08/09/21 04:09 36.9 C 55 L 16 79/43 L 98 08/08/21 23:43 48 L 08/08/21 23:31 36.3 C L 52 L 12 80/44 L 93 08/08/21 23:15 36.8 C 49 L 16 95/54 L 94 Laboratory Results Laboratory Tests 08/09/21 08/09/21 04:03 04:03 WBC 4.66 L D Hgb 8.4 L Hct 24.3 L Plt Count 78 L Sodium 131 L Potassium 3.4 L Chloride 100 Carbon Dioxide 25 BUN 43 H Creatinine 1.67 H D Glucose 132 H Albumin 3.6 PG Care Time/CCT Total # of Minutes Spent Total Time Spent with Patient: Total time spent is greater than 50% in coordination of care (as documented) at patient's floor/unit and/or counseling patient: Coding Level of Care Code 47784 Subseq Hosp Care Lvl 3 Diagnoses Acute kidney injury N17.9 Hypotension (arterial) I95.9 Hyponatremia E87.1 Abdominal ascites R18.8 Ascites type: other type Esophageal cancer C15.9 Malignant neoplasm of esophagus location: unspecified location (1) Abdominal ascites Ascites type: other type Qualified Code(s): R18.8 - Other ascites (2) Esophageal cancer Malignant neoplasm of esophagus location: unspecified location Qualified Code(s): C15.9 - Malignant neoplasm of esophagus, unspecified
[2021-08-09] MEDS ORDERED: POTASSIUM CHLORIDE CRTAB 20 MEQ TABCR PO STA (09:36)
[2021-08-09] MEDS: OCTREOTIDE ACETATE 500 MCG in DEXTROSE 5% 100 ML IV SCH ×2 (09:55→19:36)
--- NOTE | 2021-08-09 20:20 | Hospitalist Progress Note ---
Date of Service August 09, 2021 Assessment & Plan (1) Abdominal ascites: Plan: 2nd to cirrhosis. Recent SAAG was calculated in the setting of his last paracentesis in July. SAAG = 1.3 c/w portal HTN. Cytologies negative for malignant cells. Pt reports he was told years ago he had fatty liver; thus, he may have HOFFMAN. He denies any prolonged, heavy use of etoh. No prior h/o infectious hepatitis. s/p paracentesis 08/07/21 - 4 L removed. Cell counts not suggestive of SBP. Gram stain/cx negative to date - ceftriaxone discontinued. 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 [facility] GI following. To help with refractory ascites - TIPS? Weekly paracentesis? Dr Carlos and his team did speak with IR at [facility] - uncertain if patient is truly a TIPS candidate. He is not a candidate for a palliative pleurX catheter due to portal HTN per GI. Diuretics on hold due to hypotension. (2) Hepatorenal syndrome: Plan: Type 1 suspected. Remains on midodrine 15mg TID. Remains on albumin 25%, 25gm BID. Remains on octreotide drip. Was started on stress dose hydrocortisone in ICU as well - now BID dosing - switch to oral hydrocortisone tomorrow All diuretics on hold. Flomax on hold. Appreciate GI and nephro assistance. Likely to start weaning the above meds this weekend. Per Dr Carlos - at time of discharge should go home on max of 7.5mg TID of midodrine. BMP am. Very poor prognosis. (3) Anemia: Plan: Continues with downward trend in H/H although hemoglobin today was stable. Ascites fluid was not bloody by report during the paracentesis. Stool not overtly melanotic or bloody. Recent stool heme negative as well. Source? Remains on protonix 40mg IV BID. Cont pepcid HS as previous. [facility] GI following - EGD deferred for now. Last EGD by report did not show esophageal varices but [id number] is already on octreotide for concern for HRS. Appreciate GI consultation & recs. CBC am. (4) C. difficile enteritis: Plan: Day #5 vancomycin 125mg QID. Continue Lactinex 2 cap daily. Contact precautions. (5) Hypotension (arterial): Plan: Hypovolemic in the setting of cirrhosis/severe 3rd spacing vs addisonian vs se ptic vs combo of factors. Likely the former. His recent outpatient paracentesis was 07/28/21 - he presented on 08/03/21 - thus, I do not think his hypotension was directly due to the recent paracentesis itself but can't rule it out. Levophed now off. remains on colloid administration with IV albumin q12h. remains on TID midodrine 15mg. Remains on IV antibiotics with cultures pending. However, cell counts from paracentesis 08/06/21 not suggestive of SBP. Remains on stress dose IV hydrocortisone 25mg BID. Echo with preserved EF. Defer weaning of midodrine/albumin/octreotide to GI & nephrology. (6) Acute kidney injury: Plan: Resolving Cr 1.67 (baseline 1.3) Urine Na <10. ATN vs HRS vs other vs combo of factors. HRS suspected. Renal u/s without obstruction. Creatinine continues to modestly improve each day with supportive measures as listed above. Continues with severe hypervolemia from his cirrhosis. Cont albumin, midodrine, octreotide as above. Appreciate nephro consult & recs. Cont sodium bicarbonate. BMP am. (7) Hyponatremia: Plan: 2nd to #4, decreased solute intake, etc. Serial BMPs. Lowest Na was 122. Na settling in the mid 120s. Appreciate nephrology assistance. (8) Mesenteric vein thrombosis: Plan: Patient has a history of mesenteric vein thrombosis which was diagnosed 2020. Previously treated with xarelto. This is being held. [employer] had placed on heparin infusion in [place] of the xarelto. Heparin now stopped due to ?GI bleeding/acute anemia as noted above. Repeat portal vein doppler without PVT or mesenteric thrombosis. (9) BPH (benign prostatic hyperplasia): Plan: Use finasteride in [place] of dutasteride. Hold flomax. Jordan in place. (10) Esophageal cancer: Plan: Patient sees Dr. Yesica Carrasquillo for his esophageal cancer. s/p esophageal stent in the past. Is on Opdivo therapy at home. Initial cancer dx in 2020. Very poor prognosis given this plus his advanced cirrhosis. (11) DVT prophylaxis: Plan: SCDs chemical means stopped due to concerns of GI bleeding and downtrending H/H (12) Cirrhosis: Plan: See above (13) Hyperkalemia: Plan: s/p Patiromer multiple doses. s/p Bicarbonate infusion. 2nd to ADELSO. resolved. (14) GERD (gastroesophageal reflux disease): Plan: pepcid + PPI Plan: family meeting took place 08/07 patient wishes to continue current care plan full code he is not ready to transition to hospice/palliative care appreciate GI & nephrology support Admission and Anticipated Discharge Date Admission Date: August 03, 2021 Subjective Diarrhea resolved. Abdomen similar in size to yesterday. No dizziness with his low BP - reports he has had a low BP all his life. Advanced diet to full Low Na today to allow him to get extra protein. Review of Systems Review of Systems: All systems reviewed & are unremarkable except as noted in Subjective Physical Exam Constitutional: + frail appearing; no acute distress Respiratory: normal respiratory effort, lungs clear to auscultation Cardiovascular: Rate/Rhythm: regular rate and regular rhythm Extremities: + edema (3+ b/l equal pretibial pitting edema) Gastrointestinal (Abdomen): normal bowel sounds, soft, nontender, no hepatosplenomegaly Skin: no rashes, warm and dry Neurologic: awake; not confused Results & Data Results & Data ([place]) Vital Signs (Past 12 Hours) Vital Signs Temp Pulse Pulse Resp BP BP Pulse Ox 08/09/21 19:47 37.0 C 62 16 71/39 L 93 08/09/21 15:55 36.5 C 50 L 18 100/65 98 08/09/21 15:11 47 L PG Care Time/CCT Total # of Minutes Spent Total Time Spent with Patient: Total time spent is greater than 50% in coordination of care (as documented) at patient's floor/unit and/or counseling patient: Coding Level of Care Code 57090 Subseq Hosp Care Lvl 2 Diagnoses Abdominal ascites R18.8 Ascites type: other type Hepatorenal syndrome K76.7 Anemia D64.9 C. difficile enteritis A04.72 Hypotension (arterial) I95.9 Acute kidney injury N17.9 Hyponatremia E87.1 Mesenteric vein thrombosis K55.069 BPH (benign prostatic hyperplasia) N40.0 Esophageal cancer C15.9 Malignant neoplasm of esophagus location: unspecified location DVT prophylaxis Z29.9 Cirrhosis K74.60 Hyperkalemia E87.5 GERD (gastroesophageal reflux disease) K21.9 (1) Abdominal ascites Ascites type: other type Qualified Code(s): R18.8 - Other ascites (2) Esophageal cancer Malignant neoplasm of esophagus location: unspecified location Qualified Code(s): C15.9 - Malignant neoplasm of esophagus, unspecified
--- NOTE | 2021-08-09 20:27 | Communication Note ---
Date of Service: August 09, 2021 Was called to the patient's room due to his needing to be acutely increased from room air to 5L/min via NC for hypoxia in 80s. The patient appears to be in no acute distress and breathing comfortably on NC. He reports that he had a choking spell while lying down which sometimes happens to him, and "fluid went down the wrong pipe". He now feels at chronic baseline. I gradually weaned patient back to room air over the course of 5 minutes - SpO2 remained 94-96% on room air. Suspect temporary hypoxia due to choking episode. No further evaluation/interventions at this time.
[2021-08-09] MEDS: FAMOTIDINE 40 MG TABLET PO SCH (21:06)
[2021-08-10] MEDS: oxyCODONE HCL IR 5 MG TAB (IMMEDIATE RELEASE) PO PRN (04:36)
[2021-08-10] MEDS: OCTREOTIDE ACETATE 500 MCG in DEXTROSE 5% 100 ML IV SCH (05:17)
[2021-08-10] MEDS: VANCOMYCIN HCL 125 MG/2.5ML SOLN PO SCH ×4 (05:17→23:38)
[2021-08-10] MEDS: RASPBERRY SYRUP 5 ML UDP PO SCH ×4 (05:57→23:38)
[2021-08-10 06:09] LABS: BUN Creatinine Ratio 17.5 (10-20); Calcium 8.6 mg/dl (8.5-10.1); Creatinine Clr Calc Pharmacy 42.9 ml/min; Est GFR (African American) 42.2 ml/min; Est GFR (Non-African American) 36.4 ml/min; Potassium 3.7 mmol/L (3.5-5.1)
[2021-08-10 06:17] LABS: Hematocrit (blood only) 28.8 % (42-52); Hemoglobin 9.8 g/dL (14.0-18.0); Mean Corpuscular Hemoglobin 33.8 pg (25-34); Mean Corpuscular Volume 99.3 fL (80-100); Mean Platelet Volume 10.5 fL (7.4-10.4); Platelet Count 118 K/uL (130-400); RDW Coefficient of Variation 17.5 % (11.5-14.5); RDW Standard Deviation 61.7 fL (36.4-46.3); White Blood Count 10.39 K/uL (4.8-10.8)
[2021-08-10] MEDS: MIDODRINE HCL 2.5 MG TAB PO SCH ×3 (08:13→17:30)
[2021-08-10] MEDS: ALBUMIN 25% 100 mL 25 GM/100 ML VIAL IV SCH (08:14)
[2021-08-10] MEDS: CALCIUM 600MG + VIT D 400 IU TAB PO SCH ×2 (08:15→21:24)
[2021-08-10] MEDS: ADVANCED PROBIOTIC 1250 MG CAPSULE PO SCH (08:15)
[2021-08-10] MEDS: buPROPion XL 150 MG TABCR PO SCH (08:15)
[2021-08-10] MEDS: PANTOprazole 40 MG in SYRINGE 0 ML IV SCH ×2 (08:16→21:24)
[2021-08-10] MEDS: MIDODRINE HCL 10 MG TAB PO SCH ×3 (08:17→17:30)
[2021-08-10] MEDS ORDERED: HYDROCORTISONE 10 MG TAB PO SCH ×2 (09:00→17:00)
--- NOTE | 2021-08-10 09:54 | Nephrology Progress Note ---
Date of Service August 10, 2021 Assessment & Plan (1) Acute kidney injury: Plan: * ADELSO following large volume paracentesis in the setting of cirrhosis and metastatic esophageal CA * Creatinine is near baseline (baseline 1.3). Serum albumin is 3.6. Will stop albumin and Octreotide therapy * Patient remains on Midodrine therapy 15 mg po TID * Dutasteride and Flomax stopped since patient requires Midodrine therapy. Will monitor BP and UO. May be able to taper Midodrine * Patient is anxious to return home. Will remove Jordan catheter and monitor UO (2) Hypotension (arterial): Plan: * SBP 70 - 90 while on Midodrine therapy * Dutasteride and Flomax since patient requires Midodrine therapy (3) Hyponatremia: Plan: * Chronic, stable. Increased TBW but decreased EAV associated with liver disease and ascites (4) Abdominal ascites: Plan: * Will need outpatient IV albumin followed by paracentesis on a weekly basis (or more frequently as directed by GI) * Recommend that paracentesis volume be limited to 3 - 4 L to avoid intravascular volume contraction (5) Esophageal cancer: Plan: * Recent therapy w/ FOLFOX and Opdivo as per Dr. Keith Carrasquillo * Possible mets to liver Admission and Anticipated Discharge Date Admission Date: August 03, 2021 Subjective Mr. Muse was evaluated in his hospital room this morning. He understands that his prognosis is poor but hopes to be discharged to home soon. Review of Systems Constitutional: + weakness; no fever Eyes: no problem reported Ear, Nose, Mouth, Throat: no problem reported Respiratory: no cough and no dyspnea Cardiovascular: + edema; no chest pain and no palpitations Gastrointestinal: no abdominal pain and no vomiting Genitourinary: no dysuria, no urinary hesitancy or no hematuria Musculoskeletal: no back pain Integumentary: no rash Neurologic: no confusion Physical Exam Constitutional: + ill appearing Eyes: PERRL, conjunctivae normal, anicteric sclerae ENMT: external ear and nose normal, oropharynx normal Neck: trachea midline, no thyromegaly Respiratory: normal respiratory effort, lungs clear to auscultation Cardiovascular: Rate/Rhythm: regular rate and regular rhythm Extremities: + edema (3+ pretibial pitting edema) Gastrointestinal (Abdomen): normal bowel sounds, soft, nontender, no hepatosplenomegaly Skin: no rashes, warm and dry Neurologic: awake; not confused Results & Data ([facility]) Vital Signs (Past 12 Hours) Vital Signs Temp Pulse Pulse Resp BP Pulse Ox 08/10/21 08:00 58 L 08/10/21 07:27 36.6 C 64 18 82/33 L 95 08/10/21 03:31 36.5 C 60 16 86/43 L 92 08/10/21 00:00 52 L 08/09/21 22:51 36.7 C 80 16 95/65 L 95 Laboratory Results Laboratory Tests 08/10/21 08/10/21 05:37 05:37 WBC 10.39 Hgb 9.8 L Hct 28.8 L Plt Count 118 L D Sodium 133 L Potassium 3.7 Chloride 101 Carbon Dioxide 25 BUN 33 H Creatinine 1.89 H Glucose 119 H PG Care Time/CCT Total # of Minutes Spent Total Time Spent with Patient: Total time spent is greater than 50% in coordination of care (as documented) at patient's floor/unit and/or counseling patient: Coding Level of Care Code 03016 Subseq Hosp Care Lvl 3 Diagnoses Acute kidney injury N17.9 Hypotension (arterial) I95.9 Hyponatremia E87.1 Abdominal ascites R18.8 Ascites type: other type Esophageal cancer C15.9 Malignant neoplasm of esophagus location: unspecified location (1) Abdominal ascites Ascites type: other type Qualified Code(s): R18.8 - Other ascites (2) Esophageal cancer Malignant neoplasm of esophagus location: unspecified location Qualified Code(s): C15.9 - Malignant neoplasm of esophagus, unspecified
--- NOTE | 2021-08-10 12:52 | Hospitalist Progress Note ---
Date of Service August 10, 2021 Assessment & Plan (1) Abdominal ascites: Plan: 2nd to cirrhosis. Recent SAAG was calculated in the setting of his last paracentesis in July. SAAG = 1.3 c/w portal HTN. Cytologies negative for malignant cells. Pt reports he was told years ago he had fatty liver; thus, he may have HOFFMAN. He denies any prolonged, heavy use of etoh. No prior h/o infectious hepatitis. s/p paracentesis 08/07/21 - 4 L removed. Cell counts not suggestive of SBP. Gram stain/cx negative to date - ceftriaxone discontinued. 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 [facility] GI following. To help with refractory ascites - TIPS? Weekly paracentesis? Dr Carlos and his team did speak with IR at [facility] - uncertain if patient is truly a TIPS candidate. He is not a candidate for a palliative pleurX catheter due to portal HTN per GI. Diuretics on hold due to hypotension. 37: Unless TIPS is undertaken will need frequent outpatient paracentesis with conservative volume and 6 to 8 g albumin per liter removed; Discussed with [facility] a TIPS candidate; they will coordinate outpatient paracentesis (2) Hepatorenal syndrome: Plan: Appears type II; continue midodrine; off octreotide and albumin at discharge preferable to have lower midodrine; Discussed with nephrologynot ready for discharge; await effect of being off octreotide and albumin (3) Anemia: Plan: Fluctuating hemoglobin, noted some hematocheziacommunicated with GI (4) C. difficile enteritis: Plan: Day #6 vancomycin 125mg QID. Continue Lactinex 2 cap daily. Contact precautions. (5) Hypotension (arterial): Plan: In large part likely cirrhotic physiology; on midodrine; albumin stopped; Stop steroidsnoted cortisol more than 60 (6) Acute kidney injury: Plan: Likely now chronic statecreatinine more or less stable (7) Hyponatremia: Plan: Typical of cirrhosis; nephrology following (8) Mesenteric vein thrombosis: Plan: Patient has a history of mesenteric vein thrombosis which was diagnosed 2020. Previously treated with xarelto. This is being held. Roguer had placed on heparin infusion in [place] of the xarelto. Heparin now stopped due to ?GI bleeding/acute anemia as noted above. Repeat portal vein doppler without PVT or mesenteric thrombosis. 37: At present issue being watched (9) BPH (benign prostatic hyperplasia): Plan: Use finasteride in [place] of dutasteride. Hold flomax. Jordan removal trial 3-7 (10) Esophageal cancer: Plan: Patient sees Dr. Yesica Carrasquillo for his esophageal cancer. s/p esophageal stent in the past. Is on Opdivo therapy at home. Initial cancer dx in 2020. Very poor prognosis given this plus his advanced cirrhosis. (11) DVT prophylaxis: Plan: SCDs chemical means stopped due to concerns of GI bleeding and downtrending H/H (12) Cirrhosis: Plan: See above (13) Hyperkalemia: Plan: s/p Patiromer multiple doses. s/p Bicarbonate infusion. 2nd to ADELSO. resolved. (14) GERD (gastroesophageal reflux disease): Plan: pepcid + PPI Plan: family meeting took place 3/ patient wishes to continue current care plan full code he is not ready to transition to hospice/palliative care appreciate GI & nephrology support Admission and Anticipated Discharge Date Admission Date: August 03, 2021 Subjective On service, first day meeting him; long course noted Has no specific complaints though on direct questioning did report intermittent rectal bleeding Today octreotide and albumin stopped Physical Exam Physical Exam: Constitutional and general: No acute distress, looks biologic age Head and face: No puffiness, atraumatic Eyes: extraocular movements normal Neck: Supple, no JVD Musculoskeletal: No acute joint swelling, no bony abnormalities Skin/dermatologic/integument: No rash, no purpura Hematologic and lymphatic: pallor +, no petechia Gastrointestinal/abdomen: distended, soft, nonacute Neurologic: Cranial nerves intact, nonfocal Psychiatry: Awake, alert, pleasant, communicative Cardiovascular: Heart rhythm regular, no rub, no murmur, no gallop Respiratory: Chest movements equal, no use of accessory muscles, no adventitious sounds Extremities: edema, no cyanosis Results & Data Results & Data ([facility]) Vital Signs (Past 12 Hours) Vital Signs Temp Pulse Pulse Resp BP Pulse Ox 08/10/21 11:12 36.8 C 53 L 20 96/59 L 96 08/10/21 08:00 58 L 08/10/21 07:27 36.6 C 64 18 82/33 L 95 03/07/22 03:31 36.5 C 60 16 86/43 L 92 PG Care Time/CCT Total # of Minutes Spent Total Time Spent with Patient: Total time spent is greater than 50% in coordination of care (as documented) at patient's floor/unit and/or counseling patient: Coding Level of Care Code 31338 Subseq Hosp Care Lvl 3 Diagnoses Abdominal ascites R18.8 Ascites type: other type Hepatorenal syndrome K76.7 Anemia D64.9 C. difficile enteritis A04.72 Hypotension (arterial) I95.9 Acute kidney injury N17.9 Hyponatremia E87.1 Mesenteric vein thrombosis K55.069 BPH (benign prostatic hyperplasia) N40.0 Esophageal cancer C15.9 Malignant neoplasm of esophagus location: unspecified location DVT prophylaxis Z29.9 Cirrhosis K74.60 Hyperkalemia E87.5 GERD (gastroesophageal reflux disease) K21.9 (1) Abdominal ascites Ascites type: other type Qualified Code(s): R18.8 - Other ascites (2) Esophageal cancer Malignant neoplasm of esophagus location: unspecified location Qualified Code(s): C15.9 - Malignant neoplasm of esophagus, unspecified
[2021-08-10] MEDS: FAMOTIDINE 40 MG TABLET PO SCH (21:24)
[2021-08-11] MEDS: RASPBERRY SYRUP 5 ML UDP PO SCH ×2 (06:07→12:49)
[2021-08-11] MEDS: VANCOMYCIN HCL 125 MG/2.5ML SOLN PO SCH ×2 (06:07→12:48)
[2021-08-11] MEDS: MIDODRINE HCL 2.5 MG TAB PO SCH ×2 (07:38→12:49)
[2021-08-11] MEDS: CALCIUM 600MG + VIT D 400 IU TAB PO SCH (07:38)
[2021-08-11] MEDS: buPROPion XL 150 MG TABCR PO SCH (07:40)
[2021-08-11] MEDS: MIDODRINE HCL 10 MG TAB PO SCH ×2 (07:40→12:49)
[2021-08-11] MEDS: ADVANCED PROBIOTIC 1250 MG CAPSULE PO SCH (07:40)
[2021-08-11] MEDS: PANTOprazole 40 MG in SYRINGE 0 ML IV SCH (07:41)
[2021-08-11 08:26] LABS: Basophils # (auto) 0.01 K/uL (0-0.2); Basophils % (auto) 0.1 %; Eosinophils # (auto) 0.24 K/uL (0-0.5); Eosinophils % (auto) 1.4 %; Hematocrit (blood only) 34.8 % (42-52); Hemoglobin 11.6 g/dL (14.0-18.0); Immature Granulocytes # (auto) 0.16 K/uL (0.00-0.02); Immature Granulocytes % (auto) 0.9 %; Lymphocytes # (auto) 1.16 K/uL (1.2-3.4); Lymphocytes % (auto) 6.5 %; Mean Corpuscular Hemoglobin 33.2 pg (25-34); Mean Corpuscular Hgb Conc 33.3 g/dL (32-36); Mean Corpuscular Volume 99.7 fL (80-100); Mean Platelet Volume 10.7 fL (7.4-10.4); Monocytes # (auto) 1.09 K/uL (0.11-0.59); Monocytes % (auto) 6.1 %; Neutrophils # (auto) 15.08 K/uL (1.4-6.5); Platelet Count 124 K/uL (130-400); RDW Coefficient of Variation 17.7 % (11.5-14.5); RDW Standard Deviation 64.5 fL (36.4-46.3); Red Blood Count 3.49 M/uL (4.7-6.1); White Blood Count 17.74 K/uL (4.8-10.8)
[2021-08-11 08:48] LABS: Albumin Globulin Ratio 1.9 (0.9-2); Albumin Level 3.5 gm/dl (3.4-5.0); BUN Creatinine Ratio 18.5 (10-20); Bilirubin,Total 0.9 mg/dl (0.2-1.0); Creatinine Clr Calc Pharmacy 46.7 ml/min; Est GFR (Non-African American) 40.5 ml/min; Globulin 1.8 gm/dl (2.5-4.0); Potassium 3.6 mmol/L (3.5-5.1); Total Protein 5.3 gm/dl (6.0-8.3)
--- NOTE | 2021-08-11 09:08 | Nephrology Progress Note ---
Date of Service August 11, 2021 Assessment & Plan (1) Acute kidney injury: Plan: * ADELSO following large volume paracentesis in the setting of cirrhosis and metastatic esophageal CA * Creatinine is near baseline (baseline 1.3). Serum albumin is 3.6. Albumin and Octreotide therapy were stopped yesterday * Patient remains on Midodrine therapy 15 mg po TID * Dutasteride and Flomax stopped since patient requires Midodrine therapy. BP remains low but patient is nonoliguric and able to void on his own. Continue Midodrine at current dose (2) Hypotension (arterial): Plan: * SBP 70 - 90 while on Midodrine therapy * Dutasteride and Flomax since patient requires Midodrine therapy (3) Hyponatremia: Plan: * Chronic, stable. Increased TBW but decreased EAV associated with liver disease and ascites (4) Abdominal ascites: Plan: * Will need outpatient IV albumin followed by paracentesis on a weekly basis (or more frequently as directed by GI) * Recommend that paracentesis volume be limited to 3 - 4 L to avoid intravascular volume contraction * Recommend close outpatient follow up with [facility] Gastroenterology (5) Esophageal cancer: Plan: * Recent therapy w/ FOLFOX and Opdivo as per Dr. Keith Carrasquillo * Possible mets to liver Admission and Anticipated Discharge Date Admission Date: August 03, 2021 Subjective Mr. Muse was evaluated in his hospital room this morning. Jordan catheter was removed yesterday. Mr. Muse reports that he is voiding without difficulty. He understands that his prognosis is poor. We did speak about setting up hospice care prior to discharge. This would allow a smooth transition into their care when needed in the outpatient setting. He responded that he is not yet ready to consider this option and wishes to leave the hospital today. Review of Systems Constitutional: + weakness; no fever Eyes: no problem reported Ear, Nose, Mouth, Throat: no problem reported Respiratory: no cough and no dyspnea Cardiovascular: + edema; no chest pain and no palpitations Gastrointestinal: no abdominal pain and no vomiting Genitourinary: no dysuria, no urinary hesitancy or no hematuria Musculoskeletal: no back pain Integumentary: no rash Neurologic: no confusion Physical Exam Constitutional: + ill appearing Eyes: PERRL, conjunctivae normal, anicteric sclerae ENMT: external ear and nose normal, oropharynx normal Neck: trachea midline, no thyromegaly Respiratory: normal respiratory effort, lungs clear to auscultation Cardiovascular: Rate/Rhythm: regular rate and regular rhythm Extremities: + edema (3+ pretibial pitting edema) Gastrointestinal (Abdomen): normal bowel sounds, soft, nontender, no hepatosplenomegaly Skin: no rashes, warm and dry Neurologic: awake; not confused Results & Data ([facility]) Vital Signs (Past 12 Hours) Vital Signs Temp Pulse Pulse Resp BP BP Pulse Ox 08/11/21 08:22 36.4 C L 18 84/57 L 98 08/11/21 03:36 36.8 C 58 L 18 109/63 81 L 08/11/21 00:00 56 L 08/10/21 23:47 36.9 C 48 L 18 93/54 L 92 Laboratory Results Laboratory Tests 08/11/21 08/11/21 08:00 08:00 WBC 17.74 H Hgb 11.6 L Hct 34.8 L Plt Count 124 L Sodium 133 L Potassium 3.6 Chloride 101 Carbon Dioxide 23 BUN 32 H Creatinine 1.73 H Glucose 114 H Calcium 8.0 L AST 11 L ALT 11 Alkaline Phosphatase 52 Albumin 3.5 PG Care Time/CCT Total # of Minutes Spent Total Time Spent with Patient: Total time spent is greater than 50% in coordination of care (as documented) at patient's floor/unit and/or counseling patient: Coding Level of Care Code 32878 Subseq Hosp Care Lvl 3 Diagnoses Acute kidney injury N17.9 Hypotension (arterial) I95.9 Hyponatremia E87.1 Abdominal ascites R18.8 Ascites type: other type Esophageal cancer C15.9 Malignant neoplasm of esophagus location: unspecified location (1) Abdominal ascites Ascites type: other type Qualified Code(s): R18.8 - Other ascites (2) Esophageal cancer Malignant neoplasm of esophagus location: unspecified location Qualified Code(s): C15.9 - Malignant neoplasm of esophagus, unspecified
--- NOTE | 2021-08-11 16:24 | Discharge Summary ---
Date of Service August 11, 2021 Admission HPI Per Admitting Provider Everardo Muse is a 66 year old male with esophageal cancer on chemotherapy, mesenteric vein thrombus on Xarelto, GERD, esophageal stent. He was admitted in June after becomming dizzy after paracentesis. Re presents with dizziness and weakness from home, pt feels that he has been weakened since large volume paracenteisis ( did have albumin afterward) Etiology of ascites not defined did have history of previous fatty liver. Was diagnosed with Covid in our ER 07/13/21, was given monoclonal antibodies at that time, also noted to be mildly hyponatremic, but normal renal function. On admission is with persistent hypotension despite volume resuscitation, acute kidney injury although making urine, hyperkalemia treated with calcium gluconate, D50 and insulin plus patiromer in ER and started on IV bicarb gtt after consultation with Nephrology Had a complex course requiring inotropes brieflyproblem list outlined below Principal Diagnosis Decompensated cirrhosis of liver, ascites, hypotension Discharge Exam Constitutional and general: No acute distress, looks biologic age Head and face: No puffiness, atraumatic Eyes: extraocular movements normal Neck: Supple, no JVD Musculoskeletal: No acute joint swelling, no bony abnormalities Skin/dermatologic/integument: No rash, no purpura Hematologic and lymphatic: pallor +, no petechia Gastrointestinal/abdomen: distended, soft, nonacute Neurologic: Cranial nerves intact, nonfocal Psychiatry: Awake, alert, pleasant, communicative Cardiovascular: Heart rhythm regular, no rub, no murmur, no gallop Respiratory: Chest movements equal, no use of accessory muscles, no adventitious sounds Extremities: edema++, no cyanosis Vital Signs Temp Pulse Pulse Resp BP BP Pulse Ox 08/11/21 13:55 36.4 C L 73 19 90/60 L 93/54 L 98 08/11/21 12:44 36.4 C L 73 19 90/60 L 98 08/11/21 08:22 36.4 C L 18 84/57 L 98 08/11/21 08:00 57 L 08/11/21 03:36 36.8 C 58 L 18 109/63 81 L 08/11/21 00:00 56 L 08/10/21 23:47 36.9 C 48 L 18 93/54 L 92 08/10/21 19:48 36.6 C 50 L 18 94/57 L 94 Intake and Output 08/11/21 08/11/21 08/11/21 06:59 14:59 22:59 Intake Total 100 / 673.025 Output Total Balance 99 / 572.025 Intake: Oral 100 / 575 Output: # Bowel Movements Other: # Unmeasured Voids 1 Weight 91.2 kg 91.2 kg Weight Measurement Method Built in Bedscale Patient Weight 08/12/21 06:59 Weight 91.2 kg Discharge Data Allergies Allergy/AdvReac Type Severity Reaction Status Date / Time No Known Allergies Allergy Verified 08/03/21 12:32 Consultations 08/03/21 14:39 ED Decision to Admit Stat 08/03/21 19:31 Consult Filling And Packing Supervisor Routine 08/04/21 10:02 Consult Nephrology Routine 08/05/21 10:43 Consult Gastroenterology Routine Ordered Studies 08/03/21 12:30 CT head/brain wo con Stat US renal/blad retro comp Urgent 08/05/21 15:47 US duplex portal hepatic veins Routine 08/06/21 11:39 US paracentesis abd w/image Routine 08/07/21 16:00 US paracentesis abd w/image Routine Hospital Course (1) Abdominal ascites: Secondary to decompensated cirrhosis of liver; not a candidate for TIPS per Donnell will arrange frequent outpatient paracentesis; recommend no more than 3 to 4 L and 6 to 8 g albumin per liter removed; given hypotension at prese nt diuretics discontinuedshould reconsider as outpatient if stable, particularly spironolactone; at present given stability and intention of him wanting to go home not initiated (2) Hepatorenal syndrome: Appears type II with renal function more or less stable continue midodrine at present continue in-house dose of 15 mg 3 times a day; try to titrate down as outpatient if possible withdrawal outpatient nephrology (3) Anemia: Fluctuating hemoglobin, intermittent hematochezia but hemoglobin stable to up trend; communicated with GIoutpatient GI follow-up (4) C. difficile enteritis: Complete 10 days of vancomycin p.o. (5) Hypotension (arterial): During the course required nor epi; subsequently put on midodrine and albumin infusion; improved and currently stable on midodrine 15 mg 3 times a day; also briefly received stress dose steroids that I stopped; hypotension probably precipitated by large volume paracentesis with underlying cirrhotic physiology (6) Acute kidney injury: Likely now chronic statecreatinine more or less stable; outpatient nephrology has noted (7) Hyponatremia: Typical of cirrhosis; modest fluid restriction (8) Mesenteric vein thrombosis: Patient has a history of mesenteric vein thrombosis which was diagnosed 2020. Previously treated with xarelto. At present repeat imaging did not show thrombosis Given intermittent hematochezia at present not on anticoagulation-revisit issue as outpatient, can consider hematology input (9) BPH (benign prostatic hyperplasia): Continue dutasteridenephrology agreed (10) Esophageal cancer: Patient sees Dr. Yesica Carrasquillo for his esophageal cancer. s/p esophageal stent in the past. Is on Opdivo therapy at home. Initial cancer dx in 2020. Very poor prognosis given this plus his advanced cirrhosis. Outpatient follow-up with oncology (11) Cirrhosis: See above (12) GERD (gastroesophageal reflux disease): pepcid + PPI Leukocytosis today notedlikely related to steroids; clinically very stable and insistent on going home, extremely jumpy; one isolated low pulse ox appears spuriousno clinical correlate; as noted, patient insistent on going home and not willing to wait for further assessment (going AMA would not be in his best interest); Total Time Total Time Spent Total Time Spent (In Minutes): 45 Discharge Plan Discharge Items Patient Disposition: Home - Self-Care Reason For Visit: HYPOTENSION, ACUTE KIDNEY INJURY, HYPONATREMIA Discharge Diagnosis: Decompensated cirrhosis of liver with ascites Activity: As commented below Activity Comment: As tolerated Non-emergency contact: Primary Care Provider and Arbitrator Call non-emergency contact if: your symptoms worsen Follow-up/Referrals: Angel Fisher MD [Physician] - (Seen in house1 to 2-weeks) Tara Carlos MD [Physician] - (1 week) Bandar Carrion [Primary Care Provider] - (3 to 5 days-post discharge follow- up, complex hospital course) Keith Carrasquillo MD [Surgeon] - (1 week) Diet: Low Sodium (2gm) Fluids: 1500ml (6 cups) Addtl Attending Provider Instructions: Follow-up with your PCP within 1 week; maintain oncology follow-up; please note your cancer medication should be managed by your oncologist and go with their regimen Pending Studies at Discharge: No Stand-Alone Forms: [facility] [employer], Smoking Cessation Medications and DC Order Prescriptions: New vancomycin 1,000 mg Recon Soln 125 mg PO Q6 Qty: 20 RF: 0 midodrine 10 mg Tablet 15 mg PO TID@0800,1200,1700 60 Days Qty: 90 RF: 0 Advanced Probiotic 625 mg (10 billion cell) Capsule 2 cap PO DAILY Qty: 20 RF: 0 Continued bupropion HCl 150 mg Tablet Extended Release 24 Hr 150 mg PO QAM RF: 0 prochlorperazine maleate 10 mg tablet 10 mg PO Q6 PRN (Reason: Nausea) RF: 0 docusate sodium [Dulcolax Stool Softener (dss)] 100 mg Capsule 100 mg PO DAILY RF: 0 Opdivo 100 mg/10 mL Solution 0 mg IV Q14D RF: 0 oxycodone 5 mg tablet 5 - 10 mg PO Q6H PRN (Reason: pain) Qty: 40 RF: 0 ondansetron HCl 8 mg tablet 8 mg PO Q8H PRN (Reason: Nausea) 14 Days Qty: 42 RF: 0 ferrous sulfate [iron] 325 mg (65 mg iron) Tablet 325 mg PO DAILY RF: 0 codeine-guaifenesin 10-100 mg/5 mL liquid 5 ml PO TID PRN (Reason: Cough) RF: 0 dutasteride 0.5 mg Capsule 0.5 mg PO HS RF: 0 Lidoc/Child/Antac 15 ml QID PRN (Reason: sore mouth) RF: 0 famotidine [Pepcid AC] 20 mg Tablet 40 mg PO HS RF: 0 esomeprazole magnesium [Nexium] 40 mg Capsule,Delayed Release(Dr/Ec) 40 mg PO BID RF: 0 calcium carbonate-vitamin D2 600 mg calcium- 200 unit Tablet 1 tab PO BID RF: 0 Discontinued fluorouracil 50 mg/mL Solution 0 mg IV Q14D RF: 0 Xarelto 20 mg tablet 20 mg PO QPM RF: 0 Leucovorin Chemo 1 dose IV .Q14 DAYS RF: 0 tamsulosin [Flomax] 0.4 mg capsule 0.4 mg PO HS RF: 0 furosemide 20 mg tablet 40 mg PO DAILY RF: 0 spironolactone 50 mg tablet 100 mg PO DAILY RF: 0 Discharge Orders: Discharge Order (Routine); Ordered 08/11/21 Ordered By: Abdias Bae Admission Data Admit Date/Time: 08/03/21 16:23 Attending Provider: Abdias Bae Admit Provider: Pawel Campos Primary Care Provider: Bandar Carrion Other Providers: Pawel Campos ; Delonte Fatima ; Jose Smith ; Tara Carlos Other Interventions: Discharge Summary Assessment (RN) Last Done: 08/11/21 13:55 Coding Level of Care Code D/C DAY MANAGEMENT >30 MINS Diagnoses Abdominal ascites R18.8 Ascites type: other type Hepatorenal syndrome K76.7 Anemia D64.9 C. difficile enteritis A04.72 Hypotension (arterial) I95.9 Acute kidney injury N17.9 Hyponatremia E87.1 Mesenteric vein thrombosis K55.069 BPH (benign prostatic hyperplasia) N40.0 Esophageal cancer C15.9 Malignant neoplasm of esophagus location: unspecified location Cirrhosis K74.60 GERD (gastroesophageal reflux disease) K21.9
== END 2021-08-11 15:00 | disposition home or self-care (01) | DRG 432 ==
LOC: ED 11:38 → 1E 16:23 → SUATTDRO 16:23 → 1E 17:55 → 2S 08-07 15:16

== ENCOUNTER 2021-08-18 10:31 | Inpatient (IN) ==
--- NOTE | 2021-08-18 11:16 | Emergency Department Note ---
Impression & Plan ADELSO (acute kidney injury), Ascites, Hypotension, COVID-19 ED Provider Note NAME: MAXIMUS AGUILAR AGE: 66 SEX: M : 1955 ARRIVES VIA: Walk-In INFORMANT: [Patient] ED PROVIDER(S): [Lamonte Newby MD] CHIEF COMPLAINT: Abnormal labs HISTORY OF PRESENT ILLNESS: The patient is a 66-year-old male with cirrhosis. He was discharged from our hospital a week ago. During his hospital stay, he had his diuretics DC'd. He is no longer on Lasix. The patient was scheduled today for a paracentesis. Outpatient laboratory work showed a creatinine of 6.3. This is quite high for him. His baseline runs about 1.5-2. He was referred to the ED for hospitalization and a nephrology consult. The patient has in the past seen Dr. Encinas of nephrology. He has an appointment to see Dr. Encinas in the outpatient office in around 6 days. The patient is still making urine. There has been no fever, he does not really have any pain. He is not short of breath. He is complaining of abdominal distention which he states is from ascites-this is why he was scheduled for his paracentesis. REVIEW OF SYSTEMS: See HPI for pertinent positives and negatives. A total of ten systems were reviewed and were otherwise negative. PMHx/PSHx: See Below SOCIAL HISTORY: See Below. PHYSICAL EXAM: GENERAL: Patient is in no acute distress. HEENT: No acute trauma, normocephalic atraumatic, mucous membranes moist, no nasal congestion, no scleral icterus. NECK: No stridor, no adenopathy, no meningismus, trachea is midline. LUNGS: A few crackles heard in the left, right lung is clear. No wheezing, no respiratory distress HEART: Without murmurs gallops or rubs, regular rate and rhythm. ABDOMEN: Soft, distended and nontender abdomen, bowel sounds positive,no peritonitis. EXTREMITIES: No cyanosis, moderate bilateral pedal edema, full range of motion of all the joints without pain or difficulty, no signs for acute trauma. NEUROLOGIC: Oriented x 3, no acute motor or sensory deficits, no focal weakness. SKIN: No rash, no jaundice, no diaphoresis. DIFFERENTIAL DIAGNOSIS: Renal failure, hydronephrosis, urinary obstruction, urinary retention, medication reaction, dehydration, electrolyte imbalance, UTI, among others. EMERGENCY DEPARTMENT COURSE/PROCEDURES: MEDICAL DECISION MAKING: There was a slight white blood cell count elevation, this could be consistent with infection, although, the white count is improved compared to recent testing. A mild anemia was noted which is baseline for the patient. Platelet count was low, the patient has a history of a lower platelet count. Renal panel testing showed acute kidney injury with a creatinine of 6.4. Potassium was normal. There were a few subtle liver enzyme elevations consistent with his liver disease. Covid testing returned positive. Abdominal and pelvis CT did not show any urinary obstruction. Ascites was seen. Chest film showed a potential left lung infiltrate versus atelectasis. A small left effusion was noted. The patient presents with acute kidney injury by outpatient laboratory work-up. He was hypotensive with ascites. He has known liver disease. Unexpectedly, his Covid test returned positive. The patient is in need of a hospital stay. I did consult nephrology. The patient will need to consider dialysis if his creatinine does not improve with other measures. I did speak with the patient and employment evaluator/case manager. The on-call hospitalist was consulted. Past Med/Surg History Medical History BPH (benign prostatic hyperplasia) C. difficile enteritis Cirrhosis Degenerative disc disease Depression Esophageal cancer (~12/2020) GERD (gastroesophageal reflux disease) Hepatorenal syndrome Hyperkalemia Hypotension (arterial) Port-A-Cath in place Surgical History H/O hand surgery FINGER TENDON REPAIR History of esophagogastroduodenoscopy (EGD) History of esophagogastroduodenoscopy (EGD) (~12/2020) Upper Endoscopic Ultrasonography + esophageal stent [place] teeth removed Family History (Updated 08/18/21 @ 16:12 by Carlos Dallas) Mother Breast cancer Parkinson disease Father No problems noted. Other Cancer Diabetes No family history of adverse response to anesthesia TIA (transient ischemic attack) Social History Smoking Status: Former smoker Years Smoked: 10; Cigarettes Per Day: 20; Second Hand Exposure: No; Hx Alcohol Use: No Hx Substance Use: No Preferred Language: [place] Communication Ability: Effective Slip Cover Cutter Required: No Beliefs That Will Affect Care: None marital status: Current Living Situation: Spouse Current Living Situation Comment: 2 Grandsons live with patient. current occupational status: employed current occupation: automotive porter How many Children do You have: 4 How many Children do You have Comment: 1 is Feels Safe at Home: Yes Assistive Devices: Walker and Wheelchair Allergies Allergies Allergy/AdvReac Type Severity Reaction Status Date / Time No Known Allergies Allergy Verified 08/18/21 12:15 Home Meds Home Medications Medication Instructions Recorded Confirmed bupropion HCl 150 mg 24 hr tablet, 150 mg PO QAM 12/23/20 08/18/21 extended release esomeprazole magnesium 40 mg 40 mg PO BID 02/06/21 08/18/21 capsule,delayed release (Nexium) famotidine 20 mg tablet (Pepcid AC) 40 mg PO HS 02/06/21 08/18/21 docusate sodium 100 mg capsule 100 mg PO DAILY 02/15/21 08/18/21 (Dulcolax Stool Softener (docusate)) dutasteride 0.5 mg capsule 0.5 mg PO HS 06/22/21 08/18/21 ferrous sulfate 325 mg (65 mg 325 mg PO DAILY 06/22/21 08/18/21 iron) tablet (iron) Previous Rx's Medication Instructions Recorded ondansetron HCl 8 mg tablet 8 mg PO Q8H PRN 14 Days #42 tab 02/19/21 oxycodone 5 mg tablet 5 - 10 mg PO Q6H PRN #40 tab 02/19/21 midodrine 10 mg tablet 15 mg PO TID@0800,1200,1700 60 08/11/21 Days #90 tab Results & Data (ED) Vital Signs Vital Signs - 24 hr 08/18/21 10:37 08/18/21 12:30 Temperature 36.5 C Temperature Source Oral Pulse Rate 61 Pulse Rate [Apical] 65 Pulse Rhythm [Apical] Regular Respiratory Rate 16 18 Respiratory Effort / Characteristics Non-Labored Non-Labored Respiratory Depth Normal Normal Blood Pressure 109/71 Blood Pressure [Right Arm] 88/59 L Blood Pressure Mean 83 Blood Pressure Mean [Right Arm] 68 Pulse Oximetry 98 98 Oxygen Delivery Method Room Air Room Air Sepsis Recent Fever Within 48 Hours No Sepsis New/Unexplained Change in Mental Status No Sepsis Action Taken by Nursing No Action Required Home Medications Current Medication List: was personally reviewed by me Laboratory Data Attestation: I reviewed the patient's lab results. Result diagrams: 08/18/21 11:19 08/18/21 11:19 Lab Results 08/18/21 08/18/21 08/18/21 Range/Units 11:19 11:19 11:19 WBC 11.11 H (4.8-10.8) K/uL RBC 3.43 L (4.7-6.1) M/uL Hgb 11.5 L (14.0-18.0) g/dL Hct 33.2 L (42-52) % MCV 96.8 (80-100) fL MCH 33.5 (25-34) pg MCHC 34.6 (32-36) g/dL RDW Std Deviation 61.3 H (36.4-46.3) fL RDW Coeff of Macario 17.4 H (11.5-14.5) % Plt Count 109 L (130-400) K/uL MPV 10.7 H (7.4-10.4) fL Immature Gran % (Auto) 0.4 % Neut % (Auto) 81.9 % Lymph % (Auto) 7.5 % Tripp % (Auto) 9.0 % Eos % (Auto) 0.9 % Baso % (Auto) 0.3 % Neut # (Auto) 9.11 H (1.4-6.5) K/uL Lymph # (Auto) 0.83 L (1.2-3.4) K/uL Tripp # (Auto) 1.00 H (0.11-0.59) K/uL Eos # (Auto) 0.10 (0-0.5) K/uL Baso # (Auto) 0.03 (0-0.2) K/uL Immature Gran # (Auto) 0.04 H (0.00-0.02) K/uL Sodium 134 L (136-145) mmol/L Potassium 4.1 (3.5-5.1) mmol/L Chloride 101 (98-107) mmol/L Carbon Dioxide 21 (21-32) mmol/L Anion Gap 12 H (3-11) BUN 81 H (6-23) mg/dl Creatinine 6.40 H* (0.6-1.4) mg/dl Est Cr Clr Drug Dosing Not Reportable Est GFR ( Amer) 9.7 ml/min Est GFR (Non-Af Amer) 8.3 ml/min BUN/Creatinine Ratio 12.7 (10-20) Glucose 97 (70-99(Fasting)) mg/dl Calcium 8.5 (8.5-10.1) mg/dl Phosphorus 3.4 (2.5-4.9) mg/dl Magnesium 2.2 (1.7-2.4) mg/dl Total Bilirubin 1.3 H (0.2-1.0) mg/dl AST 12 L (13-39) U/L ALT 9 (7-52) U/L Alkaline Phosphatase 83 (34-104) U/L C-Reactive Protein 6.65 H (0-0.5) mg/dl Total Protein 5.3 L (6.0-8.3) gm/dl Albumin 3.2 L (3.4-5.0) gm/dl Globulin 2.1 L (2.5-4.0) gm/dl Albumin/Globulin Ratio 1.5 (0.9-2) Procalcitonin (0-0.5) ng/ml SARS-CoV-2, RNA, NAAT (NEGATIVE) 08/18/21 08/18/21 Range/Units 11:19 13:05 WBC (4.8-10.8) K/uL RBC (4.7-6.1) M/uL Hgb (14.0-18.0) g/dL Hct (42-52) % MCV (80-100) fL MCH (25-34) pg MCHC (32-36) g/dL RDW Std Deviation (36.4-46.3) fL RDW Coeff of Macario (11.5-14.5) % Plt Count (130-400) K/uL MPV (7.4-10.4) fL Immature Gran % (Auto) % Neut % (Auto) % Lymph % (Auto) % Tripp % (Auto) % Eos % (Auto) % Baso % (Auto) % Neut # (Auto) (1.4-6.5) K/uL Lymph # (Auto) (1.2-3.4) K/uL Tripp # (Auto) (0.11-0.59) K/uL Eos # (Auto) (0-0.5) K/uL Baso # (Auto) (0-0.2) K/uL Immature Gran # (Auto) (0.00-0.02) K/uL Sodium (136-145) mmol/L Potassium (3.5-5.1) mmol/L Chloride (98-107) mmol/L Carbon Dioxide (21-32) mmol/L Anion Gap (3-11) BUN (6-23) mg/dl Creatinine (0.6-1.4) mg/dl Est Cr Clr Drug Dosing Est GFR ( Amer) ml/min Est GFR (Non-Af Amer) ml/min BUN/Creatinine Ratio (10-20) Glucose (70-99(Fasting)) mg/dl Calcium (8.5-10.1) mg/dl Phosphorus (2.5-4.9) mg/dl Magnesium (1.7-2.4) mg/dl Total Bilirubin (0.2-1.0) mg/dl AST (13-39) U/L ALT (7-52) U/L Alkaline Phosphatase (34-104) U/L C-Reactive Protein (0-0.5) mg/dl Total Protein (6.0-8.3) gm/dl Albumin (3.4-5.0) gm/dl Globulin (2.5-4.0) gm/dl Albumin/Globulin Ratio (0.9-2) Procalcitonin 0.71 H (0-0.5) ng/ml SARS-CoV-2, RNA, NAAT POSITIVE A* (NEGATIVE) Administered Medications Lactated Ringer's (Lr) 1,000 mls @ 80 mls/hr IV .[id number] SISSY Stop: 08/19/21 01:59 Last Admin: 08/18/21 14:58 Dose: 80 mls/hr Documented by: [id number] Raspberry (Raspberry Syrup 5 Ml Udp) 5 ml PO Q6 SISSY Stop: 08/28/21 17:59 Last Admin: 08/18/21 18:36 Dose: 5 ml Documented by: [id number] Vancomycin HCl (Vancomycin Hcl 125 Mg/2.5ml Soln) 125 mg PO Q6 SISSY Stop: 08/28/21 17:59 Last Admin: 08/18/21 18:36 Dose: 125 mg Documented by: [id number] Discontinued Medications Albumin Human (Albumin 25% 100 Ml) 25 gm in 100 mls @ 50 mls/hr IV ONE ONE Stop: 08/18/21 15:18 Last Infusion: 08/18/21 17:28 Dose: 0 mls/hr Documented by: [id number] Admin: 08/18/21 14:59 Dose: 50 mls/hr Documented by: [id number] Midodrine (Midodrine Hcl 2.5 Mg Tab) 15 mg PO NOW ONE Stop: 08/18/21 13:31 Last Admin: 08/18/21 15:01 Dose: 15 mg Documented by: [id number] Octreotide Acetate (Octreotide Acetate 100 Mcg/Ml Vial) 100 mcg SQ 1330 ONE Stop: 08/18/21 13:31 Last Admin: 08/18/21 15:02 Dose: 100 mcg Documented by: [id number] Imaging Data Radiologist's Impression: Abdomen/Pelvis CT 08/18/21 11:09 CT OF THE ABDOMEN AND PELVIS WITHOUT CONTRAST CLINICAL HISTORY: Renal failure. Abdominal pain. Esophageal cancer. Evaluate for hydronephrosis. COMPARISON STUDY: CT of the abdomen and pelvis April 28, 2021. TECHNIQUE: Axial images of the abdomen and pelvis were obtained without IV contrast. Images were reviewed in the axial, sagittal, and coronal planes. Automated exposure control was utilized for the study. A dose lowering technique was utilized adhering to the principles of ALARA. FINDINGS: Distal esophageal stent is unchanged in position since CT of April 28, 2021. The distal aspect of the stent is within the proximal stomach. Distal esophageal wall thickening is noted. This is similar to prior exam. Air-fluid level within the distal esophagus is partially imaged. Small pericardial e ffusion is developed. Small bilateral pleural effusions have increased. Multifocal airspace opacities within lungs have developed, including scattered tree-in-bud nodules, groundglass opacities and foci of consolidation within the left lower lobe. Evaluation of the abdomen and pelvis is suboptimal on this unenhanced exam. No pneumatosis, free air or portal venous gas is present. Large volume ascites is present. There is body wall edema. The liver is cirrhotic. No hepatic lesions are identified on this unenhanced exam. Gallbladder is mildly distended. Unenhanced images of the spleen, adrenal glands and pancreas are normal. There is no biliary or pancreatic ductal dilatation. Several small hortensia ateral renal calculi measure up to 3 mm. There is no hydronephrosis. No ureteral calculi are present. There is no evidence for a bowel obstruction. Mildly enlarged portacaval lymph node, measuring 2 x 1.5 cm, similar to CT of April 28, 2021. No suspicious lesions within visualized skeletal structures. IMPRESSION: 1. No hydronephrosis. Several small bilateral renal calculi. No ureteral calculi. 2. Large volume ascites. Anasarca with body wall edema. Small bilateral pleural effusions and a small pericardial effusion. 3. No change in position of a distal esophageal stent with esophageal wall thickening, similar to prior exam. Air-fluid level within the distal esophagus. 4. Multifocal airspace opacities within the lower lungs, as described above. This could reflect pneumonia or aspiration pneumonitis. 5. No bowel obstruction. 6. Cirrhosis with varices. 7. No change in a mildly enlarged portacaval lymph node. ACT 112: Negative or not required by law. Electronically signed by: Pedro Kahn M.D. 08/18/2021 12:48 PM Chest X-Ray 08/18/21 13:11 SINGLE VIEW CHEST CLINICAL HISTORY: Dyspnea. FINDINGS: An AP, portable, upright chest radiograph is compared to study dated 08/03/2021 and correlated with chest CT dated 04/28/2021. The examination is degraded by portable technique and apical lordotic positioning. A right internal jugular central venous catheter is unchanged in position. An esophageal stent is in place. The heart is top normal for projection. The pulmonary vasculature is noncongested. Airspace consolidation is noted at the left lung base. There are small pleural effusions. No pneumothorax is seen. The skeletal structures are osteopenic. The bony thorax is grossly intact. IMPRESSION: Airspace consolidation is seen at the left lung base and there are small pleural effusions. Correlate clinically for evidence of pneumonia/aspiration pneumonitis. Radiographic follow-up to resolution is recommended. ACT 112: Negative or not required by law. Electronically signed by: Lamonte Casas M.D. 08/18/2021 1:37 PM Discharge Plan Visit Data Chief Complaint: Abnormal Labs/Diagnostic Testing Stated Complaint: COMING FOR [facility] ED Provider: Lamonte Newby Discharge Problem: ADELSO (acute kidney injury), Ascites, Hypotension, COVID-19 Patient Disposition: Admitted As Inpatient Condition: Fair Discharge Instructions Interventions: ED Discharge Assessment Last Done: 08/18/21 15:50
[2021-08-18 11:45] LABS: Basophils # (auto) 0.03 K/uL (0-0.2); Basophils % (auto) 0.3 %; Eosinophils % (auto) 0.9 %; Hematocrit (blood only) 33.2 % (42-52); Hemoglobin 11.5 g/dL (14.0-18.0); Immature Granulocytes # (auto) 0.04 K/uL (0.00-0.02); Immature Granulocytes % (auto) 0.4 %; Lymphocytes # (auto) 0.83 K/uL (1.2-3.4); Lymphocytes % (auto) 7.5 %; Mean Corpuscular Hemoglobin 33.5 pg (25-34); Mean Corpuscular Hgb Conc 34.6 g/dL (32-36); Mean Corpuscular Volume 96.8 fL (80-100); Mean Platelet Volume 10.7 fL (7.4-10.4); Neutrophils # (auto) 9.11 K/uL (1.4-6.5); Neutrophils % (auto) 81.9 %; Platelet Count 109 K/uL (130-400); RDW Coefficient of Variation 17.4 % (11.5-14.5); RDW Standard Deviation 61.3 fL (36.4-46.3); Red Blood Count 3.43 M/uL (4.7-6.1); White Blood Count 11.11 K/uL (4.8-10.8)
[2021-08-18 12:17] LABS: Alanine Aminotransferase 9 U/L (7-52); Albumin Globulin Ratio 1.5 (0.9-2); Albumin Level 3.2 gm/dl (3.4-5.0); Alkaline Phosphatase 83 U/L (34-104); Anion Gap 12 (3-11); Aspartate Aminotransferase 12 U/L (13-39); BUN Creatinine Ratio 12.7 (10-20); Bilirubin,Total 1.3 mg/dl (0.2-1.0); Blood Urea Nitrogen 81 mg/dl (6-23); Calcium 8.5 mg/dl (8.5-10.1); Carbon Dioxide 21 mmol/L (21-32); Chloride 101 mmol/L (98-107); Est GFR (African American) 9.7 ml/min; Est GFR (Non-African American) 8.3 ml/min; Globulin 2.1 gm/dl (2.5-4.0); Glucose 97 mg/dl (70-99(Fasting)); Magnesium 2.2 mg/dl (1.7-2.4); Phosphorus 3.4 mg/dl (2.5-4.9); Potassium 4.1 mmol/L (3.5-5.1); Sodium 134 mmol/L (136-145); Total Protein 5.3 gm/dl (6.0-8.3)
--- NOTE | 2021-08-18 12:39 | History & Physical Report ---
Date of Service August 18, 2021 Assessment & Plan (1) Acute kidney injury: Plan: During last week's admission his creatinine was 1.6-1.8 after his ADELSO resolved. He represents today with severe worsening, now 6.4. No evidence of obstruction on CT a/p. He has had very poor oral intake since hospital discharge, diarrhea, and worsening ascites. Likely combination of pre-renal etiologies and overall TBW elevated but EAV being decreased in the setting of his severe cirrhosis. Appreciate nephrology consultation & recs. Plan - * treat for HRS; restart octreotide 100mcg SC TID; restart albumin 25%, 1gm/kg/day - thus, 25gm q6h; continue midodrine 15mg TID * for intravascular volume depletion due to poor PO intake -- LR x 1 liter * repeat BMP am * consider kalyn (2) Hepatorenal syndrome: Plan: Dx during previous admission last week. Now with recurrent ADELSO as above. See #1 for details. (3) LLL pneumonia: Plan: Clinically and radiographically. See discussion below in #4. Procal is elevated, and given his recent admission, need to cover for gram negative etiologies - thus, cefepime 1gm q12h. For atypical coverage - doxycycline 100mg IV q12h. Consider checking MRSA LATHE [employer]IC swab. Fortunately he is saturating well at this time. (4) COVID-19: Plan: Patient apparently tested positive through the [facility] system in early July. Did receive monoclonal antibodies. He had 1-2 days of symptoms at most per his . On August 05 during his prior stay his COVID testing was negative. He is now positive again today. He does indeed have symptoms of COVID - fatigue, chills, cough, pneumonia on imaging, etc. There are a few possibilities for the COVID + test today - 1. this could represent old, inactivated virus from the illness in early July; this theory would assume his August 05 COVID test was falsely negative 2. he has recurrent COVID infection, but would be unusual given he is 6 weeks out from the previous illness in early July Since he does have pneumonia and does have numerous COVID symptoms I do feel that we should be cautious and place him in isolation/COVID precautions. Thus far O2 sats are normal thus defer on systemic steroids. (5) C. difficile enteritis: Plan: Dx 08/05/21. He finished his previous 10 day course of PO vanco. He continues with diarrhea, 2-3x's each day. Given his immunocompromised status and his need for IV antibiotics for #[address] back on PO vanco as previous. Continue lactinex. He will be on contact precautions because of #4. (6) Hypotension: Plan: He has baseline BPs in the 90-100 range due to his cirrhosis. He remains on midodrine 15mg TID. Holding his prior flomax. (7) Cirrhosis: Plan: Advanced. 2nd HOFFMAN? Recurrent, severe ascites. Orders placed for diagnostic/therapeutic paracentesis. Radiology to perform tomorrow am. Send fluid for cell counts, gram stain/culture, albumin. During previous admission Jun GI saw him in consult. TIPS was ruled out as viable option to treat his recurrent ascites. [place] not to be a candidate for a palliative pleurX catheter. Plan was for weekly albumin IV and paracentesis. [facility]. (8) Abdominal ascites: Plan: see above (9) Mesenteric vein thrombosis: Plan: previously on xarelto. it was stopped during prior admission because of concern of upper GI bleeding. H/H remain stable since the prior admission. (10) BPH (benign prostatic hyperplasia): Plan: Cont finasteride. Holding flomax. No signs of obstruction on CT a/p. (11) GERD (gastroesophageal reflux disease): Plan: Cont pepcid - will reduce daily dose to 20mg due to severe renal failure. Cont PPI twice daily. (12) Esophageal cancer: Plan: Follows with Dr Keith Carrasquillo, [facility]. Initial dx December 2020. Patient has an esophageal stent in place. CT confirms proper location today. He was previously taking Opdivo and was on FOLFOX regimen. He has not been on therapies of late because of the severity of his cirrhosis and the associated complications. Palliative care and goals of care discussions were held during the prior admission but Mr Muse wished to continue routine care with the hopes of gaining more time to spend with his grandsons. Given the gravity of his situation we should formally consult palliative care this admission. I did speak with Dr Carrasquillo this evening and alerted him of Mr Muse's admission. History of Present Illness Chief Complaint: weakness, fatigue, cold, worsening ascites, poor appetite Primary Care Provider: Bandar Carrion 66yo male with end-stage liver disease/cirrhosis with recurrent ascites and known esophageal cancer - recent admission for acute renal failure thought to be 2nd to HRS (08/03 to 08/11) - presents from home with his due to severe fatigue since his hospital discharge, cough at night-time, severe shortness of breath with minimal activity, worsening abdominal distension 2nd to ascites, inability to eat/drink because of the distension (with some anorexia as well), 1-2 episodes of diarrhea each day, feeling very cold, and simply feeling unwell. Presented today for outpatient paracentesis and had pre-procedure blood work showing Cr >6. Was referred to ER due to such. In the ER he complained multiple times of feeling cold. He complains of his abdominal ascites and being uncomfortable. at bedside. Patient received J & J vaccine x 2 in the last year. However, COVID test today returned +. Of note - patient was COVID positive in early Jul 2021 and received monoclonal antibodies at that time. His reports that his COVID test was done at [facility] in [place] in early July. Was sick x 1-2 days then symptoms resolved. COVID testing on August 05 during his previous admission was negative, however. Allergies Allergy/AdvReac Type Severity Reaction Status Date / Time No Known Allergies Allergy Verified 08/18/21 12:15 Home Medications Medication Instructions Recorded Confirmed Type bupropion HCl 150 mg 24 hr tablet, 150 mg PO QAM 12/23/20 08/18/21 History extended release esomeprazole magnesium 40 mg 40 mg PO BID 02/06/21 08/18/21 History capsule,delayed release (Nexium) famotidine 20 mg tablet (Pepcid AC) 40 mg PO HS 02/06/21 08/18/21 History docusate sodium 100 mg capsule 100 mg PO DAILY 02/15/21 08/18/21 History (Dulcolax Stool Softener (docusate)) ondansetron HCl 8 mg tablet 8 mg PO Q8H PRN 14 Days #42 tab 02/19/21 08/18/21 Rx oxycodone 5 mg tablet 5 - 10 mg PO Q6H PRN #40 tab 02/19/21 08/18/21 Rx dutasteride 0.5 mg capsule 0.5 mg PO HS 06/22/21 08/18/21 History ferrous sulfate 325 mg (65 mg 325 mg PO DAILY 06/22/21 08/18/21 History iron) tablet (iron) midodrine 10 mg tablet 15 mg PO TID@0800,1200,1700 60 08/11/21 08/18/21 Rx Days #90 tab Past Med/Surg History Medical History (Updated 08/18/21 @ 18:50 by Lamonte Newby MD) BPH (benign prostatic hyperplasia) C. difficile enteritis Cirrhosis Degenerative disc disease Depression Esophageal cancer (~12/2020) GERD (gastroesophageal reflux disease) Hepatorenal syndrome Hyperkalemia Hypotension (arterial) Port-A-Cath in place Surgical History (Updated 08/18/21 @ 20:51 by Carlos Dallas) H/O hand surgery FINGER TENDON REPAIR History of esophagogastroduodenoscopy (EGD) (~12/2020) Upper Endoscopic Ultrasonography + esophageal stent Jackson teeth removed Family History (Updated 08/18/21 @ 16:12 by Carlos Dallas) Mother Breast cancer Parkinson disease Father No problems noted. Other Cancer Diabetes No family history of adverse response to anesthesia TIA (transient ischemic attack) Social History Smoking Status: Former smoker Years Smoked: 10; Cigarettes Per Day: 20; Second Hand Exposure: No; Hx Alcohol Use: No Hx Substance Use: No Preferred Language: Malay Communication Ability: Effective Substance Abuse Technician Required: No Beliefs That Will Affect Care: None marital status: Current Living Situation: Spouse Current Living Situation Comment: 2 Grandsons live with patient. current occupational status: employed current occupation: automotive internet sales consultant How many Children do You have: 4 How many Children do You have Comment: 1 is Feels Safe at Home: Yes Assistive Devices: Walker and Wheelchair Review of Systems Review of Systems: gen - no fevers, but is having chills and is very cold; poor appetite; severe fatigue, severe weakness eyes - no visual change HENT - no dysphagia, no ear pain or sore throat neck - denies pain CV - no chest pain pulm - cough, dyspnea, OLSEN; cough is worst at night-time GI - severe abd distension, emesis x 1 since his recent hospital discharge; 2-3 episodes of diarrhea/day since hospital discharge - no dysuria neuro - denies headache skin - no rash endo - no diabetes psych - anxiety, stress over his current health status Physical Exam Physical Exam: gen - sickly appearing, thin, intermittently closes eyes, able to answer questions eyes - PERRL HENT - ears clear b/l; nose clear; mouth - severely dry MM neck - no JVD, no lymph nodes heart - RRR, s1 s2, 1/6 VONDA LSB lungs - crackles LLL, decreased BS right base, no wheeze, no increased work of breathing abd - SEVERE distension with ascites, BS+, nontender ext - severe edema, 3-4+ on L, 2-3+ on R; pulses 2+ b/l skin - no rash neuro - no focal motor deficits, 5/5 strength x 4 exts; DTRs 2+ b/l; no asterixis psych - alert, oriented x 3 lymph - no cervical lymphadenopathy Results & Data Results & Data ([facility]) Vital Signs (Past 12 Hours) Vital Signs Temp Pulse Pulse Resp BP BP Pulse Ox 08/18/21 12:30 65 18 88/59 L 98 08/18/21 10:37 36.5 C 61 16 109/71 98 Laboratory Results Laboratory Results - last 24 hr 08/18/21 08/18/21 08/18/21 11:19 11:19 11:19 WBC 11.11 H RBC 3.43 L Hgb 11.5 L Hct 33.2 L MCV 96.8 MCH 33.5 MCHC 34.6 RDW Std Deviation 61.3 H RDW Coeff of Macario 17.4 H Plt Count 109 L MPV 10.7 H Immature Gran % (Auto) 0.4 Neut % (Auto) 81.9 Lymph % (Auto) 7.5 [place] % (Auto) 9.0 Eos % (Auto) 0.9 Baso % (Auto) 0.3 Neut # (Auto) 9.11 H Lymph # (Auto) 0.83 L [place] # (Auto) 1.00 H Eos # (Auto) 0.10 Baso # (Auto) 0.03 Immature Gran # (Auto) 0.04 H Sodium 134 L Potassium 4.1 Chloride 101 Carbon Dioxide 21 Anion Gap 12 H BUN 81 H Creatinine 6.40 H* Est Cr Clr Drug Dosing Not Reportable Est GFR ( Amer) 9.7 Est GFR (Non-Af Amer) 8.3 BUN/Creatinine Ratio 12.7 Glucose 97 Calcium 8.5 Phosphorus 3.4 Magnesium 2.2 Total Bilirubin 1.3 H AST 12 L ALT 9 Alkaline Phosphatase 83 C-Reactive Protein Pending Total Protein 5.3 L Albumin 3.2 L Globulin 2.1 L Albumin/Globulin Ratio 1.5 Procalcitonin SARS-CoV-2, RNA, NAAT 08/18/21 08/18/21 11:19 13:05 WBC RBC Hgb Hct MCV MCH MCHC RDW Std Deviation RDW Coeff of Macario Plt Count MPV Immature Gran % (Auto) Neut % (Auto) Lymph % (Auto) [place] % (Auto) Eos % (Auto) Baso % (Auto) Neut # (Auto) Lymph # (Auto) [place] # (Auto) Eos # (Auto) Baso # (Auto) Immature Gran # (Auto) Sodium Potassium Chloride Carbon Dioxide Anion Gap BUN Creatinine Est Cr Clr Drug Dosing Est GFR ( Amer) Est GFR (Non-Af Amer) BUN/Creatinine Ratio Glucose Calcium Phosphorus Magnesium Total Bilirubin AST ALT Alkaline Phosphatase C-Reactive Protein Total Protein Albumin Globulin Albumin/Globulin Ratio Procalcitonin Pending SARS-CoV-2, RNA, NAAT POSITIVE A* Diagnostic Findings Abdomen/Pelvis CT 08/18/21 11:09 CT OF THE ABDOMEN AND PELVIS WITHOUT CONTRAST CLINICAL HISTORY: Renal failure. Abdominal pain. Esophageal cancer. Evaluate for hydronephrosis. COMPARISON STUDY: CT of the abdomen and pelvis April 28, 2021. TECHNIQUE: Axial images of the abdomen and pelvis were obtained without IV contrast. Images were reviewed in the axial, sagittal, and coronal planes. Automated exposure control was utilized for the study. A dose lowering dmitri hnique was utilized adhering to the principles of ALARA. FINDINGS: Distal esophageal stent is unchanged in position since CT of April 28, 2021. The distal aspect of the stent is within the proximal stomach. Distal esophageal wall thickening is noted. This is similar to prior exam. Air-fluid level within the distal esophagus is partially imaged. Small pericardial effusion is developed. Small bilateral pleural effusions have increased. Multifocal airspace opacities within lungs have developed, including scattered tree-in-bud nodules, groundglass opacities and foci of consolidation within the left lower lobe. Evaluation of the abdomen and pelvis is suboptimal on this unenhanced exam. No pneumatosis, free air or portal venous gas is present. Large volume ascites is present. There is body wall edema. The liver is cirrhotic. No hepatic lesions are identified on this unenhanced exam. Gallbladder is mildly distended. Unenhanced images of the spleen, adrenal glands and pancreas are nor mal. There is no biliary or pancreatic ductal dilatation. Several small bilateral renal calculi measure up to 3 mm. There is no hydronephrosis. No ureteral calculi are present. There is no evidence for a bowel obstruction. Mildly enlarged portacaval lymph node, measuring 2 x 1.5 cm, similar to CT of April 28, 2021. No suspicious lesions within visualized skeletal structures. IMPRESSION: 1. No hydronephrosis. Several small bilateral renal calculi. No ureteral calculi. 2. Large volume ascites. Anasarca with body wall edema. Small bilateral pleural effusions and a small pericardial effusion. 3. No change in position of a distal esophageal stent with esophageal wall thickening, similar to prior exam. Air-fluid level within the distal esophagus. 4. Multifocal airspace opacities within the lower lungs, as described above. This could reflect pneumonia or aspiration pneumonitis. 5. No bowel obstruction. 6. Cirrhosis with varices. 7. No change in a mildly enlarged portacaval lymph node. ACT 112: Negative or not required by law. Electronically signed by: Pedro Kahn M.D. 08/18/2021 12:48 PM Chest X-Ray 08/18/21 13:11 SINGLE VIEW CHEST CLINICAL HISTORY: Dyspnea. FINDINGS: An AP, portable, upright chest radiograph is compared to study dated 08/03/2021 and correlated with chest CT dated 04/28/2021. The examination is de graded by portable technique and apical lordotic positioning. A right internal jugular central venous catheter is unchanged in position. An esophageal stent is in place. The heart is top normal for projection. The pulmonary vasculature is noncongested. Airspace consolidation is noted at the left lung base. There are small pleural effusions. No pneumothorax is seen. The skeletal structures are osteopenic. The bony thorax is grossly intact. IMPRESSION: Airspace consolidation is seen at the left lung base and there are small pleural effusions. Correlate clinically for evidence of pneumonia/asp iration pneumonitis. Radiographic follow-up to resolution is recommended. ACT 112: Negative or not required by law. Electronically signed by: Lamonte Casas M.D. 08/18/2021 1:37 PM Code Status & VTE Plan Code Status full code PG Care Time/CCT Total # of Minutes Spent Total Time Spent with Patient: Total time spent is greater than 50% in coordination of care (as documented) at patient's floor/unit and/or counseling patient: Coding Level of Care Code 20373 Initial Inpt Care Lvl 3 Diagnoses Hepatorenal syndrome K76.7 C. difficile enteritis A04.72 Hypotension I95.9 Hypotension type: unspecified hypotension type Cirrhosis K74.60 COVID-19 U07.1 Abdominal ascites R18.8 Ascites type: other type Mesenteric vein thrombosis K55.069 BPH (benign prostatic hyperplasia) N40.0 GERD (gastroesophageal reflux disease) K21.9 Esophageal cancer C15.9 Malignant neoplasm of esophagus location: unspecified location LLL pneumonia J18.9 Acute kidney injury N17.9 (1) Abdominal ascites Ascites type: other type Qualified Code(s): R18.8 - Other ascites (2) Esophageal cancer Malignant neoplasm of esophagus location: unspecified location Qualified Code(s): C15.9 - Malignant neoplasm of esophagus, unspecified (3) Hypotension Hypotension type: unspecified hypotension type Qualified Code(s): I95.9 - Hypotension, unspecified
--- NOTE | 2021-08-18 12:50 | CT Scan Report ---
CT OF THE ABDOMEN AND PELVIS WITHOUT CONTRAST CLINICAL HISTORY: Renal failure. Abdominal pain. Esophageal cancer. Evaluate for hydronephrosis. COMPARISON STUDY: CT of the abdomen and pelvis April 28, 2021. TECHNIQUE: Axial images of the abdomen and pelvis were obtained without IV contrast. Images were revi ewed in the axial, sagittal, and coronal planes. Automated exposure control was utilized for the deep dy. A dose lowering technique was utilized adhering to the principles of ALARA. FINDINGS: Distal esophageal stent is unchanged in position since CT of April 28, 2021. The distal aspect of the stent is within the proximal stomach. Distal esophageal wall thickening is noted. This is similar to prior exam. Air-fluid level within the distal esophagus is partially imaged. Small tamica cardial effusion is developed. Small bilateral pleural effusions have increased. Multifocal airspace opacities within lungs have developed, including scattered tree-in-bud nodules, groundglass opacities and foci of consolidation within the left lower lobe. Evaluation of the abdomen and pelvis is subopt imal on this unenhanced exam. No pneumatosis, free air or portal venous gas is present. Large volume ascites is present. There is body wall edema. The liver is cirrhotic. No hepatic lesions are identifi ed on this unenhanced exam. Gallbladder is mildly distended. Unenhanced images of the spleen, adrenal glands and pancreas are normal. There is no biliary or pancreatic ductal dilatation. Several small b ilateral renal calculi measure up to 3 mm. There is no hydronephrosis. No ureteral calculi are presen t. There is no evidence for a bowel obstruction. Mildly enlarged portacaval lymph node, measuring 2 x 1.5 cm, similar to CT of April 28, 2021. No suspicious lesions within visualized skeletal structu res. IMPRESSION: 1. No hydronephrosis. Several small bilateral renal calculi. No ureteral calculi. 2. Large volume ascites. Anasarca with body wall edema. Small bilateral pleural effusions and a small pericardial effusion. 3. No change in position of a distal esophageal stent with esophageal wall thickening, similar to tori or exam. Air-fluid level within the distal esophagus. 4. Multifocal airspace opacities within the lower lungs, as described above. This could reflect pneum onia or aspiration pneumonitis. 5. No bowel obstruction. 6. Cirrhosis with varices. 7. No change in a mildly enlarged portacaval lymph node. ACT 112: Negative or not required by law. Electronically signed by: Pedro Kahn M.D. 08/18/2021 12:48 PM
[2021-08-18] MEDS ORDERED: ALBUMIN 25% 100 mL 25 GM/100 ML VIAL IV ONE (13:19)
[2021-08-18] MEDS ORDERED: LACTATED RINGER'S 1,000 ML IV SCH (13:30)
[2021-08-18] MEDS ORDERED: OCTREOTIDE ACETATE 100 MCG/ML VIAL SQ ONE (13:30)
[2021-08-18] MEDS ORDERED: MIDODRINE HCL 2.5 MG TAB PO ONE (13:30)
--- NOTE | 2021-08-18 13:38 | XRay Report ---
SINGLE VIEW CHEST CLINICAL HISTORY: Dyspnea. FINDINGS: An AP, portable, upright chest radiograph is compared to study dated 08/03/2021 and correlat ed with chest CT dated 04/28/2021. The examination is degraded by portable technique and apical lordo tic positioning. A right internal jugular central venous catheter is unchanged in position. An esopha geal stent is in place. The heart is top normal for projection. The pulmonary vasculature is nonconge sted. Airspace consolidation is noted at the left lung base. There are small pleural effusions. No pn eumothorax is seen. The skeletal structures are osteopenic. The bony thorax is grossly intact. IMPRESSION: Airspace consolidation is seen at the left lung base and there are small pleural effusio ns. Correlate clinically for evidence of pneumonia/aspiration pneumonitis. Radiographic follow-up to resolution is recommended. ACT 112: Negative or not required by law. Electronically signed by: Lamonte Casas M.D. 08/18/2021 1:37 PM
--- NOTE | 2021-08-18 13:39 | Nephrology Consultation ---
Date of Consultation August 18, 2021 Assessment & Plan (1) Acute kidney injury: (2) Hypotension (arterial): (3) Hepatorenal syndrome: (4) Anemia: (5) Ascites: 66 y o m with esophageal carcinoma diagnosed in 2020, abdominal ascites requiring frequent paracentesis, acute kidney injury with hepatorenal syndrome, admitted to the hospital with worsening abdominal ascites, acute kidney injury, cr 6.4, electrolyte acceptable. On admission COVID test came back positive. Acute kidney injury most likely secondary to hepatorenal syndrome versus prerenal with hypotension and intravascular volume depletion with poor p.o. intake. no postrenal obstruction. -- will need paracentesis however with the new diagnosis of COVID-19, it may complicate the situation to have the procedure done. -- start on LR -- accurate intake and output -- start on albumin 25 g t.i.d., octreotide 100 mcg subQ t.i.d. and continue on midodrine -- overall prognosis remains guarded, had repeated discussion with multiple provider for possible hospice or palliative care going forward however patient is reluctant to consider that at this point. will follow Thank you for allowing me to participate in your patient's care. It was a pleasure to see Everardo. History of Present Illness Reason for Consultation: acute kidney injury, ? HRS. History of Present Illness Mr. Everardo Muse is a 66-year-old gentlemen with history of esophageal carcinoma, recent AK I, ascites requiring last volume paracentesis admitted to the hospital with ADELSO and worsening ascites. Nephrology consult was requested to manage ADELSO. EMR records are reviewed in detail during patient's visit. He was seen and evaluated in the ER with his at the bedside. Everardo presented this morning for scheduled paracentesis. prior to the procedure had lab done showing creatinine of 6.3 and he was sent to ER for further evaluation. He denies any specific symptom except shortness of breath which she feels because of large volume ascites. He also has not been eating drinking much because of the bloating with the ascites. He has been voiding at home. denies any recent NSAID use. He was recently admitted to the hospital on 08/03/2021 with generalized weakness, lightheaded headedness, ascites and acute kidney injury. Creatinine was above 3. There was no postrenal obstruction he was hypotensive. He was eventually started on albumin, midodrine and octreotide, creatinine improved to 1 0.7-1.8 on discharge on 08/11/2021. During hospitalization he had multiple paracentesis however he did not feel well when he had more than 5 L paracentesis. Last paracentesis was more than [address] abdomen pelvis on admission was negative for postrenal obstruction. CXR showed bilateral pulmonary infiltrate. COVID-19 test again came back positive. He had COVID in 1st week of Jul and received mAb therapy on the first week of July. 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 Had stenting of the esophagus and was initially evaluated at [facility] and subsequently started treatment with FOLFOX + Opdivo locally under the care of Dr. Carrasquillo. Everardo initially tolerated treatment relatively well. In Feb 2021 admitted to [facility] with severe abdominal pain and distention. Evaluation demonstrated mesenteric venin thrombus and moderate ascites. CT also demonstrating nodularity possibly reflective of mets as well as lymphadenopathy. Eventually fluid analysis demonstrated negative cytology and transudative fluid by Light's criteria. In April 2022 oxaliplatin was stopped. In February, Everardo was admitted to [facility] with severe abdominal pain and distention. Evaluation demonstrated mesenteric venin thrombus and moderate ascites. CT also demonstrating nodularity possibly reflective of mets as well as lymphadenopathy. Eventually fluid analysis demonstrated negative cytology and transudative fluid by Light's criteria. Medical history also notable for HOFFMAN with suspected cirrhosis, BPH, and GERD. He c/o feeling thirsty as he has not been able to eat or drink much since discharge from hospital a week ago. Allergies Allergy/AdvReac Type Severity Reaction Status Date / Time No Known Allergies Allergy Verified 08/18/21 12:15 Home Medications Medication Instructions Recorded Confirmed Type bupropion HCl 150 mg 24 hr tablet, 150 mg PO QAM 12/23/20 08/18/21 History extended release esomeprazole magnesium 40 mg 40 mg PO BID 02/06/21 08/18/21 History capsule,delayed release (Nexium) famotidine 20 mg tablet (Pepcid AC) 40 mg PO HS 02/06/21 08/18/21 History docusate sodium 100 mg capsule 100 mg PO DAILY 02/15/21 08/18/21 History (Dulcolax Stool Softener (docusate)) ondansetron HCl 8 mg tablet 8 mg PO Q8H PRN 14 Days #42 tab 02/19/21 08/18/21 Rx oxycodone 5 mg tablet 5 - 10 mg PO Q6H PRN #40 tab 02/19/21 08/18/21 Rx dutasteride 0.5 mg capsule 0.5 mg PO HS 06/22/21 08/18/21 History ferrous sulfate 325 mg (65 mg 325 mg PO DAILY 06/22/21 08/18/21 History iron) tablet (iron) midodrine 10 mg tablet 15 mg PO TID@0800,1200,1700 60 08/11/21 08/18/21 Rx Days #90 tab Patient History Medical History BPH (benign prostatic hyperplasia) Degenerative disc disease Depression Esophageal cancer (~12/2020) GERD (gastroesophageal reflux disease) Hyperkalemia Hypotension (arterial) Surgical History H/O hand surgery FINGER TENDON REPAIR History of esophagogastroduodenoscopy (EGD) History of esophagogastroduodenoscopy (EGD) (~12/2020) Upper Endoscopic Ultrasonography + esophageal stent [place] teeth removed Family History Mother Breast cancer Family history of diabetes mellitus Other Cancer Diabetes No family history of adverse response to anesthesia Parkinson disease TIA (transient ischemic attack) Social History Smoking Status: Never smoker Cigarettes Per Day: 20; Second Hand Exposure: No; Hx Alcohol Use: No Hx Substance Use: No Preferred Language: [place] Helen[place] Communication Ability: Effective Building Inspection Engineer Required: No Beliefs That Will Affect Care: None marital status: Current Living Situation: Spouse Current Living Situation Comment: 2 Grandsons live with patient. Feels Safe at Home: Yes Assistive Devices: Walker and Wheelchair Review of Systems Review of Systems: detailed review of system was otherwise unremarkable except mentioned above. Physical Exam Constitutional: WD/WN, vitals as above + ill appearing and + cachectic; no acute distress Eyes: + anicteric sclerae ENMT: Mouth: + dry oral mucous membranes Neck: normal visual inspection Respiratory: normal respiratory effort; no respiratory distress and no cough Auscultation: lungs clear to auscultation bilaterally Cardiovascular: Rate/Rhythm: regular rate and regular rhythm Heart Sounds: normal S1 and normal S2 Extremities: + edema Gastrointestinal (Abdomen): Inspection/Auscultation: abdomen normal to inspection, + abdomen distended, normal bowel sounds and + abdominal edema Percussion/Palpation: abdomen soft and + ascites; abdomen nontender, no guarding and abdomen not rigid Musculoskeletal: Extremities: extremities normal to inspection Skin: no rashes Neurologic: no focal motor deficits and not confused Psychiatric: Orientation: alert and oriented x 3 Affect: euthymic affect Results & Data ([facility]) Vital Signs (Past 12 Hours) Vital Signs Temp Pulse Pulse Resp BP BP Pulse Ox 08/18/21 12:30 65 18 88/59 L 98 08/18/21 10:37 36.5 C 61 16 109/71 98 PG Care Time/CCT Total # of Minutes Spent Total Time Spent with Patient: Total time spent is greater than 50% in coordination of care (as documented) at patient's floor/unit and/or counseling patient: Coding Level of Care Code 71783 Initial Inpt Care Lvl 3 Diagnoses Acute kidney injury N17.9 Hypotension (arterial) I95.9 Hepatorenal syndrome K76.7 Anemia D64.9 Ascites R18.8 Ascites type: other type (1) Ascites Ascites type: other type Qualified Code(s): R18.8 - Other ascites
[2021-08-18] MEDS: VANCOMYCIN HCL 125 MG/2.5ML SOLN PO SCH (18:36)
[2021-08-18] MEDS: RASPBERRY SYRUP 5 ML UDP PO SCH (18:36)
[2021-08-18] MEDS: DOXYCYCLINE HYCLATE 100 MG in DEXTROSE 5% 100 ML IV SCH (18:54)
[2021-08-18] MEDS: CEFEPIME 1,000 MG in SYRINGE 0 ML IV SCH (18:54)
[2021-08-18] MEDS: HYDROmorphone INJ 0.5 MG/0.5 ML SYR IV PRN (19:03)
[2021-08-18] MEDS: ALBUMIN 25% 100 mL 25 GM/100 ML VIAL IV SCH (20:59)
[2021-08-18] MEDS ORDERED: FAMOTIDINE 40 MG TABLET PO SCH (21:00)
[2021-08-18] MEDS: OCTREOTIDE ACETATE 100 MCG/ML VIAL SQ SCH (21:01)
[2021-08-18] MEDS: PANTOprazole 40 MG TAB PO SCH (21:01)
[2021-08-19] MEDS: VANCOMYCIN HCL 125 MG/2.5ML SOLN PO SCH ×4 (00:11→20:21)
[2021-08-19] MEDS: RASPBERRY SYRUP 5 ML UDP PO SCH ×4 (00:12→20:21)
[2021-08-19] MEDS ORDERED: HEPARIN 100 UNIT/ML 5ML FLUSH FLUSH PRN (00:17)
[2021-08-19] MEDS: ALBUMIN 25% 100 mL 25 GM/100 ML VIAL IV SCH ×4 (02:57→20:33)
[2021-08-19] MEDS: DOXYCYCLINE HYCLATE 100 MG in DEXTROSE 5% 100 ML IV SCH ×2 (05:19→18:20)
[2021-08-19] MEDS: CEFEPIME 1,000 MG in SYRINGE 0 ML IV SCH ×2 (05:20→18:21)
[2021-08-19] MEDS: OCTREOTIDE ACETATE 100 MCG/ML VIAL SQ SCH (05:22)
[2021-08-19 06:42] LABS: Hematocrit (blood only) 28.9 % (42-52); Mean Corpuscular Hemoglobin 33.9 pg (25-34); Mean Corpuscular Hgb Conc 34.6 g/dL (32-36); RDW Coefficient of Variation 17.5 % (11.5-14.5); RDW Standard Deviation 61.6 fL (36.4-46.3); Red Blood Count 2.95 M/uL (4.7-6.1); White Blood Count 6.26 K/uL (4.8-10.8)
[2021-08-19 06:52] LABS: Mean Platelet Volume 10.5 fL (7.4-10.4); Platelet Count 69 K/uL (130-400)
--- NOTE | 2021-08-19 06:56 | Ultrasound Report ---
ULTRASOUND LEFT LOWER EXTREMITY VENOUS CLINICAL HISTORY: Left leg swelling. COMPARISON STUDY: No priors. TECHNIQUE: Real-time, grayscale, and color Doppler sonography of the deep veins of the left lower ext remity was performed from the inguinal crease to the calf. Compression and augmentation were utilized . FINDINGS: There is no sonographic evidence of deep venous thrombosis identified in the left lower ext remity. The common femoral, superficial femoral, and popliteal veins are patent and normally compress ible. The greater saphenous vein and the profunda femoris vein at the junction with the common femora l vein are clear. The visualized calf veins are patent. IMPRESSION: There is no sonographic evidence of deep venous thrombosis identified in the left lower e xtremity. ACT 112: Negative or not required by law. Electronically signed by: Lamonte Casas M.D. 08/19/2021 6:55 AM
[2021-08-19 07:11] LABS: Basophils # (auto) 0.03 K/uL (0-0.2); Basophils % (auto) 0.5 %; Eosinophils # (auto) 0.12 K/uL (0-0.5); Eosinophils % (auto) 1.9 %; Immature Granulocytes # (auto) 0.01 K/uL (0.00-0.02); Immature Granulocytes % (auto) 0.2 %; Monocytes # (auto) 0.51 K/uL (0.11-0.59); Monocytes % (auto) 8.1 %; Neutrophils # (auto) 5.09 K/uL (1.4-6.5); Neutrophils % (auto) 81.3 %
[2021-08-19 07:14] LABS: Alanine Aminotransferase 6 U/L (7-52); Albumin Level 3.7 gm/dl (3.4-5.0); Alkaline Phosphatase 57 U/L (34-104); Anion Gap 11 (3-11); Aspartate Aminotransferase 9 U/L (13-39); BUN Creatinine Ratio 13.1 (10-20); Bilirubin Direct 0.6 mg/dl (0-0.2); Bilirubin,Total 1.6 mg/dl (0.2-1.0); Blood Urea Nitrogen 79 mg/dl (6-23); Calcium 8.5 mg/dl (8.5-10.1); Carbon Dioxide 21 mmol/L (21-32); Chloride 101 mmol/L (98-107); Est GFR (African American) 10.3 ml/min; Est GFR (Non-African American) 8.9 ml/min; Glucose 117 mg/dl (70-99(Fasting)); Phosphorus 3.7 mg/dl (2.5-4.9); Potassium 3.9 mmol/L (3.5-5.1); Sodium 133 mmol/L (136-145); Total Protein 5.4 gm/dl (6.0-8.3)
[2021-08-19] MEDS: MIDODRINE HCL 10 MG TAB PO SCH ×3 (08:21→18:22)
[2021-08-19] MEDS: ADVANCED PROBIOTIC 1250 MG CAPSULE PO SCH (08:22)
[2021-08-19] MEDS: buPROPion XL 150 MG TABCR PO SCH (08:22)
[2021-08-19] MEDS: PANTOprazole 40 MG TAB PO SCH ×2 (08:23→20:20)
--- NOTE | 2021-08-19 09:30 | Gastrointestinal Consultation ---
Date of Consultation August 19, 2021 Assessment & Plan (1) COVID-19: 66 year old male with esophageal CA, cirrhosis, HRS, ascites admitted with ADELSO, COVID-19 infection He was previously deemed not a candidate for pleurex catheter or tips, per documentation "refractory ascites is poorly responsive to TIPS in the setting of HRS" Would recommend palliative care consultation to discuss goals of care Appreciate nephrology input Agree with albumin, midodrine and octreotide Paracentesis PRN, unsure if these will able to be completed due to COVID precautions Thank you for allowing us to participate in the care of this patient. Please call with any acute changes, questions or concerns. Please see addendum below with additional recommendation from my supervising physician. Supervising Physician Co-Signing Physician Notes Currently covid + PE as above Agree with further plan of care as above. 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 GI asked to evaluate to help streamline care. Pt was seen and evaluated. OOB in chair. Notes he is feeling okay. He is overdue for paracentesis. He notes when he has these scheduled he feels well. Denies abd pain/fullness/appetite issues or difficulty breathing once his ascites is removed. Suggests when the fluid starts to build up, these symptoms return. Currently reports decreased appetite and fullness. CTAP 2021: No hydronephrosis. Several small bilateral renal calculi. No ureteral calculi. Large volume ascites. Anasarca with body wall edema. Small bilateral pleural effusions and a small pericardial effusion.No change in position of a distal esophageal stent with esophageal wall thickening, similar to prior exam. Air-fluid level within the distal esophagus. Multifocal airspace opacities within the lower lungs, as described above. This could reflect pneumonia or aspiration pneumonitis. No bowel obstruction. Cirrhosis with varices. Allergies Allergy/AdvReac Type Severity Reaction Status Date / Time No Known Allergies Allergy Verified 08/18/21 12:15 Home Medications Medication Instructions Recorded Confirmed Type bupropion HCl 150 mg 24 hr tablet, 150 mg PO QAM 12/23/20 08/18/21 History extended release esomeprazole magnesium 40 mg 40 mg PO BID 02/06/21 08/18/21 History capsule,delayed release (Nexium) famotidine 20 mg tablet (Pepcid AC) 40 mg PO HS 02/06/21 08/18/21 History docusate sodium 100 mg capsule 100 mg PO DAILY 02/15/21 08/18/21 History (Dulcolax Stool Softener (docusate)) ondansetron HCl 8 mg tablet 8 mg PO Q8H PRN 14 Days #42 tab 02/19/21 08/18/21 Rx oxycodone 5 mg tablet 5 - 10 mg PO Q6H PRN #40 tab 02/19/21 08/18/21 Rx dutasteride 0.5 mg capsule 0.5 mg PO HS 06/22/21 08/18/21 History ferrous sulfate 325 mg (65 mg 325 mg PO DAILY 06/22/21 08/18/21 History iron) tablet (iron) midodrine 10 mg tablet 15 mg PO TID@0800,1200,1700 60 08/11/21 08/18/21 Rx Days #90 tab Patient History Medical History (Updated 08/18/21 @ 18:50 by Lamonte Newby MD) BPH (benign prostatic hyperplasia) C. difficile enteritis Cirrhosis Degenerative disc disease Depression Esophageal cancer (~12/2020) GERD (gastroesophageal reflux disease) Hepatorenal syndrome Hyperkalemia Hypotension (arterial) Port-A-Cath in place Surgical History (Updated 08/18/21 @ 20:51 by Carlos Dallas) H/O hand surgery FINGER TENDON REPAIR History of esophagogastroduodenoscopy (EGD) (~12/2020) Upper Endoscopic Ultrasonography + esophageal stent [place] teeth removed Family History (Updated 08/18/21 @ 16:12 by Carlos Dallas) Mother Breast cancer Parkinson disease Father No problems noted. Other Cancer Diabetes No family history of adverse response to anesthesia TIA (transient ischemic attack) Social History Smoking Status: Former smoker Years Smoked: 10; Cigarettes Per Day: 20; Second Hand Exposure: No; Hx Alcohol Use: No Hx Substance Use: No Preferred Language: Azeri Communication Ability: Effective Sr. Manager Corporate Communications Required: No Beliefs That Will Affect Care: None marital status: Current Living Situation: Spouse Current Living Situation Comment: 2 Grandsons live with patient. current occupational status: employed current occupation: automobile salesman How many Children do You have: 4 How many Children do You have Comment: 1 is Feels Safe at Home: Yes Assistive Devices: Walker and Wheelchair Review of Systems Review of Systems: All systems reviewed & are unremarkable except as noted in HPI & below Physical Exam Constitutional: WD/WN, vitals as above Respiratory: normal respiratory effort; no respiratory distress, no labored breathing, no retractions, does not use accessory muscles and no cough Cardiovascular: Rate/Rhythm: regular rate and regular rhythm Gastrointestinal (Abdomen): + ascites, generalized discomfort Skin: no rashes, warm and dry Results & Data ([facility]) Vital Signs (Past 12 Hours) Vital Signs Temp Pulse Pulse Resp BP BP Pulse Ox 08/19/21 08:30 36.3 C L 62 20 81/53 L 89/59 L 95 08/19/21 04:10 36.6 C 61 18 92/55 L 94 08/18/21 22:26 36.6 C 60 18 92/57 L 94 08/18/21 22:20 59 L Laboratory Results 08/19/21 08/19/21 08/18/21 Range/Units 06:08 06:08 13:05 WBC 6.26 (4.8-10.8) K/uL RBC 2.95 L (4.7-6.1) M/uL Hgb 10.0 L (14.0-18.0) g/dL Hct 28.9 L (42-52) % MCV 98.0 (80-100) fL MCH 33.9 (25-34) pg MCHC 34.6 (32-36) g/dL RDW Std Deviation 61.6 H (36.4-46.3) fL RDW Coeff of Macario 17.5 H (11.5-14.5) % Plt Count 69 L (130-400) K/uL MPV 10.5 H (7.4-10.4) fL Immature Gran % (Auto) 0.2 % Neut % (Auto) 81.3 % Lymph % (Auto) 8.0 % [place] % (Auto) 8.1 % Eos % (Auto) 1.9 % Baso % (Auto) 0.5 % Neut # (Auto) 5.09 (1.4-6.5) K/uL Lymph # (Auto) 0.50 L (1.2-3.4) K/uL [place] # (Auto) 0.51 (0.11-0.59) K/uL Eos # (Auto) 0.12 (0-0.5) K/uL Baso # (Auto) 0.03 (0-0.2) K/uL Immature Gran # (Auto) 0.01 (0.00-0.02) K/uL Sodium 133 L (136-145) mmol/L Potassium 3.9 (3.5-5.1) mmol/L Chloride 101 (98-107) mmol/L Carbon Dioxide 21 (21-32) mmol/L Anion Gap 11 (3-11) BUN 79 H (6-23) mg/dl Creatinine 6.05 H* D (0.6-1.4) mg/dl Est Cr Clr Drug Dosing Not Reportable Est GFR ( Amer) 10.3 ml/min Est GFR (Non-Af Amer) 8.9 ml/min BUN/Creatinine Ratio 13.1 (10-20) Glucose 117 H (70-99(Fasting)) mg/dl Calcium 8.5 (8.5-10.1) mg/dl Phosphorus 3.7 (2.5-4.9) mg/dl Magnesium (1.7-2.4) mg/dl Total Bilirubin 1.6 H (0.2-1.0) mg/dl Direct Bilirubin 0.6 H (0-0.2) mg/dl AST 9 L (13-39) U/L ALT 6 L (7-52) U/L Alkaline Phosphatase 57 (34-104) U/L C-Reactive Protein (0-0.5) mg/dl Total Protein 5.4 L (6.0-8.3) gm/dl Albumin 3.7 (3.4-5.0) gm/dl Globulin (2.5-4.0) gm/dl Albumin/Globulin Ratio (0.9-2) Procalcitonin (0-0.5) ng/ml SARS-CoV-2, RNA, NAAT POSITIVE A* (NEGATIVE) 08/18/21 08/18/21 08/18/21 Range/Units 11:19 11:19 11:19 WBC (4.8-10.8) K/uL RBC (4.7-6.1) M/uL Hgb (14.0-18.0) g/dL Hct (42-52) % MCV (80-100) fL MCH (25-34) pg MCHC (32-36) g/dL RDW Std Deviation (36.4-46.3) fL RDW Coeff of Macario (11.5-14.5) % Plt Count (130-400) K/uL MPV (7.4-10.4) fL Immature Gran % (Auto) % Neut % (Auto) % Lymph % (Auto) % [place] % (Auto) % Eos % (Auto) % Baso % (Auto) % Neut # (Auto) (1.4-6.5) K/uL Lymph # (Auto) (1.2-3.4) K/uL [place] # (Auto) (0.11-0.59) K/uL Eos # (Auto) (0-0.5) K/uL Baso # (Auto) (0-0.2) K/uL Immature Gran # (Auto) (0.00-0.02) K/uL Sodium 134 L (136-145) mmol/L Potassium 4.1 (3.5-5.1) mmol/L Chloride 101 (98-107) mmol/L Carbon Dioxide 21 (21-32) mmol/L Anion Gap 12 H (3-11) BUN 81 H (6-23) mg/dl Creatinine 6.40 H* (0.6-1.4) mg/dl Est Cr Clr Drug Dosing Not Reportable Est GFR ( Amer) 9.7 ml/min Est GFR (Non-Af Amer) 8.3 ml/min BUN/Creatinine Ratio 12.7 (10-20) Glucose 97 (70-99(Fasting)) mg/dl Calcium 8.5 (8.5-10.1) mg/dl Phosphorus 3.4 (2.5-4.9) mg/dl Magnesium 2.2 (1.7-2.4) mg/dl Total Bilirubin 1.3 H (0.2-1.0) mg/dl Direct Bilirubin (0-0.2) mg/dl AST 12 L (13-39) U/L ALT 9 (7-52) U/L Alkaline Phosphatase 83 (34-104) U/L C-Reactive Protein 6.65 H (0-0.5) mg/dl Total Protein 5.3 L (6.0-8.3) gm/dl Albumin 3.2 L (3.4-5.0) gm/dl Globulin 2.1 L (2.5-4.0) gm/dl Albumin/Globulin Ratio 1.5 (0.9-2) Procalcitonin 0.71 H (0-0.5) ng/ml SARS-CoV-2, RNA, NAAT (NEGATIVE) 08/18/21 Range/Units 11:19 WBC 11.11 H (4.8-10.8) K/uL RBC 3.43 L (4.7-6.1) M/uL Hgb 11.5 L (14.0-18.0) g/dL Hct 33.2 L (42-52) % MCV 96.8 (80-100) fL MCH 33.5 (25-34) pg MCHC 34.6 (32-36) g/dL RDW Std Deviation 61.3 H (36.4-46.3) fL RDW Coeff of Macario 17.4 H (11.5-14.5) % Plt Count 109 L (130-400) K/uL MPV 10.7 H (7.4-10.4) fL Immature Gran % (Auto) 0.4 % Neut % (Auto) 81.9 % Lymph % (Auto) 7.5 % [place] % (Auto) 9.0 % Eos % (Auto) 0.9 % Baso % (Auto) 0.3 % Neut # (Auto) 9.11 H (1.4-6.5) K/uL Lymph # (Auto) 0.83 L (1.2-3.4) K/uL [place] # (Auto) 1.00 H (0.11-0.59) K/uL Eos # (Auto) 0.10 (0-0.5) K/uL Baso # (Auto) 0.03 (0-0.2) K/uL Immature Gran # (Auto) 0.04 H (0.00-0.02) K/uL Sodium (136-145) mmol/L Potassium (3.5-5.1) mmol/L Chloride (98-107) mmol/L Carbon Dioxide (21-32) mmol/L Anion Gap (3-11) BUN (6-23) mg/dl Creatinine (0.6-1.4) mg/dl Est Cr Clr Drug Dosing Est GFR ( Amer) ml/min Est GFR (Non-Af Amer) ml/min BUN/Creatinine Ratio (10-20) Glucose (70-99(Fasting)) mg/dl Calcium (8.5-10.1) mg/dl Phosphorus (2.5-4.9) mg/dl Magnesium (1.7-2.4) mg/dl Total Bilirubin (0.2-1.0) mg/dl Direct Bilirubin (0-0.2) mg/dl AST (13-39) U/L ALT (7-52) U/L Alkaline Phosphatase (34-104) U/L C-Reactive Protein (0-0.5) mg/dl Total Protein (6.0-8.3) gm/dl Albumin (3.4-5.0) gm/dl Globulin (2.5-4.0) gm/dl Albumin/Globulin Ratio (0.9-2) Procalcitonin (0-0.5) ng/ml SARS-CoV-2, RNA, NAAT (NEGATIVE)
--- NOTE | 2021-08-19 11:01 | Nephrology Progress Note ---
Date of Service August 19, 2021 Assessment & Plan (1) Acute kidney injury: (2) Hypotension (arterial): (3) Hepatorenal syndrome: (4) Anemia: (5) Ascites: Plan: 66 y o m with esophageal carcinoma diagnosed in 2020, abdominal ascites requiring frequent paracentesis, acute kidney injury with hepatorenal syndrome, admitted to the hospital with worsening abdominal ascites, acute kidney injury, cr 6.4, electrolyte acceptable. On admission COVID test came back positive. Acute kidney injury most likely secondary to hepatorenal syndrome versus prerenal with hypotension and intravascular volume depletion with poor p.o. intake. no postrenal obstruction. renal function slightly improved to creatinine 6.1, electrolyte relatively stable. Decent urine output. -- plan for paracentesis today. -- encourage p.o. intake -- accurate intake and output -- continue albumin 25 g t.i.d., octreotide 100 mcg subQ t.i.d, midodrine -- Epogen [id number] units x 1 dose today -- overall prognosis remains guarded, had repeated discussion with multiple provider for possible hospice or palliative care going forward however patient is reluctant to consider that at this point. will follow Admission and Anticipated Discharge Date Admission Date: August 18, 2021 Baldemar Mcgee was seen and examined this morning. He reports overall feeling well, no shortness of breaths or chest pain. Appetite fair but has been having abdominal discomfort with significant ascites. Report decent urine output. Blood pressure relatively low. Slight improvement in creatinine to 6.1, electrolyte acceptable. Review of Systems Review of Systems: detailed review of system was otherwise unremarkable except mentioned above. Physical Exam Constitutional: WD/WN, vitals as above + ill appearing and + cachectic; no acute distress Eyes: + anicteric sclerae ENMT: Mouth: + dry oral mucous membranes Respiratory: normal respiratory effort and + cough; no respiratory distress Auscultation: lungs clear to auscultation bilaterally and + rales Cardiovascular: Rate/Rhythm: regular rate and regular rhythm Heart Sounds: normal S1 and normal S2 Extremities: + edema Gastrointestinal (Abdomen): Percussion/Palpation: + ascites; no guarding Skin: no rashes Neurologic: no focal motor deficits and not confused Psychiatric: Orientation: alert and oriented x 3 Affect: euthymic affect Results & Data ([facility]) Vital Signs (Past 12 Hours) Vital Signs Temp Pulse Resp BP BP Pulse Ox 08/19/21 08:30 36.3 C L 62 20 81/53 L 89/59 L 95 08/19/21 04:10 36.6 C 61 18 92/55 L 94 PG Care Time/CCT Total # of Minutes Spent Total Time Spent with Patient: Total time spent is greater than 50% in coordination of care (as documented) at patient's floor/unit and/or counseling patient: Coding Level of Care Code 77328 Subseq Hosp Care Lvl 3 Diagnoses Acute kidney injury N17.9 Hypotension (arterial) I95.9 Hepatorenal syndrome K76.7 Anemia D64.9 Ascites R18.8 Ascites type: other type (1) Ascites Ascites type: other type Qualified Code(s): R18.8 - Other ascites
[2021-08-19] MEDS ORDERED: EPOETIN ALFA 40,000 UNITS/ML VIAL SQ SCH (12:00)
[2021-08-19] MEDS ORDERED: PATIENT'S HEIGHT AND/OR WEIGHT NEEDED SCH (13:15)
[2021-08-19] MEDS ORDERED: STAT IV STA (14:57)
--- NOTE | 2021-08-19 16:47 | Hospitalist Progress Note ---
Date of Service August 19, 2021 Assessment & Plan (1) Acute kidney injury: Plan: During last week's admission his creatinine was 1.6-1.8 after his ADELSO resolved. He was suspected to have hepatorenal syndrome at that time. He presented yesterday with severe worsening with Cr of 6.4. Minimally improved today to 6.1 s/p IV fluids (1 Liter of LR), IV albumin q6, midodrine, and SC octreotide. Again clinical picture most c/w HRS. No evidence of obstruction on CT a/p. He continues with poor oral intake, diarrhea, and ongoing ascites. Likely combination of pre-renal etiologies and overall TBW elevated but EAV being decreased in the setting of his severe cirrhosis. Appreciate nephrology consultation & recs. Plan - * treat for HRS; cont octreotide; patient very uncomfortable from the injections; begged to have them stopped; I did indeed stop SC octreotide, c hanged to octreotide drip at 15mcg/hour; remains on albumin 25%, 1gm/kg/day (~25gm q6h); perform the 1gm/kg/day of albumin through tomorrow and reassess response to such; continue midodrine 15mg TID * repeat BMP am * consider kalyn (2) Hepatorenal syndrome: Plan: Dx during previous admission last week. Now with recurrent ADELSO as above. See #1 for details. (3) LLL pneumonia: Plan: Clinically and radiographically. See discussion below in #4. Procal is elevated, and given his recent admission, need to cover for gram negative etiologies - thus, cefepime 1gm q12h. For atypical coverage - doxycycline 100mg IV q12h. Fortunately he is saturating well at this time. Deferring on steroids. (4) COVID-19: Plan: Patient apparently tested positive through the [facility] system in early July. Did receive monoclonal antibodies. He had 1-2 days of symptoms at most per his . On August 05 during his prior stay his COVID testing was negative. He is now positive again. He does indeed have symptoms of COVID - fatigue, chills, cough, pneumonia on imaging, etc. There are a few possibilities for the COVID + test this admission -- 1. this could represent old, inactivated virus from the illness in early July; this theory would assume his August 05 COVID test was falsely negative 2. he has recurrent COVID infection, but would be unusual given he is 6 weeks out from the previous illness in early July, but [id number] it is possible given his severely immunocompromised health status Since he does have pneumonia and does have numerous COVID symptoms I do feel that we should continue isolation/COVID precautions. Thus far O2 sats are normal thus defer on systemic steroids. (5) C. difficile enteritis: Plan: Dx 08/05/21. He finished his previous 10 day course of PO vanco. He continues with diarrhea, 2-3x's each day. Given his immunocompromised status and his need for IV antibiotics for #3 will cont PO vanco as previous. Continue lactinex. He will be on contact precautions because of #4. (6) Hypotension: Plan: He has baseline BPs in the 90-100 range due to his cirrhosis. He remains on midodrine 15mg TID. Holding his prior flomax. (7) Cirrhosis: Plan: Advanced. 2nd HOFFMAN? Recurrent, severe ascites. s/p paracentesis today - 5 L removed w/o incident; albumin IV given right after. During previous admission Jun ROME saw him in consult. TIPS was ruled out as viable option to treat his recurrent ascites. Hiram not to be a candidate for a palliative pleurX catheter. Plan was for weekly albumin IV and paracentesis. Appreciate GI consultation this admission. (8) Abdominal ascites: Plan: s/p paracentesis today - 5 L removed without incident or complication (see procedure note detailed separately by Dr Brdaley Paul). initial cell counts not c/w SBP. culture pending. albumin given immediately following the procedure. patient reported feeling better with fluid removed. (9) Mesenteric vein thrombosis: Plan: previously on xarelto. it was stopped during prior admission because of concern of upper GI bleeding. H/H remain stable since the prior admission. poor candidate to resume the xarelto due to #1. (10) BPH (benign prostatic hyperplasia): Plan: Cont finasteride. Holding flomax. No signs of obstruction on CT a/p. Consider mccain for comfort. (11) GERD (gastroesophageal reflux disease): Plan: Cont pepcid at reduced daily dose of 20mg due to severe renal failure. Cont PPI twice daily. (12) Esophageal cancer: Plan: Follows with Dr Keith Carrasquillo [facility]. Initial dx December 2020. Patient has an esophageal stent in place. CT confirms proper location. He was previously taking Opdivo and was on FOLFOX regimen. He has not been on therapies of late because of the severity of his cirrhosis and the associated complications. Palliative care and goals of care discussions were held during the prior admission but Mr Muse wished to continue routine care with the hopes of gaining more time to spend with his grandsons. Given the gravity of his situation we should formally consult palliative care this admission. I did speak with Dr Carrasquillo at time of admission and alerted him of Mr Muse's admission. Plan: extensively updated during the prolonged visit today all care activities of this complex gentleman - 70 minutes today Admission and Anticipated Discharge Date Admission Date: August 18, 2021 Subjective pt continues to complaint of severe abd distension/bloating due to his severe ascites he is able to lie flat in bed, however, without orthopnea he continues with cough continues with "feeling cold" appetite poor he feels modestly better overall relative to the time of admission UOP is fair at best tele overnight wnl my bedside visit today lasted from approximately 310pm until 415pm - update given to pt and his ( was at bedside), exam performed, consent process completed for paracentesis, and I assisted Dr Paul with the paracentesis (see Dr Paul's procedure note) 5 L ute, slightly cloudy fluid removed without apparent complication by Dr Paul BPs remained in the upper 80s/90s systolic throughout the procedure patient voices he remains hopeful that he can improved while here Review of Systems Review of Systems: gen - no fever, remains cold, appetite fair to poor cv - no chest pain GI - no vomiting pulm - mild cough, no dyspnea at rest Physical Exam Physical Exam: gen - very ill-appearing, no acute distress however, awake/alert today mouth - severely dry MM heart - RRR, s1 s2 lungs - L basilar rales unchanged; no wheeze; no increased work of breathing abd - severely distended with ascites; portable bedside u/s with large amount of ascites, largest pocket L abdomen over the junction of LUQ and LLQ; BS+; nontender ext - SEVERE edema - worse today - 4+ edema entire L leg, 3+ edema R leg; pulses 2+ b/l psych - oriented x 3 neuro - no tremors or asterixis Results & Data Results & Data ([facility]) Vital Signs (Past 12 Hours) Vital Signs Temp Pulse Resp BP BP Pulse Ox 08/19/21 11:52 36.3 C L 56 L 20 89/54 L 96/65 L 97 08/19/21 08:30 36.3 C L 62 20 81/53 L 89/59 L 95 Laboratory Results Laboratory Results - last 24 hr 08/19/21 08/19/21 06:08 06:08 WBC 6.26 RBC 2.95 L Hgb 10.0 L Hct 28.9 L MCV 98.0 MCH 33.9 MCHC 34.6 RDW Std Deviation 61.6 H RDW Coeff of Macario 17.5 H Plt Count 69 L MPV 10.5 H Immature Gran % (Auto) 0.2 Neut % (Auto) 81.3 Lymph % (Auto) 8.0 [place] % (Auto) 8.1 Eos % (Auto) 1.9 Baso % (Auto) 0.5 Neut # (Auto) 5.09 Lymph # (Auto) 0.50 L [place] # (Auto) 0.51 Eos # (Auto) 0.12 Baso # (Auto) 0.03 Immature Gran # (Auto) 0.01 Sodium 133 L Potassium 3.9 Chloride 101 Carbon Dioxide 21 Anion Gap 11 BUN 79 H Creatinine 6.05 H* D Est Cr Clr Drug Dosing Not Reportable Est GFR ( Amer) 10.3 Est GFR (Non-Af Amer) 8.9 BUN/Creatinine Ratio 13.1 Glucose 117 H Calcium 8.5 Phosphorus 3.7 Total Bilirubin 1.6 H Direct Bilirubin 0.6 H AST 9 L ALT 6 L Alkaline Phosphatase 57 Total Protein 5.4 L Albumin 3.7 PG Care Time/CCT Total # of Minutes Spent Total Time Spent with Patient: Total time spent is greater than 50% in coordination of care (as documented) at patient's floor/unit and/or counseling patient: Prolonged Care Time Prolonged Care Time: Yes 70 Coding Level of Care Code 31703 Subseq Hosp Care Lvl 3 (25 - SIGNIFICANT, SEPARATELY IDENTIFIABLE ) Diagnoses Acute kidney injury N17.9 Hepatorenal syndrome K76.7 LLL pneumonia J18.9 COVID-19 U07.1 C. difficile enteritis A04.72 Hypotension I95.9 Hypotension type: unspecified hypotension type Cirrhosis K74.60 Abdominal ascites R18.8 Ascites type: other type Mesenteric vein thrombosis K55.069 BPH (benign prostatic hyperplasia) N40.0 GERD (gastroesophageal reflux disease) K21.9 Esophageal cancer C15.9 Malignant neoplasm of esophagus location: unspecified location Additional Codes Prolonged Care Time - Prolonged Care Time: Yes ([id number]) Time Spent (min) 70 (1) Abdominal ascites Ascites type: other type Qualified Code(s): R18.8 - Other ascites (2) Esophageal cancer Malignant neoplasm of esophagus location: unspecified location Qualified Code(s): C15.9 - Malignant neoplasm of esophagus, unspecified (3) Hypotension Hypotension type: unspecified hypotension type Qualified Code(s): I95.9 - Hypotension, unspecified
--- NOTE | 2021-08-19 17:26 | Procedure Note ---
Procedure Note Date of Service August 19, 2021 Note Paracentesis performed for large ascites causing shortness of breath and abdominal discomfort. Patient was identified and time-out performed with all parties in agreement. Signed consent on chart by due to patient having Covid restrictions. Pocket was visualized with ultrasound and marked on abdomen. Area was sterilized with chlorhexidine and allowed to dry. Sterile gloves donned and site was draped with sterile drape. At previously marked site, the patient was numbed with lidocaine. A track was followed with lidocaine needle and entered into the peritoneal cavity with flash of light yellow fluid. Track was numbed. Small incision was made at the site of needle entry, and the peritoneal catheter was introduced. Flash of clean peritoneal fluid again returned, and the catheter was threaded over the needle without issue. Needle was removed and found intact. Approx. 50 mL of peritoneal fluid was withdrawn for studies. 5L of peritoneal fluid was then collected via vacuum container. The fluid was a dark ute color without any blood or particulate matter. Blood pressure and HR were monitored during the procedure and remained steady throughout. After 5L of peritoneal fluid was removed, the catheter was removed from the patient. It was examined and was intact. Slight leak of peritoneal fluid was stopped with gentle pressure. The area was again cleaned with chlorhexidine. A bandage was applied to the site, and the sterile field was taken down. All sharps were accounted for and disposed of. The patient tolerated the procedure without any complications. Albumin was already prepped by the attending physician, and the RN was about to run it as I left the room. Coding CPT Codes Abdomen - Abdominal: 58091 Abdominal Paracentesis (diagnostic or therapeutic); W/O imaging ([id number]) [facility] [place] Codes (Charges) Indication for Procedure Indication for procedure: Large ascites Abdomen Abdominal: 34262 Abdominal Paracentesis (diagnostic or therapeutic); W/O imaging
[2021-08-19 18:10] LABS: Appearance Peritoneal Fluid HAZY; Color Peritoneal Fluid YELLOW; RBC Peritoneal Fluid (A) < 3000 /uL; WBC Peritoneal Fluid (A) 116 /ul (0-300)
[2021-08-19] MEDS: OCTREOTIDE ACETATE 500 MCG in DEXTROSE 5% 100 ML IV SCH (18:21)
[2021-08-19] MEDS: FAMOTIDINE 20 MG TAB PO SCH (20:21)
[2021-08-20] MEDS: RASPBERRY SYRUP 5 ML UDP PO SCH ×5 (00:20→23:45)
[2021-08-20] MEDS: VANCOMYCIN HCL 125 MG/2.5ML SOLN PO SCH ×5 (00:20→23:45)
[2021-08-20] MEDS: ALBUMIN 25% 100 mL 25 GM/100 ML VIAL IV SCH ×4 (03:24→20:10)
[2021-08-20] MEDS: CEFEPIME 1,000 MG in SYRINGE 0 ML IV SCH ×2 (05:50→16:21)
[2021-08-20] MEDS: DOXYCYCLINE HYCLATE 100 MG in DEXTROSE 5% 100 ML IV SCH ×2 (05:50→17:51)
[2021-08-20 06:02] LABS: Hematocrit (blood only) 25.8 % (42-52); Mean Corpuscular Hemoglobin 33.1 pg (25-34); Mean Corpuscular Hgb Conc 34.9 g/dL (32-36); Mean Corpuscular Volume 94.9 fL (80-100); RDW Coefficient of Variation 17.3 % (11.5-14.5); RDW Standard Deviation 59.1 fL (36.4-46.3); Red Blood Count 2.72 M/uL (4.7-6.1); White Blood Count 3.53 K/uL (4.8-10.8)
[2021-08-20 06:25] LABS: Albumin Level 3.8 gm/dl (3.4-5.0); BUN Creatinine Ratio 13.9 (10-20); Calcium 8.5 mg/dl (8.5-10.1); Creatinine Clr Calc Pharmacy 14.2 ml/min; Est GFR (African American) 11.2 ml/min; Est GFR (Non-African American) 9.6 ml/min; Potassium 3.5 mmol/L (3.5-5.1)
[2021-08-20] MEDS: OCTREOTIDE ACETATE 100 MCG/ML VIAL SQ SCH (06:45)
[2021-08-20 06:49] LABS: Basophils, Fluid 0 %; Eosinophils, Fluid 0 %; Lymphocytes, Fluid 52 %; Mono,Macrophage,Mesothelial 33 %; Neutrophils, Fluid 15 %
[2021-08-20 06:49] LABS: Mean Platelet Volume 9.3 fL (7.4-10.4); Platelet Count 45 K/uL (130-400)
[2021-08-20] MEDS: MIDODRINE HCL 10 MG TAB PO SCH ×3 (08:14→16:22)
[2021-08-20] MEDS: buPROPion XL 150 MG TABCR PO SCH (08:14)
[2021-08-20] MEDS: ADVANCED PROBIOTIC 1250 MG CAPSULE PO SCH (08:14)
[2021-08-20] MEDS: PANTOprazole 40 MG TAB PO SCH ×2 (08:15→20:10)
--- NOTE | 2021-08-20 10:31 | Nephrology Progress Note ---
Date of Service August 20, 2021 Assessment & Plan (1) Acute kidney injury: (2) Hypotension (arterial): (3) Hepatorenal syndrome: (4) Anemia: (5) Ascites: Plan: 66 y o m with esophageal carcinoma diagnosed in 2020, abdominal ascites requiring frequent paracentesis, acute kidney injury with hepatorenal syndrome, admitted to the hospital with worsening abdominal ascites, acute kidney injury, cr 6.4, electrolyte acceptable. On admission COVID test came back positive. had paracentesis for 5 L on 08/19/2021. Acute kidney injury most likely secondary to hepatorenal syndrome versus prerenal with hypotension and intravascular volume depletion with poor p.o. inta ke. no postrenal obstruction. renal function Continues to improve minimally, electrolyte relatively stable. Decent urine output. -- Recommend another paracentesis tomorrow for 5 L as patient continues to have significant ascites and usually does not tolerate more than 5 L paracentesis at a time. -- encourage p.o. intake, accurate intake and output -- continue albumin 25 g t.i.d., octreotide 100 mcg subQ t.i.d, midodrine -- Epogen [id number] units x 1 dose given on 08/19/2021 -- overall prognosis remains guarded, had repeated discussion with multiple provider for possible hospice or palliative care going forward however patient is reluctant to consider that at this point. agree with consultation with palliative care. will follow Admission and Anticipated Discharge Date Admission Date: August 18, 2021 Baldemar Mcgee was seen this morning, overall he is feeling better, able to eat better since paracentesis yesterday and had 5 L of fluid removed. Breathing much easier. Has been voiding but unmeasured. Renal function slightly improved, electrolyte acceptable. Blood pressure remains low, chronic, stable. Review of Systems Review of Systems: detailed review of system was otherwise unremarkable except mentioned above. Physical Exam Constitutional: WD/WN, vitals as above + ill appearing and + cachectic; no acute distress Eyes: + anicteric sclerae ENMT: Mouth: + dry oral mucous membranes Respiratory: normal respiratory effort and + cough; no respiratory distress Auscultation: lungs clear to auscultation bilaterally and + rales Cardiovascular: Rate/Rhythm: regular rate and regular rhythm Heart Sounds: normal S1 and normal S2 Extremities: + edema Gastrointestinal (Abdomen): Percussion/Palpation: + ascites; no guarding Skin: no rashes Neurologic: no focal motor deficits and not confused Psychiatric: Orientation: alert and oriented x 3 Affect: euthymic affect Results & Data ([facility]) Vital Signs (Past 12 Hours) Vital Signs Temp Pulse Pulse Resp BP Pulse Ox 08/20/21 08:13 36.3 C L 59 L 18 89/51 L 97 08/20/21 08:00 55 L 08/20/21 00:17 36.3 C L 56 L 16 83/56 L 94 PG Care Time/CCT Total # of Minutes Spent Total Time Spent with Patient: Total time spent is greater than 50% in coordination of care (as documented) at patient's floor/unit and/or counseling patient: Coding Level of Care Code 77486 Subseq Hosp Care Lvl 3 Diagnoses Acute kidney injury N17.9 Hypotension (arterial) I95.9 Hepatorenal syndrome K76.7 Anemia D64.9 Ascites R18.8 Ascites type: other type (1) Ascites Ascites type: other type Qualified Code(s): R18.8 - Other ascites
[2021-08-20] MEDS: OCTREOTIDE ACETATE 500 MCG in DEXTROSE 5% 100 ML IV SCH (16:16)
[2021-08-20] MEDS: FAMOTIDINE 20 MG TAB PO SCH (20:10)
--- NOTE | 2021-08-20 20:37 | Hospitalist Progress Note ---
Date of Service August 20, 2021 Assessment & Plan (1) Acute kidney injury: Plan: During last week's admission his creatinine was 1.6-1.8 after his ADELSO resolved. He was suspected to have hepatorenal syndrome at that time. He presented on 08/18/21 with severe worsening of his creatinine to 6.4. Today it is 5.6. Actual UOP is difficult to track. Remains on IV albumin q6, midodrine, and octreotide drip for HRS. Probably had element of intravascular volume contraction/pre-renal as well due to poor oral intake following the last admission & ongoing diarrhea. No evidence of obstruction on CT a/p. Appreciate nephrology consultation & recs. Plan - * cont to treat for HRS; cont octreotide drip at 15mcg/hour; remains on albumin 25%, 1gm/kg/day (~25gm q6h); he has had 1gm/kg/day x 48 hours; will cut to TID dosing of albumin * continue midodrine but increase to 20mg TID * repeat BMP am * consider mccain if desired by patient VERY poor prognosis. (2) Hepatorenal syndrome: Plan: Dx during previous admission last week. Ongoing. See #1 for details. (3) LLL pneumonia: Plan: Clinically and radiographically, but improved. See discussion below in #4. Procal is elevated, and given his recent admission, need to cover for gram negative etiologies - thus, cefepime 1gm q12h. For atypical coverage - doxycycline 100mg IV q12h. Day #3 of each abx. Plan 7 days in total. Fortunately he is saturating well at this time. Deferring on steroids. (4) COVID-19: Plan: Patient apparently tested positive through the [employer] system in early July. Did receive monoclonal antibodies. He had 1-2 days of symptoms at most per his . On August 05 during his prior stay his COVID testing was negative. He is now positive again. He does indeed have symptoms of COVID - fatigue, chills, cough, pneumonia on imaging, etc. There are a few possibilities for the COVID + test this admission -- 1. this could represent old, inactivated virus from the illness in early July; this theory would assume his August 05 COVID test was falsely negative 2. he has recurrent COVID infection, but would be unusual given he is 6 weeks out from the previous illness in early July, but [id number] it is possible given his severely immunocompromised health status Since he does have pneumonia and does have numerous COVID symptoms I do feel that we should continue isolation/COVID precautions. Thus far O2 sats cont to be normal thus defer on systemic steroids. (5) C. difficile enteritis: Plan: Dx 08/05/21. He finished his previous 10 day course of PO vanco. He continues with diarrhea, 2s each day or more. Given his immunocompromised status and his need for IV antibiotics for #3 will cont PO vanco as previous. Continue lactinex. He will be on contact precautions because of #4. (6) Hypotension: Plan: He has baseline BPs in the 90-100 range due to his cirrhosis. He remains on midodrine; increase to 20mg TID. Holding his flomax. (7) Cirrhosis: Plan: Advanced. 2nd HOFFMAN? Recurrent, severe ascites. s/p paracentesis yesterday - 5 L removed w/o incident; albumin IV given right after. He is needing paracentesis at this point about 1x/week. Cell counts not c/w SBP. Culture neg. During previous admission Jun ROME saw him in consult. TIPS was ruled out as viable option to treat his recurrent ascites. [place] not to be a candidate for a palliative pleurX catheter either. Plan was for weekly albumin IV and paracentesis. Appreciate GI consultation this admission. I am concerned by the dropping platelets. This may be indicative of worsening liver function. repeat cbc in am along with INR. (8) Abdominal ascites: Plan: s/p paracentesis yesterday - 5 L removed without incident or complication (see procedure note detailed separately by Dr Bradley Paul). cell counts not c/w SBP. culture pending but negative. albumin given immediately following the procedure. patient reported feeling better with fluid removed. (9) Mesenteric vein thrombosis: Plan: previously on xarelto. it was stopped during prior admission because of concern of upper GI bleeding. H/H remain stable since the prior admission. poor candidate to resume the xarelto due to #1. (10) BPH (benign prostatic hyperplasia): Plan: Cont finasteride. Holding flomax. No signs of obstruction on CT a/p. Consider mccain for comfort. (11) GERD (gastroesophageal reflux disease): Plan: Cont pepcid at reduced daily dose of 20mg due to severe renal failure. Cont PPI twice daily. (12) Esophageal cancer: Plan: Follows with Dr Keith Carrasquillo, [facility]. Initial dx December 2020. Patient has an esophageal stent in place. CT confirms proper location. He was previously taking Opdivo and was on FOLFOX regimen. He has not been on therapies of late because of the severity of his cirrhosis and the associated complications. Palliative care and goals of care discussions were held during the prior admission but Mr Muse wished to continue routine care with the hopes of gaining more time to spend with his grandsons. Given the gravity of his situation we should formally consult palliative care this admission. I did introduce the idea of palliative care and consulting Dr Batista so he can learn more about such and to have his goals of care further refined with Dr Batista's help. I did speak with Dr Carrasquillo at time of admission and alerted him of Mr Muse's admission. Plan: extensively updated during the visit today Admission and Anticipated Discharge Date Admission Date: August 18, 2021 Subjective tele overnight wnl when I visited him he was sitting in the chair he said "I had a good day" was present during the visit right before I went into the room I spoke with his apparently they completed a living will, etc today with help of a mmd unit teacher we discussed current issues, platelets dropping, etc discussed that even with supportive care the current set of circumstances will likely play out again in the near future she wants to continue to support him as much as possible and will support any decisions he makes during our visit today he states his abdomen feels much better he was able to eat more he slept pretty good overnight still with cough but improved I did discuss with him palliative care in the presence of his He became mildly agitated when this subject came up I tried to explain to him that palliative care and hospice are NOT the same I introduced them to the idea of consultation with Dr Batista Explained that we are all concerned as a medical team that the recurrent ascites, renal issues, etc will continue to reoccur Told him that it is important to know how much he wants to continue enduring recurrent admissions, recurrent paracentesis, etc - knowing that he really wants to be home more so he can share more time with his grandsons, , etc Review of Systems Review of Systems: gen - cold all the time but no fever; better appetite today cv - no cp, no orthopnea pulm - denies dyspnea at rest GI - still with 1-2 loose stools/day; no pain Physical Exam Physical Exam: gen - sitting in chair, best he has looked since admission, awake/alert mouth - MM remain dry heart - RRR, s1 s2, no murmur lungs - L basilar rales unchanged; no wheeze; no increased work of breathing; mildly decreased BS both bases abd - ongoing ascites - better than yesterday due to paracentesis; BS+; nontender; dressing over LLQ from prior paracentesis ext - SEVERE edema - 4+ edema entire L leg, 3+ edema R leg; pulses 2+ b/l psych - oriented x 3; a little agitated at times neuro - no tremors or asterixis Results & Data Results & Data ([facility]) Vital Signs (Past 12 Hours) Vital Signs Temp Pulse Pulse Resp BP BP Pulse Ox 08/20/21 19:24 36.9 C 60 17 84/60 L 98 08/20/21 17:00 57 L 08/20/21 16:00 36.3 C L 53 L 18 85/36 L 97 08/20/21 12:06 36.3 C L 18 96/59 L 98 Laboratory Results Laboratory Results - last 24 hr 08/19/21 08/20/21 08/20/21 Unknown 05:50 05:50 WBC 3.53 L RBC 2.72 L Hgb 9.0 L Hct 25.8 L MCV 94.9 MCH 33.1 MCHC 34.9 RDW Std Deviation 59.1 H RDW Coeff of Macario 17.3 H Plt Count 45 L MPV 9.3 Sodium 135 L Potassium 3.5 Chloride 102 Carbon Dioxide 22 Anion Gap 11 BUN 79 H Creatinine 5.68 H* D Est Cr Clr Drug Dosing 14.2 Est GFR ( Amer) 11.2 Est GFR (Non-Af Amer) 9.6 BUN/Creatinine Ratio 13.9 Glucose 120 H Calcium 8.5 Phosphorus 3.0 Albumin 3.8 Fluid Neutrophils % 15 Fluid Lymphocytes % 52 Fluid Eosinophils % 0 Fluid Basophils % 0 Fluid Meso/Macro/[place] % 33 Fluid Slide Review Diagnostic Findings peritoneal fluid culture negative to date PG Care Time/CCT Total # of Minutes Spent Total Time Spent with Patient: Total time spent is greater than 50% in coordination of care (as documented) at patient's floor/unit and/or counseling patient: Coding Level of Care Code 87830 Subseq Hosp Care Lvl 3 Diagnoses Acute kidney injury N17.9 Hepatorenal syndrome K76.7 LLL pneumonia J18.9 COVID-19 U07.1 C. difficile enteritis A04.72 Hypotension I95.9 Hypotension type: unspecified hypotension type Cirrhosis K74.60 Abdominal ascites R18.8 Ascites type: other type Mesenteric vein thrombosis K55.069 BPH (benign prostatic hyperplasia) N40.0 GERD (gastroesophageal reflux disease) K21.9 Esophageal cancer C15.9 Malignant neoplasm of esophagus location: unspecified location (1) Abdominal ascites Ascites type: other type Qualified Code(s): R18.8 - Other ascites (2) Esophageal cancer Malignant neoplasm of esophagus location: unspecified location Qualified Code(s): C15.9 - Malignant neoplasm of esophagus, unspecified (3) Hypotension Hypotension type: unspecified hypotension type Qualified Code(s): I95.9 - Hypotension, unspecified
[2021-08-21] MEDS: CEFEPIME 1,000 MG in SYRINGE 0 ML IV SCH ×2 (05:28→18:02)
[2021-08-21] MEDS: DOXYCYCLINE HYCLATE 100 MG in DEXTROSE 5% 100 ML IV SCH ×2 (05:28→18:04)
[2021-08-21] MEDS: RASPBERRY SYRUP 5 ML UDP PO SCH ×4 (05:31→23:31)
[2021-08-21] MEDS: VANCOMYCIN HCL 125 MG/2.5ML SOLN PO SCH ×4 (05:32→23:31)
[2021-08-21 06:50] LABS: Hematocrit (blood only) 26.9 % (42-52); Hemoglobin 9.3 g/dL (14.0-18.0); Mean Corpuscular Hemoglobin 33.1 pg (25-34); Mean Corpuscular Hgb Conc 34.6 g/dL (32-36); Mean Corpuscular Volume 95.7 fL (80-100); RDW Coefficient of Variation 17.4 % (11.5-14.5); RDW Standard Deviation 60.1 fL (36.4-46.3); Red Blood Count 2.81 M/uL (4.7-6.1); White Blood Count 3.78 K/uL (4.8-10.8)
[2021-08-21 06:52] LABS: Mean Platelet Volume 10.7 fL (7.4-10.4); Platelet Count 45 K/uL (130-400)
[2021-08-21 07:28] LABS: INR 1.7 (0.9-1.1)
[2021-08-21 07:40] LABS: Albumin Level 3.7 gm/dl (3.4-5.0); BUN Creatinine Ratio 14.3 (10-20); Bilirubin Direct 0.5 mg/dl (0-0.2); Bilirubin,Total 1.4 mg/dl (0.2-1.0); Calcium 8.4 mg/dl (8.5-10.1); Creatinine Clr Calc Pharmacy 15.8 ml/min; Est GFR (African American) 12.7 ml/min; Phosphorus 2.8 mg/dl (2.5-4.9); Potassium 3.5 mmol/L (3.5-5.1); Total Protein 4.9 gm/dl (6.0-8.3)
[2021-08-21] MEDS: MIDODRINE HCL 10 MG TAB PO SCH ×3 (08:06→18:01)
[2021-08-21] MEDS: buPROPion XL 150 MG TABCR PO SCH (08:07)
[2021-08-21] MEDS: ADVANCED PROBIOTIC 1250 MG CAPSULE PO SCH (08:07)
[2021-08-21] MEDS: PANTOprazole 40 MG TAB PO SCH ×2 (08:07→21:31)
[2021-08-21] MEDS: ALBUMIN 25% 100 mL 25 GM/100 ML VIAL IV SCH ×3 (08:09→21:36)
--- NOTE | 2021-08-21 11:46 | Nephrology Progress Note ---
Date of Service August 21, 2021 Assessment & Plan (1) Acute kidney injury: (2) Hypotension (arterial): (3) Hepatorenal syndrome: (4) Anemia: (5) Ascites: Plan: 66 y o m with esophageal carcinoma diagnosed in 2020, abdominal ascites requiring frequent paracentesis, acute kidney injury with hepatorenal syndrome, admitted to the hospital with worsening abdominal ascites, acute kidney injury, cr 6.4, electrolyte acceptable. On admission COVID test came back positive and has lung infiltrate and currently on isolation. had paracentesis for 5 L on 08/19/2021. He has been reluctant to discuss about palliative care or hospice care options. Acute kidney injury most likely secondary to hepatorenal syndrome versus prerenal with hypotension and intravascular volume depletion with poor p.o. intake. no postrenal obstruction. renal function continues to improve, electrolyte relatively stable. Decent urine output. -- Recommend another paracentesis for 5 L as patient continues to have significant ascites and usually does not tolerate more than 5 L paracentesis at a time. -- encourage p.o. intake, accurate intake and output -- continue albumin 25 g t.i.d., octreotide 100 mcg subQ t.i.d, midodrine 20 mg t.i.d. -- Epogen 72236 units x 1 dose given on 08/19/2021 -- overall prognosis remains guarded, had repeated discussion with multiple provider for possible hospice or palliative care going forward however patient is reluctant to consider that at this point. agree with consultation with palliative care. will follow Admission and Anticipated Discharge Date Admission Date: August 18, 2021 Baldemar Mcgee was seen this morning, overall he is feeling well, able to eat better since paracentesis. Breathing much easier. Has been voiding but unmeasured. Renal function continues to improve, electrolyte acceptable. Decent urine output although not accurately measured. Blood pressure remains low, chronic, stable. Review of Systems Review of Systems: detailed review of system was otherwise unremarkable except mentioned above. Physical Exam Constitutional: WD/WN, vitals as above + ill appearing and + cachectic; no acute distress Respiratory: normal respiratory effort and + cough; no respiratory distress Auscultation: lungs clear to auscultation bilaterally and + rales Cardiovascular: Rate/Rhythm: regular rate and regular rhythm Heart Sounds: normal S1 and normal S2 Extremities: + edema Gastrointestinal (Abdomen): Percussion/Palpation: + ascites; no guarding Skin: no rashes Neurologic: no focal motor deficits and not confused Psychiatric: Orientation: alert and oriented x 3 Affect: euthymic affect Results & Data ([facility]) Vital Signs (Past 12 Hours) Vital Signs Temp Pulse Pulse Resp BP Pulse Ox 08/21/21 08:01 36.7 C 75 16 81/51 L 97 08/21/21 06:20 56 L 08/21/21 03:37 37.0 C 66 15 83/47 L 97 PG Care Time/CCT Total # of Minutes Spent Total Time Spent with Patient: Total time spent is greater than 50% in coordination of care (as documented) at patient's floor/unit and/or counseling patient: Coding Level of Care Code 59029 Subseq Hosp Care Lvl 3 Diagnoses Acute kidney injury N17.9 Hypotension (arterial) I95.9 Hepatorenal syndrome K76.7 Anemia D64.9 Ascites R18.8 Ascites type: other type (1) Ascites Ascites type: other type Qualified Code(s): R18.8 - Other ascites
[2021-08-21] MEDS: OCTREOTIDE ACETATE 500 MCG in DEXTROSE 5% 100 ML IV SCH (15:21)
--- NOTE | 2021-08-21 19:23 | Hospitalist Progress Note ---
Date of Service August 21, 2021 Assessment & Plan (1) Acute kidney injury: Plan: Multifactorial, but hepatorenal syndrome most likely factor. He presented on 08/18/21 with severe worsening of his creatinine to 6.4. Today it is 5. Actual UOP is difficult to track. Remains on IV albumin q8, midodrine, and octreotide drip for HRS. Probably had element of intravascular volume contraction/pre-renal as well due to poor oral intake following the last admission & ongoing diarrhea. No evidence of obstruction on CT a/p. He received just over 1gm/kg/day of IV albumin for 2+ days. Then weaned to 25gm TID yesterday. Will wean to 25gm BID tomorrow. Then continue to wean off if creatinine continues to decrease. Appreciate nephrology consultation & recs. Plan - * cont to treat for HRS; cont octreotide drip at 15mcg/hour; remains on albumin 25% - wean as above * continue midodrine but increased to 20mg TID today at suggestion of Dr Oreilly * repeat BMP am * consider mccain if desired by patient VERY poor prognosis. (2) Hepatorenal syndrome: Plan: Dx during previous admission last week. Ongoing. See #1 for details. (3) LLL pneumonia: Plan: Clinically and radiographically, but improved and stable. See discussion below in #4. Procal is elevated, and given his recent admission, need to cover for gram negative etiologies - thus, cefepime 1gm q12h. For atypical coverage - doxycycline 100mg IV q12h. Day #4 of each abx. Plan 7 days in total. Poor candidate to transition to quinolone therapy. Thus, just continue the current 2 abx. (4) COVID-19: Plan: Patient apparently tested positive through the [employer] system in early July. Did receive monoclonal antibodies. He had 1-2 days of symptoms at most per his . On August 05 during his prior stay his COVID testing was negative. He is now positive again at time of this admission. He does indeed have symptoms of COVID - fatigue, chills, cough, pneumonia on imaging, etc. There are a few possibilities for the COVID + test this admission -- 1. this could represent old, inactivated virus from the illness in early July; this theory would assume his August 05 COVID test was falsely negative 2. he has recurrent COVID infection, but would be unusual given he is 6 weeks out from the previous illness in early July, but [id number] it is possible given his severely immunocompromised health status Since he does have pneumonia and does have numerous COVID symptoms I do feel that we should continue isolation/COVID precautions. Continue to defer on systemic steroids due to no hypoxia and clinical stability. (5) C. difficile enteritis: Plan: Dx 08/05/21. He finished his previous 10 day course of PO vanco. He continues with diarrhea, 2s each day or more. Given his immunocompromised status and his need for IV antibiotics for #3 will cont PO vanco as previous. Continue lactinex. He will be on contact precautions because of #4. Add colestipol 1gm daily since he continues with very loose stools 2-3 times eac h day. (6) Hypotension: Plan: He has baseline BPs in the 90-100 range due to his cirrhosis but BPs have been worse in the last 24 hours. He remains on midodrine; increased to 20mg TID. Holding his flomax. (7) Cirrhosis: Plan: Advanced. 2nd HOFFMAN? Recurrent, severe ascites. s/p paracentesis this admission - 5 L removed w/o incident; albumin IV given right after. He is needing paracentesis at this point about 1x/week. Cell counts not c/w SBP. Culture remains neg. During previous admission Jun R[place] saw him in consult. TIPS was ruled out as viable option to treat his recurrent ascites. [place] not to be a candidate for a palliative pleurX catheter either. Plan was for weekly albumin IV and paracentesis. Appreciate GI consultation this admission. I am concerned by the dropping platelets. This may be indicative of worsening liver function. INR today 1.7. Cont to trend INR/LFTs/etc. POOR PROGNOSIS. (8) Abdominal ascites: Plan: 2nd to HOFFMAN cirrhosis. s/p paracentesis 08/20/20 - 5 L removed without incident or complication (see procedure note detailed separately by Dr Bradley Paul). cell counts not c/w SBP. culture remains negative. (9) Mesenteric vein thrombosis: Plan: previously on xarelto. it was stopped during prior admission because of concern of upper GI bleeding. he also has low platelets (<50). H/H remain stable since the prior admission. poor candidate to resume the xarelto. (10) BPH (benign prostatic hyperplasia): Plan: Cont finasteride. Holding flomax. No signs of obstruction on CT a/p. Consider mccain for comfort. (11) GERD (gastroesophageal reflux disease): Plan: Cont pepcid at reduced daily dose of 20mg due to severe renal failure. Cont PPI twice daily. (12) Esophageal cancer: Plan: Follows with Dr Keith Carrasquillo, [facility]. Initial dx December 2020. Patient has an esophageal stent in place. CT confirms proper location. He was previously taking Opdivo and was on FOLFOX regimen. He has not been on therapies of late because of the severity of his cirrhosis and the associated complications. Palliative care and goals of care discussions were held during the prior a dmission but Mr Muse wished to continue routine care with the hopes of gaining more time to spend with his grandsons. Given the gravity of his situation we should formally consult palliative care this admission. I did introduce the idea of palliative care and consulting Dr Batista so he can learn more about such and to have his goals of care further refined with Dr Batista's help. We did not readdress the option of palliative care today. Will ask about such tomorrow. I did speak with Dr Carrasquillo at time of admission and alerted him of Mr Muse's admission. (13) Thrombocytopenia: Plan: 2nd to cirrhosis - likely primary culprit ?COVID infection + LLL pneumonia (whether viral vs bacterial) also can cause some bone marrow suppression r/o nutritional issues - check b12/folate in am I counseled him and his that with any future paracentesis, if platelets are low, he will need platelet infusion during the procedure repeat cbc am Plan: extensively updated during the visit today we did not discuss palliative care today Admission and Anticipated Discharge Date Admission Date: August 18, 2021 Subjective pt sitting in chair upon my arrival was at bedside he stated "I've had a good day" ambulating to the commode he is comfortable - breathing is not labored, his abdomen is comfortable, cough improved not much appetite today, however he asks if he could have an u/s of his abdomen today to recheck his ascites and nursing staff report that his previous paracentesis insertion site is leaking tele overnight wnl BPs noted to be low in the 80s all day today; despite such no dizziness/lightheadedness finally, he voices multiple times that he wants to be sure he is set up for paracentesis weekly after discharge (ie - he wants an actual appt date/time for such) Review of Systems Review of Systems: gen - no fevers; no chills but is cold constantly; appetite poor today; energy improved from prior cv - no cp, no orthopnea pulm - minimal to no cough GI - no nausea/emesis; bloating is better than previous; still with loose stools Physical Exam Physical Exam: gen - sitting in chair, awake, alert, NAD mouth - MM remain dry heart - RRR, s1 s2, no murmur lungs - L basilar rales with decreased breath sounds; no wheeze; no increased work of breathing; also decreased BS L base abd - distended 2nd ongoing ascites - same as yesterday; BS+; nontender ext - SEVERE edema - 4+ edema entire L leg, 3-4+ edema R leg; pulses 2+ b/l psych - oriented x 3 neuro - muscle atrophy/cachexia in his limbs Results & Data Results & Data ([facility]) Vital Signs (Past 12 Hours) Vital Signs Temp Pulse Pulse Resp BP Pulse Ox 08/21/21 14:20 46 L 08/21/21 12:49 36.5 C 62 16 82/50 L 94 08/21/21 08:01 36.7 C 75 16 81/51 L 97 Laboratory Results Laboratory Results - last 24 hr 08/21/21 08/21/21 08/21/21 05:49 05:49 05:49 WBC 3.78 L RBC 2.81 L Hgb 9.3 L Hct 26.9 L MCV 95.7 MCH 33.1 MCHC 34.6 RDW Std Deviation 60.1 H RDW Coeff of Macario 17.4 H Plt Count 45 L MPV 10.7 H PT 18.0 H INR 1.7 H Sodium 134 L Potassium 3.5 Chloride 104 Carbon Dioxide 20 L Anion Gap 10 BUN 73 H Creatinine 5.09 H* D Est Cr Clr Drug Dosing 15.8 Est GFR ( Amer) 12.7 Est GFR (Non-Af Amer) 11.0 BUN/Creatinine Ratio 14.3 Glucose 109 H Calcium 8.4 L Phosphorus 2.8 Total Bilirubin 1.4 H Direct Bilirubin 0.5 H AST 7 L ALT 4 L Alkaline Phosphatase 37 Total Protein 4.9 L Albumin 3.7 PG Care Time/CCT Total # of Minutes Spent Total Time Spent with Patient: Total time spent is greater than 50% in coordination of care (as documented) at patient's floor/unit and/or counseling patient: Coding Level of Care Code 41698 Subseq Hosp Care Lvl 3 Diagnoses Acute kidney injury N17.9 Hepatorenal syndrome K76.7 LLL pneumonia J18.9 COVID-19 U07.1 C. difficile enteritis A04.72 Hypotension I95.9 Hypotension type: unspecified hypotension type Cirrhosis K74.60 Abdominal ascites R18.8 Ascites type: other type Mesenteric vein thrombosis K55.069 BPH (benign prostatic hyperplasia) N40.0 GERD (gastroesophageal reflux disease) K21.9 Esophageal cancer C15.9 Malignant neoplasm of esophagus location: unspecified location Thrombocytopenia D69.6 (1) Hypotension Hypotension type: unspecified hypotension type Qualified Code(s): I95.9 - Hypotension, unspecified (2) Abdominal ascites Ascites type: other type Qualified Code(s): R18.8 - Other ascites (3) Esophageal cancer Malignant neoplasm of esophagus location: unspecified location Qualified Code(s): C15.9 - Malignant neoplasm of esophagus, unspecified
[2021-08-21] MEDS ORDERED: FINASTERIDE 5 MG TAB PO SCH (21:00)
[2021-08-21] MEDS: FAMOTIDINE 20 MG TAB PO SCH (21:31)
[2021-08-21] MEDS: ONDANSETRON INJ 2 MG/ML 2 ML VIAL IV PRN (23:40)
[2021-08-22] MEDS: DOXYCYCLINE HYCLATE 100 MG in DEXTROSE 5% 100 ML IV SCH ×2 (05:43→17:30)
[2021-08-22] MEDS: RASPBERRY SYRUP 5 ML UDP PO SCH ×4 (05:45→23:02)
[2021-08-22] MEDS: VANCOMYCIN HCL 125 MG/2.5ML SOLN PO SCH ×4 (05:45→23:00)
[2021-08-22] MEDS: CEFEPIME 1,000 MG in SYRINGE 0 ML IV SCH ×2 (05:45→17:29)
[2021-08-22 06:22] LABS: Hematocrit (blood only) 25.9 % (42-52); Mean Corpuscular Hemoglobin 33.3 pg (25-34); Mean Corpuscular Hgb Conc 34.7 g/dL (32-36); Mean Corpuscular Volume 95.9 fL (80-100); RDW Coefficient of Variation 17.5 % (11.5-14.5); RDW Standard Deviation 60.2 fL (36.4-46.3); White Blood Count 4.28 K/uL (4.8-10.8)
[2021-08-22 06:33] LABS: Mean Platelet Volume 11.3 fL (7.4-10.4); Platelet Count 45 K/uL (130-400)
[2021-08-22 06:55] LABS: Albumin Level 3.7 gm/dl (3.4-5.0); BUN Creatinine Ratio 14.9 (10-20); Calcium 8.5 mg/dl (8.5-10.1); Creatinine Clr Calc Pharmacy 16.8 ml/min; Est GFR (African American) 13.6 ml/min; Est GFR (Non-African American) 11.7 ml/min; Phosphorus 2.9 mg/dl (2.5-4.9); Potassium 3.4 mmol/L (3.5-5.1)
[2021-08-22 07:13] LABS: Folate (Folic Acid) 14.11 ng/ml (>5.38)
[2021-08-22] MEDS: MIDODRINE HCL 10 MG TAB PO SCH ×3 (07:48→17:29)
[2021-08-22] MEDS: PANTOprazole 40 MG TAB PO SCH ×2 (07:51→21:01)
[2021-08-22] MEDS: buPROPion XL 150 MG TABCR PO SCH (07:51)
[2021-08-22] MEDS: ADVANCED PROBIOTIC 1250 MG CAPSULE PO SCH (07:51)
[2021-08-22] MEDS: ALBUMIN 25% 100 mL 25 GM/100 ML VIAL IV SCH ×2 (08:13→20:59)
[2021-08-22] MEDS: POTASSIUM CHLORIDE CRTAB 20 MEQ TABCR PO SCH (10:11)
[2021-08-22] MEDS: COLESTIPOL HCL 1 GM TAB PO SCH (10:12)
[2021-08-22] MEDS ORDERED: LIDOCAINE 1% LOCAL 20 ML VIAL INFIL ONE (10:12)
--- NOTE | 2021-08-22 12:02 | Nephrology Progress Note ---
Date of Service August 22, 2021 Assessment & Plan (1) Acute kidney injury: Plan: -- Baseline creatinine 1.7 mg/dL -- Creatinine improving with triple therapy for HRS -- Reasonable UOP reported per nursing -- Will require close outpatient follow up -- Everardo expressed understanding regarding his guarded condition -- Electrolytes acceptable -- Medications appropriately dosed for kidney dysfunction (2) Hepatorenal syndrome: Plan: -- Weaning IV albumin 25 gm q 12 hours today -- Consider stopping octreotide gtt later today or tomorrow -- Continue Midodrine 20 mg TID (3) Anemia: Plan: -- Epogen 61085 units x 1 dose on 08/19/2021 (4) Ascites: Plan: -- 5 L removed with paracentesis on 08/19. -- No evidence of SBP -- Suture applied to exit site by Dr. Gonzalez for persistent leaking Admission and Anticipated Discharge Date Admission Date: August 18, 2021 Subjective No acute events overnight. No fevers or chills. Everardo was seen and evaluated with Dr. Gonzalez this AM. Persistent leaking from paracentesis site. Abdomen not tense and denies pain. Denies dyspnea. Overall, Everardo feels reasonably well. Reports getting out of bed to chair. No lightheadedness or dizziness. Sinus bradycardia on monitor. Review of Systems Review of Systems: All systems reviewed & are unremarkable except as noted in HPI & below Physical Exam Constitutional: + frail appearing; no acute distress ENMT: Mouth: + dry oral mucous membranes Neck: normal visual inspection and trachea midline Respiratory: normal respiratory effort Auscultation: lungs clear to auscultation bilaterally and + diminished lung sounds Cardiovascular: Rate/Rhythm: regular rhythm Heart Sounds: normal S1 and normal S2 Extremities: + edema (+4 pitting BL LE) Gastrointestinal (Abdomen): Inspection/Auscultation: + abdomen distended Percussion/Palpation: + ascites; abdomen nontender Musculoskeletal: Extremities: no cyanosis and no clubbing Skin: + turgor decreased; no jaundice Neurologic: Motor/Sensory: no tremor and no asterixis Results & Data ([facility]) Vital Signs (Past 12 Hours) Vital Signs Temp Pulse Pulse Resp BP BP Pulse Ox 08/22/21 08:09 36.2 C L 57 L 19 96/73 L 96 08/22/21 06:15 54 L 08/22/21 04:00 36.5 C 57 L 16 81/53 L 88/49 L 93 08/22/21 00:35 36.4 C L 57 L 16 94/59 L 95 08/22/21 00:00 46 L Laboratory Results Laboratory Results - last 24 hr 08/22/21 08/22/21 08/22/21 05:41 05:41 05:41 WBC 4.28 L RBC 2.70 L Hgb 9.0 L Hct 25.9 L MCV 95.9 MCH 33.3 MCHC 34.7 RDW Std Deviation 60.2 H RDW Coeff of Macario 17.5 H Plt Count 45 L MPV 11.3 H Sodium 135 L Potassium 3.4 L Chloride 106 Carbon Dioxide 19 L Anion Gap 10 BUN 72 H Creatinine 4.82 H* Est Cr Clr Drug Dosing 16.8 Est GFR ( Amer) 13.6 Est GFR (Non-Af Amer) 11.7 BUN/Creatinine Ratio 14.9 Glucose 103 H Calcium 8.5 Phosphorus 2.9 Albumin 3.7 Vitamin B12 961 H Folate 14.11 PG Care Time/CCT Total # of Minutes Spent Total Time Spent with Patient: Total time spent is greater than 50% in coordination of care (as documented) at patient's floor/unit and/or counseling patient: Coding Level of Care Code 76150 Subseq Hosp Care Lvl 3 Diagnoses Acute kidney injury N17.9 Hepatorenal syndrome K76.7 Anemia D64.9 Ascites R18.8 Ascites type: other type (1) Ascites Ascites type: other type Qualified Code(s): R18.8 - Other ascites
[2021-08-22] MEDS: ONDANSETRON INJ 2 MG/ML 2 ML VIAL IV PRN ×2 (12:48→18:31)
--- NOTE | 2021-08-22 20:15 | Hospitalist Progress Note ---
Date of Service August 22, 2021 Assessment & Plan (1) Acute kidney injury: Plan: Multifactorial, but hepatorenal syndrome most likely factor. He presented on 08/18/21 with severe worsening of his creatinine to 6.4. Today it is 4.8. Actual UOP is difficult to track. Remains on IV albumin q8, midodrine, and octreotide drip for HRS. Probably had element of intravascular volume contraction/pre-renal at time of admission. No evidence of obstruction on CT a/p. He received just over 1gm/kg/day of IV albumin for 2+ days. Then weaned to 25gm TID yesterday. Wean to 25gm BID today.. Then continue to wean off if creatinine continues to decrease. Consider weaning the octreotide soon. Cont midodrine 20mg TID. Appreciate nephrology consultation & recs. Repeat BMP am VERY poor prognosis. (2) Hepatorenal syndrome: Plan: Dx during previous admission last week. Ongoing. See #1 for details. (3) LLL pneumonia: Plan: Clinically and radiographically, but improved and stable. See discussion below in #4. Procal is elevated, and given his recent admission, need to cover for gram negative etiologies - thus, cefepime 1gm q12h. For atypical coverage - doxycycline 100mg IV q12h. Day #5 of each abx. Plan 7 days in total. Poor candidate to transition to quinolone therapy. Thus, just continue the current 2 abx. (4) COVID-19: Plan: Patient apparently tested positive through the [facility] system in early July. Did receive monoclonal antibodies. He had 1-2 days of symptoms at most per his . On August 05 during his prior stay his COVID testing was negative. He is now positive again at time of this admission. He does indeed have symptoms of COVID - fatigue, chills, cough, pneumonia on imaging, etc. There are a few possibilities for the COVID + test this admission -- 1. this could represent old, inactivated virus from the illness in early ; this theory would assume his August 05 COVID test was falsely negative 2. he has recurrent COVID infection, but would be unusual given he is 6 weeks out from the previous illness in early July, but [id number] it is possible given his severely immunocompromised health status Since he does have pneumonia and does have numerous COVID symptoms I do feel that we should continue isolation/COVID precautions. Continue to defer on systemic steroids due to no hypoxia and clinical stability. (5) C. difficile enteritis: Plan: Dx 08/05/21. He finished his previous 10 day course of PO vanco. He continues with diarrhea, 2s each day or more. Given his immunocompromised status and his need for IV antibiotics for #3 will cont PO vanco as previous. Continue lactinex. He will be on contact precautions because of #4. Added colestipol 1gm daily since he continues with very loose stools 2-3 times each day. Follow. (6) Hypotension: Plan: He has baseline BPs in the 90-100 range due to his cirrhosis but BPs have been worse in the last 24-48 hours. He remains on midodrine; increased to 20mg TID. Holding his flomax. (7) Cirrhosis: Plan: Advanced. 2nd HOFFMAN? Recurrent, severe ascites. s/p paracentesis this admission - 5 L removed w/o incident; albumin IV given right after. He is needing paracentesis at this point about 1x/week. Cell counts not c/w SBP. Culture remains neg. During previous admission Jun [place] saw him in consult. TIPS was ruled out as viable option to treat his recurrent ascites. [place] not to be a candidate for a palliative pleurX catheter either. Plan was for weekly albumin IV and paracentesis. Appreciate GI consultation this admission. I am concerned by the dropping platelets. This may be indicative of worsening liver function. Last INR 1.7. Cont to trend INR/LFTs/etc. POOR PROGNOSIS. (8) Abdominal ascites: Plan: 2nd to HOFFMAN cirrhosis. s/p paracentesis 08/20/20 - 5 L removed. cell counts not c/w SBP. culture remains negative. paracentesis entry site on abd wall sutured today - see procedure note. (9) Mesenteric vein thrombosis: Plan: previously on xarelto. it was stopped during prior admission because of concern of upper GI bleeding. he also has low platelets (<50). H/H remain stable since the prior admission. poor candidate to resume the xarelto. (10) BPH (benign prostatic hyperplasia): Plan: Cont finasteride. Holding flomax. No signs of obstruction on CT a/p. Consider mccain for comfort. (11) GERD (gastroesophageal reflux disease): Plan: Cont pepcid at reduced daily dose of 20mg due to severe renal failure. Cont PPI twice daily. (12) Esophageal cancer: Plan: Follows with Dr Keith Carrasquillo, [facility]. Initial dx December 2020. Patient has an esophageal stent in place. CT confirms proper location. He was previously taking Opdivo and was on FOLFOX regimen. He has not been on therapies of late because of the severity of his cirrhosis and the associated complications. Palliative care and goals of care discussions were held during the prior admission but Mr Muse wished to continue routine care with the hopes of gaining more time to spend with his grandsons. Given the gravity of his situation we should formally consult palliative care this admission. I did introduce the idea of palliative care and consulting Dr Batista so he can learn more about such and to have his goals of care further refined with Dr Batista's help. I did speak with Dr Carrasquillo at time of admission and alerted him of Mr Muse's admission. Pt and his family have not made any decision regarding palliative care. (13) Thrombocytopenia: Plan: 2nd to cirrhosis - likely primary culprit ?COVID infection + LLL pneumonia (whether viral vs bacterial) also can cause some bone marrow suppression r/o nutritional issues - check b12/folate in am I counseled him and his that with any future paracentesis, if platelets are low, he will need platelet infusion during the procedure repeat cbc am (14) Anemia: Plan: H/H have trended down last 2 days If he has slow GI bleeding that could be contributing to his low BP in addition to his cirrhosis repeat CBC am Plan: Leaking paracentesis site - Verbal consent obtained to suture the abdominal wall entry site. Patient gave consent. I discussed risks/benefits with him - goal is to get leaking to stop. Abdominal wall prepped with betadine and draped in sterile fashion. 1% lidocaine used for local analgesia. A single 4-0 silk suture was used to close the entry site via a figure of 8 technique. Leaking stopped with such. Optifoam applied; keep on for 24 hours then remove. Update pt's tomorrow. Admission and Anticipated Discharge Date Admission Date: August 18, 2021 Subjective pt states he had a good night slept decently had ok breakfast prior paracentesis entry site continues to leak ascitic fluid he denies abd pain or bloating he cont with diarrhea - at least 1x/day asks if his can bring him an electric blanket from home as he is always cold he asks once again today if the IV albumin and IV octreotide can be given to him outside the hospital verbal consent obtained from the patient to suture the paracentesis entry site that is leaking; he gave verbal consent for such tele - sinus daren, rates 40s Review of Systems Review of Systems: gen- energy fair today, remains cold cv - no chest pain pulm - denies cough, denies dyspnea GI - mild nausea today but no emesis Physical Exam Physical Exam: gen - awake/alert, resting comfortably in bed mouth - MM without thrush plaques heart - RRR, s1 s2, no murmur lungs - mild L basilar rales with decreased breath sounds; no wheeze abd - distended 2nd ongoing ascites - maybe modestly worse than yesterday; BS+; nontender ext - SEVERE edema - 4+ edema entire L leg, 3-4+ edema R leg; pulses 2+ b/l psych - oriented x 3 neuro - muscle atrophy/cachexia in his limbs skin - leaking paracentesis site - abdominal wall - LLQ Results & Data Results & Data ([facility]) Vital Signs (Past 12 Hours) Vital Signs Temp Pulse Pulse Resp BP BP Pulse Ox 08/22/21 19:44 36.6 C 69 18 79/56 L 80/57 L 95 08/22/21 16:42 36.4 C L 55 L 18 100/53 L 98 08/22/21 14:20 52 L 08/22/21 11:54 36.8 C 51 L 18 93/52 L 98 Laboratory Results Laboratory Results - last 24 hr 08/22/21 08/22/21 08/22/21 05:41 05:41 05:41 WBC 4.28 L RBC 2.70 L Hgb 9.0 L Hct 25.9 L MCV 95.9 MCH 33.3 MCHC 34.7 RDW Std Deviation 60.2 H RDW Coeff of Macario 17.5 H Plt Count 45 L MPV 11.3 H Sodium 135 L Potassium 3.4 L Chloride 106 Carbon Dioxide 19 L Anion Gap 10 BUN 72 H Creatinine 4.82 H* Est Cr Clr Drug Dosing 16.8 Est GFR ( Amer) 13.6 Est GFR (Non-Af Amer) 11.7 BUN/Creatinine Ratio 14.9 Glucose 103 H Calcium 8.5 Phosphorus 2.9 Albumin 3.7 Vitamin B12 961 H Folate 14.11 PG Care Time/CCT Total # of Minutes Spent Total Time Spent with Patient: Total time spent is greater than 50% in coordination of care (as documented) at patient's floor/unit and/or counseling patient: Coding Level of Care Code 67693 Subseq Hosp Care Lvl 3 Diagnoses Acute kidney injury N17.9 Hepatorenal syndrome K76.7 LLL pneumonia J18.9 COVID-19 U07.1 C. difficile enteritis A04.72 Hypotension I95.9 Hypotension type: unspecified hypotension type Cirrhosis K74.60 Abdominal ascites R18.8 Ascites type: other type Mesenteric vein thrombosis K55.069 BPH (benign prostatic hyperplasia) N40.0 GERD (gastroesophageal reflux disease) K21.9 Esophageal cancer C15.9 Malignant neoplasm of esophagus location: unspecified location Thrombocytopenia D69.6 Anemia D64.9 (1) Abdominal ascites Ascites type: other type Qualified Code(s): R18.8 - Other ascites (2) Esophageal cancer Malignant neoplasm of esophagus location: unspecified location Qualified Code(s): C15.9 - Malignant neoplasm of esophagus, unspecified (3) Hypotension Hypotension type: unspecified hypotension type Qualified Code(s): I95.9 - Hypotension, unspecified
[2021-08-22] MEDS: DUTASTERIDE 0.5 MG PO SCH (20:59)
[2021-08-22] MEDS: FAMOTIDINE 20 MG TAB PO SCH (21:01)
[2021-08-22] MEDS: OCTREOTIDE ACETATE 500 MCG in DEXTROSE 5% 100 ML IV SCH (21:01)
[2021-08-23] MEDS: ONDANSETRON INJ 2 MG/ML 2 ML VIAL IV PRN (04:32)
[2021-08-23 06:04] LABS: Hematocrit (blood only) 26.9 % (42-52); Hemoglobin 9.3 g/dL (14.0-18.0); Mean Corpuscular Hemoglobin 33.2 pg (25-34); Mean Corpuscular Hgb Conc 34.6 g/dL (32-36); Mean Corpuscular Volume 96.1 fL (80-100); RDW Coefficient of Variation 17.5 % (11.5-14.5); RDW Standard Deviation 60.9 fL (36.4-46.3); White Blood Count 6.26 K/uL (4.8-10.8)
[2021-08-23] MEDS: VANCOMYCIN HCL 125 MG/2.5ML SOLN PO SCH ×4 (06:10→23:47)
[2021-08-23] MEDS: RASPBERRY SYRUP 5 ML UDP PO SCH ×4 (06:10→23:46)
[2021-08-23] MEDS: CEFEPIME 1,000 MG in SYRINGE 0 ML IV SCH ×2 (06:10→17:33)
[2021-08-23] MEDS: DOXYCYCLINE HYCLATE 100 MG in DEXTROSE 5% 100 ML IV SCH (06:10)
[2021-08-23 06:28] LABS: Mean Platelet Volume 10.7 fL (7.4-10.4); Platelet Count 43 K/uL (130-400)
[2021-08-23 06:49] LABS: Calcium 8.5 mg/dl (8.5-10.1); Creatinine Clr Calc Pharmacy 17.9 ml/min; Est GFR (African American) 14.4 ml/min; Est GFR (Non-African American) 12.4 ml/min; Potassium 3.6 mmol/L (3.5-5.1)
[2021-08-23] MEDS: MIDODRINE HCL 10 MG TAB PO SCH ×3 (08:21→17:33)
[2021-08-23] MEDS: buPROPion XL 150 MG TABCR PO SCH (08:21)
[2021-08-23] MEDS: PANTOprazole 40 MG TAB PO SCH ×2 (08:22→22:20)
[2021-08-23] MEDS: ADVANCED PROBIOTIC 1250 MG CAPSULE PO SCH (08:22)
[2021-08-23] MEDS: POTASSIUM CHLORIDE CRTAB 20 MEQ TABCR PO SCH (08:22)
[2021-08-23] MEDS: ALBUMIN 25% 100 mL 25 GM/100 ML VIAL IV SCH (08:24)
[2021-08-23] MEDS: FAMOTIDINE 20 MG in SYRINGE 3 ML IV SCH (10:21)
[2021-08-23] MEDS: COLESTIPOL HCL 1 GM TAB PO SCH (10:21)
--- NOTE | 2021-08-23 12:21 | Nephrology Progress Note ---
Date of Service August 23, 2021 Assessment & Plan (1) Acute kidney injury: Plan: -- Baseline creatinine 1.7 mg/dL -- Creatinine continues to demonstrate renal recovery -- Clinical presentation consistent with prerenal ADELSO associated with poor oral intake and HRS -- Remains non-oliguric -- Will require close outpatient follow up -- Electrolytes acceptable -- Medications appropriately dosed for kidney dysfunction (2) Hepatorenal syndrome: Plan: -- Weaning IV albumin 25 gm provided this AM, consider holding additional therapy for now -- Consider stopping octreotide gtt -- Continue Midodrine 20 mg TID (3) Anemia: Plan: -- Epogen 53651 units x 1 dose on 08/19/2021 (4) Ascites: Plan: -- 5 L removed with paracentesis on 08/19. -- No evidence of SBP Admission and Anticipated Discharge Date Admission Date: August 18, 2021 Subjective No acute events overnight. No fevers or chills. Denies abdominal pain. Everardo reported nausea this AM. Appetite is decreased. Moving bowels regularly. No concerns with constipation or loose stool. No melena or hematochezia. Nausea and upset stomach improved last night after resting and returned this AM after taking medications. Review of Systems Review of Systems: All systems reviewed & are unremarkable except as noted in HPI & below Physical Exam Constitutional: + frail appearing; no acute distress ENMT: Mouth: + dry oral mucous membranes Neck: normal visual inspection and trachea midline Respiratory: normal respiratory effort Auscultation: lungs clear to auscultation bilaterally and + diminished lung sounds Cardiovascular: Rate/Rhythm: regular rhythm Heart Sounds: normal S1 and normal S2 Extremities: + edema (+4 pitting BL LE) Gastrointestinal (Abdomen): Inspection/Auscultation: + abdomen distended Percussion/Palpation: + ascites; abdomen nontender Musculoskeletal: Extremities: no cyanosis and no clubbing Skin: + turgor decreased; no jaundice Neurologic: Motor/Sensory: no tremor and no asterixis Results & Data ([facility]) Vital Signs (Past 12 Hours) Vital Signs Temp Pulse Pulse Resp BP BP Pulse Ox 08/23/21 11:43 36.4 C L 57 L 18 96/53 L 97 08/23/21 07:46 36.4 C L 62 18 84/50 L 95 08/23/21 06:20 57 L 08/23/21 03:40 36.8 C 64 18 80/42 L 94 08/23/21 00:31 72 Laboratory Results Laboratory Results - last 24 hr 08/23/21 08/23/21 05:38 05:38 WBC 6.26 RBC 2.80 L Hgb 9.3 L Hct 26.9 L MCV 96.1 MCH 33.2 MCHC 34.6 RDW Std Deviation 60.9 H RDW Coeff of Macario 17.5 H Plt Count 43 L MPV 10.7 H Sodium 137 Potassium 3.6 Chloride 108 H Carbon Dioxide 19 L Anion Gap 10 BUN 69 H Creatinine 4.61 H* Est Cr Clr Drug Dosing 17.9 Est GFR ( Amer) 14.4 Est GFR (Non-Af Amer) 12.4 BUN/Creatinine Ratio 15.0 Glucose 99 Calcium 8.5 PG Care Time/CCT Total # of Minutes Spent Total Time Spent with Patient: Total time spent is greater than 50% in coordination of care (as documented) at patient's floor/unit and/or counseling patient: Coding Level of Care Code 14574 Subseq Hosp Care Lvl 3 Diagnoses Acute kidney injury N17.9 Hepatorenal syndrome K76.7 Anemia D64.9 Ascites R18.8 Ascites type: other type (1) Ascites Ascites type: other type Qualified Code(s): R18.8 - Other ascites
[2021-08-23] MEDS: PROCHLORPERAZINE 5 MG in SYRINGE 4 ML IV PRN ×2 (12:33→21:45)
--- NOTE | 2021-08-23 16:38 | Hospitalist Progress Note ---
Date of Service August 23, 2021 Assessment & Plan (1) Acute kidney injury: Plan: Multifactorial, but hepatorenal syndrome most likely factor. He presented on 08/18/21 with severe worsening of his creatinine to 6.4. Today it is 4.6. Actual UOP is difficult to track but he reports voiding several times each day . Remains on IV albumin 25gm BID, midodrine 20mg TID, and octreotide drip for HRS. Probably had element of intravascular volume contraction/pre-renal at time of admission. No evidence of obstruction on CT a/p. He received just over 1gm/kg/day of IV albumin for 2+ days. Then weaned to 25gm TID, then 25gm BID yesterday. Will wean to one dose of albumin TODAY, then stop albumin. Will wean his octreotide drip starting today, then stop it in the am tomorrow. Cont midodrine 20mg TID. I discussed the above with Dr Smith from nephrology. We are both concerned that after the albumin/octreotide are weaned off there will be recurrent worsening of his creatinine. Proceed with plan as above, and repeat BMP am. (2) Hepatorenal syndrome: Plan: Dx during previous admission last week. Ongoing. See #1 for details. Weaning IV albumin and octreotide drip off. Cont midodrine TID. (3) LLL pneumonia: Plan: Clinically and radiographically, but improved and stable. See discussion below in #4. Procal was elevated, and given his recent admission, we covered for gram negative etiologies - thus, cefepime 1gm q12h has been employed. For atypical coverage - doxycycline 100mg IV q12h. Day #6 of each abx. Plan 7 days in total. Poor candidate to transition to quinolone therapy. Thus, will finish course on IV therapy. (4) COVID-19: Plan: Patient apparently tested positive through the [employer] system in early July. Did receive monoclonal antibodies. He had 1-2 days of symptoms at most per his . On August 05 during his prior stay his COVID testing was negative. He is now positive again at time of this admission. He does indeed have symptoms of COVID - fatigue, chills, cough, pneumonia on imaging, etc. There are a few possibilities for the COVID + test this admission -- 1. this could represent old, inactivated virus from the illness in early July; this theory would assume his August 05 COVID test was falsely negative 2. he has recurrent COVID infection, but would be unusual given he is 6 weeks out from the previous illness in early July, but [id number] it is possible given his severely immunocompromised health status Since he has had pneumonia and numerous COVID symptoms I maintained him in isolation/COVID precautions. Continue to defer on systemic steroids due to no hypoxia and clinical stability. (5) C. difficile enteritis: Plan: Dx 08/05/21. He finished his previous 10 day course of PO vanco after his previous discharge. Upon re-admission his diarrhea was persistent. Given his immunocompromised status and his need for IV antibiotics for #3 I resumed PO vanco qid. Continue lactinex. He will be on contact precautions because of #4. Added colestipol 1gm daily since he continues with very loose stools 2-3 times each day. Follow. (6) Esophageal cancer: Plan: Follows with Dr Keith Carrasquillo, [facility]. Initial dx December 2020. Patient has an esophageal stent in place. CT confirms proper location. He was previously taking Opdivo and was on FOLFOX regimen. He has not been on therapies of late because of the severity of his cirrhosis and the associated complications. Palliative care and goals of care discussions were held during the prior admis domenica but Mr Muse wished to continue routine care with the hopes of gaining more time to spend with his grandsons. I did introduce the idea of palliative care and consulting Dr Batista so he can learn more about such and to have his goals of care further refined with Dr Batista's help. Based on my discussion with him today my impression is that he wishes to continue routine care, be readmitted to the hospital with recurrent illness, etc. His mentioned that before this admission they were to meet with hospice at home but I am uncertain if he wants to re-visit that idea. I did speak with Dr Carrasquillo at time of admission and alerted him of Mr Muse's admission. Pt and his family have not made any decision regarding palliative care. (7) Hypotension: Plan: He has baseline BPs in the 90-100 range due to his cirrhosis but BPs have been worse in the last 24-48 hours. He remains on midodrine 20mg TID. Holding his flomax. (8) Cirrhosis: Plan: Advanced. 2nd HOFFMAN? Recurrent, severe ascites. s/p paracentesis this admission - 5 L removed w/o incident; albumin IV given right after. He is needing paracentesis at this point about 1x/week. Cell counts not c/w SBP. Culture remains neg. During previous admission Jun ROME saw him in consult. TIPS was ruled out as viable option to treat his recurrent ascites. [place] not to be a candidate for a palliative pleurX catheter either. Plan was for weekly outpatient albumin IV and paracentesis. Appreciate GI consultation this admission. I am concerned by the dropping platelets. This may be indicative of worsening liver function. Last INR 1.7. Cont to trend INR/LFTs/etc. POOR PROGNOSIS given his refractory ascites. (9) Abdominal ascites: Plan: 2nd to HOFFMAN cirrhosis. s/p paracentesis 08/20/20 - 5 L removed. cell counts not c/w SBP. culture remains negative. paracentesis entry site on abd wall sutured 08/22 due to persistent leaking. Remove suture about 08/31 or 09/01. 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 it was stopped during prior admission because of concern of upper GI bleeding. he also has persistent low platelets (<50). poor candidate to resume the xarelto. (11) BPH (benign prostatic hyperplasia): Plan: Cont finasteride. Holding flomax. No signs of obstruction on CT a/p. (12) GERD (gastroesophageal reflux disease): Plan: Cont pepcid at reduced daily dose of 20mg due to severe renal failure. Cont PPI twice daily. (13) Thrombocytopenia: Plan: 2nd to cirrhosis - likely primary culprit ?COVID infection + LLL pneumonia (whether viral vs bacterial) also can cause some bone marrow suppression checked b12/folate levels - both wnl I counseled him and his that with any future paracentesis, if platelets are low, he will need platelet infusion during the procedure repeat cbc am (14) Anemia: Plan: H/H had trended down mid-week, then over last 1-2 days have settled in the 9s. repeat CBC in am for stability. Plan: I discussed Mr Muse's care with Dr Smith from nephrology. When pt's , Christy, arrived on the 2nd floor I went to meet her outside pt's room. Went over events of the day (patient feeling poorly, nausea, etc). Discussed with her the weaning of albumin/octreotide and that within the next 2- 3 days we will have a good sense if creatinine will continue to slowly improve or get worse. I am not clear why he is feeling poorly today (brewing UTI? simply the liver & kidney issues themselves? other?) check a u/a for completeness sake. Strongly consider palliative consultation. Although his main goal is spending time with his and grandchildren at home, he remains at high risk of readmission, which would interfere with his personal goals. Admission and Anticipated Discharge Date Admission Date: August 18, 2021 Subjective starting last pm and extending into today he has had nausea and poor appetite he did not sleep well last night either energy is not as good as today he continues to feel cold but no fever/rigors denies dyspnea denies cp denies abd pain continues with mild diarrhea he asks about when he can go home, if he can get IV albumin at home, etc we had a brief discussion about recurrent hospitalization i asked him that if he went home and needed to be re-hospitalized would he desire such he said yes, stating "I don't want to go home to just ." of note - previous paracentesis entry site that I sutured yesterday remains intact and not leaking Review of Systems Review of Systems: gen - fatigue, loss of appetite today, no fevers cv - no chest pain, no orthopnea pulm - no significant cough GI - bloating, but unchanged from yesterday; no vomiting - just nausea Physical Exam Physical Exam: gen - resting in bed; looks tired today; doesn't look as good today as yesterday mouth - MM mildly dry heart - RRR, s1 s2, no murmur lungs - minimal L basilar rales with decreased breath sounds; no wheeze abd - distended 2nd ongoing ascites - similar to yesterday, maybe modestly worse; BS+; nontender ext - SEVERE edema - 3-4+ edema entire L leg, 2-3+ edema R leg; pulses 2+ b/l psych - oriented x 3 neuro - no asterixis today skin - paracentesis site LLQ covered with optifoam clean, not leaking Results & Data Results & Data ([facility]) Vital Signs (Past 12 Hours) Vital Signs Temp Pulse Pulse Resp BP BP Pulse Ox 08/23/21 14:20 56 L 08/23/21 11:43 36.4 C L 57 L 18 96/53 L 97 08/23/21 07:46 36.4 C L 62 18 84/50 L 95 08/23/21 06:20 57 L Laboratory Results Laboratory Results - last 24 hr 08/23/21 08/23/21 05:38 05:38 WBC 6.26 RBC 2.80 L Hgb 9.3 L Hct 26.9 L MCV 96.1 MCH 33.2 MCHC 34.6 RDW Std Deviation 60.9 H RDW Coeff of Macario 17.5 H Plt Count 43 L MPV 10.7 H Sodium 137 Potassium 3.6 Chloride 108 H Carbon Dioxide 19 L Anion Gap 10 BUN 69 H Creatinine 4.61 H* Est Cr Clr Drug Dosing 17.9 Est GFR ( Amer) 14.4 Est GFR (Non-Af Amer) 12.4 BUN/Creatinine Ratio 15.0 Glucose 99 Calcium 8.5 PG Care Time/CCT Total # of Minutes Spent Total Time Spent with Patient: Total time spent is greater than 50% in coordination of care (as documented) at patient's floor/unit and/or counseling patient: Coding Level of Care Code 69034 Subseq Hosp Care Lvl 3 Diagnoses Acute kidney injury N17.9 Hepatorenal syndrome K76.7 LLL pneumonia J18.9 COVID-19 U07.1 C. difficile enteritis A04.72 Hypotension I95.9 Hypotension type: unspecified hypotension type Cirrhosis K74.60 Abdominal ascites R18.8 Ascites type: other type Mesenteric vein thrombosis K55.069 BPH (benign prostatic hyperplasia) N40.0 GERD (gastroesophageal reflux disease) K21.9 Esophageal cancer C15.9 Malignant neoplasm of esophagus location: unspecified location Thrombocytopenia D69.6 Anemia D64.9 (1) Hypotension Hypotension type: unspecified hypotension type Qualified Code(s): I95.9 - Hypotension, unspecified (2) Abdominal ascites Ascites type: other type Qualified Code(s): R18.8 - Other ascites (3) Esophageal cancer Malignant neoplasm of esophagus location: unspecified location Qualified Code(s): C15.9 - Malignant neoplasm of esophagus, unspecified
[2021-08-23 21:48] LABS: Appearance Urine Clear (Clear); Bacteria Urine Automated Negative (Negative); Bilirubin Urine Negative (Negative); Blood Urine Negative (Negative); Color Urine Dark Yellow; Glucose Urine UA Negative (Negative); Ketones Urine Trace (Negative); Leukocyte Esterase Urine 1+ (Negative); Nitrite Urine Negative (Negative); Protein Urine Trace (Negative); RBC Urine Automated 0-4 /hpf (0-4); Specific Gravity Urine 1.017 (1.000-1.030); Urobilinogen Urine Negative (Negative)
[2021-08-23] MEDS: DUTASTERIDE 0.5 MG PO SCH (22:20)
[2021-08-24] MEDS: VANCOMYCIN HCL 125 MG/2.5ML SOLN PO SCH ×4 (06:08→23:41)
[2021-08-24] MEDS: RASPBERRY SYRUP 5 ML UDP PO SCH ×4 (06:08→23:41)
[2021-08-24] MEDS: CEFEPIME 1,000 MG in SYRINGE 0 ML IV SCH ×2 (06:18→18:06)
[2021-08-24 06:21] LABS: Hematocrit (blood only) 26.5 % (42-52); Hemoglobin 9.2 g/dL (14.0-18.0); Mean Corpuscular Hemoglobin 33.6 pg (25-34); Mean Corpuscular Hgb Conc 34.7 g/dL (32-36); Mean Corpuscular Volume 96.7 fL (80-100); RDW Coefficient of Variation 17.8 % (11.5-14.5); RDW Standard Deviation 61.9 fL (36.4-46.3); Red Blood Count 2.74 M/uL (4.7-6.1); White Blood Count 7.47 K/uL (4.8-10.8)
[2021-08-24 06:23] LABS: Mean Platelet Volume 10.5 fL (7.4-10.4); Platelet Count 40 K/uL (130-400)
[2021-08-24] MEDS: OCTREOTIDE ACETATE 500 MCG in DEXTROSE 5% 100 ML IV SCH (06:25)
[2021-08-24 06:34] LABS: INR 1.8 (0.9-1.1); Prothrombin Time 18.6 Seconds (9.0-12.0)
[2021-08-24 06:38] LABS: Albumin Globulin Ratio 2.1 (0.9-2); Albumin Level 3.4 gm/dl (3.4-5.0); BUN Creatinine Ratio 16.9 (10-20); Bilirubin,Total 1.7 mg/dl (0.2-1.0); Calcium 8.5 mg/dl (8.5-10.1); Creatinine Clr Calc Pharmacy 19.2 ml/min; Est GFR (African American) 15.6 ml/min; Est GFR (Non-African American) 13.4 ml/min; Globulin 1.6 gm/dl (2.5-4.0); Potassium 3.9 mmol/L (3.5-5.1)
[2021-08-24 06:44] LABS: Basophils # (auto) 0.04 K/uL (0-0.2); Basophils % (auto) 0.5 %; Eosinophils # (auto) 0.17 K/uL (0-0.5); Eosinophils % (auto) 2.3 %; Immature Granulocytes # (auto) 0.02 K/uL (0.00-0.02); Immature Granulocytes % (auto) 0.3 %; Lymphocytes % (auto) 6.7 %; Monocytes # (auto) 0.47 K/uL (0.11-0.59); Monocytes % (auto) 6.3 %; Neutrophils # (auto) 6.27 K/uL (1.4-6.5); Neutrophils % (auto) 83.9 %
[2021-08-24] MEDS: FAMOTIDINE 20 MG in SYRINGE 3 ML IV SCH (08:20)
[2021-08-24] MEDS: MIDODRINE HCL 10 MG TAB PO SCH ×3 (08:22→18:06)
[2021-08-24] MEDS: PANTOprazole 40 MG TAB PO SCH ×2 (08:22→21:15)
[2021-08-24] MEDS: POTASSIUM CHLORIDE CRTAB 20 MEQ TABCR PO SCH (08:23)
[2021-08-24] MEDS: ADVANCED PROBIOTIC 1250 MG CAPSULE PO SCH (08:23)
[2021-08-24] MEDS: buPROPion XL 150 MG TABCR PO SCH (08:23)
[2021-08-24] MEDS: COLESTIPOL HCL 1 GM TAB PO SCH (09:59)
[2021-08-24] MEDS: PROCHLORPERAZINE 5 MG in SYRINGE 4 ML IV PRN (10:20)
--- NOTE | 2021-08-24 10:52 | Nephrology Progress Note ---
Date of Service August 24, 2021 Assessment & Plan (1) Acute kidney injury: Plan: -- Baseline creatinine 1.7 mg/dL -- Creatinine continues gradual downward trend -- IV albumin weaned off yesterday -- Octreotide gtt DC'd this AM -- Clinical presentation consistent with prerenal ADELSO associated with poor oral intake and HRS -- Electrolytes acceptable -- Medications appropriately dosed for kidney dysfunction -- Prognosis is poor, Everardo acknowledged this during our conversation -- His goal is to have as much quality time at home as possible but he also relates that he is not ready to go home and (2) Hepatorenal syndrome: Plan: -- IV albumin weaned off -- Stop octreotide gtt this AM -- Continue Midodrine 20 mg TID (3) Anemia: Plan: -- Epogen 99851 units x 1 dose on 08/19/2021 (4) Ascites: Plan: -- 5 L removed with paracentesis on 08/19. -- No evidence of SBP Admission and Anticipated Discharge Date Admission Date: August 18, 2021 Subjective No acute events overnight. Everardo told me this AM that "this is the best I've felt in a long time." Lower extremity edema has improved some with keeping his feet elevated. He has not been out of bed today. Appetite fair. Loose bowel movement. Abdomen remains distended but not notably uncomfortable. No fevers or chills. He is hoping a paracentesis can be coordinated as an inpatient tomorrow. Review of Systems Review of Systems: All systems reviewed & are unremarkable except as noted in HPI & below Physical Exam Constitutional: + frail appearing; no acute distress ENMT: Mouth: + dry oral mucous membranes Neck: normal visual inspection and trachea midline Respiratory: normal respiratory effort Auscultation: lungs clear to auscultation bilaterally and + diminished lung sounds Cardiovascular: Rate/Rhythm: regular rhythm Heart Sounds: normal S1 and normal S2 Extremities: + edema (L>R 3-4+ to below the knee) Gastrointestinal (Abdomen): Inspection/Auscultation: + abdomen distended Percussion/Palpation: + ascites; abdomen nontender Musculoskeletal: Extremities: no cyanosis and no clubbing Skin: + turgor decreased; no jaundice Neurologic: Motor/Sensory: no tremor and no asterixis Results & Data ([facility]) Vital Signs (Past 12 Hours) Vital Signs Temp Pulse Pulse Pulse Resp BP Pulse Ox 08/24/21 08:00 36.7 C 62 18 87/55 L 96 08/24/21 03:17 36.7 C 66 16 83/49 L 94 08/24/21 00:30 56 L 08/23/21 23:17 36.7 C 67 18 97 Laboratory Results Laboratory Results - last 24 hr 08/23/21 08/24/21 08/24/21 21:23 05:50 05:50 WBC 7.47 RBC 2.74 L Hgb 9.2 L Hct 26.5 L MCV 96.7 MCH 33.6 MCHC 34.7 RDW Std Deviation 61.9 H RDW Coeff of Macario 17.8 H Plt Count 40 L MPV 10.5 H Immature Gran % (Auto) 0.3 Neut % (Auto) 83.9 Lymph % (Auto) 6.7 [place] % (Auto) 6.3 Eos % (Auto) 2.3 Baso % (Auto) 0.5 Neut # (Auto) 6.27 Lymph # (Auto) 0.50 L [place] # (Auto) 0.47 Eos # (Auto) 0.17 Baso # (Auto) 0.04 Immature Gran # (Auto) 0.02 PT 18.6 H INR 1.8 H Sodium Potassium Chloride Carbon Dioxide Anion Gap BUN Creatinine Est Cr Clr Drug Dosing Est GFR ( Amer) Est GFR (Non-Af Amer) BUN/Creatinine Ratio Glucose Calcium Total Bilirubin AST ALT Alkaline Phosphatase Total Protein Albumin Globulin Albumin/Globulin Ratio Urine Color Dark Yellow Urine Appearance Clear Urine pH 5.0 Ur Specific [place] 1.017 Urine Protein Trace H Urine Glucose (UA) Negative Urine Ketones Trace H Urine Blood Negative Urine Nitrite Negative Urine Bilirubin Negative Urine Urobilinogen Negative Ur Leukocyte Esterase 1+ H Urine WBC (Auto) 10-30 H Urine RBC (Auto) 0-4 U Hyaline Cast (Auto) 1-5 U Epithel Cells (Auto) 10-20 H Urine Bacteria (Auto) Negative Granular Casts 1-5 H Urine Yeast Not Reportable 08/24/21 05:50 WBC RBC Hgb Hct MCV MCH MCHC RDW Std Deviation RDW Coeff of Macario Plt Count MPV Immature Gran % (Auto) Neut % (Auto) Lymph % (Auto) [place] % (Auto) Eos % (Auto) Baso % (Auto) Neut # (Auto) Lymph # (Auto) [place] # (Auto) Eos # (Auto) Baso # (Auto) Immature Gran # (Auto) PT INR Sodium 137 Potassium 3.9 Chloride 110 H Carbon Dioxide 19 L Anion Gap 8 BUN 73 H Creatinine 4.31 H D Est Cr Clr Drug Dosing 19.2 Est GFR ( Amer) 15.6 Est GFR (Non-Af Amer) 13.4 BUN/Creatinine Ratio 16.9 Glucose 107 H Calcium 8.5 Total Bilirubin 1.7 H AST 8 L ALT 4 L Alkaline Phosphatase 40 Total Protein 5.0 L Albumin 3.4 Globulin 1.6 L Albumin/Globulin Ratio 2.1 H Urine Color Urine Appearance Urine pH Ur Specific [place] Urine Protein Urine Glucose (UA) Urine Ketones Urine Blood Urine Nitrite Urine Bilirubin Urine Urobilinogen Ur Leukocyte Esterase Urine WBC (Auto) Urine RBC (Auto) U Hyaline Cast (Auto) U Epithel Cells (Auto) Urine Bacteria (Auto) Granular Casts Urine Yeast PG Care Time/CCT Total # of Minutes Spent Total Time Spent with Patient: Total time spent is greater than 50% in coordination of care (as documented) at patient's floor/unit and/or counseling patient: Coding Level of Care Code 37308 Subseq Hosp Care Lvl 3 Diagnoses Acute kidney injury N17.9 Hepatorenal syndrome K76.7 Anemia D64.9 Ascites R18.8 Ascites type: other type (1) Ascites Ascites type: other type Qualified Code(s): R18.8 - Other ascites
--- NOTE | 2021-08-24 13:53 | Hospitalist Progress Note ---
Date of Service August 24, 2021 Assessment & Plan (1) Acute kidney injury: Plan: Multifactorial, but hepatorenal syndrome most likely factor. Appreciate nephrology consultation. Creatinine improved to 4.3. Continue to monitor intake and output. Serial lab studies. No evidence of obstruction on CT a/p. Cont midodrine 20mg TID. (2) Hepatorenal syndrome: Plan: Dx during previous admission . Treated with IV albumin and octreotide drip. Cont midodrine TID. (3) LLL pneumonia: Plan: Clinically and radiographically, but improved and stable. Procal was elevated, and given his recent admission, we covered for gram negative etiologies. Treated with cefepime and doxycycline, day 7 of 7. (4) COVID-19: Plan: Patient apparently tested positive through the [employer] system in early July. Did receive monoclonal antibodies. He had 1-2 days of symptoms at most per his . On August 05 during his prior stay his COVID testing was negative. He is now positive again at time of this admission. He does indeed have symptoms of COVID - fatigue, chills, cough, pneumonia on imaging, etc. There are a few possibilities for the COVID + test this admission -- 1. this could represent old, inactivated virus from the illness in early July; this theory would assume his August 05 COVID test was falsely negative 2. he has recurrent COVID infection, but would be unusual given he is 6 weeks out from the previous illness in early July, but [id number] it is possible given his severely immunocompromised health status Since he has had pneumonia and numerous COVID symptoms he was placed in isolation/COVID precautions. Continue to defer on systemic steroids due to no hypoxia and clinical stability. (5) C. difficile enteritis: Plan: Dx 08/05/21. He finished his previous 10 day course of PO vanco after his previous discharge. Upon re-admission his diarrhea was persistent. Given his immunocompromised status and his need for IV antibiotics, oral vanco was restarted on admission. Continue lactinex. Added colestipol 1gm daily for loose stools . (6) Esophageal cancer: Plan: Follows with Dr Keith Carrasquillo, [facility]. Initial dx December 2020. Patient has an esophageal stent in place. CT confirms proper location. He was previously taking Opdivo and was on FOLFOX regimen. He has not been on therapies of late because of the severity of his cirrhosis and the associated complications. Palliative care and goals of care discussions were held during the prior admission but Mr Srinivasa Sanz wished to continue routine care with the hopes of gaining more time to spend with his grandsons. (7) Hypotension: Plan: He has baseline BPs in the 90-100 range due to his cirrhosis but BPs have been lower than usual the past few days. He remains on midodrine 20mg TID. Holding his flomax. (8) Cirrhosis: Plan: Advanced. 2nd HOFFMAN? Recurrent, severe ascites. s/p paracentesis this on 08/20 - 5 L removed w/o incident; albumin IV given right after. He is needing paracentesis at this point about 1x/week. Cell counts not c/w SBP. Culture remains neg. During previous admission Jun R[place] saw him in consult. TIPS was ruled out as viable option to treat his recurrent ascites. [place] not to be a candidate for a palliative pleurX catheter either. Plan was for weekly outpatient albumin IV and paracentesis. Appreciate GI consultation . (9) Abdominal ascites: Plan: 2nd to HOFFMAN cirrhosis. s/p paracentesis 08/20/20 - 5 L removed. No SBP. Culture remains negative. Paracentesis entry site on abd wall sutured 08/22 due to persistent leaking. Will remove suture on 08/31 or 09/01. 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 It was stopped during prior admission because of concern of upper GI bleeding. He also has persistent low platelets (<50). (11) BPH (benign prostatic hyperplasia): Plan: Cont finasteride. Holding flomax due to low BP. No signs of obstruction on CT a/p. (12) GERD (gastroesophageal reflux disease): Plan: Cont pepcid at reduced daily dose of 20mg due to severe renal failure. Cont PPI twice daily. (13) Thrombocytopenia: Plan: 2nd to cirrhosis - likely primary culprit. ?COVID infection + LLL pneumonia (whether viral vs bacterial) also can cause some bone marrow suppression checked b12/folate levels - both wnl . Serial labs (14) Anemia: Plan: H/H had trended down mid-week, then over last 1-2 days have settled in the 9s. Serial labs. Plan: Dispo: eventual discharge to home. Hopefully tomorrow, 08/25 Admission and Anticipated Discharge Date Admission Date: August 18, 2021 Subjective Alert and oriented. No complaints. Nephrology entry noted. Octreotide drip has been stopped today, August 24. Blood pressure is running on the low side but the patient is asymptomatic. Physical therapy evaluation noted. Hemoglobin 9.2 today and appears stable. Platelet count has drifted down to 40,000. Crea tinine improved to 4.3. Flomax has been discontinued. Today is his last day of cefepime and doxycycline. He remains on oral vancomycin. Hopefully he can go home tomorrow, August 25 he may require another paracentesis before discharge. Review of Systems Review of Systems: Constitutional-no fever or chills ENT-no blurred vision, no double vision, no epistaxis, no sore throat Respiratory-no cough, no wheezing, no shortness of breath Cardiac-no palpitations, no chest pain, no syncope GI-no nausea, vomiting, diarrhea, melena, hematochezia -no urinary retention, no urinary incontinence, no dysuria, no hematuria Musculoskeletal-no joint pain, no muscle tenderness. Generalized weakness from deconditioning Skin-no bruising, no rashes, no pruritus Neuro-no isolated weakness, no paresthesia, no weakness Psych-no depression, no anxiety Physical Exam 2 Physical Exam: General-alert and oriented x3, no fevers, no chills HEENT-head atraumatic and normocephalic, TMs intact bilaterally, pupils equal and reactive to light, extraocular muscles intact Neck-no lymphadenopathy or thyromegaly, trachea midline Chest-clear to auscultation percussion. No rales wheezing or rhonchi Cardiac-regular rate and rhythm, normal S1 and S2, no murmurs Abdomen-normal bowel sounds, nontender, no hepatosplenomegaly. Mildly distended from ascitic fluid Extremities-no cyanosis, clubbing, or edema Neuro-cranial nerves II through XII intact, motor and sensory function within normal limits, strength symmetrical , no focal deficits Psych-normal affect, normal mood Results & Data Results & Data ([facility]) Vital Signs (Past 12 Hours) Vital Signs Temp Pulse Pulse Resp BP BP Pulse Ox 08/24/21 12:00 36.6 C 18 88/54 L 94 08/24/21 08:00 36.7 C 62 18 87/55 L 96 08/24/21 03:17 36.7 C 66 16 83/49 L 94 Laboratory Results 08/24/21 05:50 08/24/21 05:50 PG Care Time/CCT Total # of Minutes Spent Total Time Spent with Patient: Total time spent is greater than 50% in coordination of care (as documented) at patient's floor/unit and/or counseling patient: Coding Level of Care Code 34847 Subseq Hosp Care Lvl 3 Diagnoses Acute kidney injury N17.9 Hepatorenal syndrome K76.7 LLL pneumonia J18.9 COVID-19 U07.1 C. difficile enteritis A04.72 Esophageal cancer C15.9 Malignant neoplasm of esophagus location: unspecified location Hypotension I95.9 Hypotension type: unspecified hypotension type Cirrhosis K74.60 Abdominal ascites R18.8 Ascites type: other type Mesenteric vein thrombosis K55.069 BPH (benign prostatic hyperplasia) N40.0 GERD (gastroesophageal reflux disease) K21.9 Thrombocytopenia D69.6 Anemia D64.9 (1) Esophageal cancer Malignant neoplasm of esophagus location: unspecified location Qualified Code(s): C15.9 - Malignant neoplasm of esophagus, unspecified (2) Hypotension Hypotension type: unspecified hypotension type Qualified Code(s): I95.9 - Hypotension, unspecified (3) Abdominal ascites Ascites type: other type Qualified Code(s): R18.8 - Other ascites
[2021-08-24] MEDS: HYDROmorphone INJ 0.5 MG/0.5 ML SYR IV PRN (14:46)
[2021-08-24] MEDS: DUTASTERIDE 0.5 MG PO SCH (21:15)
[2021-08-25] MEDS: CEFEPIME 1,000 MG in SYRINGE 0 ML IV SCH (06:28)
[2021-08-25] MEDS: VANCOMYCIN HCL 125 MG/2.5ML SOLN PO SCH (06:28)
[2021-08-25] MEDS: RASPBERRY SYRUP 5 ML UDP PO SCH (06:28)
[2021-08-25 06:52] LABS: Hematocrit (blood only) 27.1 % (42-52); Hemoglobin 9.4 g/dL (14.0-18.0); Mean Corpuscular Hgb Conc 34.7 g/dL (32-36); Mean Corpuscular Volume 95.1 fL (80-100); RDW Coefficient of Variation 17.8 % (11.5-14.5); RDW Standard Deviation 61.2 fL (36.4-46.3); Red Blood Count 2.85 M/uL (4.7-6.1); White Blood Count 7.66 K/uL (4.8-10.8)
[2021-08-25 07:11] LABS: Basophils # (auto) 0.05 K/uL (0-0.2); Basophils % (auto) 0.7 %; Eosinophils # (auto) 0.19 K/uL (0-0.5); Eosinophils % (auto) 2.5 %; Immature Granulocytes # (auto) 0.01 K/uL (0.00-0.02); Immature Granulocytes % (auto) 0.1 %; Lymphocytes # (auto) 0.51 K/uL (1.2-3.4); Lymphocytes % (auto) 6.7 %; Mean Platelet Volume 11.3 fL (7.4-10.4); Monocytes # (auto) 0.52 K/uL (0.11-0.59); Monocytes % (auto) 6.8 %; Neutrophils # (auto) 6.38 K/uL (1.4-6.5); Neutrophils % (auto) 83.2 %; Platelet Count 42 K/uL (130-400)
[2021-08-25 07:12] LABS: BUN Creatinine Ratio 16.2 (10-20); Calcium 8.7 mg/dl (8.5-10.1); Creatinine Clr Calc Pharmacy 18.5 ml/min; Est GFR (African American) 14.8 ml/min; Est GFR (Non-African American) 12.8 ml/min; Potassium 4.2 mmol/L (3.5-5.1)
[2021-08-25] MEDS: MIDODRINE HCL 10 MG TAB PO SCH (08:39)
[2021-08-25] MEDS: PANTOprazole 40 MG TAB PO SCH (08:39)
[2021-08-25] MEDS: buPROPion XL 150 MG TABCR PO SCH (08:39)
[2021-08-25] MEDS: ADVANCED PROBIOTIC 1250 MG CAPSULE PO SCH (08:40)
[2021-08-25] MEDS: POTASSIUM CHLORIDE CRTAB 20 MEQ TABCR PO SCH (08:40)
[2021-08-25] MEDS: FAMOTIDINE 20 MG in SYRINGE 3 ML IV SCH (09:05)
[2021-08-25] MEDS: COLESTIPOL HCL 1 GM TAB PO SCH (10:15)
--- NOTE | 2021-08-25 10:38 | Discharge Summary ---
Date of Service August 25, 2021 Admission HPI Per Admitting Provider 66yo male with end-stage liver disease/cirrhosis with recurrent ascites and known esophageal cancer - recent admission for acute renal failure thought to be 2nd to HRS (08/03 to 08/11) - presents from home with his due to severe fatigue since his hospital discharge, cough at night-time, severe shortness of breath with minimal activity, worsening abdominal distension 2nd to ascites, inability to eat/drink because of the distension (with some anorexia as well), 1-2 episodes of diarrhea each day, feeling very cold, and simply feeling unwell. Presented today for outpatient paracentesis and had pre-procedure blood work showing Cr >6. Was referred to ER due to such. In the ER he complained multiple times of feeling cold. He complains of his abdominal ascites and being uncomfortable. at bedside. Patient received J & J vaccine x 2 in the last year. However, COVID test today returned +. Of note - patient was COVID positive in early Jul 2021 and received monoclonal antibodies at that time. His reports that his COVID test was done at [facility] in [place] in early July. Was sick x 1-2 days then symptoms resolved. COVID testing on August 05 during his previous admission was negative, however. Principal Diagnosis suspected hepatorenal syndrome, LLL pneumonia, thrombocytopenia Discharge Exam General-alert and oriented x3, no fevers, no chills HEENT-head atraumatic and normocephalic, TMs intact bilaterally, pupils equal and reactive to light, extraocular muscles intact Neck-no lymphadenopathy or thyromegaly, trachea midline Chest-clear to auscultation percussion. No rales wheezing or rhonchi Cardiac-regular rate and rhythm, normal S1 and S2, no murmurs Abdomen-moderately distended with ascites. No palpable masses. No rebound or guarding Extremities-no cyanosis, clubbing, or edema Neuro-cranial nerves II through XII intact, motor and sensory function within normal limits, strength symmetrical , no focal deficits Psych-normal affect, normal mood Discharge Data Allergies Allergy/AdvReac Type Severity Reaction Status Date / Time No Known Allergies Allergy Verified 08/18/21 12:15 Consultations 08/18/21 12:42 ED Decision to Admit Stat 08/18/21 16:28 Consult Gastroenterology Routine Consult Nephrology Routine 08/25/21 10:33 Consult Gastroenterology Routine Procedures Performed Paracentesis done August 20 and again August 25 prior to discharge Ordered Studies 08/18/21 11:09 CT abd pelvis wo con Stat 08/18/21 13:32 US venous doppler LE LT Routine Hospital Course (1) Acute kidney injury: Multifactorial, but hepatorenal syndrome most likely factor. Appreciate nephrology consultation. Creatinine improved and stable but remains elevated. Continue to monitor intake and output. Serial lab studies. No evidence of obstruction on CT a/p. Cont midodrine 20mg TID. (2) Hepatorenal syndrome: Dx during previous admission . Treated with IV albumin and octreotide drip. Cont midodrine TID. Nephrology consultation and recommendations appreciated. Creatinine is slightly higher today at 4.5. The patient is adamant about going home today. We will try to arrange paracentesis before discharge. He is considering hospice as an outpatient. (3) LLL pneumonia: Clinically and radiographically, but improved and stable. Procal was elevated, and given his recent admission, we covered for gram negative etiologies. Treated with cefepime and doxycycline, day 7 of 7. (4) COVID-19: Patient apparently tested positive through the [facility] system in early July. Did receive monoclonal antibodies. He had 1-2 days of symptoms at most per his . On August 05 during his prior stay his COVID testing was negative. He is now positive again at time of this admission. He does indeed have symptoms of COVID - fatigue, chills, cough, pneumonia on imaging, etc. There are a few possibilities for the COVID + test this admission -- 1. this could represent old, inactivated virus from the illness in early July; this theory would assume his August 05 COVID test was falsely negative 2. he has recurrent COVID infection, but would be unusual given he is 6 weeks out from the previous illness in early July, but [id number] it is possible given his severely immunocompromised health status Since he has had pneumonia and numerous COVID symptoms he was placed in isolation/COVID precautions. Continue to defer on systemic steroids due to no hypoxia and clinical stability. (5) C. difficile enteritis: Dx 08/05/21. He finished his previous 10 day course of PO vanco after his previous discharge. Upon re-admission his diarrhea was persistent. Given his immunocompromised status and his need for IV antibiotics, oral vanco was restarted on admission. Will taper off at discharge (6) Esophageal cancer: Follows with Dr Keith Carrasquillo, [facility]. Initial dx December 2020. Patient has an esophageal stent in place. CT confirms proper location. He was previously taking Opdivo and was on FOLFOX regimen. He has not been on therapies of late because of the severity of his cirrhosis and the associated complications. Palliative care and goals of care discussions were held during the prior admission but Mr Srinivasa Sanz wished to continue routine care with the hopes of gaining more time to spend with his grandsons. (7) Hypotension: He has baseline BPs in the 90-100 range due to his cirrhosis but BPs have been lower than usual the past few days. He remains on midodrine 20mg TID. Holding his flomax. (8) Cirrhosis: Advanced. 2nd HOFFMAN? Recurrent, severe ascites. s/p paracentesis this on 08/20 - 5 L removed w/o incident; albumin IV given right after. He is needing paracentesis about 1x/week. Cell counts not c/w SBP. Culture remains neg. During previous admission [facility] saw him in consult. TIPS was ruled out as viable option to treat his recurrent ascites. [place] not to be a candidate for a palliative pleurX catheter either. Plan was for weekly outpatient albumin IV and paracentesis. Appreciate GI consultation . We will try to get paracentesis done again today, 08/25, before discharge (9) Abdominal ascites: 2nd to HOFFMAN cirrhosis. s/p paracentesis 08/20/20 - 5 L removed. No SBP. Culture remains negative. Paracentesis entry site on abd wall sutured 08/22 due to persistent leaking. Will remove suture on 08/31 or 09/01. 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 It was stopped during prior admission because of concern of upper GI bleeding. He also has persistent low platelets (<50). (11) BPH (benign prostatic hyperplasia): Cont finasteride. Holding flomax due to low BP. No signs of obstruction on CT a/p. (12) GERD (gastroesophageal reflux disease): Cont pepcid at reduced daily dose of 20mg due to severe renal failure. Cont PPI twice daily. (13) Thrombocytopenia: 2nd to cirrhosis - likely primary culprit. ?COVID infection + LLL pneumonia (whether viral vs bacterial) also can cause some bone marrow suppression checked b12/folate levels - both wnl . Serial labs (14) Anemia: H/H had trended down mid-week, then over last 1-2 days have settled in the 9s. Serial labs. Dispo: The patient is adamant about going home today, August 25. He is aware of the hospice option as an outpatient. We will try to get paracentesis done again today, August 25, before he leaves Total Time Total Time Spent Total Time Spent (In Minutes): 35 minutes Discharge Plan Discharge Items Patient Disposition: Home - Self-Care Reason For Visit: ACU/CHR KIDNEY FAIL, ENDSTAGE LIVER DISEASE, ESOPH Discharge Diagnosis: Hepatorenal syndrome, thrombocytopenia, left lower lobe pneumonia Condition on Discharge: Fair Activity: Resume your previous activity Non-emergency contact: Primary Care Provider Call non-emergency contact if: you have any medication questions Follow-up/Referrals: Bandar Carrion [Primary Care Provider] - Diet: Regular Addtl Attending Provider Instructions: Xarelto blood thinner has been discontinued due to low platelet count. Flomax has also been discontinued due to low blood pressure Pending Studies at Discharge: No Stand-Alone Forms: My R17, Smoking Cessation Medications and DC Order Prescriptions: New pantoprazole 40 mg Tablet,Delayed Release (Dr/Ec) 40 mg PO BID Qty: 20 RF: 0 midodrine 10 mg Tablet 20 mg PO TID@0800,1200,1700 Qty: 30 RF: 0 vancomycin 125 mg capsule 125 mg PO QID 7 Days Qty: 28 RF: 0 Continued bupropion HCl 150 mg Tablet Extended Release 24 Hr 150 mg PO QAM RF: 0 docusate sodium [Dulcolax Stool Softener (dss)] 100 mg Capsule 100 mg PO DAILY RF: 0 oxycodone 5 mg tablet 5 - 10 mg PO Q6H PRN (Reason: pain) Qty: 40 RF: 0 ondansetron HCl 8 mg tablet 8 mg PO Q8H PRN (Reason: Nausea) 14 Days Qty: 42 RF: 0 ferrous sulfate [iron] 325 mg (65 mg iron) Tablet 325 mg PO DAILY RF: 0 dutasteride 0.5 mg Capsule 0.5 mg PO HS RF: 0 famotidine [Pepcid AC] 20 mg Tablet 40 mg PO HS RF: 0 esomeprazole magnesium [Nexium] 40 mg Capsule,Delayed Release(Dr/Ec) 40 mg PO BID RF: 0 Discontinued midodrine 10 mg Tablet 15 mg PO TID@0800,1200,1700 60 Days Qty: 90 RF: 0 Discharge Orders: Discharge Order (Routine); Ordered 08/25/21 Ordered By: Manav Adams Admission Data Admit Date/Time: 08/18/21 13:32 Attending Provider: Manav Adams Admit Provider: Carlos Dallas Primary Care Provider: Bandar Carrion Other Providers: Carlos Dallas ; Jose Mckeon ; Shayna Oreilly ; Alek Guzman Coding Level of Care Code D/C DAY MANAGEMENT >30 MINS Diagnoses Acute kidney injury N17.9 Hepatorenal syndrome K76.7 LLL pneumonia J18.9 COVID-19 U07.1 C. difficile enteritis A04.72 Esophageal cancer C15.9 Malignant neoplasm of esophagus location: unspecified location Hypotension I95.9 Hypotension type: unspecified hypotension type Cirrhosis K74.60 Abdominal ascites R18.8 Ascites type: other type Mesenteric vein thrombosis K55.069 BPH (benign prostatic hyperplasia) N40.0 GERD (gastroesophageal reflux disease) K21.9 Thrombocytopenia D69.6 Anemia D64.9
--- NOTE | 2021-08-25 12:33 | Nephrology Progress Note ---
Date of Service August 25, 2021 Assessment & Plan (1) Acute kidney injury: Plan: -- Baseline creatinine 1.7 mg/dL -- Unfortunately, creatinine demonstrating discouraging trend after stopping octreotide and albumin infusions -- Clinical presentation consistent with HRS 1 -- Prognosis is very poor -- Goals of care discussed -- Palliative care consultation offered -- Disposition plan discussed with Dr. Adams this AM (2) Hepatorenal syndrome: Plan: -- Continue Midodrine 20 mg TID (3) Anemia: Plan: -- Epogen 80384 units x 1 dose on 08/19/2021 -- Additional 16076 units today (4) Ascites: Plan: -- Planning for repeat paracentesis with IV albumin (at least 50 gm) today Admission and Anticipated Discharge Date Admission Date: August 18, 2021 Subjective No acute events overnight. PT was working with Everardo during my evaluation this AM. Everarod relates that he wants to go home today. He is aware that kidney dysfunction is progressing off of octreotide gtt. He is discouraged but resigned to spending more time with family. I discussed the plan of care with Dr. Adams afterward who informed me that Everardo is planning to go home with hospice. Review of Systems Review of Systems: All systems reviewed & are unremarkable except as noted in HPI & below Physical Exam Constitutional: + frail appearing; no acute distress ENMT: Mouth: + dry oral mucous membranes Neck: normal visual inspection and trachea midline Respiratory: normal respiratory effort Auscultation: lungs clear to auscultation bilaterally and + diminished lung sounds Cardiovascular: Rate/Rhythm: regular rhythm Heart Sounds: normal S1 and normal S2 Extremities: + edema (L>R 3-4+ to below the knee) Gastrointestinal (Abdomen): Inspection/Auscultation: + abdomen distended Percussion/Palpation: + ascites; abdomen nontender Musculoskeletal: Extremities: no cyanosis and no clubbing Skin: + turgor decreased; no jaundice Neurologic: Motor/Sensory: no tremor and no asterixis Results & Data ([facility]) Vital Signs (Past 12 Hours) Vital Signs Temp Pulse Pulse Pulse Resp BP BP 08/25/21 12:00 36.6 C 57 L 20 102/60 102/73 08/25/21 07:15 66 08/25/21 04:14 36.6 C 74 20 102/60 08/25/21 01:56 62 Pulse Ox 08/25/21 12:00 92 08/25/21 07:15 08/25/21 04:14 92 08/25/21 01:56 Laboratory Results Laboratory Results - last 24 hr 08/25/21 08/25/21 06:09 06:09 WBC 7.66 RBC 2.85 L Hgb 9.4 L Hct 27.1 L MCV 95.1 MCH 33.0 MCHC 34.7 RDW Std Deviation 61.2 H RDW Coeff of Macario 17.8 H Plt Count 42 L MPV 11.3 H Immature Gran % (Auto) 0.1 Neut % (Auto) 83.2 Lymph % (Auto) 6.7 [place] % (Auto) 6.8 Eos % (Auto) 2.5 Baso % (Auto) 0.7 Neut # (Auto) 6.38 Lymph # (Auto) 0.51 L [place] # (Auto) 0.52 Eos # (Auto) 0.19 Baso # (Auto) 0.05 Immature Gran # (Auto) 0.01 Sodium 138 Potassium 4.2 Chloride 111 H Carbon Dioxide 18 L Anion Gap 9 BUN 73 H Creatinine 4.50 H Est Cr Clr Drug Dosing 18.5 Est GFR ( Amer) 14.8 Est GFR (Non-Af Amer) 12.8 BUN/Creatinine Ratio 16.2 Glucose 99 Calcium 8.7 PG Care Time/CCT Total # of Minutes Spent Total Time Spent with Patient: Total time spent is greater than 50% in coordination of care (as documented) at patient's floor/unit and/or counseling patient: Coding Level of Care Code 61979 Subseq Hosp Care Lvl 3 Diagnoses Acute kidney injury N17.9 Hepatorenal syndrome K76.7 Anemia D64.9 Ascites R18.8 Ascites type: other type (1) Ascites Ascites type: other type Qualified Code(s): R18.8 - Other ascites
== END 2021-08-25 13:00 | disposition home or self-care (01) | DRG 441 ==
LOC: EDSEX → ED 10:31 → SUATTDRO 13:32 → 2E 13:32